=== PATIENT | female | born 2000 | race Caucasian/White ===

== ENCOUNTER 2018-02-14 12:00 | Outpatient (RCR) | payer OTHER, SELFPAY ==
--- NOTE | 2017-11-20 08:20 | HP.PTEVAL ---
Patient's Visit Information SANAZ PARIKH is a 17 year old F referred to Physical Therapy by DO BETH Keita with a diagnosis of L patella/tibia resection. Date of Evaluation: 11/15/17 Physical Therapist: Sunil Tabor - Visit Plan Frequency: 1x/Week Duration: 4 Weeks Plan: Pt. did very well. Pt. does have L hip and quad weakness. She was able to do all work related tasks simulated this date without issues. Pt. and I agree that she can return to work 11/20. I gave her some LE strengthening exercises to assist with knee stability for HEP. Pt. desires to trial HEP on own and follow up if needed. - Subjective Subjective: Pt. is here today for her initial evaluation s/p L patella/tibial resection. She is a plesant 17 y.o. female who had surgery on 10/25/17. She had her follow up with her physician who reprots from the surgery stand point she is doing well, and is to return to work when ready. Pt. reports surgery went well and she is doing better since. She has not done any exercises prior to today. She reports no longer icing as she does not feel the need. Pt. reports L knee pain with walking, deep squating, and stairs. Pt. reports having pain at 3/10 currently. She denies N/T in either LE. 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 She is hopeful to get back to work without limitations. - Pain L knee Pain Intensity (Out of 10): 3 Pain Intensity Range: 1, 4 - Objective POSTURE: Pt. has normal knee positioning in stance. Pt. has full TKE, no gross valgus or varus positioning noted. Pt. has equal wt. shift between bilateral LEs. PALPATION: Pt. has normal heeling incisions (port holes). Pt. has slight edema, non pitting. Pt. has slight tenderness at anterio/medial aspect of joint line. Pt. reports no pain in popliteal fossa. Homans negative. NEUROLOGICAL: Pt. has normal sesnation to light and sharp touch throughout bilateral LEs. Pt. has 2+ bilateral achilles and patellar DTR. Pt. is able to rise on heels and toes without issues, no significant signs of weakness or imbalance. ROM: R knee 0-0-140deg. L knee 0-0-134deg mild increase NW with end range flexion. Pt. reports popping with flexion (intermittently). Pt. has normal hip ROM. MMT- RLE- ankle 5/5 throughout; knee- ext 5/5, flexion 5/5; hip- flexion 5-/5, abd 5-/5, ext 5-/5. LLE- ankle 5/5 throughout; knee -ext 4+/5; flexion 4/5; hip- flexion 4+/5, and 4/5, ext 4+/5. Core strength- fair-. GAIT: Pt. has decreased stance phase on LLE, she has full TKE during stance phase and proper knee flexion. Pt. does have increased L lateral lean during stance phase. STAIRS: Pt. is able to negotiate with reciprocal pattern with 1 HR, but did have slight functional weakness with descending on LLE. FUNCTIONAL TESTING: Simulated pt. transfer with 50# box, no pain or issues reported- compelted from multiple surfaces. Push/pulling 100# sled mild issues, increase no NW. Ambulation 5000+ feet mild increase NW noted. - Goals Goal 1:: Pt. to be I with HEP. Goal Time Frame: 4-6 Weeks Goal 2:: Pt. to have increased LLE strength by 1/2 grade of all effected musculature reducing stress applied to L knee with all work related activities. Goal Time Frame: 4-6 Weeks Goal 3:: Pt. to negotiate steps without increase in symptoms with 1 HR with reciprocal pattern. Goal Time Frame: 4-6 Weeks Goal 4:: Pt. to walk unlimited distances without increase in symptoms allowing for increased independence in home and community. Goal Time Frame: 4-6 Weeks Goal 5:: Pt. to return to work without reports of increased pain. Goal Time Frame: 4-6 Weeks - Rehabilitation Potential Physical Therapy Diagnosis: Pt. has L quad, hip weakness, increased pain and slight hypombility s/p L tibia/patella resection. Pt. would benefit from PT to increase ROM, strength and progress work strengtheing. Rehabilitation Potential: Excellent - Anticipated Interventions Patient/Client Instruction: Educate patient on: Condition, Plan of Care, Risk Factors, Benefits of Fitness Program For the Purpose of:: To improve decision making, To facilitate caregiver knowledge, To improve self management, To prevent re-injury, To improve ability to perform tasks related to life management, To improve tolerance to ADL's Therapeutic Exercise to Include: Strength training, Power training, Endurance training, Balance training, Coordination, Body mechanics, Flexibilty training, Gait and locomotor training, Passive ROM, Active ROM, Gunnar Exercises For the Purpose of:: To decrease pain, To increase ROM, To improve nutrient delivery to tissue, To increase oxygenation perfusion, To improve muscle performance and motor function, To improve ability to perform ADL's, To increase tolerance to activity/condition/position, To improve gait and locomotor functions, To improve health of tissue, To decrease soft tissue restriction, To increase flexibility/ROM, To improve endurance, To improve balance IF ES: Yes Cryotherapy (ice pack, ice massage): Yes For the Purpose of:: To decrease pain, To decrease swelling/inflammation, To increase ROM Thank you for the opportunity to evaluate your patient. For Medicare and Medicare HMO plans, please review the plan of care and approve it. It will need to be FAXED BACK to us at [phone] for Medicare purposes. Please let me know if there are questions or concerns regarding this plan of care. Physician Signature: Date:
--- NOTE | 2018-02-14 13:00 | HP.PTREVAL_ITS ---
Joan Mcnair, DO, It has been my pleasure to treat SANAZ PARIKH over the last 2 visits for L patella/tibia resection. Please see the progress note below for an update on the physical therapy plan of care! Subjective: Pt. arrives today with new script for VMO strengthening, proprioception training and ER strengthening of hip. Pt. reports increased pain with squating, stairs, prolonged walking upto 2 miles, running. Pt. reports locking like feeling with getting up or sitting down after longer periods. Pt. reports having 0/10 pain currently. Objective/Function: ROM 0-0-134deg No pain. MMT: LLE- ankle 5/5 throughout; knee- ext 4/5 mild icnrease NW, flexion 4+/5 NE; hip- flexion 4+/5, abd 4+/5, ext 5-/5, ER 4/5, IR 4+/5. Core strength- fair-. GAIT: pt. ambulates with normal pattern, slight hip IR with knee valgus positioning during L stance phase. STAIRS: Pt. is able to ascend and descend without HR, pt. does have marked difficulty with descending (functional quad/glute weakness). RUNNING: pt. has increased pain with attempts to run initially and with progress. SQUAT : Pt. has increased knee valgus, R wt. shift, and anterior wt. shifting. Pt. would be able to complete all core strengthening/testing, but may have difficulty with running secondary to increased pain. Pt. presents with marked quad and glute medius weakness, along with hip ER weakness. 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 Plan Plan: Pt. to trial HEP on own and follow up in 1-2 weeks. Pt. ensures me she will be dilligent with strengthening at home. Goals Goal 1:: Pt. to be I with HEP. Goal Time Frame: 4-6 Weeks Goal 2:: Pt. to have increased LLE strength by 1/2 grade of all effected musculature reducing stress applied to L knee with all work related activities. Goal Time Frame: 4-6 Weeks Goal 3:: Pt. to negotiate steps without increase in symptoms with 1 HR with reciprocal pattern. Goal Time Frame: 4-6 Weeks Goal 4:: Pt. to walk unlimited distances without increase in symptoms allowing for increased independence in home and community. Goal Time Frame: 4-6 Weeks Goal 5:: Pt. to return to work without reports of increased pain. Goal Time Frame: 4-6 Weeks Anticipated Interventions Patient/Client Instruction: Educate patient on: Condition, Plan of Care, Risk Factors, Benefits of Fitness Program For the Purpose of:: To improve decision making, To facilitate caregiver knowledge, To improve self management, To prevent re-injury, To improve ability to perform tasks related to life management, To improve tolerance to ADL's Therapeutic Exercise to Include: Strength training, Power training, Endurance training, Balance training, Coordination, Body mechanics, Flexibilty training, Gait and locomotor training, Passive ROM, Active ROM, Gunnar Exercises For the Purpose of:: To decrease pain, To increase ROM, To improve nutrient delivery to tissue, To increase oxygenation perfusion, To improve muscle performance and motor function, To improve ability to perform ADL's, To increase tolerance to activity/condition/position, To improve gait and locomotor functions, To improve health of tissue, To decrease soft tissue restriction, To increase flexibility/ROM, To improve endurance, To improve balance IF ES: Yes Cryotherapy (ice pack, ice massage): Yes For the Purpose of:: To decrease pain, To decrease swelling/inflammation, To increase ROM Please do not hesitate to contact me at [phone] by phone or Fax: if you have questions or concerns regarding this new plan of care! Sincerely, Sunil Tabor
--- NOTE | 2018-05-30 16:32 | HP.PT.NRP ---
HP - Discharge Summary (1) - Patient Information SANAZ PARIKH was seen in my office for initial evaluation on 11/15/17. The following Plan of Care was established for this patient: Initial Frequency: 1x/Week Initial Duration: 4 Weeks - Anticipated Interventions Patient/Client Instruction: Educate patient on: Condition, Plan of Care, Risk Factors, Benefits of Fitness Program For the Purpose of:: To improve decision making, To facilitate caregiver knowledge, To improve self management, To prevent re-injury, To improve ability to perform tasks related to life management, To improve tolerance to ADL's Therapeutic Exercise to Include: Strength training, Power training, Endurance training, Balance training, Coordination, Body mechanics, Flexibilty training, Gait and locomotor training, Passive ROM, Active ROM, Gunnar Exercises For the Purpose of:: To decrease pain, To increase ROM, To improve nutrient delivery to tissue, To increase oxygenation perfusion, To improve muscle performance and motor function, To improve ability to perform ADL's, To increase tolerance to activity/condition/position, To improve gait and locomotor functions, To improve health of tissue, To decrease soft tissue restriction, To increase flexibility/ROM, To improve endurance, To improve balance IF ES: Yes Cryotherapy (ice pack, ice massage): Yes For the Purpose of:: To decrease pain, To decrease swelling/inflammation, To increase ROM This patient was last seen in our office 02/14/18. Pertinent comments regarding their Physical therapy will appear below: Pt. was seen for her initial evaluation and 1 follow for VMO strengthening after arthoscopic surgery. Pt. has not been seen since her last visit. She desired to trial exercises on own and follow up with PT if needed. Pt. has not been seen in ~3 months and will be DC from PT at this point in time. At this point I will be discontinuing this patient from physical therapy. I would be happy to see this patient again in the future if found appropriate by the physician. Thank you! Sunil Tabor
== END 2018-02-14 19:00 | disposition home or self-care (01) ==
LOC: PT 12:00
PROVIDERS: Family Provider Physician Assistant; PCP Physician Assistant; Visit Provider Orthopaedic Surgery
DX: Z98.890 Other specified postprocedural states (principal)
CPT/HCPCS: 97110; 97161; 97164

== ENCOUNTER 2018-04-24 22:00 | Emergency (ER) | payer OTHER, SELFPAY ==
[2018-04-24 22:01] VITALS: BP 128/76; PULSE 93; RESP 14; TEMP 36.9; O2SAT 100; BMI 26.1
--- NOTE | 2018-04-24 23:09 | CT_ITS ---
STUDY: CTA OF THE BRAIN REASON FOR EXAM: Female, 17 years old. Headache, blurred vision and nausea since last night. RADIATION DOSAGE (If Supplied By Facility): CTDIvol = ( 25.90 ) mGy, DLP = ( 1154.79 ) mGycm TECHNIQUE: CT angiography was performed with a multi-detector CT scanner. Data acquisition was obtained from the skull base through the vertex following intravenous administration of 100 ml of Isovue-370. MIP images were reconstructed from the axial data set. Post-processing of the angiographic images was performed, with multiplanar reformation and 3D reconstruction. Individualized dose optimization techniques were used for this CT. COMPARISON: CT brain April 07, 2013. FINDINGS: Normal bilateral petrous carotid arteries. Normal right cavernous carotid artery with a normal supraclinoid bifurcation. Normal left cavernous carotid artery with a normal supraclinoid bifurcation. Normal right A1 segments of the anterior cerebral artery. Normal left A1 segments of the anterior cerebral artery. Normal intact anterior communicating artery (ACOM). Normal bilateral A2 segments of the anterior cerebral arteries. Normal right M1 and M2 segments of the middle cerebral arteries, with a normal M1 bifurcation. Normal left M1 and M2 segments of the middle cerebral arteries, with a normal M1 bifurcation. Normal right posterior communicating artery (PCOM). Normal left posterior communicating artery (PCOM). Normal bilateral vertebral arteries. Normal basilar artery with a normal basilar bifurcation. The visualized bilateral superior cerebellar (SCA) arteries are normal. Normal bilateral P1, P2 and visualized P3 segments of the posterior cerebral arteries. There is no demonstrated aneurysm of the mo[place]gan of [place]i. There is no demonstrated abnormality of the visualized brain. CT/CTA Head W/WO Contrast IMPRESSION: Normal [place] of [place] without a demonstrated aneurysm or hemodynamically significant stenosis. Electronically Signed: Jerrell Sanchez MD at 0:38 EDT , Service support ,
[2018-04-24] MEDS: 0.9% Normal Saline 1,000 ML 999 ML IV (23:32)
[2018-04-24] MEDS: Metoclopramide 10 MG/2 ML Vial IV (23:32)
[2018-04-24] MEDS: DiphenhydrAMINE 50 MG/ML Syringe 25 MG IV (23:32)
[2018-04-24 23:47] LABS: Internal QC Validated? YES +Cl - CLEAR BKGD; Pregnancy, Urine Negative Negative
--- NOTE | 2018-04-24 23:49 | ED.VISSUMM ---
- ER Visit Summary Date of Service: 04/24/18 Chief Complaint: Headache History of Present Illness: The patient is a 17 F who developed a rapid onset of headache. It was gradual. This was not sudden. She had some very transient blurred vision. No fever or chills. No weakness in the arms or legs. The headache is improved. She has no vision changes. She has no nausea or vomiting. Physical Examination: Not appear in acute distress. Moist mucous membranes, no obvious facial deformity No C-spine tenderness supple neck. Regular rate and rhythm without any obvious murmurs Clear lungs bilaterally speaking in full sentences without any obvious respiratory distress Abdomen soft and nontender no guarding or rebound Moves all extremities without any difficulty or pain. Skin does not show any obvious rashes or lesions, no trauma. Alert oriented ?3 with no gross focal deficit Emergency Department Course and Treatment: Because of the rapid onset, a CT and CT angiogram was done. Patient will be given IV fluids as well as analgesics. We will reevaluate her. Pending negative imaging she will be discharged. Oncoming emergency physician will check the CT findings. Impression: Headache This note was generated with [employer] dictation software. It may contain incorrect words, spelling, and punctuation that were not noted in review of the chart prior to signing ED Disposition - Plan for ED Patient: Disposition: Home or Assisted Living Chief Complaint: Headache Instructions: ED Cephalgia Unspecified Referrals: Ramila Mcnamara PA [Primary Care Provider] - 3-5 Days
[2018-04-25 01:19] VITALS: BP 111/60; PULSE 75; RESP 14; O2SAT 97
== END 2018-04-25 01:20 | disposition home or self-care (01) ==
PROVIDERS: Emergency Provider Emergency Medicine; Family Provider Physician Assistant; PCP Physician Assistant
DX: R51 Headache (principal)
CPT/HCPCS: 70496; 81025; 96361; 96374; 96375; 99282; J7030; Q9967; A4216

== ENCOUNTER 2018-08-19 17:37 | Emergency (ER) | payer OTHER, SELFPAY ==
[2018-08-19 17:37] VITALS: BP 133/69; PULSE 91; RESP 18; TEMP 36.6; O2SAT 100; BMI 25.0
--- NOTE | 2018-08-19 17:49 | ED.VISSUMM ---
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 Basically 2 days ago and noticed mild redness to her left side of the face with some discharge. She denies any trauma. No fever. No other complaints. No other rashes. Physical Examination: Well-appearing young female. Vital signs are stable and afebrile. No acute distress. Patient does not look septic or toxic. HEENT exam pupils round reactive light. No preauricular lymphadenopathy. There is about a 1 square inch area to the left cheek that is red. Is no significant discomfort to palpation. There is no pus. There is no fluctuance. No pustules. This appears to be early cellulitis. Neck nontender. No lymphadenopathy. Lungs clear to auscultation bilaterally. Heart regular rhythm no murmur. Abdomen soft nontender. She is moving all 4 extremities. Back is nontender. Neurologically she is awake and alert with no focal motor deficits. Test Results: None Emergency Department Course and Treatment: Patient's facial redness is probably early cellulitis. There is no fluctuance nor anything that needs to be incised and drained at this time. I discussed that with her and her parents at bedside. Treatment Plan: P.o. Keflex and Bactrim x1 here. Bactrim and Keflex 1 weeks prescription for each. Return if worse. Follow-up with her primary care provider Shoaib Mcnamara. Disposition: Discharge Impression: Left facial cellulitis This note was generated with [employer] dictation software. It may contain incorrect words, spelling, and punctuation that were not noted in review of the chart prior to signing ED Disposition - Plan for ED Patient: Chief Complaint: Cellulitis Referrals: Ramila Mcnamara PA [Primary Care Provider] -
--- NOTE | 2018-08-19 17:51 | ED.DEP ---
ED Disposition - Plan for ED Patient: Disposition: Home or Assisted Living Chief Complaint: Cellulitis Instructions: ED Staph Infec Abx Tx Only Prescriptions: Cephalexin [Keflex] 500 mg PO Q6 #28 cap Smz/Tmp Ds [Bactrim Ds] 1 tab PO BID #14 tab Referrals: Ramila Mcnamara PA [Primary Care Provider] - 1 Week if not improving Additional Instructions: Warm compresses to the area. Should start to progressively get better if getting worse follow-up your primary care provider or return to the ER. If any signs of an abscess that needs to be incised and drained. Keflex 1 pill 4 times a day till gone. Bactrim 1 pill twice a day till gone.
[2018-08-19] MEDS: Cephalexin 250 MG Capsule 500 MG PO (18:00)
[2018-08-19] MEDS: Smz/Tmp Ds Tablet 1 TABLET PO (18:00)
--- NOTE | 2018-08-19 18:02 | ED.RN ---
PT AND PARENTS EDUCATED ON WRITTEN AND VERBAL DISCHARGE INSTRUCTIONS AND HOME GOING PRESCRIPTIONS. PT VERBALIZES UNDERSTANDING. AMBULATES OUT OF DEPT WITH PARENTS.
== END 2018-08-19 18:03 | disposition home or self-care (01) ==
PROVIDERS: Emergency Provider Emergency Medicine; Family Provider Physician Assistant; PCP Physician Assistant
DX: L03.211 Cellulitis of face (principal); Z86.14 Personal history of Methicillin resistant Staphylococcus aureus infection; Z72.0 Tobacco use
CPT/HCPCS: 99283

== ENCOUNTER 2018-10-27 03:02 | Emergency (ER) | payer OTHER, SELFPAY ==
[2018-10-27 03:03] VITALS: BP 131/66; PULSE 89; RESP 20; TEMP 37.3; O2SAT 100; BMI 26.4
[2018-10-27] MEDS: 0.9% Normal Saline 1,000 ML 1000 ML IV (03:29)
[2018-10-27] MEDS: Ondansetron 4 MG/2 ML Vial IV (03:29)
[2018-10-27] MEDS: Ketorolac 30 MG/ML Syringe IV (03:30)
[2018-10-27 03:31] LABS: Mucous, Urine 0 SEEN /hpf (<or=2+); Red Blood Cells-Urine 0 SEEN /hpf (0-5)
[2018-10-27 03:32] LABS: Absolute Lymphocyte Count 2.37 X10^3/ul (0.83-4.51); Absolute Neutrophil Count 7.2 X10^3/uL (2.0-7.7); Basophil# 0.04 X10^3/uL; Basophil% 0.4 % (0-1); Eosinophil# 0.13 X10^3/uL; Eosinophils% 1.2 % (0-5); Hematocrit 42.9 % (37-47); Lymphocyte # 2.37 X10^3/ul (4.0); Lymphocyte % 22.4 % (19-41); Mean Corp Hgb Conc 32.6 g/gl (32-36); Mean Corpuscular Hgb 29.1 pg (27.0-32.0); Mean Corpuscular Volume 89.2 fL (81-99); Mean Platelet Vol. 9.1 fl (6.2-12.0); Monocyte# 0.79 X10^3/uL; Monocyte% 7.5 % (0-10); Neutrophil # 7.24 X10^3/uL (2.7-7.7); Neutrophil % 68.3 % (47-70); Platelet Count 345 K/mm3 (150-450); RBC Distribution Width CV 13.5 % (11.6-14.6); RBC Distribution Width SD 43.8 fl (35.1-43.9); Red Blood Count 4.81 M/mm3 (4.2-5.4); White Blood Count 10.6 K/mm3 (4.4-11.0)
[2018-10-27 03:33] LABS: Color, Urine Yellow (Yellow); Glucose, Dipstick Normal (Normal); Ketone-Dipstick Negative (Negative); Leukocyte Esterase-Dipstick Negative /ul (Negative); Nitrite-Dipstick Positive (Negative); Occult Blood-Urine Negative /ul (Negative); Protein-Dipstick Negative (Negative); Specific Gravity, Urine 1.015 (1.002-1.030); Urine Bilirubin Dipstick Negative (Negative); Urine Clarity Clear (Clear); Urine Urobilinogen Normal (Normal)
[2018-10-27 03:33] LABS: POSITIVE COUNT NO; POSITIVE DIFFERENTIAL NO; POSITIVE MORPHOLOGY NO
[2018-10-27 03:40] LABS: Internal QC Validated? YES +Cl - CLEAR BKGD; Pregnancy, Urine Negative Negative
[2018-10-27 03:40] LABS: ALB/GLOB Ratio 1.3 RATIO (0.9-2.4); AST(SGOT) 14 U/L (15-37); Alanine Aminotransfer ALT/SGPT 25 U/L (13-56); Albumin, Serum 3.8 g/dL (3.2-5.0); Alkaline Phosphatase 91 U/L (45-117); Anion Gap 9 (5-15); BUN 15 mg/dL (7-18); BUN/Creat Ratio 17.6 RATIO (10-20); Chloride 106 mmol/L (98-107); Creatinine, Serum 0.85 mg/dL (0.55-1.02); EST Glomerular Filtration Rate 90 mL/min (>60); Est Glom Filt Rate - Afr Amer 109 mL/min (>60); Estimated Creatinine Clearance 98.83 ml/min; Glucose 103 mg/dL (74-106); Lipase 102 U/L (73-393); Potassium 3.8 mmol/L (3.5-5.1); Protein, Total 6.8 g/dL (6.4-8.2); Sodium Level 142 mmol/L (136-145)
[2018-10-27 03:44] LABS: Bacteria 1+ /hpf (None Seen); Squamous Epithelial Cells - UA 0-5 SEEN /hpf (5-10); White Blood Cells 0-5 SEEN /hpf (0-5)
--- NOTE | 2018-10-27 03:55 | ED.VISSUMM ---
- ER Visit Summary Date of Service: 10/27/18 Chief Complaint: Right upper quadrant abdominal and flank pain. History of Present Illness: The patient is a 18 F who presents with abdominal and flank pain. This began abruptly about 30 minutes prior to presentation. She describes as stabbing. It is in her right upper quadrant flank and radiates through to the back. It was 9 out of 10 at home however has already improved to 5 out of 10. No associated symptoms such as fevers nausea vomiting diarrhea chest pain shortness of breath urinary symptoms such as dysuria frequency or urgency. Physical Examination: Afebrile vitals unremarkable No apparent distress Moist mucous membranes Heart regular rate and rhythm Lungs are clear Abdomen soft nondistended with normal bowel sounds she does have mild right upper quadrant tenderness no Glass's sign No reproducible back/flank/CVA tenderness Test Results: CBC CMP lipase all normal. Urinalysis shows positive nitrites but no leukocyte esterase or pyuria. is negative. Emergency Department Course and Treatment: Workup unremarkable as above. We discussed the possibility of biliary colic. She does not have evidence of acute cholecystitis based on exam and laboratory studies. I do not see an indication for emergent imaging. She was advised to follow-up with her primary care physician for follow-up and possible further outpatient workup especially if symptoms continue. She understands return for new or worsening symptoms including but not limited to fevers or vomiting. All questions answered bedside. Patient family agreeable this plan she was discharged home. Treatment Plan: [] Disposition: Discharge Impression: Right upper quadrant abdominal pain This note was generated with [employer] dictation software. It may contain incorrect words, spelling, and punctuation that were not noted in review of the chart prior to signing ED Disposition - Plan for ED Patient: Chief Complaint: Flank Pain Referrals: Ramila Mcnamara PA [Primary Care Provider] -
--- NOTE | 2018-10-27 03:57 | ED.DEP ---
ED Disposition - Plan for ED Patient: Chief Complaint: Flank Pain Instructions: ED Abdominal Pain Unkn Cause Referrals: Ramila Mcnamara PA [Primary Care Provider] -
[2018-10-27 04:11] VITALS: BP 114/64; PULSE 76; RESP 18; O2SAT 100
== END 2018-10-27 04:13 | disposition home or self-care (01) ==
PROVIDERS: Emergency Provider Emergency Medicine; Family Provider Physician Assistant; PCP Physician Assistant
DX: R10.11 Right upper quadrant pain (principal); Z72.0 Tobacco use
CPT/HCPCS: 80053; 81001; 81025; 83690; 85025; 96361; 96374; 96375; 99285; J7030; J2405

== ENCOUNTER 2018-12-25 07:42 | Emergency (ER) | payer OTHER, SELFPAY ==
[2018-12-25 07:43] VITALS: BP 122/77; PULSE 111; RESP 18; TEMP 36.6; O2SAT 96; BMI 25.8
--- NOTE | 2018-12-25 08:02 | ED.DCSUM_ITS ---
- ER Visit Summary Date of Service: 12/25/18 Chief Complaint: Abdominal pain History of Present Illness: The patient is a 18 F presenting with abdominal pain. Patient states she started having nausea and vomiting early this morning. She has had 4 episodes of vomiting and one episode of diarrhea. She denies blood in her stool or emesis. She complains of right upper quadrant pain that radiates to her right back. Denies fever. Denies urinary complaints. She is unsure if she could be . Denies other complaints Physical Examination: Vitals are stable. Patient is afebrile. Alert no acute distress. HEENT exam is unremarkable. Neck is supple. Lungs are clear and equal bilaterally. Heart is regular rate and rhythm. Abdomen is soft right upper quadrant tenderness with no rebound or guarding Back: Mild right CVA tenderness Extremities are unremarkable. Skin is warm and dry. Remainder of exam is unremarkable. Emergency Department Course and Treatment: Patient was given IV fluids, Zofran. CBC normal except for white count 12.4. Chemistries unremarkable. Liver lipase are normal. Urinalysis shows positive leukocytes and positive nitrite, 10-25 white blood cells, 2+ bacteria. HCG negative. On reevaluation, patient is resting comfortably. She was given Tylenol and Cipro. She is able to tolerate p.o. challenge. She is given prescription for Phenergan and Cipro. She is advised to follow-up with her primary care physician. Advised return to ED if worsening complaints. Disposition: Discharge home Impression: Pyelonephritis This note was generated with [employer] dictation software. It may contain incorrect words, spelling, and punctuation that were not noted in review of the chart prior to signing ED Disposition - Plan for ED Patient: Instructions: ED Kidney Infec Female Prescriptions: proMETHazine tablet [Phenergan] 25 mg PO Q6H PRN PRN #10 tablet PRN Reason: Nausea Ciprofloxacin [Cipro] 500 mg PO BID #14 tablet Referrals: Ramila Mcnamara PA [Primary Care Provider] -
[2018-12-25] MEDS: 0.9% Normal Saline 1,000 ML 1000 ML IV (08:30)
[2018-12-25] MEDS: Ondansetron 4 MG/2 ML Vial IV (08:30)
[2018-12-25 08:36] LABS: Absolute Lymphocyte Count 0.55 X10^3/ul (0.83-4.51); Absolute Neutrophil Count 11.1 X10^3/uL (2.0-7.7); Basophil# 0.01 X10^3/uL; Basophil% 0.1 % (0-1); Eosinophil# 0.09 X10^3/uL; Eosinophils% 0.7 % (0-5); Hematocrit 44.6 % (37-47); Hemoglobin 14.5 g/dl (12.0-15.0); Lymphocyte # 0.55 X10^3/ul (4.0); Lymphocyte % 4.5 % (19-41); Mean Corp Hgb Conc 32.5 g/gl (32-36); Mean Corpuscular Hgb 29.4 pg (27.0-32.0); Mean Corpuscular Volume 90.5 fL (81-99); Mean Platelet Vol. 8.8 fl (6.2-12.0); Monocyte# 0.59 X10^3/uL; Monocyte% 4.8 % (0-10); Neutrophil # 11.08 X10^3/uL (2.7-7.7); Neutrophil % 89.7 % (47-70); Platelet Count 333 K/mm3 (150-450); RBC Distribution Width CV 13.2 % (11.6-14.6); RBC Distribution Width SD 43.4 fl (35.1-43.9); Red Blood Count 4.93 M/mm3 (4.2-5.4); White Blood Count 12.4 K/mm3 (4.4-11.0)
[2018-12-25 08:42] LABS: Differential Indicated SCAN CRITERIA MET; POSITIVE COUNT NO; POSITIVE DIFFERENTIAL YES; POSITIVE MORPHOLOGY NO
[2018-12-25 08:54] LABS: Color, Urine Yellow (Yellow); Glucose, Dipstick Normal (Normal); Ketone-Dipstick Negative (Negative); Leukocyte Esterase-Dipstick 100 /ul (Negative); Mucous, Urine 0 SEEN /hpf (<or=2+); Nitrite-Dipstick Positive (Negative); Occult Blood-Urine Negative /ul (Negative); Protein-Dipstick Negative (Negative); Red Blood Cells-Urine 0 SEEN /hpf (0-5); Urine Bilirubin Dipstick Negative (Negative); Urine Clarity Sl. Cloudy (Clear); Urine Urobilinogen Normal (Normal)
[2018-12-25 09:02] LABS: AST(SGOT) 17 U/L (15-37); Alanine Aminotransfer ALT/SGPT 22 U/L (13-56); Albumin, Serum 4.3 g/dL (3.2-5.0); Alkaline Phosphatase 94 U/L (45-117); Anion Gap 11 (5-15); BUN 19 mg/dL (7-18); BUN/Creat Ratio 23.3 RATIO (10-20); Bilirubin, Direct 0.14 mg/dL (0.00-0.30); Calcium,Total 8.5 mg/dL (8.5-10.1); Chloride 105 mmol/L (98-107); Creatinine, Serum 0.82 mg/dL (0.55-1.02); EST Glomerular Filtration Rate 94 mL/min (>60); Est Glom Filt Rate - Afr Amer 114 mL/min (>60); Estimated Creatinine Clearance 102.45 ml/min; Globulin 3.3 g/dL (2.2-4.2); Glucose 105 mg/dL (74-106); Lipase 110 U/L (73-393); Potassium 4.2 mmol/L (3.5-5.1); Protein, Total 7.6 g/dL (6.4-8.2); Sodium Level 142 mmol/L (136-145)
[2018-12-25 09:05] LABS: Bacteria 2+ /hpf (None Seen); Squamous Epithelial Cells - UA 5-10 SEEN /hpf (5-10); White Blood Cells 10-25 SEEN /hpf (0-5)
[2018-12-25 09:08] LABS: Differential Comment SCANNED
[2018-12-25 09:10] LABS: Pregnancy, Serum, hCG Quali. NEGATIVE Negative (0-9 Nonpreg)
--- NOTE | 2018-12-25 09:37 | ED.DEP ---
ED Disposition - Plan for ED Patient: Instructions: ED Kidney Infec Female Prescriptions: proMETHazine tablet [Phenergan] 25 mg PO Q6H PRN PRN #10 tablet PRN Reason: Nausea Ciprofloxacin [Cipro] 500 mg PO BID #14 tablet Referrals: Ramila Mcnamara PA [Primary Care Provider] -
[2018-12-25] MEDS: Ciprofloxacin 500 MG Tablet PO (09:51)
[2018-12-25] MEDS: Acetaminophen 500 MG Tablet 1000 MG PO (09:51)
[2018-12-25 11:20] VITALS: BP 110/78; PULSE 78; RESP 18; O2SAT 98
== END 2018-12-25 11:21 | disposition home or self-care (01) ==
LOC: ED 08:08
PROVIDERS: Emergency Provider Emergency Medicine; Family Provider Physician Assistant; PCP Physician Assistant
DX: N12 Tubulo-interstitial nephritis, not specified as acute or chronic (principal); Z72.0 Tobacco use
CPT/HCPCS: 80048; 80076; 81001; 83690; 84703; 85025; 96361; 96374; 99284; J7030; A4216; J2405

== ENCOUNTER 2019-11-14 18:35 | Observation (INO) | payer OTHER, SELFPAY ==
[2019-11-14 18:36] VITALS: BP 129/80; PULSE 110; RESP 16; TEMP 37.8; O2SAT 98; BMI 26.5
[2019-11-14 19:37] LABS: Mucous, Urine 0 SEEN /hpf (<or=2+)
[2019-11-14 19:43] LABS: Color, Urine Yellow (Yellow); Glucose, Dipstick Normal (Normal); Ketone-Dipstick Negative (Negative); Leukocyte Esterase-Dipstick 500 /ul (Negative); Nitrite-Dipstick Negative (Negative); Occult Blood-Urine 150 /ul (Negative); Protein-Dipstick 30 mg/dl (Negative); Urine Bilirubin Dipstick Negative (Negative); Urine Clarity Cloudy (Clear); Urine Urobilinogen Normal (Normal)
[2019-11-14 19:46] LABS: Internal QC Validated? YES +Cl - CLEAR BKGD; Pregnancy, Urine Negative Negative
[2019-11-14 19:52] LABS: Absolute Lymphocyte Count 1.71 X10^3/uL (0.83-4.51); Absolute Neutrophil Count 14.6 X10^3/uL (2.0-7.7); Basophil# 0.04 X10^3/uL; Basophil% 0.2 % (0-1); Eosinophil# 0.05 X10^3/uL; Eosinophils% 0.3 % (0-5); Hematocrit 45.4 % (37-47); Hemoglobin 14.8 g/dL (12.0-15.0); Lymphocyte # 1.71 X10^3/ul (4.0); Lymphocyte % 9.7 % (19-41); Mean Corp Hgb Conc 32.6 g/dL (32-36); Mean Corpuscular Hgb 28.7 pg (27.0-32.0); Mean Platelet Vol. 8.7 fl (6.2-12.0); Monocyte# 1.14 X10^3/uL; Monocyte% 6.5 % (0-10); NRBC Flagged by Analyzer 0 % (0-5); Neutrophil # 14.63 X10^3/uL (2.7-7.7); Platelet Count 353 K/mm3 (150-450); RBC Distribution Width CV 12.8 % (11.6-14.6); RBC Distribution Width SD 41.5 fl (35.1-43.9); Red Blood Count 5.16 M/mm3 (4.2-5.4); White Blood Count 17.6 K/mm3 (4.4-11.0)
[2019-11-14] MEDS: 0.9% Normal Saline 1,000 ML 1000 ML IV (19:52)
[2019-11-14] MEDS: Ondansetron 4 MG/2 ML Vial IV (19:52)
[2019-11-14] MEDS: Ketorolac 15 MG/ML Vial IV (19:52)
[2019-11-14 20:08] LABS: Anion Gap 3 (5-15); BUN 10 mg/dL (7-18); BUN/Creat Ratio 13.5 RATIO (10-20); Calcium,Total 9.7 mg/dL (8.5-10.1); Chloride 106 mmol/L (98-107); Creatinine, Serum 0.74 mg/dL (0.55-1.02); EST Glomerular Filtration Rate 105 mL/min (>60); Est Glom Filt Rate - Afr Amer 127 mL/min (>60); Estimated Creatinine Clearance 112.58 ml/min; Glucose 101 mg/dL (74-106); Potassium 3.7 mmol/L (3.5-5.1); Sodium Level 137 mmol/L (136-145)
[2019-11-14 20:16] LABS: White Blood Cells >100 SEEN /hpf (0-5)
[2019-11-14 20:18] LABS: Red Blood Cells-Urine 5-10 SEEN /hpf (0-5); Squamous Epithelial Cells - UA 5-10 SEEN /hpf (5-10)
[2019-11-14 20:19] LABS: Bacteria 1+ /hpf (None Seen)
--- NOTE | 2019-11-14 22:05 | PCM.HP.STD ---
Problem List (1) Sepsis Status: Acute Qualifiers: Sepsis type: sepsis due to unspecified organism Sepsis acute organ dysfunction status: unspecified Qualified Code(s): A41.9 - Sepsis, unspecified organism (2) Pyelonephritis Status: Acute (3) Tobacco use Status: Chronic History of Present Illness Date of Admission: 11/14/19 Chief Complaint: Dysuria, back pain, recent PCP evaluation with abx for UTI The patient is a 19 y/o F w/ PMHx: Tobacco use, History of Frequent UTIs who presents to the [facility] ED on 11/14/19 with history of 1 week history of increasing fatigue, malaise as well as onset of foul-smelling urine prompting PCP evaluation on day of ED presentation especially given onset of right flank pain, severe, sharp in nature, worse with movement and palpation, 7-8 out of 10 in severity with associated nausea with no emesis as well as subjective fevers intermittently over the last several days with initiation of oral ciprofloxacin but only 1 dose but given severity of symptoms eventually presented to the ED for evaluation. Patient notes last urinary tract infection was 1 to 2 years prior with a cold at that time noted to be pansensitive. She denies any history of nephrolithiasis. Work-up in the ED included T1 100, heart rate 110, BP 129/80, respiratory rate 16, 98% on room air, CBC with WBC 17.6, hemoglobin 14.8, platelet 353 with notable left shift, BMP not market appearing, lactic acid requested, urinalysis with cloudy appearing urine, specific gravity 1.010, protein 30, occult blood 150, negative nitrite, leukocyte esterase 500, RBC 5-10, WBC greater than 100, squamous epithelial cells 5-10 with 1+ urine bacteria, negative test, urine culture pending per ED. In the ED patient ministered normal saline, Zofran, Toradol 50 mg IV x1 as well as Rocephin. Past Medical History Past Medical History (Chronic Problems): Chronic Problems Tobacco use (Chronic) Allergies sulfamethoxazole [From Bactrim] Allergy (Verified 11/14/19 18:40) Rash trimethoprim [From Bactrim] Allergy (Verified 11/14/19 18:40) Rash Home Medications: Ambulatory Orders Medication Instructions Recorded Ciprofloxacin [Cipro] 500 mg PO BID #14 tablet 12/25/18 Surgical History: Surgical History (Last Updated 11/09/17 @ 15:59 by Rosalina Real) S/P left knee arthroscopy Z98.890 10/25/17 S/P appendectomy Z90.49 12/2016 [place] teeth extracted K08.499 02/2016 Surgical History: - - Appendectomy, left arthroscopic knee surgery. 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 Smoking Status: Current every day smoker - Patient smokes less than 1/2 pack/day cigarette tobacco usage. Tobacco Use: Cigarettes Alcohol: Occasional Drugs: None - *Family History Maternal Family History: Family History (Last Reviewed 11/09/17 @ 15:49 by Rosalina Real) Mother Hypertension History Items: Hypertension Paternal Family History: Family History (Last Reviewed 11/09/17 @ 15:49 by Rosalina Real) Mother Hypertension History Items: Diabetes, High Cholesterol, Hypertension Review of Systems Constitutional: Reports: Anorexia, Fever, Malaise, Fatigue. Denies: Chills, Weight Change HEENT: Denies: Head Aches, Sinus Congestion, Sinus Drainage Cardiovascular: Denies: Chest Pain, Palpitations Respiratory: Denies: Cough, Shortness of breath at rest, Sputum production Gastrointestinal: Reports: Nausea. Denies: Abdominal Pain, Vomiting Genitourinary: Reports: - - Foul smelling urine.. Denies: Dysuria Musculoskeletal: Reports: Back Pain. Denies: Joint Pain, Joint Tenderness Skin: Denies: Rash, Wounds Neurological: Denies: Numbness, Tingling, Focal weakness Psychiatric: Denies: Anxiety, Depression, Homicidal Ideations, Suicidal Ideations Hematologic/ Lymphatic: Denies: Easy Bruising, Easy Bleeding VTE Information - Inpt Only VTE Present on Admission: No VTE Mechan Device Prophylaxis: None VTE Pharm Prophylaxis ordered?: No Reason prophylaxis not ordered:: Treatment Not Indicated Patient Problems: Active and Suspected Problems (Last Reviewed 11/09/17 @ 15:49 by Rosalina Real) Sepsis (Acute) Pyelonephritis (Acute) Subjective: Seated upright in ED bed, fatigued appearance, discomfort with certain movements and with flank palpation but otherwise notes feeling improved the ED medications. Objective: Physical Examination: General: awake, alert, oriented x 3 and cooperative, seated upright in the ED bed, fatigued and ill-appearing, no acute distress currently, improved since ED medication administration. Skin: normal color, turgor, no icterus, cyanosis. HEENT: AT/NC, EOMI, PERRLA, dry MM, no carotid bruits or JVD noted. Lungs: CTA bilaterally, moderate effort, mild decrease BL bases, no rales, ronchi or wheezing. Heart: Mildly tachycardic with regular rhythm; no gallop, rub audible. Abdomen: soft, NTTP to abdomen however positive right-sided flank discomfort with palpation, ND, normal BS, no HSM. Extremities: no cyanosis, clubbing, or edema. Neurological: patient awake, alert, oriented x 3; cognitive function intact; pupils equally reactive to light and accomodation; cranial nerves II-XII grossly normal, moving all 4 extremities, no focal deficits, strength mildly to moderately global decrease secondary to acute presentation and complaints. Psychiatric: affect appears fatigued, ill, no acute evidence of depressive or anxiety feelings. - Physical Exam Vitals/I&O's: Vital Signs Temp Pulse Resp BP Pulse Ox 100.0 F H 110 H 16 129/80 H 98 11/14/19 18:36 11/14/19 18:36 11/14/19 18:36 11/14/19 18:36 11/14/19 18:36 Oxygen Delivery Method Room Air Weight: 164 lb 7.437 oz Body Mass Index (BMI) 26.5 Intake and Output for Last 24 Hours 11/12/19 11/13/19 11/14/19 23:59 23:59 23:59 Intake Total 1000 / 1000 Balance 1000 / 1000 Laboratory Results 11/14/19 19:25: Urine Test Negative 11/14/19 19:25: Urine Color Yellow, Urine Clarity Cloudy, Urine pH 7.0, Ur Specific [place] 1.010, Urine Protein 30 H, Urine Glucose (UA) Normal, Urine Ketones Negative, Urine Occult Blood 150 H, Urine Nitrite Negative, Urine Bilirubin Negative, Urine Urobilinogen Normal, Ur Leukocyte Esterase 500 H, Urine RBC 5-10 SEEN, Urine WBC >100 SEEN, Ur Squamous Epith Cells 5-10 SEEN, Urine Bacteria 1+, Urine Mucus 0 SEEN 11/14/19 19:45: WBC 17.6 H, RBC 5.16, Hgb 14.8, Hct 45.4, MCV 88.0, MCH 28.7, MCHC 32.6, RDW Std Deviation 41.5, RDW Coeff of [place]ita 12.8, Plt Count 353, MPV 8.7, Immature Gran % (Auto) 0.300, Neut % (Auto) 83.0 H, Lymph % (Auto) 9.7 L, [place] % (Auto) 6.5, Eos % (Auto) 0.3, Baso % (Auto) 0.2, Absolute Neuts (auto) 14.6 H, Absolute Lymphs (auto) 1.71, Nucleated RBC % 0 11/14/19 19:45: Sodium 137, Potassium 3.7, Chloride 106, Carbon Dioxide 28.0, Anion Gap 3 L, BUN 10, Creatinine 0.74, Estim Creat Clear Calc 112.58, Est GFR (MDRD) Af Amer 127, Est GFR (MDRD) Non-Af 105, BUN/Creatinine Ratio 13.5, Glucose 101, Calcium 9.7 Current Medications Ceftriaxone Sodium (Rocephin) 1 gm in 50 mls @ 100 mls/hr IV X1 ONE Stop: 11/14/19 22:15 Assessment/Plan All Active Problems (Last Reviewed 11/09/17 @ 15:49 by Rosalina Real) Sepsis (Acute) Pyelonephritis (Acute) The patient is a 19 y/o F w/ PMHx: Tobacco use, History of Frequent UTIs who presents to the [facility] ED on 11/14/19 with history of 1 week history of increasing fatigue, malaise as well as onset of foul-smelling urine prompting PCP evaluation on day of ED presentation especially given onset of right flank pain, severe, worse with movement and palpation, 7-8 out of 10 in severity with associated nausea with no emesis as well as subjective fevers. 1. Acute Sepsis secondary to Complicated Urinary Tract Infection w/ Suspected Pyelonephritis: Will admit to [facility] requested, UA upon ED evaluation remarkable, pending UCx, continue IVFs, monitor I/Os, continue IV Rocephin w/ transition as able pending sensitivities and speciation. Given patient history of frequent UTIs, amenable to referral to Dr. Christensen, urologist upon discharge. 2. Tobacco Abuse: Encouraged cessation, inpatient consultation per RT, NR if desired. 3. DVT prophylaxis: Low risk, ambulation. Code Visit Inpatient E&M: 07334 Init Hosp L2
[2019-11-14] MEDS: Ceftriaxone 1 GM/50 ML BAG IV (22:08)
[2019-11-14 22:09] VITALS: BP 116/64; PULSE 92; RESP 16; TEMP 37.2; O2SAT 99
--- NOTE | 2019-11-14 22:17 | ED.VISSUMM ---
- ER Visit Summary Date of Service: 11/14/19 Chief Complaint: Back pain History of Present Illness: The patient is a 19 F with back pain. Symptoms started early this morning. They radiate to the right flank. She was diagnosed with a UTI and started on Cipro today. She had 1 dose. Denies any history of kidney stones. She does have a history of UTIs. She is allergic to Bactrim. Physical Examination: Temperature 100 and heart rate 110. Patient has right flank tenderness. No guarding or rebound. Otherwise exam unremarkable. Test Results: White count 17.6. test negative. Urinalysis shows signs of infection without significant bleeding. Cultures pending. Emergency Department Course and Treatment: Patient treated with fluids, Zofran, Toradol. Work-up indicated a UTI, pyelonephritis. There is nothing to suggest kidney stone. The pain and symptoms are not consistent with that. Patient was treated with Rocephin. She meets sepsis criteria and will be admitted for further care. Treatment Plan: Above Disposition: Admission Impression: Pyelonephritis Sepsis This note was generated with [employer] dictation software. It may contain incorrect words, spelling, and punctuation that were not noted in review of the chart prior to signing ED Disposition - Plan for ED Patient: Referrals: Ramila Mcnamara PA [Primary Care Provider] -
[2019-11-14 23:23] VITALS: BMI 27.0
[2019-11-14 23:27] VITALS: BMI 27.0
[2019-11-14 23:36] VITALS: BP 118/62; PULSE 89; RESP 16; TEMP 36.9; O2SAT 100
[2019-11-14] MEDS: 0.9% Normal Saline 1,000 ML 125 ML IV (23:52)
[2019-11-14] MEDS: 0.9% Normal Saline 1,000 ML 999 ML IV (23:52)
[2019-11-14] MEDS: oxyCODONE 5 MG Tablet PO (23:52)
[2019-11-15] MEDS: Temazepam 15 MG Capsule PO (00:17)
[2019-11-15 04:07] LABS: Reflex Lactate? Y
[2019-11-15 04:36] LABS: Absolute Lymphocyte Count 2.71 X10^3/uL (0.83-4.51); Basophil# 0.04 X10^3/uL; Basophil% 0.4 % (0-1); Eosinophils% 0.9 % (0-5); Hematocrit 37.3 % (37-47); Hemoglobin 11.8 g/dL (12.0-15.0); Lymphocyte # 2.71 X10^3/ul (4.0); Lymphocyte % 25.3 % (19-41); Mean Corp Hgb Conc 31.6 g/dL (32-36); Mean Corpuscular Hgb 28.4 pg (27.0-32.0); Mean Corpuscular Volume 89.7 fL (81-99); Mean Platelet Vol. 8.9 fl (6.2-12.0); Monocyte# 0.87 X10^3/uL; Monocyte% 8.1 % (0-10); NRBC Flagged by Analyzer 0 % (0-5); Neutrophil # 6.96 X10^3/uL (2.7-7.7); Neutrophil % 64.9 % (47-70); Platelet Count 282 K/mm3 (150-450); RBC Distribution Width CV 13.1 % (11.6-14.6); RBC Distribution Width SD 42.8 fl (35.1-43.9); Red Blood Count 4.16 M/mm3 (4.2-5.4); White Blood Count 10.7 K/mm3 (4.4-11.0)
[2019-11-15 05:08] VITALS: BP 102/54; PULSE 90; RESP 16; TEMP 36.9; O2SAT 99
[2019-11-15 05:09] LABS: Anion Gap 4 (5-15); BUN 11 mg/dL (7-18); BUN/Creat Ratio 17.9 RATIO (10-20); Calcium,Total 7.8 mg/dL (8.5-10.1); Chloride 113 mmol/L (98-107); Creatinine, Serum 0.61 mg/dL (0.55-1.02); EST Glomerular Filtration Rate 130 mL/min (>60); Est Glom Filt Rate - Afr Amer 157 mL/min (>60); Estimated Creatinine Clearance 136.57 ml/min; Glucose 100 mg/dL (74-106); Potassium 3.6 mmol/L (3.5-5.1); Sodium Level 141 mmol/L (136-145)
[2019-11-15 05:12] LABS: Lactic Acid 0.9 mmol/L (0.4-1.9)
[2019-11-15 07:52] VITALS: BP 107/56; PULSE 84; RESP 16; TEMP 36.5; O2SAT 100
[2019-11-15] MEDS: 0.9% Saline Lock 10 ML Syringe IV ×2 (08:07→16:54)
[2019-11-15] MEDS: Ondansetron 4 MG/2 ML Vial IV ×2 (08:07→20:53)
[2019-11-15] MEDS: Morphine 2 MG/ML Syringe IV ×3 (08:07→20:48)
[2019-11-15] MEDS: 0.9% Normal Saline 1,000 ML 125 ML IV ×2 (08:11→15:57)
[2019-11-15] MEDS: Famotidine 20 MG Tablet PO (10:09)
--- NOTE | 2019-11-15 11:10 | CASEMGMT ---
RN CM Face to Face with patient for initial transition planning/care coordination assessment. RN CM introduced self and role at [facility]. Patient lying in bed, alert and oriented. Patient willing to participate in assessment and is able to answer all questions appropriately. Care providers, pharmacy, and demographics verified. Patient wishes to discharge home, denies need for home health at this time. Patient states she has no further needs or concerns at this time. CM to follow for discharge planning needs that may arise. PCP: Anders Specialists: none Preferred Pharmacy: [facility] Insurance: [facility] Prescription Benefit: yes Living Will/HPOA: none LNOK: boyfriend, parents Living Arrangements: Patient lives with boyfriend in 2 story home with bed and bath. Patient indepednent at home. Transportation: self, boyfriend, family DME/HHC: Patient denies need for DME or HHC. Disposition Plan: Patient to discharge home with family support and follow-up plans in place. Maddi LEZAMA, RN, CM
[2019-11-15 13:52] VITALS: BP 108/56; PULSE 83; RESP 16; TEMP 36.7; O2SAT 100
[2019-11-15] MEDS: oxyCODONE 5 MG Tablet PO (13:57)
[2019-11-15 14:35] VITALS: O2SAT 99
--- NOTE | 2019-11-15 15:59 | PN_ITS ---
Patient Problems: Active and Suspected Problems (Last Reviewed 11/09/17 @ 15:49 by Rosalina Real) Sepsis (Acute) Pyelonephritis (Acute) Subjective: Patient was seen and examined today, she complains of fatigue, she still has some right sided flank pain. Patient denies any fever or chills. Patient is afebrile today, her white blood cell count was normal today. - Physical Exam Vitals/I&O's: Vital Signs Temp Pulse Resp BP Pulse Ox 98.1 F 83 16 108/56 L 99 11/15/19 13:52 11/15/19 13:52 11/15/19 13:52 11/15/19 13:52 11/15/19 14:35 Oxygen Delivery Method Room Air Weight: 75.9 kg Body Mass Index (BMI) 27.0 Intake and Output for Last 24 Hours 11/13/19 11/14/19 11/15/19 23:59 23:59 23:59 Intake Total 1052.08 / 1052.08 3758.33 / 3758.33 Output Total 2550 / 2550 Balance 1052.08 / 1052.08 1208.33 / 1208.33 General: Alert, Oriented x3, Cooperative, No apparent distress, Well developed HEENT: Atraumatic, PERRLA, EOMI, Normocephalic Oral: Moist Mucosa Neck: Supple, Trachea Midline, Thyroid Normal Size and Texture Lungs: Clear to auscultation, Normal air movement, No rhonchi, No wheeze, No rales Cardiovascular: Regular rate, Regular Rhythm, Normal S1, Normal S2, No murmurs Abdomen: Bowel Sounds Present, Soft, Non Tender, Non-Distended Extremities: No clubbing, No cyanosis, No edema, Capillary Refill Less than 3 Seconds Skin: No rashes, No breakdown Musculoskeletal: No Tenderness to Palpation of Joints or Extremities Neurological: Cranial nerves II-XII grossly intact, Neuro grossly intact, Sensory exam intact to light touch and pain Psych/Mental Status: Normal Affect, Appropriate, Alert and oriented to time, place, person, mood and affect Laboratory Results 11/14/19 19:25: Urine Test Negative 11/14/19 19:25: Urine Color Yellow, Urine Clarity Cloudy, Urine pH 7.0, Ur Specific [place] 1.010, Urine Protein 30 H, Urine Glucose (UA) Normal, Urine Ketones Negative, Urine Occult Blood 150 H, Urine Nitrite Negative, Urine Bilirubin Negative, Urine Urobilinogen Normal, Ur Leukocyte Esterase 500 H, Urine RBC 5-10 SEEN, Urine WBC >100 SEEN, Ur Squamous Epith Cells 5-10 SEEN, Urine Bacteria 1+, Urine Mucus 0 SEEN 11/14/19 19:45: WBC 17.6 H, RBC 5.16, Hgb 14.8, Hct 45.4, MCV 88.0, MCH 28.7, M CHC 32.6, RDW Std Deviation 41.5, RDW Coeff of Perlita 12.8, Plt Count 353, MPV 8.7, Immature Gran % (Auto) 0.300, Neut % (Auto) 83.0 H, Lymph % (Auto) 9.7 L, [place] % (Auto) 6.5, Eos % (Auto) 0.3, Baso % (Auto) 0.2, Absolute Neuts (auto) 14.6 H, Absolute Lymphs (auto) 1.71, Nucleated RBC % 0 11/14/19 19:45: Sodium 137, Potassium 3.7, Chloride 106, Carbon Dioxide 28.0, Anion Gap 3 L, BUN 10, Creatinine 0.74, Estim Creat Clear Calc 112.58, Est GFR (MDRD) Af Amer 127, Est GFR (MDRD) Non-Af 105, BUN/Creatinine Ratio 13.5, Glucose 101, Calcium 9.7 11/14/19 23:28: Lactic Acid 2.0 11/15/19 04:26: WBC 10.7, RBC 4.16 L, Hgb 11.8 L, Hct 37.3, MCV 89.7, MCH 28.4, MCHC 31.6 L, RDW Std Deviation 42.8, RDW Coeff of Perlita 13.1, Plt Count 282, MPV 8.9, Immature Gran % (Auto) 0.400, Neut % (Auto) 64.9, Lymph % (Auto) 25.3, [place] % (Auto) 8.1, Eos % (Auto) 0.9, Baso % (Auto) 0.4, Absolute Neuts (auto) 7.0, Absolute Lymphs (auto) 2.71, Nucleated RBC % 0 11/15/19 04:26: Sodium 141, Potassium 3.6, Chloride 113 H, Carbon Dioxide 24.0, Anion Gap 4 L, BUN 11, Creatinine 0.61, Estim Creat Clear Calc 136.57, Est GFR (MDRD) Af Amer 157, Est GFR (MDRD) Non-Af 130, BUN/Creatinine Ratio 17.9, Glucose 100, Calcium 7.8 L 11/15/19 04:26: Lactic Acid 0.9 Current Medications Acetaminophen (Tylenol) 650 mg PO Q6H PRN PRN PRN Reason: Pain Score 1-3/Temp > 100.7 F Al Hydroxide/Mg Hydroxide (Mylanta Ii) 30 ml PO Q6H PRN PRN PRN Reason: Gastric Burning Albuterol Sulfate (Ventolin Aerosols) 2.5 mg INHALATION Q2H PRN PRN PRN Reason: Shortness of Breath/Wheezing Famotidine (Pepcid) 20 mg PO BID [facility] Last Admin: 11/15/19 10:09 Dose: 20 mg Documented by: Glucagon () 1 mg IM .X1 PRN PRN Reason: Hypoglycemia Guaifenesin (Robitussin) 20 ml PO Q4H PRN PRN PRN Reason: COUGH Sodium Chloride () 1,000 mls @ 125 mls/hr IV .Q8H KENDRA Last Admin: 11/15/19 15:57 Dose: 125 mls/hr Documented by: Ceftriaxone Sodium (Rocephin) 1 gm in 50 mls @ 100 mls/hr IV Q24H KENDRA Dextrose (Dextrose 10%-Water) 250 mls @ 999 mls/hr IV .Q16M PRN; Protocol PRN Reason: HYPOGLYCEMIA Sodium Chloride () 250 mls @ 15 mls/hr IV .[id number] PRN PRN Reason: Saline Flush Sodium Chloride () 250 mls @ 15 mls/hr IV .[id number] PRN PRN Reason: Additional IVPB Infusion Magnesium Hydroxide (Milk Of Magnesia) 30 ml PO DAILY PRN PRN PRN Reason: Constipation Morphine Sulfate () 2 mg IV Q3H PRN PRN PRN Reason: Pain Score 6-10/10 Last Admin: 11/15/19 08:07 Dose: 2 mg Documented by: Ondansetron HCl (Zofran) 4 mg IV Q8H PRN PRN PRN Reason: NAUSEA/VOMITING Last Admin: 11/15/19 08:07 Dose: 4 mg Documented by: Oxycodone HCl (Oxyir) 5 mg PO Q4H PRN PRN PRN Reason: Pain Score 4-5/10 Last Admin: 11/15/19 13:57 Dose: 5 mg Documented by: Prochlorperazine Edisylate (Compazine Iv) 5 mg IV Q4H PRN PRN PRN Reason: Breakthrough nausea/vomiting Sodium Chloride () 10 - 40 ml IV UD PRN PRN Reason: SALINE FLUSH Last Admin: 11/15/19 08:07 Dose: 10 ml Documented by: Temazepam (Restoril) 15 mg PO QHS PRN PRN PRN Reason: INSOMNIA Last Admin: 11/15/19 00:17 Dose: 15 mg Documented by: Throat Lozenges (Cepacol Sore Throat Lozenge) 1 lozenge MUCOUS MEM Q2H PRN PRN PRN Reason: Sore throat or cough Medical Necessity - Tobacco Use Smoking Status: Current every day smoker Tobacco Use: Cigarettes Assessment/Plan All Active Problems (Last Reviewed 11/09/17 @ 15:49 by Rosalina Real) Sepsis (Acute) Pyelonephritis (Acute) #1 sepsis secondary to pyelonephritis-urine culture pending at this time, continue present antibiotic coverage #2 acute pyelonephritis-again urine cultures pending at this time, continue present antibiotics Code Visit Inpatient E&M: 38556 Subs Hosp L2
--- NOTE | 2019-11-15 17:44 | US_ITS ---
STUDY: RENAL ULTRASOUND - COMPLETE REASON FOR EXAM: Female, 19 years old. Right flank pain TECHNIQUE: Ultrasound evaluation of the kidneys was performed with real-time and static jauregui-scale imaging. COMPARISON: None available. FINDINGS: RIGHT KIDNEY: Normal location of the right kidney, which is normal in size. The right kidney measures 13 cm. There is a normal cortex of the right kidney. There is no right renal mass or cyst. There are no right renal calculi. There is no right hydronephrosis. LEFT KIDNEY: Normal location of the left kidney, which is normal in size. The left kidney measures 12 cm. There is a normal cortex of the left kidney. There is no left renal mass or cyst. There are no left renal calculi. There is no left hydronephrosis. AORTA: No evidence of abdominal aortic aneurysm. I.V.C.: The IVC is patent. BLADDER: The urinary bladder is partially distended and appears unremarkable. US/Kidney and Bladder IMPRESSION: Normal ultrasound of the kidneys and urinary bladder. Electronically Signed: Olegario Shin, at 19:47 EST Tel , Service support ,
[2019-11-15 20:55] VITALS: BP 119/67; PULSE 88; RESP 16; TEMP 36.9; O2SAT 100
[2019-11-15] MEDS: Ceftriaxone 1 GM/50 ML BAG IV (20:57)
[2019-11-16] MEDS: 0.9% Normal Saline 1,000 ML 125 ML IV (01:21)
[2019-11-16 02:00] VITALS: BP 112/60; PULSE 91; RESP 16; TEMP 37.2; O2SAT 98
[2019-11-16] MEDS: oxyCODONE 5 MG Tablet PO (06:52)
[2019-11-16 07:50] VITALS: O2SAT 98
[2019-11-16 08:00] VITALS: BP 123/71; PULSE 75; RESP 16; TEMP 36.7; O2SAT 99
--- NOTE | 2019-11-16 09:07 | DCINST_ITS ---
- Discharge Diagnoses Current Active Problems: Current Active and Chronic Problems Sepsis (Acute) Pyelonephritis (Acute) Tobacco use (Chronic) You will use the following diet at home:: No restrictions Your food should be the consistency of: Regular Your liquids should be the consistency of: Regular/Thin Discharge Activity: Return to Normal Activity Weight Bearing Status: Full weight bearing Allergies/Adverse Reactions: Allergies sulfamethoxazole [From Bactrim] Allergy (Verified 11/14/19 18:40) Rash trimethoprim [From Bactrim] Allergy (Verified 11/14/19 18:40) Rash Medications to take at Discharge Ciprofloxacin [Cipro] 500 mg PO BID #14 tablet 12/25/18 Primary Care Physician: Ramila Mcnamara PA [Primary Care Provider] - Please follow up with your Primary Care Physician in: as needed Test Results: Test results from this visit will be discussed in further detail at your follow- up appointment, if applicable.
--- NOTE | 2019-11-17 18:03 | DS.PCM_ITS ---
Discharge Date and Diagnosis Date of Admission: 11/14/19 Date of Discharge: 11/16/19 - Primary Discharge Diagnosis #1 sepsis secondary to pyelonephritis-organism unknown, probably gram-negative bacterial #2 acute pyelonephritis-probably gram-negative bacterial - Secondary Discharge Diagnosis Chronic Problems Tobacco use (Chronic) Hospital Course and Treatment Operations: None Procedures: None Summary of Care Provided: The patient is a 19 year old F who was seen in the emergency room at [facility] with low back pain radiating into the right flank. Patient was diagnosed with a UTI and started on Cipro the day she was evaluated in the emergency room. Patient had taken 1 dose. Lab work revealed a white blood cell count of 17.6, urinalysis indicated signs of infection. Chemistry panel was negative. Patient was admitted to [place] [address], treated with IV antibiotics, and given analgesics. Patient continued to complain of right flank pain and an ultrasound of the kidneys and bladder was performed. Ultrasound of the kidneys and urinary bladder was normal. On 11/16/2019, patient was seen and examined: On examination she appeared in good health and spirits. Vital signs as documented. Skin warm and dry and without overt rashes. Neck without JVD. Lungs clear. Heart exam notable for regular rhythm, normal sounds and absence of murmurs, rubs or gallops. Abdomen unremarkable and without evidence of organomegaly, masses, or abdominal aortic enlargement. Extremities nonedematous. Neuro: Cranial nerves II through XII are grossly intact, no focal motor deficits were noted, sensation to light touch and pinprick is intact. Psych: Patient is alert and oriented x3, she does not appear anxious or depressed On 11/16/2019, patient was seen and examined and discharged home in stable condition. - Physical Exam Vitals/I&O's: Vital Signs Temp Pulse Resp BP Pulse Ox 98.0 F 75 16 123/71 H 99 11/16/19 08:00 11/16/19 08:00 11/16/19 08:00 11/16/19 08:00 11/16/19 08:00 Oxygen Delivery Method Room Air Weight: 75.9 kg Body Mass Index (BMI) 27.0 Intake and Output for Last 24 Hours 11/15/19 11/16/19 11/17/19 23:59 23:59 23:59 Intake Total 5308.33 / 5608.33 1300 / 1300 Output Total 3550 / 4350 2099 / 2100 Balance 1758.33 / 1258.33 -800 / -800 Microbiology Past 72 Hours 11/14/19 19:25 Urine, Clean Catch Urine Culture - Final Mixed Gram Positive Organisms Discharge Activity: Return to Normal Activity Weight Bearing Status: Full weight bearing Home Medications: Medications to take at Discharge Ciprofloxacin [Cipro] 500 mg PO BID #14 tablet 12/25/18 Primary Care Physician: Ramila Mcnamara PA [Primary Care Provider] - Please follow up with your Primary Care Physician in: as needed Disposition: Home Minutes spent on discharge:: 31 Patient Condition:: Stable Medical Necessity - Tobacco Use Smoking Status: Current every day smoker Tobacco Use: Cigarettes Meaningful Use Info Meaningful Use Diagnoses (Choose all that apply): None applicable Code Visit Inpatient E&M: 95963 Disch Hosp
== END 2019-11-16 09:55 | disposition home or self-care (01) | DRG 872 ==
LOC: ED 19:39 → MS3 11-15 07:27
PROVIDERS: Emergency Medicine; Admitting Provider Family Medicine; Emergency Provider Emergency Medicine; PCP Physician Assistant; Visit Provider Internal Medicine
DX: A41.9 Sepsis, unspecified organism (principal); N10 Acute pyelonephritis; Z79.2 Long term (current) use of antibiotics; Z87.440 Personal history of urinary (tract) infections; F17.210 Nicotine dependence, cigarettes, uncomplicated
CPT/HCPCS: 36415; 76770; 80048; 81001; 81025; 83605; 85025; 87086; 87088; 96361; 96365; 96366; 96375; 96376; 99218; 99284; 99406; J7030; J7040; A4216; G0378; J2405

== ENCOUNTER 2020-04-29 11:33 | Emergency (ER) | payer OTHER, SELFPAY ==
[2020-04-29 11:35] VITALS: BP 116/71; PULSE 104; RESP 17; TEMP 37.7; O2SAT 99; BMI 27.4
[2020-04-29 12:21] LABS: Bacteria 0 SEEN /hpf (None Seen); Mucous, Urine 0 SEEN /hpf (<or=2+); Red Blood Cells-Urine 0 SEEN /hpf (0-5)
[2020-04-29 12:26] LABS: Basophil# 0.05 X10^3/uL; Basophil% 0.7 % (0-1); Eosinophils% 1.3 % (0-5); Hematocrit 40.9 % (37-47); Hemoglobin 13.3 g/dL (12.0-15.0); Lymphocyte % 26.2 % (19-41); Mean Corp Hgb Conc 32.5 g/dL (32-36); Mean Corpuscular Hgb 29.6 pg (27.0-32.0); Mean Corpuscular Volume 90.9 fL (81-99); Mean Platelet Vol. 8.9 fl (6.2-12.0); Monocyte# 0.51 X10^3/uL; Monocyte% 6.7 % (0-10); NRBC Flagged by Analyzer 0 % (0-5); Neutrophil # 4.96 X10^3/uL (2.7-7.7); Neutrophil % 64.8 % (47-70); Platelet Count 324 K/mm3 (150-450); RBC Distribution Width CV 13.2 % (11.6-14.6); White Blood Count 7.6 K/mm3 (4.4-11.0)
[2020-04-29 12:28] LABS: Color, Urine Yellow (Yellow); Glucose, Dipstick Normal (Normal); Ketone-Dipstick Negative (Negative); Leukocyte Esterase-Dipstick 100 /ul (Negative); Nitrite-Dipstick Negative (Negative); Occult Blood-Urine Negative /ul (Negative); Protein-Dipstick Negative (Negative); Urine Bilirubin Dipstick Negative (Negative); Urine Clarity Sl. Cloudy (Clear); Urine Urobilinogen Normal (Normal)
[2020-04-29 12:29] LABS: Internal QC Validated? YES +Cl - CLEAR BKGD; Pregnancy, Urine Negative Negative
[2020-04-29 12:35] LABS: Squamous Epithelial Cells - UA 5-10 SEEN /hpf (5-10); White Blood Cells 10-25 SEEN /hpf (0-5)
[2020-04-29 12:39] LABS: Anion Gap 4 (5-15); BUN 15 mg/dL (7-18); BUN/Creat Ratio 21.9 RATIO (10-20); Calcium,Total 8.8 mg/dL (8.5-10.1); Chloride 110 mmol/L (98-107); Creatinine, Serum 0.68 mg/dL (0.55-1.02); EST Glomerular Filtration Rate 114 mL/min (>60); Est Glom Filt Rate - Afr Amer 138 mL/min (>60); Estimated Creatinine Clearance 122.51 ml/min; Glucose 90 mg/dL (74-106); Potassium 3.7 mmol/L (3.5-5.1); Sodium Level 140 mmol/L (136-145)
--- NOTE | 2020-04-29 12:51 | CT_ITS ---
STUDY: CT ABDOMEN AND PELVIS WITHOUT CONTRAST REASON FOR EXAM: Female, 19 years old. PT STATED RT SIDE FLANK PAIN RADIATION DOSAGE (If Supplied By Facility): CTDIvol = ( 10.63 ) mGy, DLP = ( 531.89 ) mGycm TECHNIQUE: Transaxial images were obtained from the dome of the diaphragm to the symphysis pubis without oral contrast, and without intravenous contrast. Sagittal and coronal images were reconstructed. Individualized dose optimization techniques were used for this CT. COMPARISON: None. FINDINGS: Minimal increased linear markings at the left lung base suggestive of linear atelectasis. The visualized portions of the heart are within normal limits. Normal liver. Normal gallbladder and extrahepatic biliary system. Normal spleen. Normal pancreas. Normal bilateral adrenal glands. Normal right kidney. Normal left kidney. Normal visualized stomach. Normal small intestine. Normal colon. There are surgical clips in the region of the appendix consistent with a prior appendectomy. Normal abdominal aorta. Normal inferior vena cava. Normal retroperitoneum. Normal urinary bladder. Follicles are seen in both ovaries. Questionable 2.8 cm x 2.8 cm complex cyst in the right ovary versus right sided tilting of the uterus. Correlation with a pelvic ultrasound is recommended. There is a small umbilical hernia containing fat. Normal osseous structures. CT/Abdomen/Pelvis without Cont IMPRESSION: Questionable complex cyst in the right ovary as described. Correlation with ultrasound is recommended for further evaluation. Electronically Signed: Quirino Tapia, at 13:32 EDT , Service support ,
--- NOTE | 2020-04-29 12:52 | ED.VISSUMM ---
- ER Visit Summary Date of Service: 04/29/20 Chief Complaint: Back and flank pain History of Present Illness: The patient is a 19 F who presents with back and flank pain that is been getting worse over the past few days. Patient states she had a recent cystoscopy done by Dr. Escobar in [place]. Patient was recently diagnosed with pyelonephritis and completed a course of Keflex and a course of Levaquin. Patient admits to some sweats but denies any fevers or chills. Patient admits to nausea but denies any vomiting. Patient admits to some dysuria. Patient states her pain is aching but is sharp with urination. Patient states nothing makes her pain better. Physical Examination: Vital signs are stable. Patient is afebrile. Patient is in no acute distress. Oral mucosa is pink and moist. Neck is supple. Trachea is midline. There is no JVD. Heart was regular rate and rhythm. Lungs are clear and equal bilaterally. Abdomen is soft. Bowel sounds are normal. There is no tenderness. There is some bilateral CVA tenderness. There is no rebound or guarding noted. Cranial nerves II through XII are intact. There are no focal motor or sensory deficits noted. Extremities are intact. There is no calf tenderness or edema. Test Results: CBC and basic metabolic profile were obtained and were essentially within normal limits. Urinalysis shows a leukocyte esterase of 100 with 10-25 white blood cells. Urine hCG was negative. CT scan of the abdomen pelvis was obtained. There is a questionable complex cyst of the right ovary. There is no acute intra-abdominal process. There is no inflammatory process of the kidneys. This was interpreted by the radiologist and reviewed by myself. Emergency Department Course and Treatment: Patient was given a dose of Rocephin here. Patient was given a dose of morphine. Patient was feeling better on reevaluation. Patient was given a prescription for Macrobid. Patient was instructed to drink plenty of fluids. Patient was instructed to follow-up with her primary care physician in 5 to 7 days. Patient understood and was agreeable with the plan. All questions were answered. Disposition: Discharge home Impression: 1. Urinary tract infection This note was generated with SubtleDataation software. It may contain incorrect words, spelling, and punctuation that were not noted in review of the chart prior to signing ED Disposition - Plan for ED Patient: Disposition: Home or Assisted Living Diagnosis: Urinary tract infection Instructions: ED CYSTITIS Female Adult Prescriptions: Nitrofurantoin Macrocrystals [Macrobid] 100 mg PO Q12 #14 cap Prescription Printed Referrals: Ramila Mcnamara PA [Primary Care Provider] - 5-7 Days
[2020-04-29] MEDS: Ceftriaxone 1 GM/50 ML BAG IV (13:22)
[2020-04-29] MEDS: Morphine 4 MG/ML Syringe IV (13:22)
[2020-04-29 13:34] VITALS: BP 121/77; PULSE 76; RESP 18; O2SAT 99
[2020-04-29 15:00] VITALS: BP 119/68; PULSE 69; RESP 18; O2SAT 99
== END 2020-04-29 16:09 | disposition home or self-care (01) ==
PROVIDERS: Emergency Provider Emergency Medicine; PCP Physician Assistant
DX: N39.0 Urinary tract infection, site not specified (principal); Z72.0 Tobacco use
CPT/HCPCS: 74176; 80048; 81001; 81025; 85025; 87086; 87088; 96365; 96375; 99283; J7040; A4216

== ENCOUNTER 2020-06-28 10:18 | Emergency (ER) | payer OTHER, SELFPAY ==
[2020-06-28 10:18] VITALS: BP 134/84; PULSE 100; RESP 17; TEMP 36.6; O2SAT 100; BMI 28.3
--- NOTE | 2020-06-28 10:43 | CT_ITS ---
STUDY: CT ABDOMEN AND PELVIS WITH CONTRAST REASON FOR EXAM: Female, 20 years old. RT FLANK PAIN X 6 DAYS,RECURRING PYELONEPHRITIS, SURG-APPY RADIATION DOSAGE (If Supplied By Facility): CTDIvol = ( 11.49 ) mGy, DLP = ( 1287.94 ) mGycm TECHNIQUE: Transaxial images were obtained from the dome of the diaphragm to the symphysis pubis without oral contrast. 100ML ISOVUE 370 was administered. Sagittal and coronal images were reconstructed. Individualized dose optimization techniques were used for this CT. COMPARISON: 04/29/2020 FINDINGS: The visualized lung bases are unremarkable. The visualized portions of the heart are within normal limits. Normal liver. Normal gallbladder and extrahepatic biliary system. Normal spleen. Normal pancreas. Normal bilateral adrenal glands. Normal right kidney. Normal left kidney. Duplicated collecting systems bilaterally. Normal visualized stomach. Normal small intestine. Normal colon. There are surgical clips in the region of the appendix consistent with a prior appendectomy. Normal abdominal aorta. Normal inferior vena cava. Normal retroperitoneum. Normal urinary bladder. Normal abdominal wall. Normal osseous structures. CT/Abdomen/Pelvis W IV Cont ONLY IMPRESSION: Normal enhanced CT of the abdomen and pelvis. Electronically Signed: Thompson Noguera MD at 12:54 EDT Tel , Service support ,
--- NOTE | 2020-06-28 10:57 | ED.VIS.GEN ---
History of Present Illness Chief Complaint: Flank Pain Informant: Patient Narrative: 20-year-old female with past medical history of bilateral redundant ureters presents with concern for right flank pain. States it is been worsening over the past 1 week. States that she does have a history of frequent urinary infections with pyelonephritis. States that she is woken up in a sweat over the past 2 nights. Admits to nausea without vomiting. Denies any vaginal bleeding or discharge. Last menstrual period ended 4 days ago. Denies any concern for STDs. Past Medical History - Allergies and Home Meds Allergies/Adverse Reactions: Allergies sulfamethoxazole [From Bactrim] Allergy (Verified 06/28/20 10:18) Rash trimethoprim [From Bactrim] Allergy (Verified 06/28/20 10:18) Rash Primary Care Physician: Ramila Mcnamara PA [Primary Care Provider] - Past Medical History: None Surgical History: - - Appendectomy, left arthroscopic knee surgery. Lives: With Family Smoking Status: Current every day smoker Alcohol: None Drugs: None - Family History Maternal Family History: Family History (Last Reviewed 11/09/17 @ 15:49 by Rosalina Real) Mother Hypertension Family History: Reports: Hypertension Paternal Family History: Family History (Last Reviewed 11/09/17 @ 15:49 by Rosalina Real) Mother Hypertension Family History: Reports: Diabetes, High Cholesterol, Hypertension Review of Systems General: Denies: Chills, Fever, Sweats Eyes: Denies: Visual changes - bilaterally, Diplopia ENT: Denies: Rhinorrhea, Sore throat Cardiovascular: Denies: Chest pain, Palpitations Respiratory: Denies: Dyspnea, Cough, Dyspnea on exertion Gastrointestinal: Reports: Nausea. Denies: Abdominal pain, Vomiting, Diarrhea, Melena, Hematochezia Genitourinary: Reports: - - Flank pain. Denies: Dysuria, Hematuria, Frequency Musculoskeletal: Denies: Back pain, Extremity Pain Skin: Denies: Rash, Wounds Neurological: Denies: Headache, Weakness, Numbness Physical Exam Vital Signs/Narrative: Vital Signs Temp Pulse Resp BP Pulse Ox 06/28/20 10:18 97.8 F 100 17 134/84 H 100 Inital Vital Signs reviewed: Yes General: Well nourished, Well developed, No Acute Distress Head: Normocephalic, Atraumatic Eyes: Perrl, EOMI ENT: Moist mucous membranes, No rhinorrhea Neck: Supple, Nontender Cardiovascular: Regular rate, Regular rhythm, No murmurs Respiratory: No distress, CTA bilaterally, Chest nontender Abdomen: Soft, Nontender, Nondistended, Normal bowel sounds Back: Nontender, Normal Inspection, CVA tenderness - CVA tenderness on R Extremities: Nontender, No edema Skin: Normal color, No rash Neurological: Alert, Oriented x3, Cranial nerves II-XII grossly intact, Normal Strength, Normal Sensation Psychological: Normal affect, Normal Mood Diagnostic/Tx/Re-eval Clinical Impression(s) from Imaging Studies Abdomen/Pelvis CT 06/28/20 10:43 IMPRESSION: Normal enhanced CT of the abdomen and pelvis. Electronically Signed: Thompson Noguera MD at 12:54 EDT Tel , Service support , Laboratory Data 06/28/20 06/28/20 06/28/20 11:00 11:00 11:15 WBC 9.0 RBC 4.90 Hgb 13.8 Hct 44.0 MCV 89.8 MCH 28.2 MCHC 31.4 L RDW Std Deviation 42.9 RDW Coeff of Perlita 13.2 Plt Count 376 MPV 8.8 Immature Gran % (Auto) 0.300 Neut % (Auto) 67.1 Lymph % (Auto) 23.6 [place] % (Auto) 7.1 Eos % (Auto) 1.3 Baso % (Auto) 0.6 Absolute Neuts (auto) 6.0 Absolute Lymphs (auto) 2.13 Nucleated RBC % 0 Sodium Potassium Chloride Carbon Dioxide Anion Gap BUN Creatinine Estim Creat Clear Calc Est GFR (MDRD) Af Amer Est GFR (MDRD) Non-Af BUN/Creatinine Ratio Glucose Calcium Total Bilirubin AST ALT Alkaline Phosphatase Total Protein Albumin Globulin Albumin/Globulin Ratio Urine Color Yellow Urine Clarity Clear Urine pH 8.0 Ur Specific [place] 1.015 Urine Protein Negative Urine Glucose (UA) Normal Urine Ketones Negative Urine Occult Blood Negative Urine Nitrite Negative Urine Bilirubin Negative Urine Urobilinogen Normal Ur Leukocyte Esterase 500 H Urine RBC 0 SEEN Urine WBC 0-5 SEEN Ur Squamous Epith Cells 5-10 SEEN Urine Bacteria 1+ Urine Mucus 0 SEEN Urine Test Negative 06/28/20 11:15 WBC RBC Hgb Hct MCV MCH MCHC RDW Std Deviation RDW Coeff of Perlita Plt Count MPV Immature Gran % (Auto) Neut % (Auto) Lymph % (Auto) [place] % (Auto) Eos % (Auto) Baso % (Auto) Absolute Neuts (auto) Absolute Lymphs (auto) Nucleated RBC % Sodium 140 Potassium 4.1 Chloride 109 H Carbon Dioxide 27.0 Anion Gap 4 L BUN 11 Creatinine 0.73 Estim Creat Clear Calc 113.16 Est GFR (MDRD) Af Amer 128 Est GFR (MDRD) Non-Af 106 BUN/Creatinine Ratio 15.1 Glucose 93 Calcium 9.0 Total Bilirubin 0.40 AST 14 L ALT 27 Alkaline Phosphatase 75 Total Protein 7.4 Albumin 4.1 Globulin 3.3 Albumin/Globulin Ratio 1.2 Urine Color Urine Clarity Urine pH Ur Specific [place] Urine Protein Urine Glucose (UA) Urine Ketones Urine Occult Blood Urine Nitrite Urine Bilirubin Urine Urobilinogen Ur Leukocyte Esterase Urine RBC Urine WBC Ur Squamous Epith Cells Urine Bacteria Urine Mucus Urine Test - Medical Decision Making Appears well nontoxic. CT negative. Patient given 1 L normal saline, Toradol, Zofran. Evidence of likely UTI. Given the patient's right CVA tenderness she will be started on Keflex 4 times a day with concern for early pyelonephritis. Urine sent for culture. Asked to follow-up with urologist. Asked to return for new or worsening symptoms. Patient agreeable and discharged home in stable condition. Impression: 1. Pyelonephritis 2. Nausea ED Disposition - Plan for ED Patient: Disposition: Home or Assisted Living Instructions: ED Pyelonephritis Female Adult Prescriptions: Cephalexin [Keflex] 500 mg PO Q6 #28 cap Prescription Printed Naproxen [Naprosyn] 500 mg PO BID #14 tab Prescription Printed Ondansetron [Zofran Odt] 4 mg PO Q8H PRN PRN #10 tab PRN Reason: Nausea Prescription Printed Referrals: Ramila Mcnamara PA [Primary Care Provider] -
[2020-06-28] MEDS: 0.9% Normal Saline 1,000 ML 1000 ML IV (11:18)
[2020-06-28] MEDS: Ketorolac 30 MG/ML Syringe IV (11:18)
[2020-06-28] MEDS: Ondansetron 4 MG/2 ML Vial IV (11:18)
[2020-06-28 11:33] LABS: Mucous, Urine 0 SEEN /hpf (<or=2+); Red Blood Cells-Urine 0 SEEN /hpf (0-5)
[2020-06-28 11:38] LABS: Color, Urine Yellow (Yellow); Glucose, Dipstick Normal (Normal); Ketone-Dipstick Negative (Negative); Leukocyte Esterase-Dipstick 500 /ul (Negative); Nitrite-Dipstick Negative (Negative); Occult Blood-Urine Negative /ul (Negative); Protein-Dipstick Negative (Negative); Specific Gravity, Urine 1.015 (1.002-1.030); Urine Bilirubin Dipstick Negative (Negative); Urine Clarity Clear (Clear); Urine Urobilinogen Normal (Normal)
[2020-06-28 11:38] LABS: Absolute Lymphocyte Count 2.13 X10^3/uL (0.83-4.51); Basophil# 0.05 X10^3/uL; Basophil% 0.6 % (0-1); Eosinophil# 0.12 X10^3/uL; Eosinophils% 1.3 % (0-5); Hemoglobin 13.8 g/dL (12.0-15.0); Lymphocyte # 2.13 X10^3/ul (4.0); Lymphocyte % 23.6 % (19-41); Mean Corp Hgb Conc 31.4 g/dL (32-36); Mean Corpuscular Hgb 28.2 pg (27.0-32.0); Mean Corpuscular Volume 89.8 fL (81-99); Mean Platelet Vol. 8.8 fl (6.2-12.0); Monocyte# 0.64 X10^3/uL; Monocyte% 7.1 % (0-10); NRBC Flagged by Analyzer 0 % (0-5); Neutrophil # 6.04 X10^3/uL (2.7-7.7); Neutrophil % 67.1 % (47-70); Platelet Count 376 K/mm3 (150-450); RBC Distribution Width CV 13.2 % (11.6-14.6); RBC Distribution Width SD 42.9 fl (35.1-43.9)
[2020-06-28 11:40] LABS: Internal QC Validated? YES +Cl - CLEAR BKGD; Pregnancy, Urine Negative Negative
[2020-06-28 11:54] LABS: ALB/GLOB Ratio 1.2 RATIO (0.9-2.4); AST(SGOT) 14 U/L (15-37); Alanine Aminotransfer ALT/SGPT 27 U/L (13-56); Albumin, Serum 4.1 g/dL (3.2-5.0); Alkaline Phosphatase 75 U/L (45-117); Anion Gap 4 (5-15); BUN 11 mg/dL (7-18); BUN/Creat Ratio 15.1 RATIO (10-20); Chloride 109 mmol/L (98-107); Creatinine, Serum 0.73 mg/dL (0.55-1.02); EST Glomerular Filtration Rate 106 mL/min (>60); Est Glom Filt Rate - Afr Amer 128 mL/min (>60); Estimated Creatinine Clearance 113.16 ml/min; Globulin 3.3 g/dL (2.2-4.2); Glucose 93 mg/dL (74-106); Potassium 4.1 mmol/L (3.5-5.1); Protein, Total 7.4 g/dL (6.4-8.2); Sodium Level 140 mmol/L (136-145)
[2020-06-28 11:58] LABS: Bacteria 1+ /hpf (None Seen); Squamous Epithelial Cells - UA 5-10 SEEN /hpf (5-10); White Blood Cells 0-5 SEEN /hpf (0-5)
[2020-06-28] MEDS: Cephalexin 250 MG Capsule 500 MG PO (13:18)
[2020-06-28 13:20] VITALS: BP 119/70; PULSE 73; RESP 14; O2SAT 100
== END 2020-06-28 13:22 | disposition home or self-care (01) ==
PROVIDERS: Emergency Provider Emergency Medicine; PCP Physician Assistant
DX: N12 Tubulo-interstitial nephritis, not specified as acute or chronic (principal); R11.0 Nausea; Z87.440 Personal history of urinary (tract) infections; F17.200 Nicotine dependence, unspecified, uncomplicated
CPT/HCPCS: 74177; 80053; 81001; 81025; 85025; 96361; 96374; 96375; 99284; J7030; Q9967; J2405

== ENCOUNTER → 2020-08-03 | Outpatient (CLI) | payer OTHER, SELFPAY | END | disposition home or self-care (01) | LOC: MTDU 10:14 | PROVIDERS: PCP Physician Assistant; Referring Provider Physician Assistant; Visit Provider Physician Assistant | DX: J02.9 Acute pharyngitis, unspecified (principal); Z20.828 Contact with and (suspected) exposure to other viral communicable diseases | CPT/HCPCS: 87635; C9803; U0003 ==

== ENCOUNTER 2020-08-24 12:30 | Emergency (ER) | payer OTHER, SELFPAY ==
[2020-08-24 12:30] VITALS: BP 147/71; PULSE 100; RESP 16; TEMP 36.8; O2SAT 100; BMI 29.6
--- NOTE | 2020-08-24 13:51 | EKG12_ITS ---
Test Reason : CP Blood Pressure : / mmHG Vent. Rate : 088 BPM Atrial Rate : 088 BPM P-R Int : 148 ms QRS Dur : 082 ms QT Int : 354 ms P-R-T Axes : 041 067 022 degrees QTc Int : 428 ms Normal sinus rhythm Normal ECG Confirmed by RACHEL FARFAN, JAMAR ([id number]), supervising film or videotape editor INDIA COLLIER ([id number]) on 08/26/2020 1:44:24 PM Referred By: BHARGAV/QUENTIN Confirmed By:JAMAR RAMOS MD
--- NOTE | 2020-08-24 13:56 | NURSING ---
NO OLD EKGS
[2020-08-24] MEDS: Acetaminophen 500 MG Tablet 1000 MG PO (14:09)
--- NOTE | 2020-08-24 14:15 | RAD_ITS ---
STUDY: X-RAY CHEST REASON FOR EXAM: Female, 20 years old. Chest pain, 11 weeks , double shielded TECHNIQUE: Single AP portable view of the chest. COMPARISON: Comparison is made with prior study dated 12/24/2014. FINDINGS: The patient is . The patient has been shielded appropriately. The lungs are clear and expanded. There is no demonstrated pleural abnormality. Normal size heart. Normal mediastinum and rafy. Normal visualized pulmonary arteries. Normal visualized aortic arch and descending thoracic aorta. Normal visualized thoracic spine. Normal visualized ribs, clavicles, and shoulders. There is no demonstrated abnormality of the visualized soft tissue structures of the upper abdomen. RAD/Chest 1 View (Portable) IMPRESSION: Normal x-ray examination of the chest. Electronically Signed: Quirino Tapia, at 14:40 EDT , Service support ,
[2020-08-24 14:22] LABS: Absolute Neutrophil Count 9.6 X10^3/uL (2.0-7.7); Basophil# 0.02 X10^3/uL; Basophil% 0.2 % (0-1); Eosinophil# 0.11 X10^3/uL; Eosinophils% 0.9 % (0-5); Hematocrit 40.7 % (37-47); Hemoglobin 12.9 g/dL (12.0-15.0); Lymphocyte % 14.7 % (19-41); Mean Corp Hgb Conc 31.7 g/dL (32-36); Mean Corpuscular Hgb 28.3 pg (27.0-32.0); Mean Corpuscular Volume 89.3 fL (81-99); Mean Platelet Vol. 8.6 fl (6.2-12.0); Monocyte# 0.74 X10^3/uL; NRBC Flagged by Analyzer 0 % (0-5); Neutrophil # 9.58 X10^3/uL (2.7-7.7); Platelet Count 346 K/mm3 (150-450); RBC Distribution Width CV 13.2 % (11.6-14.6); Red Blood Count 4.56 M/mm3 (4.2-5.4); White Blood Count 12.3 K/mm3 (4.4-11.0)
[2020-08-24 14:30] VITALS: PULSE 99; RESP 19; O2SAT 100
[2020-08-24 14:39] LABS: Anion Gap 7 (5-15); BUN 8 mg/dL (7-18); BUN/Creat Ratio 12.4 RATIO (10-20); Chloride 105 mmol/L (98-107); Creatinine, Serum 0.64 mg/dL (0.55-1.02); EST Glomerular Filtration Rate 122 mL/min (>60); Est Glom Filt Rate - Afr Amer 148 mL/min (>60); Estimated Creatinine Clearance 129.08 ml/min; Glucose 108 mg/dL (74-106); Potassium 3.1 mmol/L (3.5-5.1); Sodium Level 139 mmol/L (136-145)
[2020-08-24 14:59] LABS: Mucous, Urine 0 SEEN /hpf (<or=2+); Red Blood Cells-Urine 0 SEEN /hpf (0-5)
[2020-08-24 15:02] LABS: Color, Urine Straw (Yellow); Glucose, Dipstick Normal (Normal); Ketone-Dipstick Negative (Negative); Leukocyte Esterase-Dipstick 100 /ul (Negative); Nitrite-Dipstick Negative (Negative); Occult Blood-Urine Negative /ul (Negative); Protein-Dipstick Negative (Negative); Specific Gravity, Urine 1.015 (1.002-1.030); Urine Bilirubin Dipstick Negative (Negative); Urine Clarity Cloudy (Clear); Urine Urobilinogen Normal (Normal)
[2020-08-24 15:19] LABS: Amorphous Sediment 2+; Bacteria 1+ /hpf (None Seen); Squamous Epithelial Cells - UA 0-5 SEEN /hpf (5-10); White Blood Cells 5-10 SEEN /hpf (0-5)
--- NOTE | 2020-08-24 15:33 | ED.DCSUM_ITS ---
History of Present Illness Chief Complaint: Chest Pain Informant: Patient Onset: Yesterday Timing: Intermittent Quality: Sharp Location: Substernal Worsened By: Nothing Relieved By: Nothing Narrative: Is a 20-year-old female that is currently 11 weeks presenting with chest pain. Patient states since yesterday she has been having intermittent episodes of chest pain that last for couple minutes at a time. It seems to start from her back and then radiate around to her chest. Has had 4 episodes of's morning and another episode that woke her up at night last night. She states it feels like it knocked the wind out of her. She currently does not have the symptoms. She never had this before. She denies any associated cough, fever, chills, leg swelling or history of DVT or PE. She had 1 episode of vomiting this morning because the pain was so bad. She not take anything for pain. The other complaint she has is that she is having some mild low back pain. She denies any urinary symptoms but notes that she just went off a course of antibiotics 3 days ago for UTI/kidney infection. The antibiotic from Macrobid. No other complaints at this time. Past Medical History - Allergies and Home Meds Allergies/Adverse Reactions: Allergies sulfamethoxazole [From Bactrim] Allergy (Verified 08/24/20 12:33) Rash trimethoprim [From Bactrim] Allergy (Verified 08/24/20 12:33) Rash Primary Care Physician: Ramila Mcnamara PA [Primary Care Provider] - Past Medical History: None Surgical History: - - Appendectomy, left arthroscopic knee surgery. Lives: Spouse/ Significant Other Smoking Status: Former smoker - Family History Maternal Family History: Family History (Last Reviewed 11/09/17 @ 15:49 by Rosalina Real) Mother Hypertension Family History: Reports: Hypertension Paternal Family History: Family History (Last Reviewed 11/09/17 @ 15:49 by Rosalina Real) Mother Hypertension Family History: Reports: Diabetes, High Cholesterol, Hypertension Review of Systems General: Denies: Chills, Fever, Sweats Eyes: Denies: Visual changes - bilaterally, Diplopia ENT: Denies: Rhinorrhea, Sore throat Cardiovascular: Reports: Chest pain. Denies: Palpitations Respiratory: Reports: Dyspnea. Denies: Cough, Dyspnea on exertion Gastrointestinal: Denies: Abdominal pain, Nausea, Vomiting, Diarrhea, Melena, Hematochezia Genitourinary: Reports: - - 11 weeks . Denies: Dysuria, Hematuria, Frequency Musculoskeletal: Reports: Back pain. Denies: Extremity Pain Skin: Denies: Rash, Wounds Neurological: Denies: Headache, Weakness, Numbness Physical Exam Vital Signs/Narrative: Vital Signs Temp Pulse Resp BP Pulse Ox 08/24/20 14:30 99 19 H 100 08/24/20 12:30 98.3 F 100 16 147/71 H 100 Inital Vital Signs reviewed: Yes General: Well nourished, Well developed, No Acute Distress Head: Normocephalic, Atraumatic Eyes: Perrl, EOMI ENT: Moist mucous membranes, No rhinorrhea Neck: Supple, Nontender, No JVD Cardiovascular: Regular rate, Regular rhythm, No murmurs Respiratory: No distress, CTA bilaterally, Chest nontender Abdomen: Soft, Nontender, Nondistended, Normal bowel sounds. Negative for: Guarding, Rebound tenderness Back: Nontender, Normal Inspection. Negative for: CVA tenderness, Spinal tenderness Extremities: Nontender, No edema Skin: Normal color, No rash Neurological: Alert, Oriented x3, Cranial nerves II-XII grossly intact, Normal Strength, Normal Sensation Psychological: Normal affect, Normal Mood Diagnostic/Tx/Re-eval Chest X-Ray - ED: 1 View, Read by ED Physician, Read by Radiologist, No Acute Disease Clinical Impression(s) from Imaging Studies Chest X-Ray 08/24/20 14:15 IMPRESSION: Normal x-ray examination of the chest. Electronically Signed: Quirino Tapia, at 14:40 EDT , Service support , Laboratory Data 08/24/20 08/24/20 08/24/20 14:10 14:10 14:10 WBC 12.3 H RBC 4.56 Hgb 12.9 Hct 40.7 MCV 89.3 MCH 28.3 MCHC 31.7 L RDW Std Deviation 43.0 RDW Coeff of Perlita 13.2 Plt Count 346 MPV 8.6 Immature Gran % (Auto) 0.200 Neut % (Auto) 78.0 H Lymph % (Auto) 14.7 L [place] % (Auto) 6.0 Eos % (Auto) 0.9 Baso % (Auto) 0.2 Absolute Neuts (auto) 9.6 H Absolute Lymphs (auto) 1.80 Nucleated RBC % 0 D-Dimer Quant (PE/DVT) 0.30 Sodium 139 Potassium 3.1 L Chloride 105 Carbon Dioxide 27.0 Anion Gap 7 BUN 8 Creatinine 0.64 Estim Creat Clear Calc 129.08 Est GFR (MDRD) Af Amer 148 Est GFR (MDRD) Non-Af 122 BUN/Creatinine Ratio 12.4 Glucose 108 H Calcium 10.0 Troponin I < 0.015 Urine Color Urine Clarity Urine pH Ur Specific [place] Urine Protein Urine Glucose (UA) Urine Ketones Urine Occult Blood Urine Nitrite Urine Bilirubin Urine Urobilinogen Ur Leukocyte Esterase Urine RBC Urine WBC Ur Squamous Epith Cells Amorphous Sediment Urine Bacteria Urine Mucus 08/24/20 14:53 WBC RBC Hgb Hct MCV MCH MCHC RDW Std Deviation RDW Coeff of Perlita Plt Count MPV Immature Gran % (Auto) Neut % (Auto) Lymph % (Auto) [place] % (Auto) Eos % (Auto) Baso % (Auto) Absolute Neuts (auto) Absolute Lymphs (auto) Nucleated RBC % D-Dimer Quant (PE/DVT) Sodium Potassium Chloride Carbon Dioxide Anion Gap BUN Creatinine Estim Creat Clear Calc Est GFR (MDRD) Af Amer Est GFR (MDRD) Non-Af BUN/Creatinine Ratio Glucose Calcium Troponin I Urine Color Straw Urine Clarity Cloudy Urine pH 8.0 Ur Specific [place] 1.015 Urine Protein Negative Urine Glucose (UA) Normal Urine Ketones Negative Urine Occult Blood Negative Urine Nitrite Negative Urine Bilirubin Negative Urine Urobilinogen Normal Ur Leukocyte Esterase 100 H Urine RBC 0 SEEN Urine WBC 5-10 SEEN Ur Squamous Epith Cells 0-5 SEEN Amorphous Sediment 2+ Urine Bacteria 1+ Urine Mucus 0 SEEN - Rhythm Strip Rhythm Strip: Sinus Rhythm Rate: 88 Ectopy: None - EKG Initial EKG Interpretation: Sinus Rhythm, - - Normal sinus rhythm at a rate of 88 Normal axis Normal intervals Normal ST segments - Medical Decision Making Patient evaluated for intermittent episodes of back and chest pain that started last night. They do not sound cardiac in nature. She is a normal EKG. Patient is at risk for DVT as she is currently 11 weeks . She is otherwise low risk so D-dimer was obtained. This is negative. I do not think a CTA is indicated. Troponin is negative. She does not have a significant electrolyte abnormalities and has a normal chest x-ray. I suspect her pain is more muscle skeletal stemming from her back and causing chest wall spasms. Patient is instructed take Tylenol as needed for pain. I did recheck a urine given her low back discomfort and recent UTI. Urinalysis is still consistent with infection and culture sent. I did discuss the case with electrician machine shop on-call, Hernesto, who states that her last culture just grew normal urogenital rios and she was on Ma crobid. We will start patient on Keflex and patient will follow up her AMUSEMENT RIDE INSPECTOR. Patient is counseled on signs and symptoms requiring return to the emergency room. Patient verbalizes agreement and understand this plan. Patient discharged home in stable and improved condition. ED Disposition - Plan for ED Patient: Disposition: Home or Assisted Living Diagnosis: Atypical chest pain, UTI (urinary tract infection) Instructions: ED Chest Pain Atypical Unkn Cause, ED CYSTITIS Female Adult Prescriptions: Cephalexin [Keflex] 500 mg PO Q12 #10 cap Transmission Status: Pending to [id number] Referrals: Ramila Mcnamara PA [Primary Care Provider] - Joyce Barone DO [STAFF PHYSICIAN] - Additional Instructions: I suspect that the pain is from your back or chest wall and not cardiac in nature. No signs of infection. Your lungs appear healthy. No signs of blood clot. Take Tylenol as needed for the pain. Your urine is consistent with infection again so a repeat culture was taken and you will be started on a different antibiotic. Return the emergency room with any worsening symptoms. Follow-up with your AMUSEMENT RIDE INSPECTOR as scheduled. Call sooner if you have worsening symptoms.
[2020-08-24 16:43] VITALS: BP 103/71; PULSE 94; RESP 18; O2SAT 98
[2020-08-24 17:36] LABS: BNP,B-Type NATRIURETIC PEPTIDE 5.9 pg/mL (0-100)
== END 2020-08-24 16:45 | disposition home or self-care (01) ==
PROVIDERS: Emergency Provider Emergency Medicine; PCP Physician Assistant
DX: O26.891 Other specified pregnancy related conditions, first trimester (principal); R07.89 Other chest pain; O23.41 Unspecified infection of urinary tract in pregnancy, first trimester; Z3A.11 11 weeks gestation of pregnancy; Z87.891 Personal history of nicotine dependence
CPT/HCPCS: 71045; 80048; 81001; 83880; 84484; 85025; 85379; 87086; 87088; 93005; 99283; A4216

== ENCOUNTER 2020-09-12 20:33 | Emergency (ER) | payer OTHER, SELFPAY ==
[2020-09-12 20:34] VITALS: BP 135/92; PULSE 105; RESP 16; TEMP 36.4; O2SAT 100
[2020-09-12 20:49] LABS: Mucous, Urine 0 SEEN /hpf (<or=2+)
--- NOTE | 2020-09-12 20:49 | ED.DCSUM_ITS ---
- ER Visit Summary Date of Service: 09/12/20 Chief Complaint: Left flank pain History of Present Illness: The patient is a 20 F presenting with left flank pain. She states this started approximately 1 hour ago. She has associated dysuria. She denies hematuria. She denies nausea or vomiting. Denies abdo jerson pain. Denies vaginal bleeding. She is 14 weeks . She has had an ultrasound during this which showed intrauterine . She is . She took Tylenol at home. 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 Denies fever or other complaints. Physical Examination: Vitals are stable. Patient is afebrile. Alert no acute distress. HEENT exam is unremarkable. Neck is supple. Lungs are clear and equal bilaterally. Heart is regular rate and rhythm. Abdomen is soft nontender nondistended. No guarding or rebound Mild left CVA tenderness Extremities are unremarkable. Skin is warm and dry. No focal neurologic deficit. Remainder of exam is unremarkable. Emergency Department Course and Treatment: Urinalysis shows 0-5 white blood cells, 0-5 red blood cells, 5-10 epithelial cells. Urine culture was sent. She was given OxyIR. Pelvic ultrasound will be obtained and signed out to the oncoming physician. Disposition: Pending Impression: Left flank pain, This note was generated with Acustream dictation software. It may contain incorrect words, spelling, and punctuation that were not noted in review of the chart prior to signing ED Disposition - Plan for ED Patient: Instructions: ED Flank Pain Uncertain Cause Referrals: Joyce Barone DO [STAFF PHYSICIAN] - Ramila Mcnamara PA [Primary Care Provider] -
[2020-09-12 20:52] LABS: Color, Urine Yellow (Yellow); Glucose, Dipstick Normal (Normal); Ketone-Dipstick Negative (Negative); Leukocyte Esterase-Dipstick 25 /ul (Negative); Nitrite-Dipstick Negative (Negative); Occult Blood-Urine 25 /ul (Negative); Protein-Dipstick Negative (Negative); Urine Bilirubin Dipstick Negative (Negative); Urine Clarity Clear (Clear); Urine Urobilinogen Normal (Normal)
[2020-09-12 21:02] LABS: Bacteria RARE /hpf (None Seen); Red Blood Cells-Urine 0-5 SEEN /hpf (0-5); Squamous Epithelial Cells - UA 5-10 SEEN /hpf (5-10); White Blood Cells 0-5 SEEN /hpf (0-5)
[2020-09-12 21:04] LABS: Internal QC Validated? YES +Cl - CLEAR BKGD
[2020-09-12 21:05] LABS: Pregnancy, Urine Positive Negative
--- NOTE | 2020-09-12 21:06 | US_ITS ---
HISTORY: Left sided pain. . Comparison CT scan is from June 28, 2020 71 images. Findings: Transabdominal imaging: Urinary bladder is decompressed. The uterus is enlarged. The uterus measures 13 x 8.9 x 9.1 cm. Within the uterine fundus there is a gestational sac, a posterior performing fundal placenta, and the fetus. The largest amniotic fluid pocket is measured at 23 x 27 mm. Endovaginal imaging: The cervix is closed. The cervix measures 3.5 cm in craniocaudal dimensions. heart motion by M-mode imaging was detected at 154 bpm. The left ovary is demonstrated. Pulse-wave Doppler imaging and color Doppler imaging over the left ovary demonstrate arterial flow and demonstrate many follicles. The left ovary measures 2.1 x 2.4 x 3.4 cm. The right ovary measures 3.3 x 2.4 x 2.2 cm. Color and pulsed-wave Doppler imaging suggests low to right ovarian parenchyma. Right ovarian follicles are present. BDP equals 2.5 cm, equating to 14 weeks 2 days.40 HC equals 9.2 cm, equating to 14 weeks 0 days.18 AC equals 8.4 cm, equating to 14 weeks 4 days.70 FL equals 1.3 cm, equating to 13 weeks 6 days.27 Estimated weight is 94 g. US/OB Limited With Biometrics IMPRESSION: SLIUP. EGA 14 w1D The radiation from the CT scan of June 28, 2020, was therefore, given to the fetus as well. at 2321 Reported and signed by: Pedro Webb MD Electronically Signed: Pedro Webb MD at 23:20 EST Tel , Service support ,
--- NOTE | 2020-09-12 21:06 | US_ITS ---
HISTORY: lt flank pain with EXAMINATION: US Kidney(s) complete (eg, kidneys and bladder) TECHNIQUE: Morejon scale and color doppler images were obtained of the kidneys. COMPARISON: None FINDINGS: RIGHT KIDNEY: 11.6 x 4.5 x 4.4 cm. The cortex is preserved measuring 1.5 cm. No hydronephrosis or nephrolithiasis. Vascular flow is noted LEFT KIDNEY: 13.7 x 6.1 x 6.7 cm. The cortex is preserved measuring 2.4 cm.. There is no hydronephrosis. No shadowing calculus, focal lesion or perinephric collection is demonstrated. Vascular flow is noted URINARY BLADDER: Not visualized due to intrauterine . US/Kidney and Bladder IMPRESSION: No hydronephrosis or nephrolithiasis at 2331 Reported and signed by: Olivia Farooq DO Electronically Signed: Olivia Farooq DO at 23:30 EST Tel , Service support ,
[2020-09-12] MEDS: oxyCODONE 5 MG Tablet PO (21:15)
--- NOTE | 2020-09-12 21:34 | ED.DEP ---
ED Disposition - Plan for ED Patient: Instructions: ED Flank Pain Uncertain Cause Referrals: Ramila Mcnamara PA [Primary Care Provider] - Joyce Barone DO [STAFF PHYSICIAN] -
[2020-09-12 23:40] VITALS: BP 123/64; PULSE 98; RESP 16; O2SAT 100
== END 2020-09-12 23:41 | disposition home or self-care (01) ==
LOC: ED 20:50
PROVIDERS: Emergency Provider Emergency Medicine; PCP Physician Assistant
DX: O26.892 Other specified pregnancy related conditions, second trimester (principal); R10.9 Unspecified abdominal pain; Z3A.14 14 weeks gestation of pregnancy
CPT/HCPCS: 76770; 76816; 81001; 81025; 84702; 86900; 86901; 87086; 99283; A4216

== ENCOUNTER 2020-12-28 08:25 | Outpatient (CLI) | payer BC, SELFPAY ==
[2020-12-28 08:42] VITALS: TEMP 37.3
[2020-12-28 08:43] VITALS: BP 128/73; PULSE 121
[2020-12-28 08:46] VITALS: BP 128/73; PULSE 121; TEMP 37.3; O2SAT 98
[2020-12-28 08:59] VITALS: BMI 32.8
[2020-12-28 09:46] LABS: Color, Urine Yellow (Yellow); Glucose, Dipstick Normal (Normal); Ketone-Dipstick Negative (Negative); Leukocyte Esterase-Dipstick 500 /ul (Negative); Mucous, Urine 0 SEEN /hpf (<or=2+); Nitrite-Dipstick Negative (Negative); Occult Blood-Urine Negative /ul (Negative); Protein-Dipstick Negative (Negative); Red Blood Cells-Urine 0 SEEN /hpf (0-5); Urine Bilirubin Dipstick Negative (Negative); Urine Clarity Sl. Cloudy (Clear); Urine Urobilinogen Normal (Normal)
[2020-12-28 09:52] LABS: Bacteria 1+ /hpf (None Seen); Squamous Epithelial Cells - UA 5-10 SEEN /hpf (5-10); White Blood Cells 25-50 SEEN /hpf (0-5)
[2020-12-28] MEDS: Lactated Ringers 500 ML 999 ML IV (11:00)
[2020-12-28 11:02] VITALS: BP 114/55; PULSE 110; TEMP 37.1
[2020-12-28 11:08] LABS: Absolute Lymphocyte Count 0.91 X10^3/uL (0.83-4.51); Basophil# 0.03 X10^3/uL; Basophil% 0.2 % (0-1); Eosinophil# 0.14 X10^3/uL; Eosinophils% 0.9 % (0-5); Hematocrit 36.1 % (37-47); Hemoglobin 11.5 g/dL (12.0-15.0); Lymphocyte # 0.91 X10^3/ul (4.0); Lymphocyte % 5.7 % (19-41); Mean Corp Hgb Conc 31.9 g/dL (32-36); Mean Corpuscular Hgb 28.8 pg (27.0-32.0); Mean Corpuscular Volume 90.5 fL (81-99); Mean Platelet Vol. 9.2 fl (6.2-12.0); Monocyte# 0.76 X10^3/uL; Monocyte% 4.8 % (0-10); NRBC Flagged by Analyzer 0 % (0-5); Neutrophil # 13.96 X10^3/uL (2.7-7.7); Platelet Count 313 K/mm3 (150-450); RBC Distribution Width CV 14.2 % (11.6-14.6); RBC Distribution Width SD 46.5 fl (35.1-43.9); Red Blood Count 3.99 M/mm3 (4.2-5.4); White Blood Count 15.9 K/mm3 (4.4-11.0)
--- NOTE | 2020-12-28 11:55 | OB.TRI.NOTE ---
- Problem List (1) Cramping affecting , antepartum Status: Acute (2) 29 weeks gestation of Status: Acute History of Present Illness Date of Service: 12/28/20 Was patient seen by the physician?: No Reason For Visit: R/O LABOR Date of Service: 12/28/20 Final EVELIN: 03/11/21 Gestational age: 29 Weeks and 4 Days History of Present Illness: Patient arrived to triage with complaints of lower pelvic pain and mild cramping. Denies any loss of fluid, vaginal bleeding or contractions. 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 Allergies sulfamethoxazole [From Bactrim] Allergy (Verified 09/12/20 20:35) Rash trimethoprim [From Bactrim] Allergy (Verified 09/12/20 20:35) Rash - Pertinent Past Medical History Surgical History: Past Surgical History (Last Updated 11/09/17 @ 15:59 by Rosalina Real) S/P left knee arthroscopy 10/25/17 S/P appendectomy 12/2016 [place] teeth extracted 02/2016 Laboratory Studies: Laboratory Tests 12/28/20 12/28/20 Range/Units 11:00 09:35 WBC 15.9 H (4.4-11.0) K/mm3 RBC 3.99 L (4.2-5.4) M/mm3 Hgb 11.5 L (12.0-15.0) g/dL Hct 36.1 L (37-47) % MCV 90.5 (81-99) fL MCH 28.8 (27.0-32.0) pg MCHC 31.9 L (32-36) g/dL RDW Std Deviation 46.5 H (35.1-43.9) fl RDW Coeff of Perlita 14.2 (11.6-14.6) % Plt Count 313 (150-450) K/mm3 MPV 9.2 (6.2-12.0) fl Immature Gran % (Auto) 0.400 (0.0-0.9) % Neut % (Auto) 88.0 H (47-70) % Lymph % (Auto) 5.7 L (19-41) % [place] % (Auto) 4.8 (0-10) % Eos % (Auto) 0.9 (0-5) % Baso % (Auto) 0.2 (0-1) % Absolute Neuts (auto) 14.0 H (2.0-7.7) X10^3/uL Absolute Lymphs (auto) 0.91 (0.83-4.51) X10^3/uL Nucleated RBC % 0 (0-5) % Urine Color Yellow (Yellow) Urine Clarity Sl. Cloudy (Clear) Urine pH 7.0 (5.0 - 8.0) Ur Specific [place] 1.010 (1.002-1.030) Urine Protein Negative (Negative) mg/dl Urine Glucose (UA) Normal (Normal) mg/dl Urine Ketones Negative (Negative) mg/dl Urine Occult Blood Negative (Negative) /ul Urine Nitrite Negative (Negative) Urine Bilirubin Negative (Negative) mg/dL Urine Urobilinogen Normal (Normal) mg/dl Ur Leukocyte Esterase 500 H (Negative) /ul Urine RBC 0 SEEN (0-5) /hpf Urine WBC 25-50 SEEN (0-5) /hpf Ur Squamous Epith Cells 5-10 SEEN (5-10) /hpf Urine Bacteria 1+ (None Seen) /hpf Urine Mucus 0 SEEN (<or=2+) /hpf Review of Systems Constitutional: Reports: Malaise HEENT: Denies: Head Aches, Sinus Congestion, Sinus Drainage Cardiovascular: Denies: Chest Pain, Palpitations Respiratory: Denies: Cough, Shortness of breath at rest, Sputum production Gastrointestinal: Denies: Abdominal Pain, Nausea, Vomiting Genitourinary: Reports: Dysuria Musculoskeletal: Denies: Joint Pain, Joint Tenderness Physical Exam Vitals: Vital Signs Temp Pulse BP Pulse Ox 98.8 F 110 H 114/55 L 98 12/28/20 11:02 12/28/20 11:02 12/28/20 11:02 12/28/20 08:46 General: Alert Cardiovascular: Regular rate Lungs: Normal air movement Abdomen: Soft, Non Tender, Non-Distended, Gravid Neurological: Cranial nerves II-XII grossly intact NST - FHR Rate Baby A Baseline: 150 Variability:: Moderate Decelerations:: None NST Reactive:: Appropriate for gestational age Uterine Activity:: irritability Impression/Plan at 29.4 weeks gestation that presents for lower pelvic pain and cramping. - Category 1 tracing - Uterine irritability - UA collected and sent- 500+ Leukocyte esterase - Urine culture sent - IV fluid bolus due to patient having emesis of 500cc while in triage - Macrobid 100 mg PO BID x 3 days - D/C home with follow up in office Dr. Barone notified and is collaborating physician
== END 2020-12-28 12:25 | disposition home or self-care (01) ==
LOC: WPOUT 08:35 → WP 08:35
PROVIDERS: PCP Physician Assistant; Referring Provider Advanced Practice Midwife; Visit Provider Advanced Practice Midwife
DX: O26.893 Other specified pregnancy related conditions, third trimester (principal); R10.2 Pelvic and perineal pain; Z3A.29 29 weeks gestation of pregnancy
CPT/HCPCS: 96360; 59025; 59050; 81001; 85025; 87086; 87088; 99218; J7120; G0378

== ENCOUNTER 2021-01-28 08:30 | Outpatient (RCR) | payer BC, SELFPAY | END 2021-01-28 23:59 | disposition home or self-care (01) | LOC: DC 08:30 | PROVIDERS: PCP Physician Assistant; Visit Provider Obstetrics & Gynecology | DX: O24.419 Gestational diabetes mellitus in pregnancy, unspecified control (principal); Z3A.33 33 weeks gestation of pregnancy | CPT/HCPCS: G0108 ==

== ENCOUNTER → 2021-02-22 14:06 | Outpatient (CLI) | payer BC, SELFPAY | PROVIDERS: PCP Physician Assistant; Referring Provider Obstetrics & Gynecology; Visit Provider Obstetrics & Gynecology | DX: Z03.818 Encounter for observation for suspected exposure to other biological agents ruled out (principal) | CPT/HCPCS: 87635; C9803; U0002 ==

== ENCOUNTER 2021-02-25 07:05 | Inpatient (IN) | payer BC, SELFPAY ==
[2021-02-25] VITALS (82 sets, daily range): BP systolic 96–153; BP diastolic 52–89; PULSE 80–127; TEMP 36.3–38.1; O2SAT 89–100; BMI 32.8
[2021-02-25 07:41] LABS: Bedside Glucose 119 mg/dL (70-110)
[2021-02-25] MEDS: Oxytocin 30 units/NS 500 ml 30 UNITS/500 ML IV.SOLN IV (08:00)
[2021-02-25] MEDS: Lactated Ringers 1,000 ML 50 ML IV (08:00)
[2021-02-25 08:05] LABS: Absolute Lymphocyte Count 1.65 X10^3/uL (0.83-4.51); Absolute Neutrophil Count 8.1 X10^3/uL (2.0-7.7); Basophil# 0.03 X10^3/uL; Basophil% 0.3 % (0-1); Eosinophil# 0.15 X10^3/uL; Eosinophils% 1.4 % (0-5); Lymphocyte # 1.65 X10^3/ul (0.83-4.51); Lymphocyte % 15.3 % (19-41); Mean Corp Hgb Conc 31.4 g/dL (32-36); Mean Corpuscular Volume 89.1 fL (81-99); Mean Platelet Vol. 9.9 fl (6.2-12.0); Monocyte# 0.79 X10^3/uL; Monocyte% 7.3 % (0-10); NRBC Flagged by Analyzer 0 % (0-5); Neutrophil # 8.11 X10^3/uL (2.7-7.7); Neutrophil % 75.2 % (47-70); Platelet Count 380 K/mm3 (150-450); RBC Distribution Width CV 15.3 % (11.6-14.6); RBC Distribution Width SD 48.6 fl (35.1-43.9); Red Blood Count 3.93 M/mm3 (4.2-5.4); White Blood Count 10.8 K/mm3 (4.4-11.0)
--- NOTE | 2021-02-25 08:57 | HP.PCM.OB_ITS ---
HPI - General General Date of Admission: 02/25/21 HPI Narrative SANAZ PARIKH, is a 20 F who presents for induction of labor. [facility] Medical History (Updated 02/25/21 @ 09:[address] Gary Livingston MD) Gestational diabetes requiring insulin Home Medications PNV [id number] oil 1 ea PO DAILY 09/12/20 [History Last Taken 1 Day Ago ~02/24/21] famotidine 20 mg PO BID 09/12/20 [History Last Taken 02/25/21 0600] Allergy/AdvReac Type Severity Reaction Status Date / Time sulfamethoxazole Allergy Rash Verified 09/12/20 20:35 [From Bactrim] trimethoprim [From Bactrim] Allergy Rash Verified 09/12/20 20:35 Family History Mother Hypertension Surgical History (Updated 11/09/17 @ 15:59 by Rosalina Real) S/P appendectomy S/P left knee arthroscopy [place] teeth extracted Social History (Updated 02/09/18 @ 11:[address] Joan Mcnair, DO) Smoking Status: Former smoker NST FHR Rate Baby A Baseline: 155 Variability:: Moderate Accelerations:: 15 x 15 Uterine Activity:: Irregular Vital Signs Vital Signs Vital Signs: 02/25/21 07:30 02/25/21 08:38 02/25/21 08:39 Temperature 98.8 F Pulse Rate 114 H 102 H Blood Pressure 145/82 H BP Systolic 145 BP Diastolic 82 Pulse Ox 97 Physical Exam Const alert and oriented x3 GI soft to palpation and non-tender GI Narrative: Gravid Narrative: cervical exam - 4.5/80/-2, AROM clear fluid & IUPC placed Extremity normal to inspection Assessment & Plan Assessment/Plan (1) Gestational diabetes requiring insulin: Status: Acute Code(s): O24.414 - Gestational diabetes mellitus in , insulin controlled Plan: Admit to L&D Gestational diabetes - proceed with induction per recommendation or MFM, monitor per protocol Induction - on pitocon, s/p AROM Pain - epidural as desired EFW - 9lbs - patient with adequate pelvis GBS negative Routine care
[2021-02-25 09:05] LABS: Bedside Glucose 78 mg/dL (70-110)
[2021-02-25 10:10] LABS: Bedside Glucose 66 mg/dL (70-110)
[2021-02-25 10:10] LABS: Bedside Glucose 91 mg/dL (70-110)
[2021-02-25] MEDS: Lactated Ringers 500 ML 999 ML IV (10:52)
[2021-02-25] MEDS: fentaNYL-bupivacaine (epidural) 100 ML BAG EPIDURAL ×2 (11:25→16:00)
[2021-02-25 11:35] LABS: Bedside Glucose 86 mg/dL (70-110)
[2021-02-25] MEDS: Lactated Ringers 1,000 ML 100 ML IV (12:20)
[2021-02-25 13:15] LABS: Bedside Glucose 61 mg/dL (70-110)
[2021-02-25 13:35] LABS: Bedside Glucose 75 mg/dL (70-110)
[2021-02-25] MEDS: Mag Hydrox/Al Hydrox/Simeth 30 ML UDC PO (14:14)
[2021-02-25 14:41] LABS: Bedside Glucose 77 mg/dL (70-110)
[2021-02-25 15:41] LABS: Bedside Glucose 87 mg/dL (70-110)
[2021-02-25 16:30] LABS: Bedside Glucose 80 mg/dL (70-110)
[2021-02-25] MEDS: Lactated Ringers 1,000 ML 190 ML IV (17:06)
[2021-02-25 17:41] LABS: Bedside Glucose 65 mg/dL (70-110)
[2021-02-25 18:40] LABS: Bedside Glucose 97 mg/dL (70-110)
[2021-02-25] MEDS: Oxytocin 30 units/NS 500 ml 30 UNITS/500 ML IV.SOLN 334 UNITS IV (20:14)
--- NOTE | 2021-02-25 20:49 | EX.PCM.OBRPT ---
Report of Operation (OB) Information Final EVELIN: 03/11/21 Gestational age: 38 Weeks and 0 Days Operative Information Date of Procedure: 02/25/21 Pre-Operative Diagnosis: Gestational diabetes - insulin controlled Post-Operative Diagnosis: Same Type of Anesthesia: Epidural and Local with 2% Lidocaine Induction Maternal Presentation: Medically Indicated Induction Type of Induction: Pitocin and Amniotomy Medical Reason for Induction: Maternal Medical Condition: list: (Gestational diabates - insulin controlled) Findings Description of Procedure: Patient put in stirrups and pushed well. She delivered the head. head was gently guided to deliver anterior shoulder and shoulder dystocia was immediately recognized. Isi was called for and head was again gently guided downwards. No excess traction placed on the head. There was no release of the anterior shoulder. Patient told to stop pushing. Suprapubic pressure called for and applied. Again there was no release of the anterior shoulder. An episiotomy was cut. Attempted to deliver the posterior arm. The Brown maneuver was performed gently & allowed release of the anterior shoulder At this time it was 135 seconds from delivery of head. Patient was told to resume pushing. head was then gently guided to allow delivery of anterior & posterior shoulders. No excess traction place on head. This took several pushes to obtain adequate maternal expulsive effort due to the large size of the . The body then delivered and 3VC was clamped and cut. handed to RN and taken to the warmer where pediatric team was present. Placenta delivered with gentle traction and good uterine tone was obtained. Apgars: 2 at 1 minute, 5 at 5 minutes & 7 at 10 minutes No nuchal cord Surgery/ Procedure Performed: Spontaneous Vaginal Delivery Presentation: Positive for CHARLEY Amniotic Fluid Description: Clear Placental Delivery Description: Expressed Placenta Disposition: [facility] Cord Gases: ABG and VBG Infant Gender: Male Delayed Cord Clamping: No Esitmated Blood Loss (mL): 300ml Medications Given Medications Given After Delivery: IV Pitocin Post Vaginal Delivery Episiotomy Description: Midline and 2nd degree (repaired with 3-0 vicryl)
[2021-02-25] MEDS: Acetaminophen 500 MG Tablet 1000 MG PO (21:53)
[2021-02-25 21:59] LABS: Hemoglobin 10.9 g/dL (12.0-15.0); Mean Corp Hgb Conc 32.1 g/dL (32-36); Mean Corpuscular Hgb 28.2 pg (27.0-32.0); Mean Corpuscular Volume 87.9 fL (81-99); Mean Platelet Vol. 10.2 fl (6.2-12.0); Platelet Count 376 K/mm3 (150-450); RBC Distribution Width CV 15.4 % (11.6-14.6); RBC Distribution Width SD 48.4 fl (35.1-43.9); Red Blood Count 3.87 M/mm3 (4.2-5.4); White Blood Count 20.1 K/mm3 (4.4-11.0)
[2021-02-25 22:09] LABS: International Normalized Ratio 1.1; Prothrombin Time (Protime)PT. 13.1 SECONDS (11.7-14.9)
[2021-02-25 22:24] LABS: AST(SGOT) 20 U/L (15-37); Alanine Aminotransfer ALT/SGPT 20 U/L (13-56); Creatinine, Serum 0.68 mg/dL (0.55-1.02); EST Glomerular Filtration Rate 115 mL/min (>60); Est Glom Filt Rate - Afr Amer 139 mL/min (>60); Estimated Creatinine Clearance 121.48 ml/min
[2021-02-25] MEDS: 0.9% Saline Lock 10 ML Syringe IV (22:37)
[2021-02-25 22:45] LABS: Bedside Glucose 88 mg/dL (70-110)
[2021-02-25] MEDS: oxyCODONE 5 MG Tablet PO (23:12)
--- NOTE | 2021-02-25 23:15 | NURSING ---
bisiat [employer]OR contacted to inform him that pt is complaining of WU with pain score 6/10 that is relieved with lying flat in bed. caffeine provided. leslieoteat PERMACULTURE CONTRACTOR states to continue to monitor. dr bose aware. no interventions will be taken until 24 hours. increase oral intake.
[2021-02-25 23:41] LABS: Bedside Glucose 164 mg/dL (70-110)
[2021-02-26 00:50] VITALS: BP 115/71; PULSE 107; RESP 16; TEMP 37.1
--- NOTE | 2021-02-26 01:23 | NURSING ---
terminal meconium noted with delivery.
[2021-02-26 01:30] LABS: Creatinine, Urine (random) < 13.00 mg/dL (NO RANGE EST.); Protein, Urine (Random) 43.5 mg/dL (<11.9)
[2021-02-26 04:09] VITALS: BP 130/68; PULSE 88; RESP 18; TEMP 37.2
[2021-02-26 05:56] LABS: Bedside Glucose 97 mg/dL (70-110)
[2021-02-26 07:56] VITALS: BP 130/76; PULSE 98; RESP 16; TEMP 36.8
--- NOTE | 2021-02-26 08:56 | PCM.PN.OB ---
Subjective Subjective: Patient seen at bedside. Resting well. Infant in SCN. Pain controlled. Ambulating and voiding without difficulty. Objective Data Objective Data Vital Signs: Vital Signs Temp Pulse Resp BP Pulse Ox 98.2 F 98 16 130/76 H 98 02/26/21 07:56 02/26/21 07:56 02/26/21 07:56 02/26/21 07:56 02/25/21 23:09 Oxygen Delivery Method Room Air Weight: 203 lb 0.732 oz Body Mass Index (BMI) 32.8 Intake & Output: Intake and Output for Last 24 Hours 02/24/21 02/25/21 02/26/21 23:59 23:59 23:59 Intake Total 6532.88 / 7532.88 1999 / 1999 Output Total 3650 / 5450 2300 / 2300 Balance 2882.88 / 2082.88 -300 / -300 Lab / Micro Data Result Diagrams: 02/25/21 21:45 02/25/21 21:45 Labs: Laboratory Results - last 24 hr 02/25/21 02/25/21 02/25/21 07:30 08:31 09:39 WBC RBC Hgb Hct MCV MCH MCHC RDW Std Deviation RDW Coeff of Perlita Plt Count MPV PT INR APTT Creatinine Estim Creat Clear Calc Est GFR (MDRD) Af Amer Est GFR (MDRD) Non-Af Uric Acid AST ALT U Random Total Protein Urine Creatinine Protein/Creatinin Ratio POC Glucose 78 66 L Blood Type O POSITIVE Antibody Screen NEGATIVE 02/25/21 02/25/21 02/25/21 10:05 11:23 13:08 WBC RBC Hgb Hct MCV MCH MCHC RDW Std Deviation RDW Coeff of Perlita Plt Count MPV PT INR APTT Creatinine Estim Creat Clear Calc Est GFR (MDRD) Af Amer Est GFR (MDRD) Non-Af Uric Acid AST ALT U Random Total Protein Urine Creatinine Protein/Creatinin Ratio POC Glucose 91 86 61 L Blood Type Antibody Screen 02/25/21 02/25/21 02/25/21 13:33 14:34 15:32 WBC RBC Hgb Hct MCV MCH MCHC RDW Std Deviation RDW Coeff of Perlita Plt Count MPV PT INR APTT Creatinine Estim Creat Clear Calc Est GFR (MDRD) Af Amer Est GFR (MDRD) Non-Af Uric Acid AST ALT U Random Total Protein Urine Creatinine Protein/Creatinin Ratio POC Glucose 75 77 87 Blood Type Antibody Screen 02/25/21 02/25/21 02/25/21 16:27 17:32 18:35 WBC RBC Hgb Hct MCV MCH MCHC RDW Std Deviation RDW Coeff of Perlita Plt Count MPV PT INR APTT Creatinine Estim Creat Clear Calc Est GFR (MDRD) Af Amer Est GFR (MDRD) Non-Af Uric Acid AST ALT U Random Total Protein Urine Creatinine Protein/Creatinin Ratio POC Glucose 80 65 L 97 Blood Type Antibody Screen 02/25/21 02/25/21 02/25/21 19:27 21:45 21:45 WBC 20.1 H RBC 3.87 L Hgb 10.9 L Hct 34.0 L MCV 87.9 MCH 28.2 MCHC 32.1 RDW Std Deviation 48.4 H RDW Coeff of Perlita 15.4 H Plt Count 376 MPV 10.2 PT 13.1 INR 1.1 APTT 27.0 Creatinine Estim Creat Clear Calc Est GFR (MDRD) Af Amer Est GFR (MDRD) Non-Af Uric Acid AST ALT U Random Total Protein Urine Creatinine Protein/Creatinin Ratio POC Glucose 88 Blood Type Antibody Screen 02/25/21 02/25/21 02/26/21 21:45 22:43 01:05 WBC RBC Hgb Hct MCV MCH MCHC RDW Std Deviation RDW Coeff of Perlita Plt Count MPV PT INR APTT Creatinine 0.68 Estim Creat Clear Calc 121.48 Est GFR (MDRD) Af Amer 139 Est GFR (MDRD) Non-Af 115 Uric Acid 5.0 AST 20 ALT 20 U Random Total Protein 43.5 H Urine Creatinine < 13.00 Protein/Creatinin Ratio TNP POC Glucose 164 H Blood Type Antibody Screen 02/26/21 05:49 WBC RBC Hgb Hct MCV MCH MCHC RDW Std Deviation RDW Coeff of Perlita Plt Count MPV PT INR APTT Creatinine Estim Creat Clear Calc Est GFR (MDRD) Af Amer Est GFR (MDRD) Non-Af Uric Acid AST ALT U Random Total Protein Urine Creatinine Protein/Creatinin Ratio POC Glucose 97 Blood Type Antibody Screen Physical Exam Const alert, oriented x3 and no apparent distress HEENT normocephalic Neck full ROM Chest Chest: symmetrical chest wall rise Resp normal respiratory effort and normal air movement Cardio regular rate and regular rhythm GI soft to palpation, non-tender and non-distended Back/Spine normal ROM Extremity full ROM, normal capillary refill and no calf tenderness Skin no rashes or lesions noted Neuro CN's II-XII intact bilaterally Psych mental status grossly normal and thought process normal Assessment & Plan Assessment/Plan (1) (spontaneous vaginal delivery): Status: Acute Code(s): O80 - Encounter for full-term uncomplicated delivery Plan: PPD #1 Routine care Pain control support
[2021-02-26 13:00] VITALS: BP 120/78; PULSE 94; RESP 18; TEMP 36.6
[2021-02-26] MEDS: Ibuprofen 600 MG Tablet PO ×2 (14:17→20:13)
[2021-02-26 17:00] VITALS: BP 116/86; PULSE 99; RESP 18; TEMP 36.7
[2021-02-26] MEDS: Loratadine 10 MG Tablet PO (18:02)
[2021-02-26] MEDS: Senna/Docusate Sodium 1 Tablet PO (18:02)
[2021-02-26 19:45] VITALS: BP 122/80; PULSE 84; RESP 16; TEMP 36.1
[2021-02-27 01:15] VITALS: BP 132/81; PULSE 80; RESP 18; TEMP 36
[2021-02-27] MEDS: Acetaminophen 500 MG Tablet 1000 MG PO ×2 (01:23→10:23)
[2021-02-27] MEDS: Ibuprofen 600 MG Tablet PO ×2 (08:07→14:15)
[2021-02-27 08:16] VITALS: BP 122/71; PULSE 79; RESP 16; TEMP 36.1
[2021-02-27] MEDS: Senna/Docusate Sodium 1 Tablet PO (10:23)
[2021-02-27] MEDS: Loratadine 10 MG Tablet PO (10:23)
--- NOTE | 2021-02-27 13:51 | PCM.DC ---
Discharge Instructions Outpatient Procedure Reason For Visit: VAG DELIVERY Diet Discharge Diet: No restrictions Activity Discharge Activity: No Restrictions May resume sexual activity in: 6-8 weeks Weight Bearing Status: Weight bearing as tolerated Follow Up Care Please Follow Up With: Pretty Li CNM When: 2 weeks virtual visit, 6 weeks in office Test Results: Test results from this visit will be discussed in further detail at your follow-up appointment, if applicable. Discharge Plan Admission Admit Date/Time: 02/25/21 07:05 Primary Reason for Your Visit: Attending Provider: Gary Livingston Primary Care Provider: Ramila Mcnamara Discharge Orders/Prescriptions Prescriptions: New sennosides-docusate sodium [Stool Softener-Stimulant Laxat] 8.6-50 mg Tablet 1 - 2 tab PO DAILY PRN PRN (Reason: Constipation ) Qty: 0 RF: 0 Continued PNV [id number] oil 1 EACH tablet,chewable 1 ea PO DAILY RF: 0 Discontinued famotidine 20 MG tablet 20 mg PO BID RF: 0 insulin lispro [Humalog U-100 Insulin] 100 unit/mL solution 4 unit subcut BIDAC RF: 0 Novolin N Flexpen 100 unit/mL (3 mL) insulin pen 10 unit SUBCUT BID RF: 0 Referrals: Ramila Mcnamara PA [Primary Care Provider] - Disposition Patient Disposition: Home, self care
[2021-02-27 14:00] VITALS: BP 127/79; PULSE 84; RESP 16; TEMP 36.5
--- NOTE | 2021-02-27 15:35 | CASEMGMT ---
SOCIAL WORK Received call from nursing, TAZ requesting to speak with SW regarding applying for Medicaid/[employer]. Met with MOB and MOB's mother in SCN. Introduced role. MOB reports is under her father's insurance, but wishes to apply for Medicaid for baby. Education provided on applying for Medicaid. List of [facility] Resources given. MOB denies any further questions/concerns at this time. Regino Scott, TANKER SERVICE ATTENDANT, MANAGER OF PHOTOGRAPHY
== END 2021-02-27 17:25 | disposition home or self-care (01) | DRG 807 ==
PROVIDERS: Admitting Provider Obstetrics & Gynecology; PCP Physician Assistant; Visit Provider Obstetrics & Gynecology
DX: O24.424 Gestational diabetes mellitus in childbirth, insulin controlled (principal); Z37.0 Single live birth; O66.0 Obstructed labor due to shoulder dystocia; Z3A.38 38 weeks gestation of pregnancy
CPT/HCPCS: 59025; 59050; 82565; 82570; 82962; 84156; 84450; 84460; 84550; 85025; 85027; 85610; 85730; 86850; 86900; 86901; 99218; J7120; A4216; G0378

== ENCOUNTER 2022-09-10 18:47 | Inpatient (IN) | payer OTHER, SELFPAY ==
[2022-09-10] VITALS (8 sets, daily range): BP systolic 110–144; BP diastolic 59–96; PULSE 130–145; RESP 15–16; TEMP 37.1–39.1; O2SAT 95–100; BMI 29.8; BMI 31.4
--- NOTE | 2022-09-10 19:06 | EKG12_ITS ---
Test Reason : FLANK PAIN Blood Pressure : / mmHG Vent. Rate : 139 BPM Atrial Rate : 139 BPM P-R Int : 144 ms QRS Dur : 084 ms QT Int : 270 ms P-R-T Axes : 055 080 003 degrees QTc Int : 410 ms Sinus tachycardia Otherwise normal ECG Confirmed by RACHEL FARFAN, JAMAR ([id number]), movie editor INDIA COLLIER ([id number]) on 09/13/2022 11:06:44 AM Referred By: Confirmed By:JAMAR RAMOS MD
--- NOTE | 2022-09-10 19:17 | EDS_ITS ---
HPI History of Present Illness Chief Complaint: Flank Pain Informant: patient Narrative Narrative: Patient presents with some right flank pain, urgency fevers and generalized weakness with nausea. She states she has been having some soreness in her right flank for about a week. She has never had kidney stone. Over the last day she has developed a fever and some nausea and just overall malaise feeling. No cough or sore throat or rash. She has had sepsis with a UTI in the past. She has never had a kidney stone. She has a history of polycystic kidney disease but is on no chronic meds. Her last menstrual cycle was 1 week ago. No abnormality. Patient also states that her urine has had a strange odor for about a week. [facility] Medical History Gestational diabetes requiring insulin Home Medications NK 09/10/22 [History Last Taken Unknown] Allergy/AdvReac Type Severity Reaction Status Date / Time sulfamethoxazole Allergy Rash Verified 09/10/22 18:50 [From Bactrim] trimethoprim [From Bactrim] Allergy Rash Verified 09/10/22 18:50 Family History Mother Hypertension Surgical History S/P appendectomy S/P left knee arthroscopy [place] teeth extracted Social History Smoking Status: Never smoker [facility] ED Constitutional Constitutional ED: Reports chills, fever(s), subjective and sweats ENT ENT ED: Denies rhinorrhea or sore throat Cardiovascular Cardiovascular: Denies chest pain or palpitations Respiratory/Chest Respiratory/Chest: Denies cough or dyspnea Gastrointestinal Gastrointestinal: Reports abdominal pain, nausea and other Details: Patient has some generalized abdominal aching and nausea. She states her abdomen is not really painful though. She has not eaten today due to just not feeling well and having some mild nausea. ; Denies constipation, diarrhea, melena or vomiting Genitourinary Genitourinary ED: Reports dysuria; Denies urinary frequency Musculoskeletal Musculoskeletal: Reports back pain Integumentary Denies Abrasions Neurologic Neurologic: Denies headache(s) Endocrine Endocrinology: Denies polydipsia or polyuria Hematologic/Lymphatic Hematologic/Lymphatic: Denies easy bleeding or easy bruising Allergic/Immunologic Allergic/Immunologic ED: Denies urticaria EXAM Physical Exam Const Vital Signs: 09/10/22 18:49 09/10/22 19:02 09/10/22 21:00 Temperature 98.8 F 100.6 F H Temperature Source Temporal Oral Pulse Rate 145 H 139 H Respiratory Rate 16 15 Respiratory Effort Normal Non-Labored Respiratory Pattern Normal Blood Pressure 144/96 H 111/59 L Blood Pressure Mean 112 76 Pulse Ox 100 100 Oxygen Delivery Method Room Air Nasal Cannula 09/10/22 21:49 Temperature Temperature Source Pulse Rate 135 H Respiratory Rate 15 Respiratory Effort Respiratory Pattern Blood Pressure 110/62 Blood Pressure Mean 78 Pulse Ox 99 Oxygen Delivery Method Room Air Positive well nourished and well developed Constitutional Narrative: Despite her very high heart rate, she is nontoxic in appearance. General Appearance ED: well developed and NAD HEENT Reports dry mucous membranes Mouth ED: Yes dry mucous membranes Mouth: dry mucous membranes Eyes General Eye ED: Negative for pale conjunctiva or scleral icterus Neck supple Resp normal respiratory effort and clear to auscultation bilaterally Effort and Inspection: Negative for pain with movement Auscultation: Negative for rales, rhonchi or wheezes Cardio regular rhythm; Negative for regular rate or no murmurs Rate: tachycardic GI normal to inspection, nondistended, normoactive bowel sounds and non-tender GI Narrative: Abdomen really is no tenderness anywhere. No rebound or guarding. Bowel sounds are normal. Auscultation: normoactive bowel sounds Palpation: soft Back/Spine Back/Spine Narrative: Patient does have some mild to moderate right-sided CVA tenderness but no tenderness with soft palpation. Extremity normal to inspection Extremity Narrative: No rashes or edema. Neuro oriented x3 Sensorium / Orientation: alert; Negative for lethargic or stuporous Psych mental status grossly normal Skin no rashes or lesions noted MDM MDM MDM Narrative Medical decision making narrative: CT shows findings that could either be infection or passed stone. But passed stone does not quite match her presentation. She never had sudden onset of pain. She has had aching. She has now developed fevers and nausea. She has a history of pyelonephritis with sepsis. She also has a fever and she has a white count. Her lactate is normal though. Electrolytes show no marked abnormalities. Patient was given IV fluids for sepsis. She was given antibiotics. She was given meds for nausea. Nausea is somewhat better but still present. Her heart rate is down but she still tachycardic in the upper 120s. I think with the overall presentation this is still concerning for pyelonephritis. Her urine at this point is clean but without cultures I cannot rule out pyelonephritis. Her presentation, history, white count, fever, CT findings all point to pyelonephritis. With her continued tachycardia she will be brought in the hospital for further therapy. I discussed the case with the hospitalist. Lab Data Attestation: I reviewed the patient's lab results. Labs: Laboratory Results - last 24 hr 09/10/22 09/10/22 09/10/22 19:30 19:30 19:30 WBC 17.8 H RBC 4.98 Hgb 14.0 Hct 44.0 MCV 88.4 MCH 28.1 MCHC 31.8 L RDW Std Deviation 43.6 RDW Coeff of Perlita 13.5 Plt Count 420 MPV 8.9 Immature Gran % (Auto) 0.500 Neut % (Auto) 86.3 H Lymph % (Auto) 6.9 L [place] % (Auto) 5.7 Eos % (Auto) 0.3 Baso % (Auto) 0.3 Absolute Neuts (auto) 15.4 H Absolute Lymphs (auto) 1.22 Nucleated RBC % 0 Sodium 136 Potassium 3.6 Chloride 104 Carbon Dioxide 25.0 Anion Gap 7 BUN 15 Creatinine 0.90 Estim Creat Clear Calc 90.23 Est GFR (MDRD) Af Amer 99 Est GFR (MDRD) Non-Af 82 BUN/Creatinine Ratio 16.7 Glucose 104 Lactic Acid 1.7 Calcium 9.4 Serum , Qual Urine Color Urine Clarity Urine pH Ur Specific [place] Urine Protein Urine Glucose (UA) Urine Ketones Urine Occult Blood Urine Nitrite Urine Bilirubin Urine Urobilinogen Ur Leukocyte Esterase Urine RBC Urine WBC Ur Squamous Epith Cells Urine Bacteria Urine Mucus 09/10/22 09/10/22 19:30 19:30 WBC RBC Hgb Hct MCV MCH MCHC RDW Std Deviation RDW Coeff of Perlita Plt Count MPV Immature Gran % (Auto) Neut % (Auto) Lymph % (Auto) [place] % (Auto) Eos % (Auto) Baso % (Auto) Absolute Neuts (auto) Absolute Lymphs (auto) Nucleated RBC % Sodium Potassium Chloride Carbon Dioxide Anion Gap BUN Creatinine Estim Creat Clear Calc Est GFR (MDRD) Af Amer Est GFR (MDRD) Non-Af BUN/Creatinine Ratio Glucose Lactic Acid Calcium Serum , Qual NEGATIVE Urine Color Yellow Urine Clarity Clear Urine pH 7.0 Ur Specific [place] 1.010 Urine Protein Negative Urine Glucose (UA) Normal Urine Ketones Negative Urine Occult Blood 10 H Urine Nitrite Negative Urine Bilirubin Negative Urine Urobilinogen Normal Ur Leukocyte Esterase 25 H Urine RBC 0-5 SEEN Urine WBC 0-5 SEEN Ur Squamous Epith Cells 0-5 SEEN Urine Bacteria 1+ Urine Mucus 0 SEEN Radiography Diagnostic Testing: Clinical Impression(s) from Imaging Studies Abdomen/Pelvis CT 09/10/22 20:21 IMPRESSION: (NOT LISTED IN ORDER OF SIGNIFICANCE) There are medullary hyperdensities. These may represent small non obstructive stones vs mild medullary sponge kidney. Duplex bilateral collecting system. Right Inflammation is seen around the kidney and ureter. An obstructing calcified stone is not identified. This would suggest passage of a stone or infectious process of the kidney. Other findings as above. Electronically Signed: Eddi Portillo MD at 21:01 EST , CT scan shows no acute obstructing kidney stone. There may be small nonobstructing stones in the medullary area. But there is some inflammation around the kidney and the ureter that could be either the recent past stone or infection. Discharge Plan Dx/Rx/DC Orders Clinical Impression: Pyelonephritis, Sepsis, Nausea Disposition Disposition: Acute Care [facility]
[2022-09-10 19:54] LABS: Absolute Lymphocyte Count 1.22 X10^3/uL (0.83-4.51); Absolute Neutrophil Count 15.4 X10^3/uL (2.0-7.7); Basophil# 0.05 X10^3/uL; Basophil% 0.3 % (0-1); Eosinophil# 0.05 X10^3/uL; Eosinophils% 0.3 % (0-5); Lymphocyte # 1.22 X10^3/ul (0.83-4.51); Lymphocyte % 6.9 % (19-41); Mean Corp Hgb Conc 31.8 g/dL (32-36); Mean Corpuscular Hgb 28.1 pg (27.0-32.0); Mean Corpuscular Volume 88.4 fL (81-99); Mean Platelet Vol. 8.9 fl (6.2-12.0); Monocyte# 1.02 X10^3/uL; Monocyte% 5.7 % (0-10); Mucous, Urine 0 SEEN /hpf (<or=2+); NRBC Flagged by Analyzer 0 % (0-5); Neutrophil # 15.35 X10^3/uL (2.7-7.7); Neutrophil % 86.3 % (47-70); Platelet Count 420 K/mm3 (150-450); RBC Distribution Width CV 13.5 % (11.6-14.6); RBC Distribution Width SD 43.6 fl (35.1-43.9); Red Blood Count 4.98 M/mm3 (4.2-5.4); White Blood Count 17.8 K/mm3 (4.4-11.0)
[2022-09-10] MEDS: Ondansetron 4 MG/2 ML Vial IV (19:55)
[2022-09-10 20:03] LABS: Color, Urine Yellow (Yellow); Glucose, Dipstick Normal (Normal); Ketone-Dipstick Negative (Negative); Leukocyte Esterase-Dipstick 25 /ul (Negative); Nitrite-Dipstick Negative (Negative); Occult Blood-Urine 10 /ul (Negative); Protein-Dipstick Negative (Negative); Urine Bilirubin Dipstick Negative (Negative); Urine Clarity Clear (Clear); Urine Urobilinogen Normal (Normal)
[2022-09-10 20:09] LABS: Anion Gap 7 (5-15); BUN 15 mg/dL (7-18); BUN/Creat Ratio 16.7 RATIO (10-20); Calcium,Total 9.4 mg/dL (8.5-10.1); Chloride 104 mmol/L (98-107); EST Glomerular Filtration Rate 82 mL/min (>60); Est Glom Filt Rate - Afr Amer 99 mL/min (>60); Estimated Creatinine Clearance 90.23 ml/min; Glucose 104 mg/dL (74-106); Potassium 3.6 mmol/L (3.5-5.1); Sodium Level 136 mmol/L (136-145)
[2022-09-10 20:18] LABS: Internal QC Validated? YES +Cl - CLEAR BKGD; Pregnancy, Serum, hCG Quali. NEGATIVE Negative
--- NOTE | 2022-09-10 20:21 | CT_ITS ---
STUDY: CT Abdomen And Pelvis W/O Contrast Injection 09/10/2022 8:58 PM REASON FOR EXAM: Female, 22 years old. Technologist Notes Other, RT FLANK PAIN X 1 WEEK BUT WORSE NOW,NAUSEA,FEVER,URINARY FREQUENCY PAIN Right flank pain TECHNIQUE: Transaxial images were obtained without oral contrast, and without intravenous contrast. Individualized dose optimization techniques were used for this CT. COMPARISON: 06.28.20. FINDINGS: The visualized lung bases are unremarkable. The visualized portions of the heart are within normal limits. Unremarkable liver. Unremarkable gallbladder and extrahepatic biliary system. Unremarkable spleen. Unremarkable pancreas. Unremarkable bilateral adrenal glands. There are medullary hyperdensities. These may represent small non obstructive stones vs mild medullary sponge kidney. Duplex bilateral collecting system. Right Inflammation is seen around the kidney and ureter. An obstructing calcified stone is not identified. This would suggest passage of a stone or infectious process of the kidney. Focal wall thickening of the antrum of stomach. This can suggest a gastritis. Unremarkable small intestine. Unremarkable colon. There are surgical clips in the region of the appendix consistent with a prior appendectomy. There are no acute findings of the abdominal aorta. Unremarkable inferior vena cava. Subcentimeter mesenteric lymph nodes. Unremarkable urinary bladder. There is an umbilical hernia containing fat. Unremarkable osseous structures. CT/Abdomen/Pelvis without Cont IMPRESSION: (NOT LISTED IN ORDER OF SIGNIFICANCE) There are medullary hyperdensities. These may represent small non obstructive stones vs mild medullary sponge kidney. Duplex bilateral collecting system. Right Inflammation is seen around the kidney and ureter. An obstructing calcified stone is not identified. This would suggest passage of a stone or infectious process of the kidney. Other findings as above. Electronically Signed: Eddi Portillo MD at 21:01 EST ,
[2022-09-10 20:22] LABS: Bacteria 1+ /hpf (None Seen); Red Blood Cells-Urine 0-5 SEEN /hpf (0-5); Squamous Epithelial Cells - UA 0-5 SEEN /hpf (5-10); White Blood Cells 0-5 SEEN /hpf (0-5)
[2022-09-10 20:32] LABS: Lactic Acid 1.7 mmol/L (0.4-1.9)
[2022-09-10] MEDS: Morphine 4 MG/ML Syringe IV (21:13)
[2022-09-10] MEDS: Ceftriaxone 1 GM/50 ML BAG IV (22:13)
--- NOTE | 2022-09-10 22:14 | PCM.HP.STD ---
HPI - General General Date of Admission: 09/10/22 Date of Service: 09/10/22 Chief Complaint: R flank, abdominal pain, foul smelling urine. HPI Narrative The patient is a 22 y/o F w/ PMHx: Tobacco use, Obesity, Frequent UTIs who presents to the [facility] ED on 09/10/22 with history of onset x 1 week foul smelling urine, fatigue, malaise, nausea with poor oral intake and notable right flank pain worsening over the last 24 hours with onset fevers, chills prompting ED evaluation. Work-up in the ED included T102.3, heart rate 140, BP 134/74, respiratory rate 16, 95% room air, CBC with WC 17.8, hemoglobin 14, platelet 420 with left left, BMP not marked appearing, lactic acid 1.4, serum testing negative, urinalysis with occult blood 10, leukocyte Estrace 25, nitrite negative with 1+ bacteria with urine culture pending, blood culture x2 pending, despite urinalysis not marked appearing CT abdomen and pelvis with noted medullary hyperdensities possibly nonobstructive stones versus mild medullary sponge kidney with a duplex bilateral collecting system, right inflammation around the kidney and ureter with no obvious obstructing calcified stone suspicious for infectious process of the kidney, EKG with sinus tachycardia with rate 139 with no acute evidence of ischemia. In the ED patient ministered normal saline bolus, Rocephin, morphine 4 mg IV x1 as well as Zofran 4 mg IV x1. PFSH Medical History Frequent UTI Gestational diabetes requiring insulin Obesity Tobacco use Home Medications NK 09/10/22 [History Last Taken Unknown] Allergy/AdvReac Type Severity Reaction Status Date / Time sulfamethoxazole Allergy Rash Verified 09/10/22 18:50 [From Bactrim] trimethoprim [From Bactrim] Allergy Rash Verified 09/10/22 18:50 Family History (Updated 09/10/22 @ 22:[address] Keesha Del Rosario MD) Mother Hypertension Father Diabetes Surgical History S/P appendectomy S/P left knee arthroscopy [place] teeth extracted Social History (Updated 09/10/22 @ 22:[address] Keesha Del Rosario MD) household members: spouse Smoking Status: Current every day smoker tobacco type: cigarettes Smoking packs per day: 0.5 Smoking cigarettes per day: 10.0 alcohol intake: current alcohol intake frequency: holidays/special occasions only substance use type: does not use ROS ROS Narrative Admission Review of Systems: CONSTITUTIONAL: No weight loss, + fever, chills, weakness or fatigue. HEENT: Eyes: No visual loss, blurred vision, double vision or yellow sclerae. Ears, Nose, Throat: No hearing loss, sneezing, congestion, runny nose or sore throat. SKIN: No rash or itching, lesions, wounds. CARDIOVASCULAR: No chest pain, chest pressure or chest discomfort, palpitations, edema, orthopnea, syncopal events. RESPIRATORY: No shortness of breath, cough or sputum, wheezing, hemoptysis. GASTROINTESTINAL: + anorexia, nausea, R sided abdominal/flank pain, No vomiting, diarrhea, melena, BRBPR. GENITOURINARY: + Foul smelling urine, R sided abdominal and flank pain. NEUROLOGICAL: No headache, dizziness, syncope, paralysis, ataxia, numbness or tingling in the extremities, focal weakness, change in bowel or bladder control, seizure. MUSCULOSKELETAL:+ muscle, back pain, joint pain or stiffness. HEMATOLOGIC: No anemia, bleeding or bruising. LYMPHATICS: No enlarged nodes. No history of splenectomy. PSYCHIATRIC: No history of depression or anxiety. ENDOCRINOLOGIC: No reports of sweating, cold or heat intolerance. No polyuria or polydipsia. ALLERGIES: No history of asthma, hives, eczema or rhinitis. Vital Signs Vital Signs Vital Signs: 09/10/22 18:49 09/10/22 19:02 09/10/22 21:00 Temperature 98.8 F 100.6 F H Temperature Source Temporal Oral Pulse Rate 145 H 139 H Respiratory Rate 16 15 Respiratory Effort Normal Non-Labored Respiratory Pattern Normal Blood Pressure 144/96 H 111/59 L Blood Pressure Mean 112 76 Pulse Ox 100 100 Oxygen Delivery Method Room Air Nasal Cannula 09/10/22 21:49 09/10/22 21:47 Temperature 100.6 F H Temperature Source Oral Pulse Rate 135 H 130 H Respiratory Rate 15 15 Respiratory Effort Respiratory Pattern Blood Pressure 110/62 110/62 Blood Pressure Mean 78 78 Pulse Ox 99 99 Oxygen Delivery Method Room Air Room Air Weight Weight: 185 lb Body Mass Index (BMI) 29.8 Physical Exam Narrative Physical Examination: General: Awake, alert, oriented x 3 and cooperative, laying in the ED bed, fatigued and ill-appearing Skin: Normal color, normal turgor, no icterus, no cyanosis. HEENT: AT/NC, EOMI, PERRLA, dry MM, no carotid bruits or JVD noted. Lungs: Mildly diminished, greater bases, appropriate effort, no rales, ronchi or wheezing. Heart: Tachycardic with regular rhythm; no gallop, rub audible. Abdomen: Soft, notable right-sided abdominal and right flank discomfort, ND, mildly hyperactive BS, no HSM. Extremities: No cyanosis, clubbing, or edema. Neurological: Patient awake, alert, oriented as noted, cognitive function intact; pupils equally reactive to light and accommodation, cranial nerves II-XII grossly normal, moving all 4 extremities, no focal deficits, strength moderately globally decreased secondary to acute presentation. Psychiatric: Affect appears fatigued, ill-appearing, uncomfortable appearing, no acute evidence of depressive or anxiety feelings. Results Lab / Micro Data Result Diagrams: 09/10/22 19:30 09/10/22 19:30 Labs: Laboratory Results - last 24 hr 09/10/22 19:30: WBC 17.8 H, RBC 4.98, Hgb 14.0, Hct 44.0, MCV 88.4, MCH 28.1, MCHC 31.8 L, RDW Std Deviation 43.6, RDW Coeff of Perlita 13.5, Plt Count 420, MPV 8.9, Immature Gran % (Auto) 0.500, Neut % (Auto) 86.3 H, Lymph % (Auto) 6.9 L, Grant % (Auto) 5.7, Eos % (Auto) 0.3, Baso % (Auto) 0.3, Absolute Neuts (auto) 15.4 H, Absolute Lymphs (auto) 1.22, Nucleated RBC % 0 09/10/22 19:30: Sodium 136, Potassium 3.6, Chloride 104, Carbon Dioxide 25.0, Anion Gap 7, BUN 15, Creatinine 0.90, Estim Creat Clear Calc 90.23, Est GFR (MDRD) Af Amer 99, Est GFR (MDRD) Non-Af 82, BUN/Creatinine Ratio 16.7, Glucose 104, Calcium 9.4 09/10/22 19:30: Lactic Acid 1.7 09/10/22 19:30: Serum , Qual NEGATIVE 09/10/22 19:30: Urine Color Yellow, Urine Clarity Clear, Urine pH 7.0, Ur Specific [place] 1.010, Urine Protein Negative, Urine Glucose (UA) Normal, Urine Ketones Negative, Urine Occult Blood 10 H, Urine Nitrite Negative, Urine Bilirubin Negative, Urine Urobilinogen Normal, Ur Leukocyte Esterase 25 H, Urine RBC 0-5 SEEN, Urine WBC 0-5 SEEN, Ur Squamous Epith Cells 0-5 SEEN, Urine Bacteria 1+, Urine Mucus 0 SEEN Radiology Impression Abdomen/Pelvis CT 09/10/22 20:21 IMPRESSION: (NOT LISTED IN ORDER OF SIGNIFICANCE) There are medullary hyperdensities. These may represent small non obstructive stones vs mild medullary sponge kidney. Duplex bilateral collecting system. Right Inflammation is seen around the kidney and ureter. An obstructing calcified stone is not identified. This would suggest passage of a stone or infectious process of the kidney. Other findings as above. Electronically Signed: Eddi Portillo MD at 21:01 EST Reading Location ID and State: [facility] / [place] , Service support , Assessment & Plan Assessment/Plan (1) Pyelonephritis: PLAN: Plan The patient is a 22 y/o F w/ PMHx: Tobacco use, Obesity, Frequent UTIs who presents to the [facility] ED on 09/10/22 with history of onset x 1 week foul smelling urine, fatigue, malaise, nausea with poor oral intake and notable right flank pain worsening over the last 24 hours with onset fevers, chills prompting ED evaluation. #1. Acute pyelonephritis, ED reported as sepsis however there is no evidence of endorgan damage: Will admit to PCU given significant tachycardia, UA upon ED not significantly remarkable however CT of the abdomen and pelvis with right-sided renal and ureteral inflammation concerning for acute pyelonephritis, pending UCx, continue aggressive IVFs, monitor I/Os, continue IV Rocephin w/ transition as able pending sensitivities and speciation. Bld cx x 2 obtained in the ED. #2. Tobacco Abuse: Encouraged cessation, inpatient consultation per RT, NR if desired. #3. Obesity: Weight loss and lifestyle changes encouraged. #4. DVT prophylaxis: Low risk, encourage ambulation. Charges/Coding Visit Charges Inpatient E&M: 24169 Init Hosp L2
[2022-09-10] MEDS: 0.9% Normal Saline 1,000 ML 999 ML IV (23:09)
[2022-09-10] MEDS: oxyCODONE 5 MG Tablet PO (23:09)
[2022-09-10] MEDS: Acetaminophen 325 MG Tablet 650 MG PO (23:09)
[2022-09-10] MEDS: MELATONIN 3 MG TABLET PO (23:30)
[2022-09-11] VITALS (18 sets, daily range): BP systolic 104–132; BP diastolic 43–82; PULSE 96–136; RESP 16–18; TEMP 37.6–39.5; O2SAT 94–100
[2022-09-11] MEDS: 0.9% Normal Saline 1,000 ML 150 ML IV ×4 (00:19→21:33)
[2022-09-11] MEDS: Acetaminophen 325 MG Tablet 650 MG PO ×4 (04:16→19:45)
[2022-09-11] MEDS: 0.9% Saline Lock 10 ML Syringe IV ×2 (04:17→19:53)
[2022-09-11] MEDS: Morphine 2 MG/ML Syringe IV (04:17)
[2022-09-11] MEDS: 0.9% Normal Saline 1,000 ML 999 ML IV (06:16)
[2022-09-11 06:27] LABS: Absolute Lymphocyte Count 1.21 X10^3/uL (0.83-4.51); Absolute Neutrophil Count 11.8 X10^3/uL (2.0-7.7); Basophil# 0.02 X10^3/uL; Basophil% 0.1 % (0-1); Hematocrit 37.6 % (37-47); Hemoglobin 12.4 g/dL (12.0-15.0); Lymphocyte # 1.21 X10^3/ul (0.83-4.51); Lymphocyte % 8.6 % (19-41); Mean Corpuscular Volume 88.1 fL (81-99); Mean Platelet Vol. 8.8 fl (6.2-12.0); Monocyte# 0.89 X10^3/uL; Monocyte% 6.3 % (0-10); NRBC Flagged by Analyzer 0 % (0-5); Neutrophil # 11.83 X10^3/uL (2.7-7.7); Neutrophil % 84.5 % (47-70); Platelet Count 283 K/mm3 (150-450); RBC Distribution Width CV 13.6 % (11.6-14.6); RBC Distribution Width SD 43.6 fl (35.1-43.9); Red Blood Count 4.27 M/mm3 (4.2-5.4)
[2022-09-11 07:54] LABS: AST(SGOT) 18 U/L (15-37); Alanine Aminotransfer ALT/SGPT 43 U/L (13-56); Albumin, Serum 2.9 g/dL (3.2-5.0); Alkaline Phosphatase 68 U/L (45-117); Anion Gap 10 (5-15); BUN 10 mg/dL (7-18); BUN/Creat Ratio 10.4 RATIO (10-20); Calcium,Total 7.3 mg/dL (8.5-10.1); Chloride 108 mmol/L (98-107); Creatinine, Serum 0.96 mg/dL (0.55-1.02); EST Glomerular Filtration Rate 76 mL/min (>60); Est Glom Filt Rate - Afr Amer 92 mL/min (>60); Estimated Creatinine Clearance 84.59 ml/min; Globulin 2.8 g/dL (2.2-4.2); Glucose 127 mg/dL (74-106); Potassium 3.1 mmol/L (3.5-5.1); Protein, Total 5.7 g/dL (6.4-8.2); Sodium Level 138 mmol/L (136-145)
[2022-09-11] MEDS: oxyCODONE 5 MG Tablet PO ×3 (08:55→21:33)
--- NOTE | 2022-09-11 11:25 | PCM.PN.HOSP ---
Subjective Subjective Patient was seen and examined today, she requested to be placed on a regular diet if possible, patient states she still has body aches and feels somewhat better but still complains of malaise. Her significant other is in the room at the time of my examination. Patient's white blood cell count today was 14,000 Objective Data Objective Data Vital Signs: Vital Signs Temp Pulse Resp BP Pulse Ox O2 Del Method 99.7 F H 105 H 16 116/73 100 Room Air 09/11/22 10:09/11/22 10:09/11/22 10:22 09/11/22 10:09/11/22 10:09/11/22 10:22 Oxygen Delivery Method Room Air Weight: 89.675 kg Body Mass Index (BMI) 31.4 Intake & Output: Intake and Output for Last 24 Hours 09/09/22 09/10/22 09/11/22 23:59 23:59 23:59 Intake Total 2570 / 2570 3197.5 / 3197.5 Output Total 600 / 600 Balance 2570 / 2570 2597.5 / 2597.5 Lab / Micro Data Result Diagrams: 09/11/22 06:01 09/11/22 06:01 Labs: Laboratory Results - last 24 hr 09/10/22 19:30: WBC 17.8 H, RBC 4.98, Hgb 14.0, Hct 44.0, MCV 88.4, MCH 28.1, MCHC 31.8 L, RDW Std Deviation 43.6, RDW Coeff of Perlita 13.5, Plt Count 420, MPV 8.9, Immature Gran % (Auto) 0.500, Neut % (Auto) 86.3 H, Lymph % (Auto) 6.9 L, Hale % (Auto) 5.7, Eos % (Auto) 0.3, Baso % (Auto) 0.3, Absolute Neuts (auto) 15.4 H, Absolute Lymphs (auto) 1.22, Nucleated RBC % 0 09/10/22 19:30: Sodium 136, Potassium 3.6, Chloride 104, Carbon Dioxide 25.0, Anion Gap 7, BUN 15, Creatinine 0.90, Estim Creat Clear Calc 90.23, Est GFR (MDRD) Af Amer 99, Est GFR (MDRD) Non-Af 82, BUN/Creatinine Ratio 16.7, Glucose 104, Calcium 9.4 09/10/22 19:30: Lactic Acid 1.7 09/10/22 19:30: Serum , Qual NEGATIVE 09/10/22 19:30: Urine Color Yellow, Urine Clarity Clear, Urine pH 7.0, Ur Specific [place] 1.010, Urine Protein Negative, Urine Glucose (UA) Normal, Urine Ketones Negative, Urine Occult Blood 10 H, Urine Nitrite Negative, Urine Bilirubin Negative, Urine Urobilinogen Normal, Ur Leukocyte Esterase 25 H, Urine RBC 0-5 SEEN, Urine WBC 0-5 SEEN, Ur Squamous Epith Cells 0-5 SEEN, Urine Bacteria 1+, Urine Mucus 0 SEEN 09/11/22 06:01: WBC 14.0 H, RBC 4.27, Hgb 12.4, Hct 37.6, MCV 88.1, MCH 29.0, MCHC 33.0, RDW Std Deviation 43.6, RDW Coeff of Perlita 13.6, Plt Count 283, MPV 8.8, Immature Gran % (Auto) 0.500, Neut % (Auto) 84.5 H, Lymph % (Auto) 8.6 L, Hale % (Auto) 6.3, Eos % (Auto) 0.0, Baso % (Auto) 0.1, Absolute Neuts (auto) 11.8 H, Absolute Lymphs (auto) 1.21, Nucleated RBC % 0 09/11/22 06:01: Sodium 138, Potassium 3.1 L, Chloride 108 H, Carbon Dioxide 20.0 L, Anion Gap 10, BUN 10, Creatinine 0.96, Estim Creat Clear Calc 84.59, Est GFR (MDRD) Af Amer 92, Est GFR (MDRD) Non-Af 76, BUN/Creatinine Ratio 10.4, Glucose 127 H, Calcium 7.3 L, Total Bilirubin 0.70, AST 18, ALT 43, Alkaline Phosphatase 68, Total Protein 5.7 L, Albumin 2.9 L, Globulin 2.8, Albumin/Globulin Ratio 1.0 Micro: Microbiology 09/10/22 19:30 Urine, Clean Catch 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 These may represent small non obstructive stones vs mild medullary sponge kidney. Duplex bilateral collecting system. Right Inflammation is seen around the kidney and ureter. An obstructing calcified stone is not identified. This would suggest passage of a stone or infectious process of the kidney. Other findings as above. Electronically Signed: Eddi Portillo MD at 21:01 EST Reading Location ID and State: [facility] / [place] , Service support , Physical Exam Const alert, oriented x3 and no apparent distress General Appearance: cooperative, well kempt and well developed Orientation / Consciousness: awake, oriented to person, oriented to place and oriented to time HEENT normocephalic and moist oral mucous membranes Eyes PERRL, EOMs intact bilaterally and conjunctivae normal Neck supple, no JVD, thyroid normal and no carotid bruits General: trachea midline Resp normal respiratory effort, no retractions, no use of accessory muscles and clear to auscultation bilaterally Auscultation: Negative for rales, rhonchi or wheezes Cardio regular rate, regular rhythm, S1 normal heart sound, S2 normal heart sound, no murmurs, no rub and no gallops GI normal to inspection, nondistended, normoactive bowel sounds, soft to palpation, non-tender and non-distended Extremity no clubbing, cyanosis or edema Skin no rashes or lesions noted General Skin Exam: no breakdown Neuro oriented x3, CN's II-XII intact bilaterally, moves all extremities, no focal motor deficits and no sensory deficits noted Sensorium / Orientation: awake and alert Speech: speech normal Psych affect normal Assessment & Plan Assessment/Plan (1) Pyelonephritis: PLAN: Plan 1. Pyelonephritis-continue IV antibiotics and fluids, CBC will be repeated in the morning Charges/Coding Visit Charges Inpatient E&M: 85157 Subs Hosp L2
[2022-09-11] MEDS: Potassium Chloride Oral Tablet 20 MEQ PO (11:47)
[2022-09-11] MEDS: Ondansetron 4 MG/2 ML Vial IV (19:53)
[2022-09-11] MEDS: Ceftriaxone 1 GM/50 ML BAG IV (21:33)
[2022-09-11] MEDS: MELATONIN 3 MG TABLET PO (21:40)
[2022-09-12] VITALS (7 sets, daily range): BP systolic 104–120; BP diastolic 48–69; PULSE 87–98; RESP 16–20; TEMP 36.6–38.6; O2SAT 95–100
[2022-09-12] MEDS: 0.9% Normal Saline 1,000 ML 150 ML IV ×2 (03:36→12:08)
[2022-09-12] MEDS: Acetaminophen 325 MG Tablet 650 MG PO ×2 (03:39→12:08)
[2022-09-12] MEDS: Potassium Chloride Oral Tablet 20 MEQ 40 MEQ PO (08:21)
--- NOTE | 2022-09-12 10:06 | CT_ITS ---
STUDY: CTA CHEST REASON FOR EXAM: Female, 22 years old. Chest pain. RADIATION DOSAGE (If Supplied By Facility): CTDIvol = ( 14.32 ) mGy, DLP = ( 471.44 ) mGycm TECHNIQUE: The examination was performed with the intravenous administration of IV 100mL Isovue-370. Post-processing of the angiographic images was performed, with multiplanar reformation and 3D reconstruction. Individualized dose optimization techniques were used for this CT. COMPARISON: None. FINDINGS: Normal enhancement of the main pulmonary artery and right and left pulmonary arteries. Normal enhancement of the bilateral peripheral pulmonary arteries. There is no demonstrated pulmonary embolism. Normal thoracic aorta and visualized great vessels. There is no demonstrated aortic dissection. Normal heart and pericardium. Normal mediastinum. Normal hilar regions. Normal visualized trachea and bronchi. The lungs are well expanded. Mild degree of increased markings at the lung bases suggestive of bibasilar atelectasis mild degree of atelectasis also seen in the posterior aspect of the lingula segment of the left upper lobe. Normal pleura. Normal chest wall structures. Normal osseous structures. Diffuse fatty infiltration of the liver. CT/CTA Chest W/WO Contrast IMPRESSION: No evidence of pulmonary embolism. Findings suggest some bibasilar atelectasis as well as atelectasis in the posterior aspect of the lingular segment of the left upper lobe. Electronically Signed: Quirino Tapia MD at 10:32 EST ,
--- NOTE | 2022-09-12 11:09 | CASEMGMT ---
This RN CM to room to complete CM assessment and pt in is bathroom getting shower. Will attempt again later. SStaten RN CM
[2022-09-12] MEDS: oxyCODONE 5 MG Tablet PO (12:08)
--- NOTE | 2022-09-12 12:15 | PCM.DC.SUM ---
Providers Date of Admission: 09/10/22 Date of Discharge: 09/12/22 Primary Care Physician: LEENA Rice Reason For Visit: PYELONEPHRITIS, SEPSIS Diagnosis Discharge Diagnosis (1) Pyelonephritis: Status: Acute Code(s): N12 - Tubulo-interstitial nephritis, not specified as acute or chronic Medications at Discharge Home Medications cefpodoxime 200 mg tablet 200 mg PO BID #26 tabs 09/12/22 oxycodone 5 mg tablet 5 mg PO Q6H 3 days #12 tabs 09/12/22 Hospital Course Operations None Procedures - (CT of the abdomen pelvis/CTA of the chest) Summary of Care Provided Minutes Spent on Discharge: 36 Hospital Course: Ms. Lopez is a 22-year-old white female who presented emergency department [facility] on 09/10/2022 with a chief complaint of flank pain. Patient did indicate on presentation she has a history of frequent UTIs and reported approximately 1 week prior she had foul-smelling urine, fatigue, malaise, and nausea with a poor oral intake and notable right flank pain. Her pain had worsened over the last 24 hours prior to presentation and she had an onset of fevers and chills which prompted her ED evaluation. Work-up in the ED included T102.3, heart rate 140, BP 134/74, respiratory rate 16, 95% room air, CBC with WC 17.8, hemoglobin 14, platelet 420 with left left, BMP not marked appearing, lactic acid 1.4, serum testing negative, urinalysis with occult blood 10, leukocyte esterase 25, nitrite negative with 1+ bacteria with urine culture pending, blood culture x2 pending, despite urinalysis not marked appearing CT abdomen and pelvis with noted medullary hyperdensities possibly nonobstructive stones versus mild medullary sponge kidney with a duplex bilateral collecting system, right inflammation around the kidney and ureter with no obvious obstructing calcified stone suspicious for infectious process of the kidney, EKG with sinus tachycardia with rate 139 with no acute evidence of ischemia.? In the ED patient administered normal saline bolus, Rocephin, morphine 4 mg IV x1 as well as Zofran 4 mg IV x1. She was admitted to the medical floor where she had ongoing continued fevers. She was maintained on ceftriaxone but her fever curve seem to be improving. She had decreasing pain and improvement in her oral intake. Her white count trended down from 17.8 on the day of admission to 14.0 the day after admission after antibiotics were started. Repeat lab work was not obtained on the day of discharge however clinically the patient was much improved. Her urine culture showed E. coli that was pansensitive. She did receive a total of 2 days of IV antibiotics prior to discharge. Given the price sensitivity of this we will go ahead and continue oral antibiotics with cefpodoxime 200 mg p.o. twice daily for another 13 days to complete antibiotic course. On the day of discharge she did complain of some pleuritic chest pain with deep breathing. A CTA was obtained and was negative for any signs of PE but did show some some subsegmental atelectasis. Deep breathing was encouraged as was walking and mobility. She was able to be discharged home in stable condition with improved fever curve and improving white count on 09/12/2022. I have instructed her to follow-up with her primary care physician within the next week for reevaluation. She was instructed to return to work on 09/14/2022. Patient did not meet sepsis criteria at the time of admission or any other time during her hospitalization. Discharge diagnoses: Pyelonephritis E. coli urinary tract infection Leukocytosis-resolved Hypokalemia-treated Physical Exam Narrative Patient states she is not quite baseline but is overall improved. Still having some intermittent flank pain. Fever curve is improving. Const alert, oriented x3, no apparent distress, healthy appearing and well nourished Constitutional Narrative: Young white female lying in bed, appears nontoxic, significant other at bedside General Appearance: cooperative, comfortable, well kempt and well developed Orientation / Consciousness: awake, oriented to person, oriented to place and oriented to time Exam Limitations: no limitations Nutritional Appearance: obese HEENT normocephalic, head/scalp atraumatic, hearing grossly normal bilaterally and moist oral mucous membranes HEENT Narrative: Mallampati 2, no thrush Eyes PERRL, EOMs intact bilaterally and conjunctivae normal Eyes Narrative: No scleral icterus Neck no lymphadenopathy, supple and no JVD Neck Narrative: Trachea midline, no thyroid in the Resp normal respiratory effort, no retractions, no use of accessory muscles and clear to auscultation bilaterally Auscultation: Negative for crackles, rales, rhonchi or wheezes Cardio regular rate, regular rhythm, S1 normal heart sound, S2 normal heart sound, no murmurs, no rub, no gallops and no clicks GI normal to inspection, nondistended, normoactive bowel sounds and soft to palpation GI Narrative: Mild tenderness of bilateral flank/lower abdomen Extremity no clubbing, cyanosis or edema Extremity Narrative: 2+ pedal pulses, Homans' sign is negative Skin no rashes or lesions noted, no wounds, skin turgor normal and no jaundice Neuro oriented x3, CN's II-XII intact bilaterally, moves all extremities and no focal motor deficits Sensorium / Orientation: awake, alert, oriented to person, oriented to place and oriented to time Speech: speech normal Psych Psych Narrative: Affect is slightly flat, appropriately interactive Weight / BMI Weight Weight: 88.7 kg Body Mass Index (BMI) 31.4 ABG / Lab / Microbiology Data Result Diagrams: 09/11/22 06:01 09/11/22 06:01 Microbiology: Microbiology 09/10/22 19:30 Urine, Clean Catch Urine Culture - Final Escherichia coli Radiography Diagnostic Testing: Radiology Impression Chest CTA 09/12/22 10:06 IMPRESSION: No evidence of pulmonary embolism. Findings suggest some bibasilar atelectasis as well as atelectasis in the posterior aspect of the lingular segment of the left upper lobe. Electronically Signed: Quirino Tapia MD at 10:32 EST , D/C Instructions Discharge Diet: No restrictions Return to work on: 09/14/22 May resume sexual activity in: No Restrictions Meaningful Use Info Meaningful Use Diagnoses (Choose all that apply): None applicable Discharge Plan Admission Admit Date/Time: 09/10/22 23:21 Primary Reason for Your Visit: Flank pain Attending Provider: Kina Lord Primary Care Provider: Ramila Mcnamara Consulting Providers: Keesha Del Rosario ; Berhane Reynolds Discharge Orders/Prescriptions Prescriptions: New oxycodone 5 mg Tablet 5 mg PO Q6H 3 Days Qty: 12 0RF cefpodoxime 200 mg tablet 200 mg PO BID Qty: 26 0RF Rx Instructions: must administer with a meal/food Referrals / Follow Up: Mcnamara,M Harpreet PA, PA [Primary Care Provider] - Within 1 Week Disposition Disposition (needs filled in before D/C Order can be placed): Home, Self Care Charges/Coding Visit Charges Inpatient E&M: 06694 Disch Hosp
--- NOTE | 2022-09-12 13:00 | CASEMGMT ---
TOVA FAYE assessment: Face to Face with patient for initial transition planning/care coordination assessment. TOVA FAYE introduced self and role at [facility], pt voices understanding and consents to assessment. Pt is sitting up in bed in no distress on room air. Pt is A/Ox4 and answers all questions appropriately.? Care providers, pharmacy,?and demographics verified. ? Presentation: Pt states right flank pain that started last pm; c/o nausea and urinary frequency-states fever at home Admitting dx: Pyelonephritis, sepsis PCP: Anders Specialists: None [facility] Insurance: Cigna Prescription Benefit:?C[employer]a Living Will/HPOA: Pt does not have LW/HPOA and declines AD info. LNOK: Masood Lopez, ; Sara Fisher, mother Living Arrangements: Pt lives with in 2 story home and states no concerns at home. Pt is independent with ADL's. Transportation: Pt drives self and states no transportation concerns. DME/HHC: Pt states no current DME or need for any DME. Pt states no hx of HHC or SNF. Pt states no concerns with going home at time of discharge. 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 Pt voices no further concerns/needs. CM to follow for any further discharge planning/needs. Advised pt to ask for CM if any further questions/concerns/needs arise, voices understanding. Pt Goal: Home ? Plan: [place] TOVA FAYE ?
--- NOTE | 2022-09-12 13:54 | PHA.DC.MR ---
Pharmacy Service has performed discharge medication reconciliation for this patient. The patient's discharge medication list was reviewed for discrepancies and discrepancies were resolved. Medication education papers prepared, patient discharge before I was able to prenatal genetic counselor. Home Medications cefpodoxime 200 mg tablet 200 mg PO BID #26 tabs 09/12/22 oxycodone 5 mg tablet 5 mg PO Q6H 3 days #12 tabs 09/12/22
== END 2022-09-12 13:45 | disposition home or self-care (01) | DRG 690 ==
LOC: ED 21:53 → PCU 09-11 06:59
PROVIDERS: Admitting Provider Family Medicine; Emergency Provider Emergency Medicine; PCP Physician Assistant; Visit Provider Internal Medicine
DX: N10 Acute pyelonephritis (principal); B96.20 Unspecified Escherichia coli [E. coli] as the cause of diseases classified elsewhere; E87.6 Hypokalemia; F17.210 Nicotine dependence, cigarettes, uncomplicated; E66.9 Obesity, unspecified; Z68.31 Body mass index [BMI] 31.0-31.9, adult
CPT/HCPCS: 36415; 71275; 74176; 80048; 80053; 81001; 83605; 84703; 85025; 87040; 87077; 87086; 87088; 87186; 93005; 99284; 99406; J7030; Q9967; A4216; J2405

== ENCOUNTER 2023-11-27 15:14 | Emergency (ER) | payer OTHER, SELFPAY ==
[2023-11-27 15:14] VITALS: BP 119/83; PULSE 133; RESP 16; TEMP 37.2; O2SAT 100; BMI 29.8
[2023-11-27 16:02] VITALS: TEMP 37.9
--- NOTE | 2023-11-27 16:02 | US_ITS ---
EXAM: US PELVIS TRANSVAGINAL CLINICAL INDICATION: pelvic pain TECHNIQUE: Transvaginal pelvic ultrasound was performed with grayscale and color Doppler imaging. Transvaginal imaging was used for better evaluation of the endometrium and adnexa. COMPARISON: No relevant prior studies available. FINDINGS: UTERUS/CERVIX: Uterus measures 7.5 x 3.5 x 4.2 cm. The endometrium measures 8 mm. There are nabothian cysts within the cervix. Anteverted. There is no uterine mass. RIGHT OVARY: The right ovary measures 3.6 x 2.3 x 3.1 cm. Blood flow is present in the right ovary. LEFT OVARY: The left ovary measures 3.5 x 2.5 x 2.8 cm. Blood flow is present in the left ovary. FREE FLUID: None. BLADDER: Empty bladder which cannot be evaluated with this probe. US/Transvaginal Non- IMPRESSION: No acute findings in the pelvis. Electronically Signed: Napoleon Paige MD at 18:17 EST ,
--- NOTE | 2023-11-27 16:16 | EDS_ITS ---
HPI <RISA Ramos - Last Filed: 11/27/23 19:34> History of Present Illness Chief Complaint: Flank Pain Narrative Narrative: Patient is a 23-year-old female with no significant medical history who presents to the emergency department for a couple days of back pain, lower abdominal pain, fever and chills. Patient was at urgent care today, secondary to her symptoms they referred her to the emergency department for furthering examination. Patient is currently undergoing IVF, she is currently not on any medications at this time however she did have a miscarriage on November 10, 2023. Patient at that time did note that she did have some significant ovarian cyst. Patient dates that she has lower back pain, lower abdominal pain, she states has been having fever and chills, nausea and is here for evaluation. PFSH <RISA Ramos - Last Filed: 11/27/23 19:34> PFSH Medical History Frequent UTI Gestational diabetes requiring insulin Obesity Tobacco use Home Medications cefpodoxime 200 mg tablet 200 mg PO BID #26 tabs 09/12/22 [Rx Last Taken Unknown] oxycodone 5 mg tablet 5 mg PO Q6H 3 days #12 tabs 09/12/22 [Rx Last Taken Unknown] Allergy/AdvReac Type Severity Reaction Status Date / Time sulfamethoxazole Allergy Rash Verified 11/27/23 15:14 [From Bactrim] trimethoprim [From Bactrim] Allergy Rash Verified 11/27/23 15:14 Family History (Updated 09/10/22 @ 22:[address] Keesha Del Rosario MD) Mother Hypertension Father Diabetes Surgical History S/P appendectomy S/P left knee arthroscopy [place] teeth extracted Social History (Updated 09/10/22 @ 22:[address] Keesha Del Rosario MD) household members: spouse Smoking Status: Current every day smoker tobacco type: cigarettes alcohol intake: current alcohol intake frequency: holidays/special occasions only substance use type: does not use ROS <RISA Ramos - Last Filed: 11/27/23 19:34> ROS ED ROS Narrative Constitutional: Negative for weight loss, weakness. Fever and chills Eyes: Negative for vision loss, vision change, double vision ENT: Negative for any sore throat, ear pain, congestion Cardiovascular: Negative for any chest pain, tightness, palpitations Respiratory: Negative for any cough, sputum production, hemoptysis, dyspnea, dyspnea on exertion, orthopnea Gastrointestinal: Negative for any vomiting, diarrhea, constipation, blood in stool, blood in vomit. Positive lower abdominal pain, nausea : Negative for any urinary frequency, retention, blood in urine. Positive for dysuria Muscle skeletal: Negative for any myalgias, arthralgias, neck pain. Positive for lower back pain Neurological: Negative for any headache, syncope, paresthesias, dizziness Skin: Negative for any rashes, lumps, itching, abrasions, lacerations Psychiatric: Negative for any depression, anxiety, stress, suicidal ideation, ho micidal ideation Hematologic: Negative for any easy bruising, excessive bruising, easy bleeding Allergies: Negative for any eczema, hives, rash EXAM <RISA Ramos - Last Filed: 11/27/23 19:34> Physical Exam Narrative Exam Narrative: Vital signs reviewed. Patient was febrile here HEET: Head normocephalic atraumatic, TMs clear bilaterally. Posterior pharynx is clear, dry mucous membranes. Nares clear bilaterally. Neck: Supple with no lymphadenopathy or tenderness. No signs of meningismus. Cardiac: Tachycardic rate and rhythm no murmurs gallops or rubs, equal peripheral pulses bilaterally. Respiratory: Lungs clear to auscultation bilaterally. No chest tenderness. Abdomen: Soft, nontender, nondistended. No abdominal bruit or pulsatile masses. No hepatosplenomegaly Extremities: No peripheral edema, no signs of gross trauma or deformity. Active full range of motion of all extremities. Neuro: Cranial nerves II through XII intact, no focal neurological deficits. Skin: Clean dry and intact with no rash, purpura, petechiae, vesicles or pustules. Backs/flank: Mild CVA tenderness no midline spinal tenderness, no deformity. Psych: Normal mood and affect. No SI, HI or acute psychosis. Const Vital Signs: 11/27/23 15:14 11/27/23 16:03 11/27/23 16:02 Temperature 98.9 F 100.2 F H Temperature Source Temporal Oral Pulse Rate 133 H Respiratory Rate 16 Respiratory Effort Normal Non-Labored Respiratory Pattern Normal Blood Pressure 119/83 H Blood Pressure Mean 95 Pulse Ox 100 Oxygen Delivery Method Room Air 11/27/23 17:49 11/27/23 19:00 Temperature 99.7 F H Temperature Source Oral Pulse Rate 74 Respiratory Rate 14 Respiratory Effort Respiratory Pattern Blood Pressure 119/68 Blood Pressure Mean 85 Pulse Ox 98 Oxygen Delivery Method Room Air Positive well nourished and well developed General Appearance ED: well developed <Dr. Caesar Cain DO - Last Filed: 11/27/23 20:42> Physical Exam Const Vital Signs: 11/27/23 15:14 11/27/23 16:03 11/27/23 16:02 Temperature 98.9 F 100.2 F H Temperature Source Temporal Oral Pulse Rate 133 H Respiratory Rate 16 Respiratory Effort Normal Non-Labored Respiratory Pattern Normal Blood Pressure 119/83 H Blood Pressure Mean 95 Pulse Ox 100 Oxygen Delivery Method Room Air 11/27/23 17:49 11/27/23 19:00 Temperature 99.7 F H Temperature Source Oral Pulse Rate 74 Respiratory Rate 14 Respiratory Effort Respiratory Pattern Blood Pressure 119/68 Blood Pressure Mean 85 Pulse Ox 98 Oxygen Delivery Method Room Air MDM <RISA Ramos - Last Filed: 11/27/23 19:34> MDM Lab Data Labs: Laboratory Results - last 24 hr 11/27/23 11/27/23 16:00 17:15 WBC 8.1 RBC 5.44 H Hgb 15.2 H Hct 48.0 H MCV 88.2 MCH 27.9 MCHC 31.7 L RDW Std Deviation 43.2 RDW Coeff of [place] 13.4 Plt Count 345 MPV 9.0 Immature Gran % (Auto) 0.200 Neut % (Auto) 79.6 H Lymph % (Auto) 10.2 L [place] % (Auto) 9.2 Eos % (Auto) 0.1 Baso % (Auto) 0.7 Absolute Neuts (auto) 6.4 Absolute Lymphs (auto) 0.82 L Nucleated RBC % 0 Sodium 137 Potassium 3.6 Chloride 101 Carbon Dioxide 28.0 Anion Gap 8 BUN 11 Creatinine 0.96 Estim Creat Clear Calc 97.79 Est GFR (MDRD) Af Amer 91 Est GFR (MDRD) Non-Af 75 BUN/Creatinine Ratio 11.4 Glucose 88 Calcium 9.9 Total Bilirubin 0.60 AST 31 ALT 67 H Alkaline Phosphatase 95 Total Protein 8.9 H Albumin 4.9 Globulin 4.0 Albumin/Globulin Ratio 1.2 Lipase 18 Serum , Qual NEGATIVE Urine Color Yellow Urine Clarity Clear Urine pH 6.0 Ur Specific [place] 1.020 Urine Protein Negative Urine Glucose (UA) Normal Urine Ketones 5 H Urine Occult Blood Negative Urine Nitrite Negative Urine Bilirubin Negative Urine Urobilinogen Normal Ur Leukocyte Esterase Negative Urine RBC 0 SEEN Urine WBC 0 SEEN Ur Squamous Epith Cells 0-5 SEEN Urine Bacteria 1+ Urine Mucus 1+ Radiography Diagnostic Testing: Clinical Impression(s) from Imaging Studies Transvaginal US 11/27/23 16:02 IMPRESSION: No acute findings in the pelvis. Electronically Signed: Napoleon Paige MD at 18:17 EST , Abdomen/Pelvis CT 11/27/23 18:22 IMPRESSION: No acute findings in the abdomen or pelvis. Electronically Signed: Napoleon Paige MD at 19:21 EST , Treatment and Re-Evaluation :: Patient appears to be in no obvious distress, patient's vital signs show tachycardia, fever. Patient presents emerged part with back pain, lower abdominal pain, recent miscarriage on November 10, 2023. Differential diagnosis includes viral syndrome such as COVID-19 or influenza, retained product causing infection, ruptured ovarian cyst, infection ovarian cyst. Patient was given IV fluids, Zofran, morphine, as well as Tylenol. Patient be reevaluated. All radiologic examinations were read, reviewed by the emergency department attending. From these reads, a plan of care will be put in place. Patient's CBC was unremarkable, patient is hemoconcentrated with a hemoglobin 15.2. Patient's chemistries were unremarkable, ALT slightly elevated at 67. Patient's urine hCG was negative. Patient's urinalysis showed 1+ bacteria 0 white blood cells, negative for leukocytes, no nitrites. Patient's transvaginal ultrasound shows no acute findings of the pelvis. Patient received a CT scan of the abdomen pelvis with IV contrast looking for any hydronephrosis, pyelonephritis, acute abdominal pathology. Patient on reevaluation is in no distress vital signs are stable. Patient CT scan of the abdomen pelvis was negative for any acute process. At this time, patient was positive for influenza A. I do believe that this is causing most the patient's symptoms. At this time, there is no evidence of any intrapelvic, abdominal surgical emergency. No evidence of any UTI, pyelonephritis, obstructing uropathy. Patient will be diagnosed with influenza A, will take ibuprofen Tylenol and follow-up outpatient. All questions answered, stable for discharge. I have personally performed a face to face assessment of the patient and have reviewed the ELOISA Note. I performed a substantive portion of the visit including all aspects of the following. My pang findings include: History is 23-year-old female presenting with generalized abdominal pain and fever. Patient states that she began to feel ill yesterday. She notes a generalized abdominal pain. She went to urgent care and was told that she had an abnormal urine. She notes a slight cough headache generalized body aches. History of pyelonephritis with sepsis. 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 She states that she was undergoing reproductive assisted fertilization through [facility]-Dr. Cardozo. She reports a miscarriage at 5 weeks on 10 November 2023. She is not currently on any medications for fertility that she was before the miscarriage/. Exam is patient is tachycardic. She has some dry mucous membranes. She has generalized abdominal tenderness to palpation without guarding or rebound. She does not appear in any distress. ANO x 3 Medical Decison Making <Dr. Caesra Cain, DO - Last Filed: 11/27/23 20:42> [facility] History & Record Review Discussion w/independent historian: Patient and Significant other Lab Data Attestation: I reviewed the patient's lab results. Labs: Laboratory Results - last 24 hr 11/27/23 11/27/23 16:00 17:15 WBC 8.1 RBC 5.44 H Hgb 15.2 H Hct 48.0 H MCV 88.2 MCH 27.9 MCHC 31.7 L RDW Std Deviation 43.2 RDW Coeff of [place] 13.4 Plt Count 345 MPV 9.0 Immature Gran % (Auto) 0.200 Neut % (Auto) 79.6 H Lymph % (Auto) 10.2 L [place] % (Auto) 9.2 Eos % (Auto) 0.1 Baso % (Auto) 0.7 Absolute Neuts (auto) 6.4 Absolute Lymphs (auto) 0.82 L Nucleated RBC % 0 Sodium 137 Potassium 3.6 Chloride 101 Carbon Dioxide 28.0 Anion Gap 8 BUN 11 Creatinine 0.96 Estim Creat Clear Calc 97.79 Est GFR (MDRD) Af Amer 91 Est GFR (MDRD) Non-Af 75 BUN/Creatinine Ratio 11.4 Glucose 88 Calcium 9.9 Total Bilirubin 0.60 AST 31 ALT 67 H Alkaline Phosphatase 95 Total Protein 8.9 H Albumin 4.9 Globulin 4.0 Albumin/Globulin Ratio 1.2 Lipase 18 Serum , Qual NEGATIVE Urine Color Yellow Urine Clarity Clear Urine pH 6.0 Ur Specific [place] 1.020 Urine Protein Negative Urine Glucose (UA) Normal Urine Ketones 5 H Urine Occult Blood Negative Urine Nitrite Negative Urine Bilirubin Negative Urine Urobilinogen Normal Ur Leukocyte Esterase Negative Urine RBC 0 SEEN Urine WBC 0 SEEN Ur Squamous Epith Cells 0-5 SEEN Urine Bacteria 1+ Urine Mucus 1+ Radiography Diagnostic Testing: Clinical Impression(s) from Imaging Studies Transvaginal US 11/27/23 16:02 IMPRESSION: No acute findings in the pelvis. Electronically Signed: Napoleon Paige MD at 18:17 EST , Abdomen/Pelvis CT 11/27/23 18:22 IMPRESSION: No acute findings in the abdomen or pelvis. Electronically Signed: Napoleon Paige MD at 19:21 EST , Treatment and Re-Evaluation :: Patient appears to be in no obvious distress, patient's vital signs show tachycardia, fever. Patient presents emerged part with back pain, lower abdominal pain, recent miscarriage on November 10, 2023. Differential diagnosis includes viral syndrome such as COVID-19 or influenza, retained product causing infection, ruptured ovarian cyst, infection ovarian cyst. Patient was given IV fluids, Zofran, morphine, as well as Tylenol. Patient be reevaluated. All radiologic examinations were read, reviewed by the emergency department attending. From these reads, a plan of care will be put in place. Patient's CBC was unremarkable, patient is hemoconcentrated with a hemoglobin 15.2. Patient's chemistries were unremarkable, ALT slightly elevated at 67. Patient's urine hCG was negative. Patient's urinalysis showed 1+ bacteria 0 white blood cells, negative for leukocytes, no nitrites. Patient's transvaginal ultrasound shows no acute findings of the pelvis. Patient received a CT scan of the abdomen pelvis with IV contrast looking for any hydronephrosis, pyelonephritis, acute abdominal pathology. Patient on reevaluation is in no distress vital signs are stable. Patient CT scan of the abdomen pelvis was negative for any acute process. At this time, patient was positive for influenza A. I do believe that this is causing most the patient's symptoms. At this time, there is no evidence of any intrapelvic, abdominal surgical emergency. No evidence of any UTI, pyelonephritis, obstructing uropathy. Patient will be diagnosed with influenza A, will take ibuprofen Tylenol and follow-up outpatient. All questions answered, stable for discharge. I have personally performed a face to face assessment of the patient and have reviewed the ELOISA Note. I performed a substantive portion of the visit including all aspects of the following. My pang findings include: History is 23-year-old female presenting with generalized abdominal pain and fever. Patient states that she began to feel ill yesterday. She notes a generalized abdominal pain. She went to urgent care and was told that she had an abnormal urine. She notes a slight cough headache generalized body aches. History of pyelonephritis with sepsis. 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 She states that she was undergoing reproductive assisted fertilization through [facility]-Dr. Cardozo. She reports a miscarriage at 5 weeks on 10 November 2023. She is not currently on any medications for fertility that she was before the miscarriage/. Exam is patient is tachycardic. She has some dry mucous membranes. She has generalized abdominal tenderness to palpation without guarding or rebound. She does not appear in any distress. ANO x 3 Medical Decison Making pelvic ultrasound does not show anything acute to explain the patient's pain. Urine does not show overt infection. White count is normal. She is influenza B positive. I think this most likely explains her symptoms especially the cough body aches fever and headache. Patient will be discharged home with supportive care instructions to follow-up with her doctors Discharge Plan Triage Chief Complaint: Flank Pain ED Midlevel Provider: Landon Phipps ED Provider: Caesar Cain Dx/Rx/DC Orders Clinical Impression: Influenza A, Body aches Instructions: ED Influenza (Adult) Prescriptions: No Action oxycodone 5 mg Tablet 5 mg PO Q6H 3 Days Qty: 12 0RF cefpodoxime 200 mg tablet 200 mg PO BID Qty: 26 0RF Rx Instructions: must administer with a meal/food Stand Alone Forms: ED Work / School Excuse Primary Care Provider: Ramila Mcnamara Referrals: Ramila Mcnamara, LEENA [Primary Care Provider] - Activity Restrictions/Additional Instructions: Please follow-up outpatient. Use ibuprofen, Tylenol. Positive for influenza A Disposition Disposition: Home, Self Care Discharge Date/Time: 11/27/23 20:01
[2023-11-27] MEDS: 0.9% Normal Saline (1000mL) 1,000 ML 1000 ML IV (16:30)
[2023-11-27] MEDS: Morphine 4 MG/ML Syringe IV (16:30)
[2023-11-27] MEDS: Ondansetron 4 MG/2 ML Vial IV (16:32)
[2023-11-27] MEDS: Acetaminophen 500 MG Tablet 1000 MG PO (16:32)
[2023-11-27 16:47] LABS: Internal QC Validated? YES +Cl - CLEAR BKGD; Pregnancy, Serum, hCG Quali. NEGATIVE Negative
--- OUTSIDE RECORDS SUMMARY | 2023-11-27 17:04 | XMS RPT_ITS | CCD ---
Author Name Unknown Address [id number] [place] [address] Organization [facility] Care Team Providers Care Pump Installation And Servicer Name Role Phone No, Physician Primary Care Provider UnavailRudy Plaza Admitting Unavailable Rudy Adkins Attending Unavailable Marilee Mcnamara Primary Care Unavailable Ramila Mcnamara Primary Care Provider ALBINO DURAND Attending Unavailable Ramila MCNAMARA Primary Care Unavailable ALBINO DURAND Admitting Unavailable HUNTER PEMBERTON Attending Unavailalicia LUNA, PHYSICIAN Primary Care Unavailable HUNTER PEMBERTON Admitting UnavailRamila Mejia PA-C Primary Care Provider [phone] NOEL TSE NP Admitting Unavailable NOEL TSE NP Primary Care Unavailable NOEL TSE BOT[employer] LABORATORY ASSISTANT Attending Unavailable DOUG GARCIA MD Consulting Unavailable PROVIDER, UNKNOWN Consulting Unavailable NOEL TSE BOT[employer] LABORATORY ASSISTANT Admitting Unavailable NOEL TSE NP Primary Care Unavailable NOEL TSE [employer]OT[employer] LABORATORY ASSISTANT Attending Unavailable DOUG GARCIA MD Consulting Unavailable PROVIDER, UNKNOWN Consulting Unavailable Ramila Mcnamara PA-C Primary Care Provider [phone] Ramila Mcnamara PA-C Primary Care Provider [phone] Ramila Mcnamara PA-C Primary Care Provider [phone] Ramila MCNAMARA Primary Care Unavailable MC GARCIA Attending UnavailMC [place] Attending Unavailabl Ramila Lima Primary Care Unavailable AVA KWAN Attending Unavailable Ramila MCNAMARA Primary Care Unavailable GENIA GUTIERREZ Referring Unavailable MCNAMARA, M MARILEE Primary Care Unavailable MCNAMARA, M MARILEE Primary Care Unavailable SARA ZHAO Attending Unavailable MCNAMARA, M MARILEE Primary Care Unavailable MCNAMARA, M MARILEE Attending Unavailable MCNAMARA, M MARILEE Primary Care Unavailable MCNAMARA, M MARILEE Referring Unavailable MCNAMARA, M MARILEE Primary Care Unavailable MCNAMARA, M MARILEE Attending Unavailable MCNAMARA, M MARILEE Primary Care Unavailable MCNAMARA, M MARILEE Primary Care Unavailable MCNAMARA, M MARILEE Attending Unavailable MCNAMARA, M MARILEE Primary Care Unavailable MCNAMARA, M MARILEE Referring Unavailable MCNAMARA, M MARILEE Primary Care Unavailable GENIA GUTIERREZ Attending Unavailable MCNAMARA, M MARILEE Primary Care Unavailable GREGORY, NYLA Referring Unavailable SUSIE YOUNGER Attending Unavailable MCNAMARA, M MARILEE Primary Care Unavailable MC GARCIA Referring Unavailabl e MCNAMARA, M MARILEE Primary Care Unavailable MCNAMARA, M MARILEE Primary Care Unavailable MCNAMARA, M MARILEE Referring Unavailable MCNAMARA, M MARILEE Primary Care Unavailable MC GARCIA Referring Unavailabl e MCNAMARA, M MARILEE Primary Care Unavailable MCNAMARA, M MARILEE Referring Unavailable SLOPNICKNAFISANYLA Attending Unavailable MCNAMARA, M MARILEE Attending Unavailable MCNAMARA, M MARILEE Primary Care Unavailable MCNAMARA, M MARILEE Primary Care Unavailable SMOLEN, AVA Referring Unavailable MCNAMARA, M MARILEE Primary Care Unavailable MCNAMARA, M MARILEE Primary Care Unavailable SMOLEN, AVA Referring Unavailable MCNAMARA, M MARILEE Primary Care Unavailable SMOLEN, AVA Referring Unavailable MCNAMARA, M MARILEE Primary Care Unavailable SMOLEN, AVA Referring Unavailable MCNAMARA, M MARILEE Primary Care Unavailable MCNAMARA, M MARILEE Referring Unavailable MCNAMARA, M MARILEE Primary Care Unavailable MCNAMARA, M MARILEE Attending Unavailable MCNAMARA, M MARILEE Primary Care Unavailable SMOLEN, AVA Referring Unavailable MCNAMARA, M MARILEE Primary Care Unavailable SMOLEN, AVA Referring Unavailable Allergies Allergy Classification Reported Allergen(s) Allergy Type Date of Onset Reaction(s) Facility (20 sources) Sulfamethoxazole / Trimethoprim; Translations: [SULFAMETHOXAZOLE-TR IMETHOPRIM] Drug Allergy 8 Rash [facility] (1 source) Sulfamethoxazole / Trimethoprim; Translations: [Bactrim] Drug Allergy [facility] Repository Medications Current Medications Medication Drug Class(es) Dates Sig (Normalized) Sig (Original) amoxicillin 875 mg / clavulanate 125 mg oral tablet (2 sources) Penicillin-class Antibacterial Start: 02-06-2022 End: 02-16-2022 take 1 tablet by mouth twice daily amoxicillin-clav ulanic acid (AUGMENTIN) 875-125 mg per tablet Take 1 tablet by mouth twice daily for 10 days. 20 tablet 0 02/06/2022 02/16/2022 Active Completed/Discontinued Medications Medication Drug Class(es) Dates Sig (Normalized) Sig (Original) acetaminophen 325 mg / oxyCODONE hydrochloride 5 mg oral tablet (5 sources) Opioid Agonist Start: 10-03-2022 End: 11-18-2022 take 1 tablet by mouth every eight hours as needed for pain oxyCODONE-acetamino phen (PERCOCET) 5-325 mg tablet Indications: Right flank pain Take 1 tablet by mouth every 8 hours as needed for pain. 15 tablet 0 10/03/2022 11/18/2022 Discontinued (Course of therapy completed) Problems Active Problems Problem Classification Problem Date Documented Da te Episodic/Chronic Abdominal pain (10 sources) Abdominal pain; Translations: [Right flank pain] Onset: 02-06-2023 Episodic Administrative/social admission (1 source) Encounter for pre-employment examination; Translations: [Encounter for pre-employment examination] Onset: 05-12-2022 Episodic Calculus of urinary tract (1 source) Kidney stone; Translations: [Calculus of kidney] Episodic Diabetes mellitus without complication (1 source) Increased glucose level; Translations: [Other abnormal glucose] Episodic Female infertility (1 source) Oligo-ovulation; 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] 09-18-2023 Chronic Genitourinary congenital anomalies (20 sources) Congenital anomaly of ureter; 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] Onset: 07-20-2020 07-20-2020 Chronic Genitourinary symptoms and ill-defined conditions (5 sources) Urinary symptoms ; Translations: [Unspecified symptoms and signs involving the genitourinary system] Onset: 08-25-2023 Episodic Hemorrhage during ; abruptio placenta; placenta previa (1 source) Hemorrhage in early , unspecified; Translations: [Bleeding in early ] Onset: 11-10-2023 Episodic Inflammation; infection of eye (except that caused by tuberculosis or sexually transmitteddisease) (2 sources) Bilateral conjunctivitis; Translations: [Unspecified conjunctivitis] 08-11-2023 Episodic Menstrual disorders (5 sources) Secondary amenorrhea; Translations: [Secondary amenorrhea] Onset: 01-20-2023 Chronic Nonspecific chest pain (1 source) Chest pain; Translations: [Chest pain, unspecified] Episodic Other bone disease and musculoskeletal deformities (1 source) Somatic dysfunction of lumbar region; Translations: [Segmental and somatic dysfunction of lumbar region] Episodic Other complications of (1 source) Abnormal hematological finding on screening of mother; Translations: [Low maternal serum human chorionic gonadotropin (hCG)] Onset: 11-10-2023 Episodic Other endocrine disorders (20 sources) Polycystic ovary syndrome; Translations: [Polycystic ovarian syndrome] Chronic Other endocrine disorders (1 source) Polycystic ovarian syndrome; Translations: [PCOS (polycystic ovarian syndrome)] Onset: 11-18-2022 Chronic Other female genital disorders (3 sources) Abnormal uterine bleeding; Translations: [Abnormal uterine and vaginal bleeding, unspecified] Chronic Other female genital disorders (3 sources) Disorder of endocrine ovary; Translations: [Noninflammatory disorder of ovary, fallopian tube and broad ligament, unspecified] Episodic Other female genital disorders (2 sources) Noninflammatory disorder of ovary, fallopian tube and broad ligament, unspecified; Translations: [Problems with ovulation] Onset: 09-18-2023 Episodic Other gastrointestinal disorders (1 source) Constipation; Translations: [Constipation, unspecified constipation type] Episodic Other gastrointestinal disorders (2 sources) Constipation, unspecified; Translations: [Constipation, unspecified] Onset: 02-12-2019 Episodic Other gastrointestinal disorders (1 source) Diarrhea of presumed infectious origin; Translations: [Diarrhea, unspecified] Episodic Other non-traumatic joint disorders (1 source) Acute ankle pain; Translations: [Pain in right ankle and joints of right foot] Episodic Other nutritional; endocrine; and metabolic disorders (1 source) Insulin resistance; Translations: [Metabolic syndrome] Chronic Other nutritional; endocrine; and metabolic disorders (2 sources) Metabolic syndrome; Translations: [Insulin resistance] Onset: 01-20-2023 Chronic Other and delivery including normal (1 source) Urine test positive; Translations: [Encounter for test, result positive] Episodic Other screening for suspected conditions (not mental disorders or infectious disease) (2 sources) Patient encounter status; Translations: [Encounter for screening for other disorder] Onset: 11-06-2023 09-29-2023 Episodic Other skin disorders (1 source) Eruption; Translations: [Rash and other nonspecific skin eruption] Episodic Other upper respiratory infections (4 sources) Acute sinusitis; Translations: [Acute sinusitis, unspecified] Episodic Residual codes; unclassified (1 source) Tobacco user; Translations: [Tobacco use] Episodic Residual codes; unclassified (2 sources) Trying to conceive; Translations: [Other specified health status] Episodic Septicemia (except in labor) (2 sources) Sepsis; Translations: [Sepsis, unspecified organism] Episodic Spondylosis; intervertebral disc disorders; other back problems (1 source) Acute low back pain; Translations: [Acute left-sided low back pain without sciatica] Episodic Spontaneous (1 source) Complete or unspecified spontaneous without complication; Translations: [Miscarriage] Onset: 11-13-2023 Episodic Substance-related disorders (20 sources) Nicotine dependence; Translations: [Nicotine dependence, unspecified, uncomplicated] Onset: 12-27-2019 12-30-2019 Chronic Unclassified (1 source) Acute midline low back pain without sciatica; Translations: [Acute midline low back pain without sciatica] Onset: 05-25-2023 Unclassified (1 source) Acute left-sided low back pain without sciatica; Translations: [Acute left-sided low back pain without sciatica] Onset: 04-05-2023 Urinary tract infections (20 sources) Acute urinary tract infection; Translations: [Urinary tract infection, site not specified] Onset: 02-12-2019 04-24-2020 Episodic Past or Other Problems Problem Classification Problem Date Documented Da te Episodic/Chronic Contraceptive and procreative management (6 sources) Social and personal history finding; Translations: [Encounter for procreative management, unspecified] Onset: 02-06-2023 Episodic Epilepsy; convulsions (20 sources) Neurological finding; Translations: [Unspecified convulsions] Onset: 06-20-2019 06-20-2019 Episodic Nausea and vomiting (2 sources) Nausea; Translations: [Nausea] Onset: 02-06-2023 Episodic Other gastrointestinal disorders (1 source) Diarrhea, unspecified; Translations: [Diarrhea of presumed infectious origin] Onset: 02-06-2023 Episodic Other non-traumatic joint disorders (1 source) Pain in right ankle and joints of right foot; Translations: [Acute right ankle pain] Onset: 12-26-2022 Episodic Residual codes; unclassified (20 sources) History of clinical finding in subject; Translations: [Personal history of other specified conditions] Onset: 07-20-2020 07-20-2020 Episodic Results Test Name Value Interpretation Reference Range Facil ity Vital Signs Date Time Vital Sign Value Performing Clinician Faci blayne 09-18-2023 12:55-0500 Body height 167.6 cm Mc Garcia MD Work Phone: [facility] 09-18-2023 12:55-0500 Body weight 86.55 kg Mc Garcia MD Work Phone: [facility] 09-18-2023 12:55-0500 Diastolic blood pressure 68 mm[Hg] Mc Garcia MD Work Phone: [facility] 09-18-2023 12:55-0500 Heart rate 95 /min Mc Garcia MD Work Phone: [facility] 09-18-2023 12:55-0500 Systolic blood pressure 125 mm[Hg] Mc Garcia MD Work Phone: [facility] 08-19-2023 11:44-0400 Body temperature 97.3 [degF] Roddy Jose [employer] FISHER.TRAVEL AGENCY MANAGER Work Phone: [facility] 08-19-2023 11:44-0400 Body weight 86.91 kg Roddy Garcia [employer].TRAVEL AGENCY MANAGER Work Phone: [facility] 08-19-2023 11:44-0400 Diastolic blood pressure 82 mm[Hg] Roddy Jose [employer] FISHER.TRAVEL AGENCY MANAGER Work Phone: [facility] 08-19-2023 11:44-0400 Heart rate 81 /min Roddy Jose [employer] FISHER.TRAVEL AGENCY MANAGER Work Phone: [facility] 08-19-2023 11:44-0400 Respiratory rate 16 /min Roddy Jose [employer].TRAVEL AGENCY MANAGER Work Phone: [facility] 08-19-2023 11:44-0400 SaO2% (BldA) [Mass fraction] 98 % Roddy Garcia [employer].TRAVEL AGENCY MANAGER Work Phone: [facility] 08-19-2023 11:44-0400 Systolic blood pressure 128 mm[Hg] Roddy Garcia [employer] FISH[employer].TRAVEL AGENCY MANAGER Work Phone: [facility] 08-11-2023 15:35-0400 Body temperature 98.91 [degF] Mary Lou Praisler-Wood [employer].TRAVEL AGENCY MANAGER Work Phone: [facility] 08-11-2023 15:35-0400 Body weight 85.46 kg Mary Lou Praisler-Wood [employer].TRAVEL AGENCY MANAGER Work Phone: [facility] 08-11-2023 15:35-0400 Diastolic blood pressure 77 mm[Hg] Mary Lou Praisler-Wood [employer] FISHER.TRAVEL AGENCY MANAGER Work Phone: [facility] 08-11-2023 15:35-0400 Heart rate 100 /min Mary Lou Praisler-Wood [employer] FISHER.TRAVEL AGENCY MANAGER Work Phone: [facility] 08-11-2023 15:35-0400 Respiratory rate 18 /min Mary Lou Praisler-Wood [employer] FISHER.TRAVEL AGENCY MANAGER Work Phone: [facility] 08-11-2023 15:35-0400 SaO2% (BldA) [Mass fraction] 98 % Mary Lou Praisler-Wood [employer] FISHER.TRAVEL AGENCY MANAGER Work Phone: [facility] 08-11-2023 15:35-0400 Systolic blood pressure 113 mm[Hg] Mary Lou Praisler-Wood [employer] FISHER.TRAVEL AGENCY MANAGER Work Phone: [facility] 07-04-2023 08:20-0400 Body height 167.6 cm NA Mcnamara PA-C Work Phone: [facility] 07-04-2023 08:20-0400 Body temperature 98.1 [degF] NA Mcnamara PA-C Work Phone: [facility] 07-04-2023 08:20-0400 Body weight 85.37 kg NA Mcnamara PA-C Work Phone: [facility] 07-04-2023 08:20-0400 Diastolic blood pressure 74 mm[Hg] NA Mcnamara PA-C Work Phone: [facility] 07-04-2023 08:20-0400 Heart rate 86 /min NA Mcnamara PA-C Work Phone: [facility] 07-04-2023 08:20-0400 SaO2% (BldA) [Mass fraction] 99 % NA Mcnamara PA-C Work Phone: [facility] 07-04-2023 08:20-0400 Systolic blood pressure 110 mm[Hg] NA Mcnamara PA-C Work Phone: [facility] 04-05-2023 17:49-0400 Body weight 85.55 kg Sara Podlogar [employer]ER.TRAVEL AGENCY MANAGER Work Phone: [facility] 04-05-2023 17:49-0400 Diastolic blood pressure 78 mm[Hg] Sara Podlogar [employer] FISHER.TRAVEL AGENCY MANAGER Work Phone: [facility] 04-05-2023 17:49-0400 Heart rate 105 /min Sara Podlogar [employer] FISHER.TRAVEL AGENCY MANAGER Work Phone: [facility] 04-05-2023 17:49-0400 Respiratory rate 16 /min Sara Podlogar [employer] FISHER.TRAVEL AGENCY MANAGER Work Phone: [facility] 04-05-2023 17:49-0400 SaO2% (BldA) [Mass fraction] 99 % Sara Podlogar [employer] FISHER.TRAVEL AGENCY MANAGER Work Phone: [facility] 04-05-2023 17:49-0400 Systolic blood pressure 118 mm[Hg] Sara Podlogar [employer] FISHER.TRAVEL AGENCY MANAGER Work Phone: [facility] 02-08-2023 13:21-0400 Diastolic blood pressure 72 mm[Hg] Genia Haagen [employer] FISHER.TRAVEL AGENCY MANAGER Work Phone: [facility] 02-08-2023 13:21-0400 Heart rate 102 /min Genia Haagen [employer] FISHER.TRAVEL AGENCY MANAGER Work Phone: [facility] 02-08-2023 13:21-0400 Respiratory rate 18 /min Genia Aroraagen [employer] FISHER.TRAVEL AGENCY MANAGER Work Phone: [facility] 02-08-2023 13:21-0400 SaO2% (BldA) [Mass fraction] 98 % Genia Gutierrez [employer] FISHER.TRAVEL AGENCY MANAGER Work Phone: [facility] 02-08-2023 13:21-0400 Systolic blood pressure 114 mm[Hg] Genia Gutierrez [employer] FISHER.TRAVEL AGENCY MANAGER Work Phone: [facility] 02-06-2023 11:23-0400 Body temperature 98.2 [degF] NA Mcnamara PA-C Work Phone: [facility] 02-06-2023 11:23-0400 Body weight 86.64 kg NA Mcnamara PA-C Work Phone: [facility] 02-06-2023 11:23-0400 Diastolic blood pressure 72 mm[Hg] NA Mcnamara PA-C Work Phone: [facility] 02-06-2023 11:23-0400 Heart rate 111 /min NA Mcnamara PA-C Work Phone: [facility] 02-06-2023 11:23-0400 Respiratory rate 16 /min NA Mcnamara PA-C Work Phone: [facility] 02-06-2023 11:23-0400 SaO2% (BldA) [Mass fraction] 99 % NA Mcnamara PA-C Work Phone: [facility] 02-06-2023 11:23-0400 Systolic blood pressure 118 mm[Hg] NA Mcnamara PA-C Work Phone: [facility] 01-21-2023 08:59-0400 Body temperature 98.8 [degF] Sherry Athy PA-C Work Phone: [facility] 01-21-2023 08:59-0400 Body weight 88.45 kg Sherry Athy PA-C Work Phone: [facility] 01-21-2023 08:59-0400 Diastolic blood pressure 80 mm[Hg] Sherry Athy PA-C Work Phone: [facility] 01-21-2023 08:59-0400 Heart rate 82 /min Sherry Athy PA-C Work Phone: [facility] 01-21-2023 08:59-0400 Respiratory rate 16 /min Sherry Athy PA-C Work Phone: [facility] 01-21-2023 08:59-0400 SaO2% (BldA) [Mass fraction] 100 % Sherry Athy PA-C Work Phone: [facility] 01-21-2023 08:59-0400 Systolic blood pressure 128 mm[Hg] Sherry Athy PA-C Work Phone: [facility] 01-20-2023 10:56-0400 Body height 167.6 cm Mc Garcia MD Work Phone: [facility] 01-20-2023 10:56-0400 Body weight 88.68 kg Mc Garcia MD Work Phone: [facility] 01-20-2023 10:56-0400 Diastolic blood pressure 83 mm[Hg] Mc Garcia MD Work Phone: [facility] 01-20-2023 10:56-0400 Heart rate 94 /min Mc Garcia MD Work Phone: [facility] 01-20-2023 10:56-0400 Systolic blood pressure 130 mm[Hg] Mc Garcia MD Work Phone: [facility] 12-26-2022 15:44-0500 Body weight 88.45 kg NA Mcnamara PA-C Work Phone: [facility] 12-26-2022 15:44-0500 Diastolic blood pressure 68 mm[Hg] NA Mcnamara PA-C Work Phone: [facility] 12-26-2022 15:44-0500 Heart rate 98 /min NA Mcnamara PA-C Work Phone: [facility] 12-26-2022 15:44-0500 Respiratory rate 16 /min NA Mcnamara PA-C Work Phone: [facility] 12-26-2022 15:44-0500 SaO2% (BldA) [Mass fraction] 96 % NA Mcnamara PA-C Work Phone: [facility] 12-26-2022 15:44-0500 Systolic blood pressure 110 mm[Hg] NA Mcnamara PA-C Work Phone: [facility] 11-18-2022 12:17-0500 Body temperature 99.9 [degF] NA Mcnamara PA-C Work Phone: [facility] 11-18-2022 12:17-0500 Body weight 87.54 kg NA Mcnamara PA-C Work Phone: [facility] 11-18-2022 12:17-0500 Diastolic blood pressure 78 mm[Hg] NA Mcnamara PA-C Work Phone: [facility] 11-18-2022 12:17-0500 Heart rate 107 /min NA Mcnamara PA-C Work Phone: [facility] 11-18-2022 12:17-0500 Respiratory rate 16 /min NA Mcnamara PA-C Work Phone: [facility] 11-18-2022 12:17-0500 SaO2% (BldA) [Mass fraction] 99 % NA Mcnamara PA-C Work Phone: [facility] 11-18-2022 12:17-0500 Systolic blood pressure 122 mm[Hg] NA Mcnamara PA-C Work Phone: [facility] 10-11-2022 14:49-0500 Body height 167.6 cm Lb Escobar MD Work Phone: [facility] 10-11-2022 14:49-0500 Heart rate 98 /min Lb Escobar MD Work Phone: [facility] 10-11-2022 14:49-0500 SaO2% (BldA) [Mass fraction] 99 % Lb Escobar MD Work Phone: [facility] 10-03-2022 15:13-0500 Body temperature 99 [degF] NA Mcnamara PA-C Work Phone: [facility] 10-03-2022 15:13-0500 Body weight 87.09 kg NA Mcnamara PA-C Work Phone: [facility] 10-03-2022 15:13-0500 Diastolic blood pressure 68 mm[Hg] NA Mcnamara PA-C Work Phone: [facility] 10-03-2022 15:13-0500 Heart rate 103 /min NA Mcnamara PA-C Work Phone: [facility] 10-03-2022 15:13-0500 Respiratory rate 18 /min NA Mcnamara PA-C Work Phone: [facility] 10-03-2022 15:13-0500 SaO2% (BldA) [Mass fraction] 97 % NA Mcnamara PA-C Work Phone: [facility] 10-03-2022 15:13-0500 Systolic blood pressure 118 mm[Hg] NA Mcnamara PA-C Work Phone: [facility] 09-27-2022 09:54-0500 Body height 167.6 cm Tristen Garcia PA-C Work Phone: [facility] 09-27-2022 09:54-0500 Body temperature 98.71 [degF] Tristen Garcia PA-C Work Phone: [facility] 09-27-2022 09:54-0500 Body weight 86.64 kg Tristen Garcia PA-C Work Phone: [facility] 09-27-2022 09:54-0500 Diastolic blood pressure 84 mm[Hg] Tristen Garcia PA-C Work Phone: [facility] 09-27-2022 09:54-0500 Heart rate 120 /min Tristen Garcia PA-C Work Phone: [facility] 09-27-2022 09:54-0500 Respiratory rate 14 /min Tristen Garcia PA-C Work Phone: [facility] 09-27-2022 09:54-0500 SaO2% (BldA) [Mass fraction] 100 % Tristen Garcia PA-C Work Phone: [facility] 09-27-2022 09:54-0500 Systolic blood pressure 118 mm[Hg] Tristen Garcia PA-C Work Phone: [facility] 09-16-2022 09:00-0500 Body height 167.6 cm Doug Garcia MD Work Phone: [facility] 09-16-2022 09:00-0500 Body temperature 98.4 [degF] Doug Garcia MD Work Phone: [facility] 09-16-2022 09:00-0500 Body weight 86.73 kg Doug Garcia MD Work Phone: [facility] 09-16-2022 09:00-0500 Diastolic blood pressure 78 mm[Hg] Doug Garcia MD Work Phone: [facility] 09-16-2022 09:00-0500 Heart rate 98 /min Doug Garcia MD Work Phone: [facility] 09-16-2022 09:00-0500 SaO2% (BldA) [Mass fraction] 98 % Doug Garcia MD Work Phone: [facility] 09-16-2022 09:00-0500 Systolic blood pressure 108 mm[Hg] Doug Garcia MD Work Phone: [facility] 07-13-2022 15:39-0400 Body weight 86.18 kg Joyce Barone MD Work Phone: [facility] 07-13-2022 15:39-0400 Diastolic blood pressure 72 mm[Hg] Joyce Barone MD Work Phone: [facility] 07-13-2022 15:39-0400 Systolic blood pressure 120 mm[Hg] Joyce Barone MD Work Phone: [facility] 05-04-2022 15:13-0400 Body temperature 98.8 [degF] Anamika Jones [employer]AVEL AGENCY MANAGER Work Phone: [facility] 05-04-2022 15:13-0400 Body weight 85.09 kg Anamika Jones [employer].TRAVEL AGENCY MANAGER Work Phone: [facility] 05-04-2022 15:13-0400 Diastolic blood pressure 76 mm[Hg] Anamika Jones [employer].TRAVEL AGENCY MANAGER Work Phone: [facility] 05-04-2022 15:13-0400 Heart rate 85 /min Anamika Jones [employer].TRAVEL AGENCY MANAGER Work Phone: [facility] 05-04-2022 15:13-0400 Respiratory rate 21 /min Anamika Jones [employer]AVEL AGENCY MANAGER Work Phone: [facility] 05-04-2022 15:13-0400 SaO2% (BldA) [Mass fraction] 99 % Anamika Jones [employer]TRAVEL AGENCY MANAGER Work Phone: [facility] 05-04-2022 15:13-0400 Systolic blood pressure 114 mm[Hg] Anamika Jones [employer]TRAVEL AGENCY MANAGER Work Phone: [facility] 03-11-2022 09:03-0400 Body weight 85.19 kg Joyce Barone MD Work Phone: [facility] 03-11-2022 09:03-0400 Diastolic blood pressure 66 mm[Hg] Joyce Barone MD Work Phone: [facility] 03-11-2022 09:03-0400 Systolic blood pressure 102 mm[Hg] Joyce Barone MD Work Phone: [facility] 02-06-2022 13:18-0400 Body temperature 97.7 [degF] Anamika Jones [employer]TRAVEL AGENCY MANAGER Work Phone: [facility] 02-06-2022 13:18-0400 Body weight 85 kg Anamika Jones [employer].TRAVEL AGENCY MANAGER Work Phone: [facility] 02-06-2022 13:18-0400 Diastolic blood pressure 80 mm[Hg] Anamika Jones [employer].TRAVEL AGENCY MANAGER Work Phone: [facility] 02-06-2022 13:18-0400 Heart rate 94 /min Anamika Jones [employer].TRAVEL AGENCY MANAGER Work Phone: [facility] 02-06-2022 13:18-0400 Respiratory rate 14 /min Anamika Jones [employer].TRAVEL AGENCY MANAGER Work Phone: [facility] 02-06-2022 13:18-0400 SaO2% (BldA) [Mass fraction] 99 % Anamika Jones [employer].TRAVEL AGENCY MANAGER Work Phone: [facility] 02-06-2022 13:18-0400 Systolic blood pressure 118 mm[Hg] Anamika Jones [employer].TRAVEL AGENCY MANAGER Work Phone: [facility] 02-12-2019 19:14-0400 BP Diastolic 77 mm[Hg] [facility] 02-12-2019 19:14-0400 BP Systolic 113 mm[Hg] [facility] 02-12-2019 19:14-0400 Pulse (Heart Rate) 81 /min [facility] 02-12-2019 19:14-0400 Pulse Oximetry 100 % [facility] 02-12-2019 17:29-0400 Body Temperature 98.6 [degF] [facility] 02-12-2019 17:29-0400 Respiratory Rate 16 /min [facility] 01-06-2019 11:04-0400 Body Temperature 98.1 [degF] [facility] P[facility]ton [facility] 01-06-2019 11:04-0400 BP Diastolic 78 mm[Hg] [facility] Pemberton [facility] 01-06-2019 11:04-0400 BP Systolic 131 mm[Hg] [facility] Pemberton [facility] 01-06-2019 11:04-0400 Pulse (Heart Rate) 91 /min Hunter Pemberton [facility] 01-06-2019 11:04-0400 Pulse Oximetry 100 % [facility] Pemberton [facility] 01-06-2019 11:04-0400 Respiratory Rate 18 /min [facility] Date Encounter Type Care Provider Facility Start: 11-20-2023 End: 11-21-2023 ambulatory Ramila MCNAMARA Facility:[facility] Start: 11-13-2023 End: 11-14-2023 ambulatory Ramila MCNAMARA Facility:[facility] Start: 11-10-2023 End: 11-10-2023 ambulatory Ramila MARILEEAHRJIT MCNAMARA Facility:[facility] Start: 11-10-2023 End: 11-11-2023 ambulatory Ramila MCNAMARA Facility:[facility] Start: 11-08-2023 End: 11-08-2023 ambulatory AVA MIGUEL ÁNGEL Facility:[facility] Start: 11-08-2023 End: 11-09-2023 ambulatory Ramila MCNAMARA Facility:[facility] Start: 11-06-2023 End: 11-07-2023 ambulatory Ramila HUNT MCNAMARA Facility:[facility] Start: 10-21-2023 End: 10-22-2023 ambulatory Ramila MCNAMARA Facility:[facility] Start: 09-29-2023 End: 09-30-2023 ambulatory Susie Younger MD Work Phone: Urology Start: 09-25-2023 End: 09-26-2023 ambulatory Ramila MCNAMARA Facility:[facility] Start: 09-25-2023 End: 09-25-2023 ambulatory Ramila MCNAMARA Facility:[facility] Start: 09-18-2023 End: 09-18-2023 ambulatory Mc Garcia MD Work Phone: Reproductive Endocrinology Infertility Procedures Date Procedure Procedure Detail Performing Clinician Start: 11-10-2023 Antibody screen NA DEANGELO ON Plan of Treatment Date Care Activity Detail Author Start: 05-13-2026 Urine microalbumin profile [facility] Start: 02-07-2024 COVID-19 VACCINE (#1) COVID-19 VACCI NE (#1) [facility] Immunizations Immunization Date Immunization Notes Care Provider Fa cili 01-11-2021 influenza, seasonal, injectable, preservative free Doug Garcia MD Work Phone: [facility] 01-11-2021 influenza virus vacc ine, unspecified formulation Mary Lou Steele [employer].TRAVEL AGENCY MANAGER Work Phone: [facility] 11-06-2020 influenza, high dose seasonal, preservative-free Anamika Jones [employer]ER.TRAVEL AGENCY MANAGER Work Phone: [facility] Work Phone: 08-31-2019 influenza, seasonal, injectable Anamikatodd Jones [employer]ER.TRAVEL AGENCY MANAGER Work Phone: [facility] 09-29-2016 influenza, seasonal, injectable, preservative free Doug Garcia MD Work Phone: [facility] 09-03-2016 AS03 adjuvant Doug Germain Work Phone: [facility] 06-13-2016 hepatitis A and hepatitis B vaccine Doug Garcia MD Work Phone: [facility] 05-13-2016 adenovirus, type 4 a nd type 7, live, oral Doug Garcia MD Work Phone: [facility] 05-13-2016 hepatitis A and hepatitis B vaccine Doug Garcia MD Work Phone: [facility] 05-13-2016 meningococcal polysaccharide (groups A, C, Y and W-135) diphtheria toxoid conjugate vaccine (MCV4P) Doug Garcia MD Work Phone: [facility] 05-13-2016 poliovirus vaccine, inactivated Doug Garcia MD Work Phone: [facility] 05-13-2016 tetanus toxoid, redu dae diphtheria toxoid, and acellular pertussis vaccine, adsorbed Doug Garcia MD Work Phone: [facility] 09-19-2015 influenza, seasonal, injectable, preservative free Doug Garcia MD Work Phone: [facility] 05-20-2014 meningococcal polysaccharide (groups A, C, Y and W-135) diphtheria toxoid conjugate vaccine (MCV4P) Anamika Jones [employer] FISHER.TRAVEL AGENCY MANAGER Work Phone: [facility] 05-16-2012 varicella virus vaccine Etelvina todd Jones [employer] FISHER.TRAVEL AGENCY MANAGER Work Phone: [facility] Work Phone: 12-16-2009 human papilloma viru s vaccine, quadrivalent Anamika Jones SALMON TROLL FISHER.[facility] Work Phone: [facility] Work Phone: 08-04-2009 human papilloma viru s vaccine, quadrivalent Anamika Jones SALMON TROLL FISHER.[facility] Work Phone: [facility] Work Phone: 08-04-2009 tetanus toxoid, redu dae diphtheria toxoid, and acellular pertussis vaccine, adsorbed Anamika Jones SALMON TROLL FISHER.[facility] Work Phone: [facility] Work Phone: 05-13-2009 human papilloma viru s vaccine, quadrivalent Anamika Jones SALMON TROLL FISHER.[facility] Work Phone: [facility] Work Phone: 05-13-2009 Meningococcal, MCV4, unspecified conjugate formulation(groups A, C, Y and W-135) Anamika Jones SALMON TROLL FISHER.[facility] Work Phone: [facility] Work Phone: 05-05-2003 diphtheria, tetanus toxoids and acellular pertussis vaccine Anamika Jones SALMON TROLL FISHER.[facility] Work Phone: [facility] Work Phone: 05-05-2003 measles, mumps and rubella virus vaccine Anamika Jones [employer] FISHER.TRAVEL AGENCY MANAGER Work Phone: [facility] Work Phone: 05-05-2003 poliovirus vaccine, inactivated Anamika Jones SALMON TROLL FISHER.[facility] Work Phone: [facility] Work Phone: 05-05-2000 pneumococcal conjuga te vaccine, 7 valent Anamika Jones SAL[employer] FISHER.TRAVEL AGENCY MANAGER Work Phone: [facility] Work Phone: 08-07-1999 diphtheria, tetanus toxoids and acellular pertussis vaccine Anamika Jones SAL[employer] FISHER.TRAVEL AGENCY MANAGER Work Phone: [facility] Work Phone: 08-07-1999 haemophilus influenz ae type b vaccine, HbOC conjugate Anamika Jones SALMON TROLL FISHER.[facility] Work Phone: [facility] Work Phone: 05-08-1999 measles, mumps and rubella virus vaccine Anamika Jones SALMON TROLL FISHER.[facility] Work Phone: [facility] Work Phone: 05-08-1999 trivalent poliovirus vaccine, live, oral Anamika Karen SALMON TROLL FISHER.[facility] Work Phone: [facility] Work Phone: 05-08-1999 varicella virus vaccine Etelvina ica Jones SAL[employer] TROLL FISHER.[facility] Work Phone: [facility] Work Phone: 02-13-1999 hepatitis B vaccine, pediatric or pediatric/adolescent dosage Anamika Jones SALMON TROLL FISHER.[facility] Work Phone: [facility] Work Phone: 2000 diphtheria, tetanus toxoids and acellular pertussis vaccine Anamika Jones SALMON TROLL FISHER.[facility] Work Phone: [facility] Work Phone: 2000 haemophilus influenz ae type b vaccine, HbOC conjugate Anamika Jones SALMON TROLL FISHER.[facility] Work Phone: [facility] Work Phone: 2000 diphtheria, tetanus toxoids and acellular pertussis vaccine Anamika Jones SALMON TROLL FISHER.[facility] Work Phone: [facility] Work Phone: 1998 haemophilus influenz ae type b vaccine, HbOC conjugate Anamika Jones SALMON TROLL FISHER.TRAVEL AGENCY MANAGER Work Phone: [facility] Work Phone: 2000 poliovirus vaccine, inactivated Anamika Jones SALMON TROLL FISHER.[facility] Work Phone: [facility] Work Phone: 2000 diphtheria, tetanus toxoids and acellular pertussis vaccine Anamika Emersongs SALMON TROLL FISHER.TRAVEL AGENCY MANAGER Work Phone: [facility] Work Phone: 1998 haemophilus influenz ae type b vaccine, HbOC conjugate Anamika Jones SALMON TROLL FISHER.TRAVEL AGENCY MANAGER Work Phone: [facility] Work Phone: 2000 poliovirus vaccine, inactivated Anamika Jones SALMON TROLL FISHER.TRAVEL AGENCY MANAGER Work Phone: [facility] Work Phone: 2000 hepatitis B vaccine, pediatric or pediatric/adolescent dosage Anamika Jones SALMON TROLL FISHER.TRAVEL AGENCY MANAGER Work Phone: [facility] Work Phone: 2000 hepatitis B vaccine, pediatric or pediatric/adolescent dosage Anamika Jones SALMON TROLL FISHER.[facility] Work Phone: [facility] Work Phone: Payers Date Payer Category Payer Private Health Insurance [id number] 2021 Private Health Insurance LASHELLMATHEW Xi SOLORZANO [id number] 2021-Present [phone] [address] [place] [address] Open Access [id number] 2019 Private Health Insurance 2019 Unknown [id number] 2018 Unknown [facility] HMO/DON/ DON PLUS/CHOICE PLUS xxxxxxxxx 2018-Present xxxxxxxxx [id number] 2018 Unknown [id number] 1998 Unknown [id number] 1998 Unknown [id number] 1998 Unknown [id number] Social History Date Type Detail Facility Start: 01-06-2019 End: 06-14-2022 Tobacco smoking status NEIS Current every day smoker [facility] Start: 01-06-2019 End: 12-26-2022 History SDOH Alcohol Frequency 1 [facility] Sex Assigned At Not on file [facility] Start: 02-12-2019 End: 05-25-2023 Cigarettes smoked current (pack per day) - Reported [facility] Start: 08-14-2020 Tobacco smoking status NEIS Ex-smoker [facility] Work Phone: History of tobacco use Cigarette Smoker C [facility] Work Phone: Start: 08-14-2020 End: 06-14-2022 Tobacco use and exposure Smokeless tobacco non-user [facility] Work Phone: Start: 10-07-2021 End: 09-29-2023 Alcohol intake Ex-drinker (finding) [facility] Start: 10-07-2021 End: 12-26-2022 History SDOH Alcohol Frequency 2 [facility] Start: 10-07-2021 End: 12-26-2022 History SDOH Social Connections Phone 5 [facility] Start: 10-07-2021 History SDOH Social Connections Get Together 98 [facility] Start: 10-07-2021 End: 12-26-2022 History SDOH Social Connections Living 3 [facility] Start: 07-20-2020 Education 13 [facility] Start: 07-20-2020 End: 06-14-2022 Tobacco Comment 3 cigarettes a day [facility] Start: 2000 Sex Assigned At Female [facility] Start: 01-27-2022 End: 10-03-2022 Exposure to SARS-CoV-2 (event) Not sure [facility] Start: 12-26-2022 History SDOH Physical Activity MPS 6 [facility] Start: 12-26-2022 End: 05-25-2023 Social connection and isolation panel [facility] Do you belong to any clubs or organizations such as gnosticist groups, unions, fraternal or athletic groups, or school groups? No [facility] Are you now , , , , never or living with a partner? [facility] How often to you hav e a drink containing alcohol? Monthly or less [facility] How many standard dr inks containing alcohol do you have on a typical day? 1 or 2 [facility] How often do you hav e 6 or more drinks on 1 occasion? Never [facility] How hard is it for y ou to pay for the very basics like food, housing, medical care, and heating Not hard at all [facility] Do you feel stress - tense, restless, nervous, or anxious, or unable to sleep at night because your mind is troubled all the time - these days [OSQ] Only a little [facility] (I/We) worried wheth er (my/our) food would run out before (I/we) got money to buy more. Never true [facility] Start: 12-25-2019 Gender identity Identifies as female gender (finding) [facility] Start: 12-25-2019 Sexual orientation Heterosexual (finding) [facility] Clinical Notes 01-11-2021 to 11-10-2023 [facility] Plan Note - Mc Garcia MD - 09/18/2023 1:25 PM Mc Strong MD - 09/18/2023 12:57 PM ESTNyla Zarco MD - 08/25/2023 10:54 AM EDT Note Date & Type Note Facility 11-10-2023 Note HNO ID: [id number] Author: ANKITA MIR MD Service: ? Author Type: Physician Type: Progress Notes Filed: 11/10/2023 14:22 Note Text: Patient is a 23 yo with a new at 5 6/7 weeks by date of ovulation. She has been having heaving bleeding for the past day. HCG levels have not been rising normally. OB ultrasound today shows that there is no visible IUP. The adnexa area does not show signs of an ectopic . Discussed ultrasound findings with the patient. Bleeding and ectopic precautions reviewed. Will follow up on HCG levels and notify Dr. Garcia and Ava of the findings. Recommendation is for repeat HCG level next week to follow levels to negative. Ankita Mir MD, MOR 11/10/2023 [facility] 11-08-2023 Note HNO ID: [id number] Author: AVA KWAN PA-C Service: ? Author Type: Physician Associate Professor Of Media Arts Type: Progress Notes Filed: 11/08/2023 15:24 Note Text: [facility] ENDOCR[facility]OLOGY [facility] INFERTILITY New SERVICE DATE: 11/08/2023 SERVICE TIME: 12:18 PM NAME: Sanaz Lopez VIRTUAL VISIT PROGRESS NOTE This is a virtual visit. It required patient-provider interaction for the medical decision making as documented below. Patient name and birthday verified: Yes Location of patient: [place] Persons Present: patient I have communicated my name and active licensure. The patient's identity and physical location were verified at the time of this visit. Either the patient or their legal patient relations representative has been informed of the risks and benefits of -- and alternatives to -- treatment through a remote evaluation and consents to proceed with the evaluation remotely. Reason for visit: new , next steps 0 0 1 History of ectopic: No History of SAB: No History of pelvic/abdominal surgeries: Yes appendectomy LMP 09-30-23, fertility medications used this cycle: letrozole , date of LH surge: 10-13-23, IUI done: none Blood type: O, POS, rubella: Immune , varicella: Immune hCG levels: Component Latest Ref Rng AND Units 11/06/2023 hCG Quantitative, Blood <5.0 mIU/mL 252.0 (H) HCG from today still pending. Dating: Currently 5w4d based off of LH surge. Symptoms: Pain: none Bleeding: none Nausea/Vomiting: some nausea Current Medications: updated. Taking PNV only Taking PNV: yes Reviewed history, intake and most recent plan from primary [facility] provider. Assessment: Plan: further labwork needed: hCG pending. scan scheduled: at 7w, will wait for the hCG result. IF abnormal, will bring the pt in for the OB scan ~ 6 weeks. medications to discontinue: none Schedule with OB: 12/11/2023 Ava Kwan PA-C November 08, 2023 12:18 PM I spent a total of 20 minutes on the date of the service which included preparing to see the patient, completing clinical documentation, counseling and educating the patient/family/caregiver, ordering medications, tests, or procedures, independently interpreting results (not separately reported), and communicating results to the patient/family/caregiver. To patients reading this note: Please be advised the primary purpose of this note is for me to communicate with myself and other members of your medical team. Standard sentence structure is not always used. Medical terminology and medical abbreviations may be used. There may be grammatical and typographical errors missed in proofreading. [facility] 09-29-2023 Note HNO ID: [id number] Author: Susie Younger MD Service: ? Author Type: Physician Type: Progress Notes Filed: 10/31/2023 7:04 AM Note Text: [facility] NEW PATIENT HISTORY AND PHYSICAL EXAM PATIENT INFO: Sanaz Lopez REFERRING M.D.: Nyla Blanco [address] [facility] [id number] PCP: Ramila Mcnamara PA-C Consultation requested by Nyla Blanco and my final recommendations will be communicated back to the requesting physician by way of shared medical record or letter via [place] mail. CHIEF COMPLAINT: Bilateral Flank pain. 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 Underwent urology eval 2019. Chronic flank pain at that time 02/06. Had retrograde pyelograms demonstrating complete bilateral duplication. Most recent imaging 11/14/22 - report reviewed - duplicated collecting systems bilaterally with right inflammation seen around kidney and ureter. No obstructing stones. Reports usually symptom is sharp bilaterally flank pain radiation to her abdomen. States pain is worse with fluid intake. Reports she first remembers pain around when she was hospitalized with pyelonephritis in 2018. She was again hospitalized in 2021 with pyelonephritis. On both occasions she endorses R Denies history of stones, denies history of blood in the urine. Last UTI 2-3mos ago, improved with antibiotics. Pre appointment summary of medical record: XR Retrograde Pyelogram 04/24/2020 IMPRESSION: 1. Negative cystogram. 2. 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 3. Mild dilatation of the inferior pole collecting system on the right. 4. Otherwise negative cystogram and retrograde urogram. NM RENAL FLOW W/ LASIX 04/20/2020 IMPRESSION: NORMAL FLOW AND FUNCTION. NO EVIDENCE FOR URINARY TRACT OBSTRUCTION. PATHOLOGY: NA LABS: Creatinine Date Value Ref Range Status 09/25/2023 0.67 0.58 - 0.96 mg/dL Final 02/06/2023 0.76 0.58 - 0.96 mg/dL Final 01/21/2023 0.74 0.58 - 0.96 mg/dL Final 09/16/2022 0.79 0.58 - 0.96 mg/dL Final URINALYSIS: Specific [place], Ur Date Value Ref Range Status 09/25/2023 1.018 1.005 - 1.030 Final Glucose, Urine Date Value Ref Range Status 09/25/2023 Negative Negative Final Bilirubin, Urine Date Value Ref Range Status 09/25/2023 Negative Negative Final Ketones, Urine Date Value Ref Range Status 09/25/2023 Negative Negative Final Hemoglobin/Blood,Ur Date Value Ref Range Status 09/25/2023 Negative Negative Final Protein, Urine Date Value Ref Range Status 09/25/2023 Negative Negative Final Urobilinogen, Urine Date Value Ref Range Status 12/12/2016 normal Normal (<1.1) EU Final Nitrites Date Value Ref Range Status 09/25/2023 Negative Negative Final WBC, Urine Date Value Ref Range Status 09/25/2023 0-5 /HPF 0-5 /HPF Final IMAGING: See above ALLERGIES: ALLERGIES Allergen Reactions Bactrim Ds [Sulfame* Rash [place] morbilliform rash, also on keflex same time MEDICATIONS: Current Outpatient Medications Medication Sig D-MANNOSE ORAL Take by mouth once daily. ondansetron orally disintegrating (ZOFRAN ODT) 4 mg disintegrating tablet Take 1 tablet by mouth every 6 hours as needed for nausea/vomiting. letrozole (FEMARA) 2.5 mg tablet Take 4 tablets by mouth once daily. dexAMETHasone (DECADRON) 0.5 mg tablet Take 0.5 tablets by mouth once daily. medroxyPROGESTERone (PROVERA) 10 mg tablet Take 1 tablet by mouth once daily. cyclobenzaprine (FLEXERIL) 10 mg tablet Take 1 tablet by mouth three times daily as needed for muscle spasm. naproxen (NAPROSYN) 500 mg tablet Take 1 tablet by mouth twice daily as needed (for pain/inflammation). Take with food. nitrofurantoin monohydrate and macrocrystal (MACROBID) 100 mg capsule Take 1 capsule by mouth as needed. Take prior to or right after intercourse. [id number] 267 mcg-321 mg- 250 mg CPTw Take by mouth once daily as needed. No current facility-administered medications for this visit. HISTORIES PAST MEDICAL HISTORY Diagnosis Date Acute appendicitis 12/02/2016 Concussion 04/07/2013 Congenital abnormality of ureter 4 URETERS, DUPLICATED DRAINAGE SYSTEM Convulsions (HCC) 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 GDM. Diabetic education and patient intake representative counseling ordered. Anamika Eric APRN.CNM PCOS (polycystic ovarian syndrome) Seizure (HCC) was told due to anxiety Wrist fracture 12/24/2014 PAST SURGICAL HISTORY Procedure Laterality Date CYSTOSCO (more content not included)... [facility] 09-29-2023 Note Patient Outreach (UR OLMN) SANAZ LOPEZ ([id number]) 2000 F Date Time Provider Department 09/29/23 SUSIE YOUNGER During your visit today, we recorded the following information about you: Allergies As of Date: 09/29/2023 Noted Allergy Reaction BACTRIM DS (SULFAMETHOXAZOLE-TRIM*08/21/2018 2 - Rash Comments: [place] morbilliform rash, also on keflex same time Date Reviewed: 09/29/2023 Reviewed by: Thomas Mcdaniel OCCA - Fully Assessed Visit Diagnosis:Screening for genitourinary condition [Z13.89] Order(s):URINALYSIS, REFLEX MICROSCOPIC [[id number]] Order #: [id number]. #:[id number] Prescriptions as of 10/02/2023 - D-MANNOSE ORAL Take by mouth once daily. - ondansetron orally disintegrating (ZOFRAN ODT) 4 mg disintegrating tablet Take 1 tablet by mouth every 6 hours as needed for nausea/vomiting. - letrozole (FEMARA) 2.5 mg tablet Take 4 tablets by mouth once daily. - dexAMETHasone (DECADRON) 0.5 mg tablet Take 0.5 tablets by mouth once daily. - medroxyPROGESTERone (PROVERA) 10 mg tablet Take 1 tablet by mouth once daily. - cyclobenzaprine (FLEXERIL) 10 mg tablet Take 1 tablet by mouth three times daily as needed for muscle spasm. - naproxen (NAPROSYN) 500 mg tablet Take 1 tablet by mouth twice daily as needed (for pain/inflammation). Take with food. - nitrofurantoin monohydrate and macrocrystal (MACROBID) 100 mg capsule Take 1 capsule by mouth as needed. Take prior to or right after intercourse. - [id number] 267 mcg-321 mg- 250 mg CPTw Take by mouth once daily as needed. 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] 07/20/2020 History of seizures [Z87.898] 07/20/2020 Nausea and vomiting in [O21.9] 07/20/2020 03/12/2021 Tobacco use during , antepartum [O99.3*07/20/2020 03/12/2021 Patient request for diagnostic testing [Z01.89] 07/20/2020 03/12/2021 Abnormal glucose in , antepartum [O99.*12/29/2020 03/12/2021 Insulin controlled gestational diabetes mellitu*01/11/2021 03/12/2021 Urinary tract infection [N39.0] 09/12/2022 PCOS (polycystic ovarian syndrome) [E28.2] Encounter Status:Closed by [employer], PRODUSER on 10/02/23 [facility] 09-25-2023 Note HNO ID: [id number] Author: Ramila Mcnamara PA-C Service: ? Author Type: Physician Associate Professor Of Media Arts Type: Progress Notes Filed: 09/25/2023 2:33 PM Note Text: 23 year old female with c/o frequency x 3 days. Reports vomiting and diarrhea in addition. Reports right flank pain. No vaginal sx. Had intercourse 2 days ago with pain across low abdomen and hips low abdominal pressure, urinary urgency and frequency. Reports being sexually active prior to UTI 3 days ago. Feels cold, chilly. Vomited twice in last 3 days , no black or coffee, no bilious characteristics. Diarrhea x 5, watery. Last BM this morning Appetite mild. Drinks mainly water and flavored water Reports being a little lightheaded/ dizzy. Has not had a period since June, says she has taken a test which was negative and was started on progesterone, which she is currently still taking. No heart racing. Denies Nasal congestion, headache, coughing, Sob. ACTIVE PROBLEM LIST Seizure-Like Activity (Hcc) Nicotine use disorder, F17.2 Recurrent Urinary Tract Infection Congenital Anomaly of Ureter History of Seizures Urinary Tract Infection Pcos (Polycystic Ovarian Syndrome) Current Outpatient Medications Medication Sig Dispense Refill D-MANNOSE ORAL Take by mouth once daily. letrozole (FEMARA) 2.5 mg tablet Take 4 tablets by mouth once daily. 20 tablet 3 dexAMETHasone (DECADRON) 0.5 mg tablet Take 0.5 tablets by mouth once daily. 30 tablet 3 medroxyPROGESTERone (PROVERA) 10 mg tablet Take 1 tablet by mouth once daily. 10 tablet 3 cyclobenzaprine (FLEXERIL) 10 mg tablet Take 1 tablet by mouth three times daily as needed for muscle spasm. 30 tablet 2 naproxen (NAPROSYN) 500 mg tablet Take 1 tablet by mouth twice daily as needed (for pain/inflammation). Take with food. 60 tablet 1 nitrofurantoin monohydrate and macrocrystal (MACROBID) 100 mg capsule Take 1 capsule by mouth as needed. Take prior to or right after intercourse. 30 capsule 3 [id number] 267 mcg-321 mg- 250 mg CPTw Take by mouth once daily as needed. No current facility-administered medications for this visit. EXAM: BP 108/62 Pulse 110 Temp 37.4 ?C (99.3 ?F) (Left Tympanic) Resp 18 Wt 84.8 kg (187 lb) LMP 07/17/2023 (Approximate) SpO2 97% BMI 30.18 kg/m? Pleasant woman in no acute distress HEENT: NCAT. No scleral icterus or conjunctival injection. TM's clear. Nose and oropharynx free from injection or lesion. Oral membranes moist and pink. No cervical lymph nodes. Thyroid non-tender, no masses, or enlargement. Carotids pulses 2+/4+ without bruits. No JVD with HOB at 30 degrees. Chest is normal shape. Lungs are clear to all minaya with good air exchange through out. HRRR without murmur or gallop. No lifts, heaves, or rubs. Abdomen: active bowel sounds throughout soft, slightly tender in the lower quadrants bilaterally, no masses or organomegaly. Mild right flank pain on percussion. Extrem: no clubbing, cyanosis, edema. Distal pulses 2+/4, prompt capillary refill. Component Latest Ref Rng AND Units 09/25/2023 GLUCOSE UA (POCT) Negative mg/dL Negative BILIRUBIN UA (POCT) Negative Negative KETONE UA (POCT) Negative mg/dL Negative SPECIFIC GRAVITY UA (POCT) 1.005 - 1.030 1.020 HEMOGLOBIN/BLOOD UA (POCT) Negative Negative PH UA (POCT) 4.5 - 8.0 5.5 PROTEIN UA (POCT) Negative mg/dL Negative UROBILINOGEN UA (POCT) Normal E.U./dL 0.2 NITRITE UA (POCT) Negative Negative LEUKOCYTES UA (POCT) Negative Negative COLOR UA (POCT) Yellow CLARITY UA (POCT) Clear ASSESSMENT/PLAN: 1. Recurrent UTI - ICD9: 599.0, ICD10: N39.0 recurrent - Patient education for prevention given - ondansetron 4 mg PO as needed for nausea - UA DIP, URINE (POC) - CBC + DIFF - BASIC METABOLIC PNL - URINALYSIS, WITH MICROSCOPIC - URINALYSIS WITH MICROSCOPIC, REFLEX CULTURE Hold on ATB until micro and C+S See orders and/or patient instructions. Patient ( or Guardian) expressed understanding of instructions on review. Shoaib Mcnamara PA-C [facility] 09-18-2023 Note HNO ID: [id number] Author: Mc Garcia MD Service: ? Author Type: Physician Type: Progress Notes Filed: 09/18/2023 1:45 PM Note Text: REPRODUCTIVE ENDOCRINOLOGY AND INFERTILITY RETURN PATIENT CLINIC NOTE Reason for visit: Follow Up Subjective: HPI Sanaz Lopez is a 23 year old woman, a , who presents for follow up for oligo-ovulation, irregular menses and inability to conceive. She was last seen in this clinic on 12/2022. Past Medical History: PAST MEDICAL HISTORY Diagnosis Date Acute appendicitis 12/02/2016 Concussion 04/07/2013 Congenital abnormality of ureter 4 URETERS, DUPLICATED DRAINAGE SYSTEM Convulsions (HCC) 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 GDM. Diabetic education and patient intake representative counseling ordered. 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 Allergies: ALLERGIES Allergen Reactions Bactrim Ds [Sulfame* Rash [place] morbilliform rash, also on keflex same time Medications: Current Outpatient Medications Medication Sig cyclobenzaprine (FLEXERIL) 10 mg tablet Take 1 tablet by mouth three times daily as needed for muscle spasm. naproxen (NAPROSYN) 500 mg tablet Take 1 tablet by mouth twice daily as needed (for pain/inflammation). Take with food. dexAMETHasone (DECADRON) 0.5 mg tablet Take 0.5 tablets by mouth once daily. nitrofurantoin monohydrate and macrocrystal (MACROBID) 100 mg capsule Take 1 capsule by mouth as needed. Take prior to or right after intercourse. [id number] 267 mcg-321 mg- 250 mg CPTw Take by mouth once daily as needed. No current facility-administered medications for this visit. Family History: Negative for breast, ovarian, uterine or colon cancer. family history includes Colon Cancer in an other family member; Colon Cancer (age of onset: 28) in her maternal uncle; Diabetes in her father and paternal grandmother; GI- colon polpys in her mother; Hypertension in her father and mother; No Known Problems in her brother, maternal grandmother, sister, and sister; Suicide / Suicidal Behaviors in her maternal grandfather; myocardial infarction in her paternal grandfather. Social History: Social History Tobacco Use Smoking status: Every Day Packs/day: 0.50 Years: 4.00 Additional pack years: 0.00 Total pack years: 2.00 Types: Cigarettes Smokeless tobacco: Never Tobacco comments: 3 cigarettes a day Vaping Use Vaping Use: Never used Substance Use Topics Alcohol use: Not Currently Drug use: No The following portions of the patient's history were reviewed and updated as appropriate: allergies, current medications, past family history, past medical history, past social history, past surgical history and problem list. Review of Systems A >10 system ROS was reviewed and is otherwise negative, except as indicated in the chief complaint and/or HPI above if applicable. Objective: Physical Exam Constitutional: Well-developed and well-nourished. HEENT: Head normocephalic and atraumatic. Assessment: 23 year old female Attempting to conceive since 05/2022 Menstrual cycle irregularity: Skips some cycles. PMHx: BMI 31.55. Seizures. Bilateral ureteral duplication. Recurrent UTI PSHx: Tooth extraction. Laparoscopy appendectomy. Knee ortho OBHx: GDMA2 Meds: MVI. Macrobid Desire for future fertility LET OI X3: Failed *Discussed LET 7.5 + DEX OI X3: Only last cycle OPK+ *Discussed LET 10 + DEX 0.5 *Discussed switch to CC 150 + DEX 0.5 if anovulatory or no conception with LET 10 30 year old male partner with proven fertility PMHx: Denies PSHx: Pilonidal cyst Meds: Denies SA: Not completed to date Plan: 1. Patient was counseled today regarding the factors that impact fertility including male factor, ovarian factor, tubal/uterine factor, cervical factor and unexplained. We reviewed her evaluation and treatment to date. 2. Fertility treatments including ovulation induction, intrauterine insemination and in vitro fertilization were discussed. 3. Treatment plan for patient is as follows: PLAN: LET 10 mg CD 3-7 DEX 0.5 mg CD 3-OPK+ OPK or Foll (more content not included)... [facility] 09-18-2023 Miscellaneous Notes Summary: DARLENE TREATMENT PLAN PLAN: LET 10 mg CD 3-7 DEX 0.5 mg CD 3-OPK+ OPK or Follicular US TIC or IUI May switch to CC 150 mg + DEX 0.5 if anovulatory or no conception with CC Thereafter, GN SO vs IVF consultation Mc Garcia MD September 18, 2023 1:44 PM documented in this encounter [facility] 09-18-2023 History of Present illness Narrative Images from the original note were not included. REPRODUCTIVE ENDOCRINOLOGY AND INFERTILITY RETURN PATIENT CLINIC NOTE Reason for visit: Follow Up Subjective: JERSON Lopez is a 23 year old woman, a , who presents for follow up for oligo-ovulation, irregular menses and inability to conceive. She was last seen in this clinic on 12/2022. Past Medical History: PAST MEDICAL HISTORY Diagnosis Date Acute appendicitis 12/02/2016 Concussion 04/07/2013 Congenital abnormality of ureter 4 URETERS, DUPLICATED DRAINAGE SYSTEM Convulsions (HCC) 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 GDM. Diabetic education and patient intake representative counseling ordered. 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 Allergies: ALLERGIES Allergen Reactions Bactrim Ds [Sulfame* Rash [place] morbilliform rash, also on keflex same time Medications: Current Outpatient Medications Medication Sig cyclobenzaprine (FLEXERIL) 10 mg tablet Take 1 tablet by mouth three times daily as needed for muscle spasm. naproxen (NAPROSYN) 500 mg tablet Take 1 tablet by mouth twice daily as needed (for pain/inflammation). Take with food. dexAMETHasone (DECADRON) 0.5 mg tablet Take 0.5 tablets by mouth once daily. nitrofurantoin monohydrate and macrocrystal (MACROBID) 100 mg capsule Take 1 capsule by mouth as needed. Take prior to or right after intercourse. [id number] 267 mcg-321 mg- 250 mg CPTw Take by mouth once daily as needed. No current facility-administered medications for this visit. Family History: Negative for breast, ovarian, uterine or colon cancer. family history includes Colon Cancer in an other family member; Colon Cancer (age of onset: 28) in her maternal uncle; Diabetes in her father and paternal grandmother; GI- colon polpys in her mother; Hypertension in her father and mother; No Known Problems in her brother, maternal grandmother, sister, and sister; Suicide / Suicidal Behaviors in her maternal grandfather; myocardial infarction in her paternal grandfather. Social History: Social History Tobacco Use Smoking status: Every Day Packs/day: 0.50 Years: 4.00 Additional pack years: 0.00 Total pack years: 2.00 Types: Cigarettes Smokeless tobacco: Never Tobacco comments: 3 cigarettes a day Vaping Use Vaping Use: Never used Substance Use Topics Alcohol use: Not Currently Drug use: No The following portions of the patient's history were reviewed and updated as appropriate: allergies, current medications, past family history, past medical history, past social history, past surgical history and problem list. Review of Systems A >10 system ROS was reviewed and is otherwise negative, except as indicated in the chief complaint and/or HPI above if applicable. Objective: Physical Exam Constitutional: Well-developed and well-nourished. HEENT: Head normocephalic and atraumatic. Assessment: 23 year old female Attempting to conceive since 05/2022 Menstrual cycle irregularity: Skips some cycles. PMHx: BMI 31.55. Seizures. Bilateral ureteral duplication. Recurrent UTI PSHx: Tooth extraction. Laparoscopy appendectomy. Knee ortho OBHx: GDMA2 Meds: MVI. Macrobid Desire for future fertility LET OI X3: Failed *Discussed LET 7.5 + DEX OI X3: Only last cycle OPK+ *Discussed LET 10 + DEX 0.5 *Discussed switch to CC 150 + DEX 0.5 if anovulatory or no conception with LET 10 28 year old male partner with proven fertility PMHx: Denies PSHx: Pilonidal cyst Meds: Denies SA: Not completed to date Plan: 1. Patient was counseled today regarding the factors that impact fertility including male factor, ovarian factor, tubal/uterine factor, cervical factor and unexplained. We reviewed her evaluation and treatment to date. 2. Fertility treatments including ovulation induction, intrauterine insemination and in vitro fertilization were discussed. 3. Treatment plan for patient is as follows: PLAN: LET 10 mg CD 3-7 DEX 0.5 mg CD 3-OPK+ OPK or Follicular US TIC or IUI May switch to CC 150 mg + DEX 0.5 if anovulatory or no conception with CC Thereafter, GN SO vs IVF consultation I spent a total of 30 minutes on the date of the service which included preparing to see the patient, [id number] patient care, completing clinical documentation, obtaining and/or reviewing separately obtained history, counseling and educating the patient/family/caregiver and care coordination (not separately reported). Mc Garcia MD September 18, 2023 1:43 PM documented in this encounter [facility] 08-25-2023 Note HNO ID: [id number] Author: Nyla Blanco MD Service: ? Author Type: Physician Type: Progress Notes Filed: 08/25/2023 11:27 AM Note Text: [facility] RECONSTRUCTIVE SURGERY NEW PATIENT CLINIC NOTE SERVICE DATE: 08/25/2023 SERVICE TIME: 10:54 AM NAME: Sanaz Lopez REFERRED BY: Consultation requested by Dr. Ramila Mcnamara [address] [facility] [address] for an opinion regarding recurrent UTIs. My final recommendations will be communicated back to the requesting physician by way of shared medical record or letter via [place] mail. CHIEF COMPLAINT: I keep getting kidney infections HISTORY OF PRESENT ILLNESS: Sanaz Lopez is a 23 year old F with PMH including PCOS, tobacco use and seizures presenting with recurrent UTIs. 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 Underwent urology eval 2019. Chronic flank pain at that time 02/06. Per note, had normal CT A/P, nuclear renal scan, cysto and cystogram. Urine cultures negative at that time. Was hospitalized 2021 for likely pyelonephritis with sepsis. States she had E. Coli. CT showed no stone or hydro at that time. Started on postcoital abx at that time. 07/04/23 50-100K Lactobacillus 02/06/23 neg Most recent imaging 11/14/22 - report reviewed - duplicated collecting systems bilaterally with right inflammation seen around kidney and ureter. No obstructing stones. Images reviewed from 09/20 - no hydro Reports usually symptom is sharp bilaterally flank pain radiation to her abdomen. Has had 2 episodes of sepsis when initial symptoms went untreated. Has also had blood when wiping during these episodes. States macrobid after sex has helped. Has taken for 2-3d self-start and symptoms resolve PAST MEDICAL HISTORY PAST MEDICAL HISTORY Diagnosis Date Acute appendicitis 12/02/2016 Concussion 04/07/2013 Congenital abnormality of ureter 4 URETERS, DUPLICATED DRAINAGE SYSTEM Convulsions (HCC) 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 GDM. Diabetic education and patient intake representative counseling ordered. Anamika Eric APRN.LISA PCOS (polycystic ovarian syndrome) Seizure (HCC) was told due to anxiety Wrist fracture 12/24/2014 PAST SURGICAL HISTORY PAST SURGICAL HISTORY Procedure Laterality Date CYSTOSCOPY LAPAROSCOPIC APPENDECTOMY 12/02/2016 OTHER 2016 WISDOM TEETH EXTRACTION PAST SURGICAL HISTORY OF Left 10/25/2017 SALK, extensive synovectomy, patella chodroplasty FAMILY HISTORY FAMILY HISTORY Problem Relation Age of Onset Hypertension Mother other (GI- colon polpys) Mother Hypertension Father Diabetes Father No Known Problems Sister No Known Problems Sister No Known Problems Brother Suicide / Suicidal Behaviors Maternal Grandfather No Known Problems Maternal Grandmother Diabetes Paternal Grandmother other (myocardial infarction) Paternal Grandfather Colon Cancer Maternal Uncle 28 Colon Cancer Other SOCIAL HISTORY Social History Tobacco Use Smoking status: Every Day Packs/day: 0.50 Years: 4.00 Additional pack years: 0.00 Total pack years: 2.00 Types: Cigarettes Smokeless tobacco: Never Tobacco comments: 3 cigarettes a day Vaping Use Vaping Use: Never used Substance Use Topics Alcohol use: Not Currently Drug use: No MEDICATIONS: Current Outpatient Medications Medication Sig ciprofloxacin HCl (CILOXAN) 0.3 % ophthalmic solution Use 1 Drop in the right eye four times daily for 7 days. cyclobenzaprine (FLEXERIL) 10 mg tablet Take 1 tablet by mouth three times daily as needed for muscle spasm. naproxen (NAPROSYN) 500 mg tablet Take 1 tablet by mouth twice daily as needed (for pain/inflammation). Take with food. dexAMETHasone (DECADRON) 0.5 mg tablet Take 0.5 tablets by mouth once daily. nitrofurantoin monohydrate and macrocrystal (MACROBID) 100 mg capsule Take 1 capsule by mouth as needed. Take prior to or right after intercourse. [id number] 267 mcg-321 mg- 250 mg CPTw Take by mouth once daily as needed. No current facility-administered medications for this visit. 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 There were no vitals filed for this visit. There is no height or weight on file to calculate BMI. General: No acute distress, well appearing Abdomen: Soft, NT, nondistended Extremities: Normal range of motion, no LE edema : deferred PVR: 0 mL via (more content not included)... [facility] 08-25-2023 Instructions Nyla Blanco MD - 08/25/2023 11:09 AM EDT D-mannose 1.5-2g daily Dr. Billy Younger documented in this encounter [facility] 08-25-2023 History of Present illness Narrative Images from the original note were not included. [facility] RECONSTRUCTIVE SURGERY NEW PATIENT CLINIC NOTE SERVICE DATE: 08/25/2023 SERVICE TIME: 10:54 AM NAME: Sanaz Lopez REFERRED BY: Consultation requested by Dr. Ramila Mcnamara [address] [facility] [address] for an opinion regarding recurrent UTIs. My final recommendations will be communicated back to the requesting physician by way of shared medical record or letter via [place] mail. CHIEF COMPLAINT: I keep getting kidney infections HISTORY OF PRESENT ILLNESS: Sanaz Lopez is a 23 year old F with PMH including PCOS, tobacco use and seizures presenting with recurrent UTIs. 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 Underwent urology eval 2019. Chronic flank pain at that time 02/06. Per note, had normal CT A/P, nuclear renal scan, cysto and cystogram. Urine cultures negative at that time. Was hospitalized 2021 for likely pyelonephritis with sepsis. States she had E. Coli. CT showed no stone or hydro at that time. Started on postcoital abx at that time. 07/04/23 50-100K Lactobacillus 02/06/23 neg Most recent imaging 11/14/22 - report reviewed - duplicated collecting systems bilaterally with right inflammation seen around kidney and ureter. No obstructing stones. Images reviewed from 09/20 - no hydro Reports usually symptom is sharp bilaterally flank pain radiation to her abdomen. Has had 2 episodes of sepsis when initial symptoms went untreated. Has also had blood when wiping during these episodes. States macrobid after sex has helped. Has taken for 2-3d self-start and symptoms resolve PAST MEDICAL HISTORY PAST MEDICAL HISTORY Diagnosis Date Acute appendicitis 12/02/2016 Concussion 04/07/2013 Congenital abnormality of ureter 4 URETERS, DUPLICATED DRAINAGE SYSTEM Convulsions (HCC) 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 GDM. Diabetic education and patient intake representative counseling ordered. Anamika Eric APRN.LISA PCOS (polycystic ovarian syndrome) Seizure (HCC) was told due to anxiety Wrist fracture 12/24/2014 PAST SURGICAL HISTORY PAST SURGICAL HISTORY Procedure Laterality Date CYSTOSCOPY LAPAROSCOPIC APPENDECTOMY 12/02/2016 OTHER 2016 WISDOM TEETH EXTRACTION PAST SURGICAL HISTORY OF Left 10/25/2017 SALK, extensive synovectomy, patella chodroplasty FAMILY HISTORY FAMILY HISTORY Problem Relation Age of Onset Hypertension Mother other (GI- colon polpys) Mother Hypertension Father Diabetes Father No Known Problems Sister No Known Problems Sister No Known Problems Brother Suicide / Suicidal Behaviors Maternal Grandfather No Known Problems Maternal Grandmother Diabetes Paternal Grandmother other (myocardial infarction) Paternal Grandfather Colon Cancer Maternal Uncle 28 Colon Cancer Other SOCIAL HISTORY Social History Tobacco Use Smoking status: Every Day Packs/day: 0.50 Years: 4.00 Additional pack years: 0.00 Total pack years: 2.00 Types: Cigarettes Smokeless tobacco: Never Tobacco comments: 3 cigarettes a day Vaping Use Vaping Use: Never used Substance Use Topics Alcohol use: Not Currently Drug use: No MEDICATIONS: Current Outpatient Medications Medication Sig ciprofloxacin HCl (CILOXAN) 0.3 % ophthalmic solution Use 1 Drop in the right eye four times daily for 7 days. cyclobenzaprine (FLEXERIL) 10 mg tablet Take 1 tablet by mouth three times daily as needed for muscle spasm. naproxen (NAPROSYN) 500 mg tablet Take 1 tablet by mouth twice daily as needed (for pain/inflammation). Take with food. dexAMETHasone (DECADRON) 0.5 mg tablet Take 0.5 tablets by mouth once daily. nitrofurantoin monohydrate and macrocrystal (MACROBID) 100 mg capsule Take 1 capsule by mouth as needed. Take prior to or right after intercourse. [id number] 267 mcg-321 mg- 250 mg CPTw Take by mouth once daily as needed. No current facility-administered medications for this visit. 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 There were no vitals filed for this visit. There is no height or weight on file to calculate BMI. General: No acute distress, well appearing Abdomen: Soft, NT, nondistended Extremities: Normal range of motion, no LE edema : deferred PVR: 0 mL via bladder US DATA: Labs UA: Normal Imaging See HPI ASSESSMENT and PLAN: 23 year old female with complete duplicated collecting systems with ?recurrent UTIs vs kidney inflammation/pain . 1. Recurrent UTI - ICD9: 599.0, ICD10: N39.0 2. Dysuria - ICD9: 788.1, ICD10: R30.0 3. Congenital anomaly of ureter - ICD9: 753.9, ICD10: Q62.8 Continue post coital abx Start D-mannose Evaluation by Dr. Billy Younger for kidney pain All of the patients questions and concerns were discussed in detail. Nyla Blanco MD [facility] documented in this encounter [facility] 08-19-2023 Note HNO ID: [id number] Author: Roddy Garcia APRN.TRAVEL AGENCY MANAGER Service: ? Author Type: Nurse Practitioner Type: Progress Notes Filed: 08/19/2023 12:15 PM Note Text: Subjective HPI HPI Sanaz Lopez is a 23 year old female who presents today for CC of right eye rednes/drainage. This started 1 day ago. Recently treated with erythromycin ointment for pink eye, resolved after 3 days of medication and then returned. Patient wears contacts. St for few days, denies cough. 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 GDM. Diabetic education and patient intake representative counseling ordered. Anamika Eric APRN.LISA PCOS (polycystic ovarian syndrome) Seizure (HCC) was told due to anxiety Wrist fracture 12/24/2014 PAST SURGICAL HISTORY Procedure Laterality Date CYSTOSCOPY LAPAROSCOPIC APPENDECTOMY 12/02/2016 OTHER 2016 WISDOM TEETH EXTRACTION PAST SURGICAL HISTORY OF Left 10/25/2017 SALK, extensive synovectomy, patella chodroplasty ALLERGIES Bactrim Ds [Sulfamethoxazole-Trimethoprim] MEDICATIONS cyclobenzaprine (FLEXERIL) 10 mg tablet Take 1 tablet by mouth three times daily as needed for muscle spasm. naproxen (NAPROSYN) 500 mg tablet Take 1 tablet by mouth twice daily as needed (for pain/inflammation). Take with food. dexAMETHasone (DECADRON) 0.5 mg tablet Take 0.5 tablets by mouth once daily. nitrofurantoin monohydrate and macrocrystal (MACROBID) 100 mg capsule Take 1 capsule by mouth as needed. Take prior to or right after intercourse. [id number] 267 mcg-321 mg- 250 mg CPTw Take by mouth once daily as needed. ciprofloxacin HCl (CILOXAN) 0.3 % ophthalmic solution Use 1 Drop in the right eye four times daily for 7 days. FAMILY HISTORY Problem Relation Age of Onset Hypertension Mother other (GI- colon polpys) Mother Hypertension Father Diabetes Father No Known Problems Sister No Known Problems Sister No Known Problems Brother Suicide / Suicidal Behaviors Maternal Grandfather No Known Problems Maternal Grandmother Diabetes Paternal Grandmother other (myocardial infarction) Paternal Grandfather Colon Cancer Maternal Uncle 28 Colon Cancer Other Social History Tobacco Use Smoking status: Every Day Packs/day: 0.50 Years: 4.00 Additional pack years: 0.00 Total pack years: 2.00 Types: Cigarettes Smokeless tobacco: Never Tobacco comments: 3 cigarettes a day Vaping Use Vaping Use: Never used Substance Use Topics Alcohol use: Not Currently Drug use: No Review of Systems Constitutional: Negative for chills and fever. HENT: Positive for sore throat. Negative for ear discharge and ear pain. Eyes: Positive for discharge and redness. Negative for blurred vision, double vision, photophobia and pain. Respiratory: Negative for cough. Neurological: Negative for headaches. Objective Physical Exam Constitutional: General: She is not in acute distress. Appearance: She is not toxic-appearing. HENT: Right Ear: Hearing, tympanic membrane and external ear normal. Left Ear: Hearing, tympanic membrane, ear canal and external ear normal. Nose: No mucosal edema. Mouth/Throat: Lips: [place]. Mouth: Mucous membranes are moist. Pharynx: Uvula midline. Posterior oropharyngeal erythema present. Eyes: General: Right eye: Discharge present. Left eye: No discharge. Conjunctiva/sclera: Right eye: Right conjunctiva is injected. Left eye: Left conjunctiva is not injected. Lymphadenopathy: Cervical: Cervical adenopathy present. Right cervical: Superficial cervical adenopathy present. Left cervical: Superficial cervical adenopathy present. Comments: No cervical lymphadenopathy bilaterally Neurological: Mental Status: She is oriented to person, place, and time. ASSESSMENT/PLAN: 1. Sore throat - ICD9: 462, ICD10: J02.9 (primary diagnosis) - suspect viral - Group A strep molecular testing negative - Discussed supportive care treatment with fluids, rest and analgesia. - The patient should follow up in 3-5 days if symptoms persist or worsen - ALERE STREP A TEST (AG) 2. Acute conjunctivitis of right eye, unspecified acute conjunctivitis type - ICD9: 372.00, ICD10: H10.31 - see medication orders - course and contagiousness issues discussed, including hand washing. - Instructed to call if high fever, development of periorbital redness or swelling, eye pain, visual changes, concerns or if symptoms persist (more content not included)... [facility] 08-19-2023 History of Present illness Narrative Subjective HPI HPI Sanaz Lopez is a 23 year old female who presents today for CC of right eye rednes/drainage. This started 1 day ago. Recently treated with erythromycin ointment for pink eye, resolved after 3 days of medication and then returned. Patient wears contacts. St for few days, denies cough. 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 GDM. Diabetic education and patient intake representative counseling ordered. Anamika Eric APRN.LISA PCOS (polycystic ovarian syndrome) Seizure (HCC) was told due to anxiety Wrist fracture 12/24/2014 PAST SURGICAL HISTORY Procedure Laterality Date CYSTOSCOPY LAPAROSCOPIC APPENDECTOMY 12/02/2016 OTHER 2016 WISDOM TEETH EXTRACTION PAST SURGICAL HISTORY OF Left 10/25/2017 SALK, extensive synovectomy, patella chodroplasty ALLERGIES Bactrim Ds [Sulfamethoxazole-Trimethoprim] MEDICATIONS cyclobenzaprine (FLEXERIL) 10 mg tablet Take 1 tablet by mouth three times daily as needed for muscle spasm. naproxen (NAPROSYN) 500 mg tablet Take 1 tablet by mouth twice daily as needed (for pain/inflammation). Take with food. dexAMETHasone (DECADRON) 0.5 mg tablet Take 0.5 tablets by mouth once daily. nitrofurantoin monohydrate and macrocrystal (MACROBID) 100 mg capsule Take 1 capsule by mouth as needed. Take prior to or right after intercourse. [id number] 267 mcg-321 mg- 250 mg CPTw Take by mouth once daily as needed. ciprofloxacin HCl (CILOXAN) 0.3 % ophthalmic solution Use 1 Drop in the right eye four times daily for 7 days. FAMILY HISTORY Problem Relation Age of Onset Hypertension Mother other (GI- colon polpys) Mother Hypertension Father Diabetes Father No Known Problems Sister No Known Problems Sister No Known Problems Brother Suicide / Suicidal Behaviors Maternal Grandfather No Known Problems Maternal Grandmother Diabetes Paternal Grandmother other (myocardial infarction) Paternal Grandfather Colon Cancer Maternal Uncle 28 Colon Cancer Other Social History Tobacco Use Smoking status: Every Day Packs/day: 0.50 Years: 4.00 Additional pack years: 0.00 Total pack years: 2.00 Types: Cigarettes Smokeless tobacco: Never Tobacco comments: 3 cigarettes a day Vaping Use Vaping Use: Never used Substance Use Topics Alcohol use: Not Currently Drug use: No Review of Systems Constitutional: Negative for chills and fever. HENT: Positive for sore throat. Negative for ear discharge and ear pain. Eyes: Positive for discharge and redness. Negative for blurred vision, double vision, photophobia and pain. Respiratory: Negative for cough. Neurological: Negative for headaches. Objective Physical Exam Constitutional: General: She is not in acute distress. Appearance: She is not toxic-appearing. HENT: Right Ear: Hearing, tympanic membrane and external ear normal. Left Ear: Hearing, tympanic membrane, ear canal and external ear normal. Nose: No mucosal edema. Mouth/Throat: Lips: [place]. Mouth: Mucous membranes are moist. Pharynx: Uvula midline. Posterior oropharyngeal erythema present. Eyes: General: Right eye: Discharge present. Left eye: No discharge. Conjunctiva/sclera: Right eye: Right conjunctiva is injected. Left eye: Left conjunctiva is not injected. Lymphadenopathy: Cervical: Cervical adenopathy present. Right cervical: Superficial cervical adenopathy present. Left cervical: Superficial cervical adenopathy present. Comments: No cervical lymphadenopathy bilaterally Neurological: Mental Status: She is oriented to person, place, and time. ASSESSMENT/PLAN: 1. Sore throat - ICD9: 462, ICD10: J02.9 (primary diagnosis) - suspect viral - Group A strep molecular testing negative - Discussed supportive care treatment with fluids, rest and analgesia. - The patient should follow up in 3-5 days if symptoms persist or worsen - ALERE STREP A TEST (AG) 2. Acute conjunctivitis of right eye, unspecified acute conjunctivitis type - ICD9: 372.00, ICD10: H10.31 - see medication orders - course and contagiousness issues discussed, including hand washing. - Instructed to call if high fever, development of periorbital redness or swelling, eye pain, visual changes, concerns or if symptoms persist. - CIPROFLOXACIN 0.3 % EYE DROPS Roddy Garcia APRN.TRAVEL AGENCY MANAGER documented in this encounter [facility] 08-11-2023 Note HNO ID: [id number] Author: Mary Lou Steele APRN.SKYE Service: ? Author Type: Nurse Practitioner Type: Progress Notes Filed: 08/11/2023 4:22 PM Note Text: Subjective Conjunctivitis Associated symptoms include congestion, sore throat, eye discharge and eye redness. Pertinent negatives include no fever, no double vision, no photophobia, no ear pain and no eye pain. Sore Throat Associated symptoms include congestion. Pertinent negatives include no ear pain. Sanaz Lopez is a 23 year old female who presents with eye redness and drainage today. She states when she woke up she had to pry her eyes open because they were crusted shut. Drainage is yellow in color. She has also had some nasal congestion and slight sore throat today. No fever. Review of Systems Constitutional: Negative for chills and fever. HENT: Positive for congestion and sore throat. Negative for ear pain. Eyes: Positive for discharge and redness. Negative for blurred vision, double vision, photophobia and pain. Respiratory: Negative. Cardiovascular: Negative. Musculoskeletal: Negative for myalgias. BP 113/77 Pulse 100 Temp 37.2 ?C (98.9 ?F) Resp 18 Wt 85.5 kg (188 lb 6.4 oz) LMP 06/17/2023 (Exact Date) SpO2 98% BMI 30.41 kg/m? PAST MEDICAL HISTORY Diagnosis Date Acute appendicitis 12/02/2016 Concussion 04/07/2013 Congenital abnormality of ureter 4 URETERS, DUPLICATED DRAINAGE SYSTEM Convulsions (HCC) 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 GDM. Diabetic education and patient intake representative counseling ordered. Anamika Eric APRN.LISA PCOS (polycystic ovarian syndrome) Seizure (HCC) was told due to anxiety Wrist fracture 12/24/2014 PAST SURGICAL HISTORY Procedure Laterality Date CYSTOSCOPY LAPAROSCOPIC APPENDECTOMY 12/02/2016 OTHER 2016 WISDOM TEETH EXTRACTION PAST SURGICAL HISTORY OF Left 10/25/2017 SALK, extensive synovectomy, patella chodroplasty ALLERGIES Bactrim Ds [Sulfamethoxazole-Trimethoprim] MEDICATIONS cyclobenzaprine (FLEXERIL) 10 mg tablet Take 1 tablet by mouth three times daily as needed for muscle spasm. dexAMETHasone (DECADRON) 0.5 mg tablet Take 0.5 tablets by mouth once daily. erythromycin (ROMYCIN) 5 mg/gram (0.5 %) ophthalmic ointment Use 1 application in both eyes four times daily for 7 days. naproxen (NAPROSYN) 500 mg tablet Take 1 tablet by mouth twice daily as needed (for pain/inflammation). Take with food. nitrofurantoin monohydrate and macrocrystal (MACROBID) 100 mg capsule Take 1 capsule by mouth as needed. Take prior to or right after intercourse. [id number] 267 mcg-321 mg- 250 mg CPTw Take by mouth once daily as needed. FAMILY HISTORY Problem Relation Age of Onset Hypertension Mother other (GI- colon polpys) Mother Hypertension Father Diabetes Father No Known Problems Sister No Known Problems Sister No Known Problems Brother Suicide / Suicidal Behaviors Maternal Grandfather No Known Problems Maternal Grandmother Diabetes Paternal Grandmother other (myocardial infarction) Paternal Grandfather Colon Cancer Maternal Uncle 28 Colon Cancer Other Social History Tobacco Use Smoking status: Every Day Packs/day: 0.50 Years: 4.00 Additional pack years: 0.00 Total pack years: 2.00 Types: Cigarettes Smokeless tobacco: Never Tobacco comments: 3 cigarettes a day Vaping Use Vaping Use: Never used Substance Use Topics Alcohol use: Not Currently Drug use: No Objective Physical Exam Vitals and nursing note reviewed. Constitutional: Appearance: Normal appearance. HENT: Right Ear: Tympanic membrane, ear canal and external ear normal. Left Ear: Tympanic membrane, ear canal and external ear normal. Nose: Nose normal. Mouth/Throat: Pharynx: Uvula midline. No oropharyngeal exudate or posterior oropharyngeal erythema. Eyes: General: Lids are normal. Right eye: Discharge present. Left eye: Discharge present. Conjunctiva/sclera: Right eye: Right conjunctiva is injected. Left eye: Left conjunctiva is injected. Cardiovascular: Rate and Rhythm: Normal rate and regular rhythm. Heart sounds: Normal heart sounds. Pulmonary: Effort: Pulmonary effort is normal. No respiratory distress. Breath sounds: Normal breath sounds. No wheezing or rales. Musculoskeletal: Cervical back: Neck supple. Lymphadenopathy: Cervical: No cervical adenopathy. Skin: General: Skin is warm and dry. Findings: No erythema or rash. Neurological: Mental Status: She is alert. ASSESSMENT/PLAN: 1. Conjunctivitis of both eyes, unspecified conjunctivitis type - ICD9: 372.30, ICD10: H10.9 - see medication orders - c (more content not included)... [facility] 08-11-2023 History of Present illness Narrative Subjective Conjunctivitis Associated symptoms include congestion, sore throat, eye discharge and eye redness. Pertinent negatives include no fever, no double vision, no photophobia, no ear pain and no eye pain. Sore Throat Associated symptoms include congestion. Pertinent negatives include no ear pain. Sanaz Lopez is a 23 year old female who presents with eye redness and drainage today. She states when she woke up she had to pry her eyes open because they were crusted shut. Drainage is yellow in color. She has also had some nasal congestion and slight sore throat today. No fever. Review of Systems Constitutional: Negative for chills and fever. HENT: Positive for congestion and sore throat. Negative for ear pain. Eyes: Positive for discharge and redness. Negative for blurred vision, double vision, photophobia and pain. Respiratory: Negative. Cardiovascular: Negative. Musculoskeletal: Negative for myalgias. BP 113/77 Pulse 100 Temp 37.2 C (98.9 F) Resp 18 Wt 85.5 kg (188 lb 6.4 oz) LMP 06/17/2023 (Exact Date) SpO2 98% BMI 30.41 kg/m PAST MEDICAL HISTORY Diagnosis Date Acute appendicitis 12/02/2016 Concussion 04/07/2013 Congenital abnormality of ureter 4 URETERS, DUPLICATED DRAINAGE SYSTEM Convulsions (HCC) 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 GDM. Diabetic education and patient intake representative counseling ordered. Anamika Eric APRN.LISA PCOS (polycystic ovarian syndrome) Seizure (HCC) was told due to anxiety Wrist fracture 12/24/2014 PAST SURGICAL HISTORY Procedure Laterality Date CYSTOSCOPY LAPAROSCOPIC APPENDECTOMY 12/02/2016 OTHER 2016 WISDOM TEETH EXTRACTION PAST SURGICAL HISTORY OF Left 10/25/2017 SALK, extensive synovectomy, patella chodroplasty ALLERGIES Bactrim Ds [Sulfamethoxazole-Trimethoprim] MEDICATIONS cyclobenzaprine (FLEXERIL) 10 mg tablet Take 1 tablet by mouth three times daily as needed for muscle spasm. dexAMETHasone (DECADRON) 0.5 mg tablet Take 0.5 tablets by mouth once daily. erythromycin (ROMYCIN) 5 mg/gram (0.5 %) ophthalmic ointment Use 1 application in both eyes four times daily for 7 days. naproxen (NAPROSYN) 500 mg tablet Take 1 tablet by mouth twice daily as needed (for pain/inflammation). Take with food. nitrofurantoin monohydrate and macrocrystal (MACROBID) 100 mg capsule Take 1 capsule by mouth as needed. Take prior to or right after intercourse. [id number] 267 mcg-321 mg- 250 mg CPTw Take by mouth once daily as needed. FAMILY HISTORY Problem Relation Age of Onset Hypertension Mother other (GI- colon polpys) Mother Hypertension Father Diabetes Father No Known Problems Sister No Known Problems Sister No Known Problems Brother Suicide / Suicidal Behaviors Maternal Grandfather No Known Problems Maternal Grandmother Diabetes Paternal Grandmother other (myocardial infarction) Paternal Grandfather Colon Cancer Maternal Uncle 28 Colon Cancer Other Social History Tobacco Use Smoking status: Every Day Packs/day: 0.50 Years: 4.00 Additional pack years: 0.00 Total pack years: 2.00 Types: Cigarettes Smokeless tobacco: Never Tobacco comments: 3 cigarettes a day Vaping Use Vaping Use: Never used Substance Use Topics Alcohol use: Not Currently Drug use: No Objective Physical Exam Vitals and nursing note reviewed. Constitutional: Appearance: Normal appearance. HENT: Right Ear: Tympanic membrane, ear canal and external ear normal. Left Ear: Tympanic membrane, ear canal and external ear normal. Nose: Nose normal. Mouth/Throat: Pharynx: Uvula midline. No oropharyngeal exudate or posterior oropharyngeal erythema. Eyes: General: Lids are normal. Right eye: Discharge present. Left eye: Discharge present. Conjunctiva/sclera: Right eye: Right conjunctiva is injected. Left eye: Left conjunctiva is injected. Cardiovascular: Rate and Rhythm: Normal rate and regular rhythm. Heart sounds: Normal heart sounds. Pulmonary: Effort: Pulmonary effort is normal. No respiratory distress. Breath sounds: Normal breath sounds. No wheezing or rales. Musculoskeletal: Cervical back: Neck supple. Lymphadenopathy: Cervical: No cervical adenopathy. Skin: General: Skin is warm and dry. Findings: No erythema or rash. Neurological: Mental Status: She is alert. ASSESSMENT/PLAN: 1. Conjunctivitis of both eyes, unspecified conjunctivitis type - ICD9: 372.30, ICD10: H10.9 - see medication orders - course and contagiousness issues discussed, including hand washing. - Instructed to call if high fever, development of periorbital redness or swelling, eye pain, visual changes, concerns or if symptoms persist. - ERYTHROMYCIN 5 MG/GRAM (0.5 %) EYE OINTMENT - Follow-up with your PCP in 3-5 days if symptoms have not improved or sooner if symptoms worsen - Discussed red flags and need for immediate medical evaluation if any occur. - Discussed supportive care treatment with fluids, rest and analgesia. - Discussed expected course of illness Mary Lou Steele APRN.TRAVEL AGENCY MANAGER documented in this encounter [facility] 08-11-2023 Instructions Mary Lou Steele APRN.SKYE - 08/11/2023 3:43 PM EDT ASSESSMENT/PLAN: 1. Conjunctivitis of both eyes, unspecified conjunctivitis type - ICD9: 372.30, ICD10: H10.9 - see medication orders - course and contagiousness issues discussed, including hand washing. - Instructed to call if high fever, development of periorbital redness or swelling, eye pain, visual changes, concerns or if symptoms persist. - ERYTHROMYCIN 5 MG/GRAM (0.5 %) EYE OINTMENT - Follow-up with your PCP in 3-5 days if symptoms have not improved or sooner if symptoms worsen - Discussed red flags and need for immediate medical evaluation if any occur. - Discussed supportive care treatment with fluids, rest and analgesia. - Discussed expected course of illness Mary Lou Steele APRN.TRAVEL AGENCY MANAGER CONJUNCTIVITIS GENERAL INFORMATION: Conjunctivitis is also known as pink eye. It is an irritation of the underside of the eyelid and the white part of the eye. Conjunctivitis can be caused by infection, chemical irritation, or allergy. If infectious, it is very contagious. INSTRUCTIONS: The doctor has prescribed antibiotic drops or ointment. Use them as prescribed. Do not touch the dropper to the eye. Throw out the medication after completing treatment. If the doctor only prescribed the medication to be placed in one eye, and the other eye starts to bother you with the same symptoms, you may treat it in the same fashion. To ease discomfort, apply a warm or cool clean washcloth to your eye several times a day for 10 to 20 minutes. Gently wipe away discharge from the eyes with tissues. Wash your hands often with soap and use paper towels to dry them. Do not share towels, washcloths, or pillows. This could spread infection. Do not use eye make-up until the infection has resolved. Keep contact lenses out of eyes until the irritation is gone. Discard any eye make-up which you may have contaminated before the infection was diagnosed, and any eye make-up older than one year. Children should not return to school or daycare until the eye is no longer pink. Do not drive or operate machinery if your vision is blurred. Wear sunglasses if your eyes are sensitive to the light. CONTACT YOUR DOCTOR IF YOU OR YOUR CHILD NOTICE: *The eye is still pink 3 days after starting treatment with medicine. *Pain in the eye increases. *The redness is spreading. *Vision becomes blurred. *You have a temperature over 100.5 F (38 C). documented in this encounter [facility] 09-05-2023 Note HNO ID: [id number] Author: Ramila Mcnamara PA-C Service: ? Author Type: Physician Associate Professor Of Media Arts Type: Progress Notes Filed: 07/04/2023 10:19 AM Note Text: 23 year old female with c/o 4 days with pelvic pain, left flank, dysuria, nausea. No fever, vomiting. Took macrobid she has for onset sx x 3 days, only taking once a day instead of twice a day. Denies recent intercourse as a factor. Last 4 urine cultures have been insufficient colony counts to support UTI though treated due to sx and hx pyelonephritis and may be r/t post-coital prophylaxis with Macrobid.. 10/11/[address] Lb Escobar: MAG3 renal Lasix scans, cystogram retrograde pyelograms no evidence of obstruction or reflux. No evidence of any UPJ obstruction On prophylaxis with macrobid post-coitus. HISTORIES FAMILY HISTORY Problem Relation Age of Onset Hypertension Mother other (GI- colon polpys) Mother Hypertension Father Diabetes Father No Known Problems Sister No Known Problems Sister No Known Problems Brother Suicide / Suicidal Behaviors Maternal Grandfather No Known Problems Maternal Grandmother Diabetes Paternal Grandmother other (myocardial infarction) Paternal Grandfather Colon Cancer Maternal Uncle 28 Colon Cancer Other PAST MEDICAL HISTORY Diagnosis Date Acute appendicitis 12/02/2016 Concussion 04/07/2013 Congenital abnormality of ureter 4 URETERS, DUPLICATED DRAINAGE SYSTEM Convulsions (HCC) 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 GDM. Diabetic education and patient intake representative counseling ordered. Anamika Eric APRN.LISA PCOS (polycystic ovarian syndrome) Seizure (HCC) was told due to anxiety Wrist fracture 12/24/2014 PAST SURGICAL HISTORY Procedure Laterality Date CYSTOSCOPY LAPAROSCOPIC APPENDECTOMY 12/02/2016 OTHER 2016 WISDOM TEETH EXTRACTION PAST SURGICAL HISTORY OF Left 10/25/2017 SALK, extensive synovectomy, patella chodroplasty Social History Tobacco Use Smoking status: Every Day Packs/day: 0.50 Years: 4.00 Additional pack years: 0.00 Total pack years: 2.00 Types: Cigarettes Smokeless tobacco: Never Tobacco comments: 3 cigarettes a day Vaping Use Vaping Use: Never used Substance Use Topics Alcohol use: Not Currently Drug use: No ACTIVE PROBLEM LIST Seizure-Like Activity (Hcc) Nicotine use disorder, F17.2 Recurrent Urinary Tract Infection Congenital Anomaly of Ureter History of Seizures Urinary Tract Infection Pcos (Polycystic Ovarian Syndrome) Current Outpatient Medications Medication Sig Dispense Refill cyclobenzaprine (FLEXERIL) 10 mg tablet Take 1 tablet by mouth three times daily as needed for muscle spasm. 30 tablet 2 naproxen (NAPROSYN) 500 mg tablet Take 1 tablet by mouth twice daily as needed (for pain/inflammation). Take with food. 60 tablet 1 dexAMETHasone (DECADRON) 0.5 mg tablet Take 0.5 tablets by mouth once daily. 30 tablet 3 nitrofurantoin monohydrate and macrocrystal (MACROBID) 100 mg capsule Take 1 capsule by mouth as needed. Take prior to or right after intercourse. 30 capsule 3 [id number] 267 mcg-321 mg- 250 mg CPTw Take by mouth once daily as needed. No current facility-administered medications for this visit. INFLUENZA(1) due on 06/30/2023 PAP TESTING due on 07/29/2023 EXAM: BP 110/74 Pulse 86 Temp 36.7 ?C (98.1 ?F) Ht 167.6 cm (5' 6 ) Wt 85.4 kg (188 lb 3.2 oz) LMP 06/17/2023 (Exact Date) SpO2 99% BMI 30.38 kg/m? Pleasant well appearing adult woman in no acute distress. Alert and oriented all spheres. Normal affect and cognition. Speech normal. No deficits to learning or comprehension. Skin warm, dry, pink to lips and nailbeds. Normal turgor. Respirations regular and unlabored. Chest is normal shape. Lungs are clear to all minaya with good air exchange through out. HRRR without murmur or gallop. No lifts, heaves, or rubs. Abdomen: active bowel sounds throughout, soft, nontender, no masses or organomegaly. No CVAT. Extrem: no clubbing or cyanosis. Edema: none. Extremities are warm and pink with prompt capillary refill. Component Latest Ref Rng AND Units 07/04/2023 GLUCOSE UA (POCT) Negative mg/dL Negative BILIRUBIN UA (POCT) Negative Negative KETONE UA (POCT) Negative mg/dL Negative SPECIFIC GRAVITY UA (POCT) 1.005 - 1.030 1.015 HEMOGLOBIN/BLOOD UA (POCT) Negative Negative PH UA (POCT) 4.5 - 8.0 7.0 PROTEIN UA (POCT) Negative mg/dL Negative UROBILINOGEN UA (POCT) Normal E.U./dL 0.2 NITRITE UA (POCT) Negative Negative LEUKOCYTES UA (POCT) Negative Small (A) COLOR UA (POCT) Yellow CLARITY UA (POCT) Clear ASSESSMENT/PLAN: 1. Recurrent UTI - ICD9 (more content not included)... [facility] 07-04-2023 Instructions Ramila Mcnamara PA-C - 07/04/2023 8:48 AM EDT Force fluids with water and juices (not caffeine) to 2000cc per day until symptoms improve. Any mechanical pressure in the area of the urethra (wear urine comes out) may cause bacteria to be pushed up inside the bladder. You should urinate to clear out bacterial contamination before and after sex, after tampon insertion, or after washing the vaginal area. It is important to wipe front to back after voiding. If you develop a fever, chills, unusual back pain, or vomiting, this may mean you have infection in the kidney which can be more serious. If this occurs, or you fail to improve on the antibiotics in 3 days, either call the office to be checked or go to the emergency department. I will let you know about the urine micro and culture. I will notify you if there is a need for additional antibiotics. If you should breakout in a rash, stop the medicine and call the office. Any antibiotic has the potential to cause diarrhea due to alteration in the normal bacterial rios of the gut. This can be reduced by eating yogurt with active cultures daily while on the medication. If diarrhea becomes severe (watery, large volumes or more than 3-4/day) call the office. While on antibiotics women may experience yeast vaginitis due to alteration in the vaginal rios. Symptoms include vaginal itching, irritation, and often a clumpy white discharge. If this occurs, there are several effective over the counter remedies available, including one-dose treatments. If these are unsuccessful, call the office. Antibiotics may interfere with control. If you are on oral contraceptives, use another form of protection (condoms, foams, jellies, diaphragm) throught the end of whatever pill pack you are on when you finish the antibiotic. documented in this encounter [facility] 07-04-2023 History of Present illness Narrative 23 year old female with c/o 4 days with pelvic pain, left flank, dysuria, nausea. No fever, vomiting. Took macrobid she has for onset sx x 3 days, only taking once a day instead of twice a day. Denies recent intercourse as a factor. Last 4 urine cultures have been insufficient colony counts to support UTI though treated due to sx and hx pyelonephritis and may be r/t post-coital prophylaxis with Macrobid.. 10/11/[address] Lb Escobar: MAG3 renal Lasix scans, cystogram retrograde pyelograms no evidence of obstruction or reflux. No evidence of any UPJ obstruction On prophylaxis with macrobid post-coitus. HISTORIES FAMILY HISTORY Problem Relation Age of Onset Hypertension Mother other (GI- colon polpys) Mother Hypertension Father Diabetes Father No Known Problems Sister No Known Problems Sister No Known Problems Brother Suicide / Suicidal Behaviors Maternal Grandfather No Known Problems Maternal Grandmother Diabetes Paternal Grandmother other (myocardial infarction) Paternal Grandfather Colon Cancer Maternal Uncle 28 Colon Cancer Other PAST MEDICAL HISTORY Diagnosis Date Acute appendicitis 12/02/2016 Concussion 04/07/2013 Congenital abnormality of ureter 4 URETERS, DUPLICATED DRAINAGE SYSTEM Convulsions (HCC) 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 GDM. Diabetic education and patient intake representative counseling ordered. Anamika Eric APRN.LISA PCOS (polycystic ovarian syndrome) Seizure (HCC) was told due to anxiety Wrist fracture 12/24/2014 PAST SURGICAL HISTORY Procedure Laterality Date CYSTOSCOPY LAPAROSCOPIC APPENDECTOMY 12/02/2016 OTHER 2016 WISDOM TEETH EXTRACTION PAST SURGICAL HISTORY OF Left 10/25/2017 SALK, extensive synovectomy, patella chodroplasty Social History Tobacco Use Smoking status: Every Day Packs/day: 0.50 Years: 4.00 Additional pack years: 0.00 Total pack years: 2.00 Types: Cigarettes Smokeless tobacco: Never Tobacco comments: 3 cigarettes a day Vaping Use Vaping Use: Never used Substance Use Topics Alcohol use: Not Currently Drug use: No ACTIVE PROBLEM LIST Seizure-Like Activity (Hcc) Nicotine use disorder, F17.2 Recurrent Urinary Tract Infection Congenital Anomaly of Ureter History of Seizures Urinary Tract Infection Pcos (Polycystic Ovarian Syndrome) Current Outpatient Medications Medication Sig Dispense Refill cyclobenzaprine (FLEXERIL) 10 mg tablet Take 1 tablet by mouth three times daily as needed for muscle spasm. 30 tablet 2 naproxen (NAPROSYN) 500 mg tablet Take 1 tablet by mouth twice daily as needed (for pain/inflammation). Take with food. 60 tablet 1 dexAMETHasone (DECADRON) 0.5 mg tablet Take 0.5 tablets by mouth once daily. 30 tablet 3 nitrofurantoin monohydrate and macrocrystal (MACROBID) 100 mg capsule Take 1 capsule by mouth as needed. Take prior to or right after intercourse. 30 capsule 3 [id number] 267 mcg-321 mg- 250 mg CPTw Take by mouth once daily as needed. No current facility-administered medications for this visit. INFLUENZA(1) due on 06/30/2023 PAP TESTING due on 07/29/2023 EXAM: BP 110/74 Pulse 86 Temp 36.7 C (98.1 F) Ht 167.6 cm (5' 6 ) Wt 85.4 kg (188 lb 3.2 oz) LMP 06/17/2023 (Exact Date) SpO2 99% BMI 30.38 kg/m Pleasant well appearing adult woman in no acute distress. Alert and oriented all spheres. Normal affect and cognition. Speech normal. No deficits to learning or comprehension. Skin warm, dry, pink to lips and nailbeds. Normal turgor. Respirations regular and unlabored. Chest is normal shape. Lungs are clear to all minaya with good air exchange through out. HRRR without murmur or gallop. No lifts, heaves, or rubs. Abdomen: active bowel sounds throughout, soft, nontender, no masses or organomegaly. No CVAT. Extrem: no clubbing or cyanosis. Edema: none. Extremities are warm and pink with prompt capillary refill. Component Latest Ref Rng & Units 07/04/2023 GLUCOSE UA (POCT) Negative mg/dL Negative BILIRUBIN UA (POCT) Negative Negative KETONE UA (POCT) Negative mg/dL Negative SPECIFIC GRAVITY UA (POCT) 1.005 - 1.030 1.015 HEMOGLOBIN/BLOOD UA (POCT) Negative Negative PH UA (POCT) 4.5 - 8.0 7.0 PROTEIN UA (POCT) Negative mg/dL Negative UROBILINOGEN UA (POCT) Normal E.U./dL 0.2 NITRITE UA (POCT) Negative Negative LEUKOCYTES UA (POCT) Negative Small (A) COLOR UA (POCT) Yellow CLARITY UA (POCT) Clear ASSESSMENT/PLAN: 1. Recurrent UTI - ICD9: 599.0, ICD10: N39.0 (primary diagnosis) Check urine Increase macrobid to twice a day - Patient education for prevention given - CONSULT TO FEMALE UROLOGY/URO GYNECOLOGY - URINALYSIS, WITH MICROSCOPIC - URINE CULTURE 2. Dysuria - ICD9: 788.1, ICD10: R30.0 acute - Patient education for prevention given - CONSULT TO FEMALE UROLOGY/URO GYNECOLOGY - URINALYSIS, WITH MICROSCOPIC - URINE CULTURE 3. 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 - CONSULT TO FEMALE UROLOGY/URO GYNECOLOGY - URINALYSIS, WITH MICROSCOPIC - URINE CULTURE Ramila Mcnamara PA-C Some of this note may have been copied and pasted for the purpose of history context and comparison. documented in this encounter [facility] 07-04-2023 Miscellaneous Notes Reason for call: suspected UTI Outcome: Conferenced to the Appointment Center for scheduling. Express Care/Urgent Care advised if no appointments available. ER if worse. Reason for Disposition Side (flank) or lower back pain present Answer Assessment - Initial Assessment Questions 1. SEVERITY: 5/10 2. FREQUENCY: increased 4. ONSET: 3-4 days ago 5. FEVER: has not felt feverish 8. OTHER SYMPTOMS: 5/10 back and abdomen pain 9. : possible, but has not yet tested positive Protocols used: Urination Pain - [id number] documented in this encounter [facility] 06-19-2023 Miscellaneous Notes Let refill provided. Ava Kwan PA-C June 19, 2023 2:04 PM Called the patient she verified her name and date of Needs refill on letrozole has only used 2 refills Accidentally canceled by her pcp Routing to non [facility] iv[employer] Pool Katey Trivedi RN June 19, 2023 1:49 PM Pt returning call Called the patient there was no answer Left a message to call the office Katey Trivedi RN June 19, 2023 11:55 AM Patient called stating she needs a refill on letrozole. Went to the pharmacy and they stated her rx was cancelled documented in this encounter [facility] 06-08-2023 Miscellaneous Notes Form faxed and pt notified Completed and back to nursing desk. Thanks, ADRY CondeC Type of form: FMLA Form received via walk in When form is completed, Fax form to [employer] at [phone], and call pt at [phone] Form has been forwarded to PCP Cyndee Lopez Ma documented in this encounter [facility] 05-25-2023 Note HNO ID: [id number] Author: Lin Lebron RT(R) Service: ? Author Type: Special Shopper Type: Progress Notes Filed: 05/25/2023 6:27 PM Note Text: Radiology Service Progress Note PATIENT NAME: Sanaz Lopez DATE OF SERVICE: May 25, 2023 TIME: 6:17 PM PATIENT IDENTITY VERIFICATION COMPLETED USING TWO (2) IDENTIFIERS: Name and Date of confirmed by patient verbally. FALL SCREENING: Has the patient had 2 falls in the last year or 1 fall with injury or currently using an Ambulatory Assistive Device (Walker, Cane, Wheelchair, Crutches, etc.)? No PATIENT GENDER DATA: Female. status: : No status: NO. PATIENT RELEVANT IMPLANT DATA REVIEWED: Yes RADIOLOGY DEPARTMENT: General X-ray: Exam(s) Completed: Spine X-Ray(s): Lumbar AP / LAT / L5-S1 PERIPHERAL IV DATA: Not applicable SIGNED BY: RT Kinsey(R) May 25, 2023 6:17 PM [facility] 05-25-2023 Note HNO ID: [id number] Author: Ramila Mcnamara PA-C Service: ? Author Type: Physician Associate Professor Of Media Arts Type: Progress Notes Filed: 05/26/2023 5:10 PM Note Text: 23 year old female with c/o pain in lumbar spine over 3 months. Achy, tight, kind of makes hips hurt. Had a little benefit from flexeril. Has seen chiropractor Used Icy hot, Biofreeze. Thinks she woke up with it. 04/05/2023 acute left sided back pain assessed by Sara Podlogslime TRAVEL AGENCY MANAGER: rx flexeril and naprosyn. UA negative. No xrays completed. Nephrology notes reviewed No current sx suggesting UTI HISTORIES FAMILY HISTORY Problem Relation Age of Onset Hypertension Mother other (GI- colon polpys) Mother Hypertension Father Diabetes Father No Known Problems Sister No Known Problems Sister No Known Problems Brother Suicide / Suicidal Behaviors Maternal Grandfather No Known Problems Maternal Grandmother Diabetes Paternal Grandmother other (myocardial infarction) Paternal Grandfather Colon Cancer Maternal Uncle 28 Colon Cancer Other PAST MEDICAL HISTORY Diagnosis Date Acute appendicitis 12/02/2016 Concussion 04/07/2013 Congenital abnormality of ureter 4 URETERS, DUPLICATED DRAINAGE SYSTEM Convulsions (HCC) 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 GDM. Diabetic education and patient intake representative counseling ordered. Anamika Eric APRN.LISA PCOS (polycystic ovarian syndrome) Seizure (HCC) was told due to anxiety Wrist fracture 12/24/2014 PAST SURGICAL HISTORY Procedure Laterality Date CYSTOSCOPY LAPAROSCOPIC APPENDECTOMY 12/02/2016 OTHER 2016 WISDOM TEETH EXTRACTION PAST SURGICAL HISTORY OF Left 10/25/2017 SALK, extensive synovectomy, patella chodroplasty Social History Tobacco Use Smoking status: Every Day Packs/day: 0.50 Years: 4.00 Total pack years: 2.00 Types: Cigarettes Smokeless tobacco: Never Tobacco comments: 3 cigarettes a day Vaping Use Vaping Use: Never used Substance Use Topics Alcohol use: Not Currently Drug use: No ACTIVE PROBLEM LIST Seizure-Like Activity (Hcc) Nicotine use disorder, F17.2 Recurrent Urinary Tract Infection Congenital Anomaly of Ureter History of Seizures Urinary Tract Infection Pcos (Polycystic Ovarian Syndrome) Current Outpatient Medications Medication Sig Dispense Refill cyclobenzaprine (FLEXERIL) 10 mg tablet Take 1 tablet by mouth three times daily as needed for muscle spasm. 30 tablet 0 naproxen (NAPROSYN) 500 mg tablet Take 1 tablet by mouth twice daily as needed (for pain/inflammation). Take with food. 60 tablet 0 ondansetron orally disintegrating (ZOFRAN ODT) 4 mg disintegrating tablet Take 1 tablet by mouth every 6 hours as needed for nausea/vomiting. 10 tablet 1 omeprazole (PRILOSEC) 20 mg capsule Take 1 capsule by mouth daily before breakfast. 1/2 hr before meal. 30 capsule 2 letrozole (FEMARA) 2.5 mg tablet Take 3 tablets by mouth once daily. 15 tablet 3 dexAMETHasone (DECADRON) 0.5 mg tablet Take 0.5 tablets by mouth once daily. 30 tablet 3 medroxyPROGESTERone (PROVERA) 10 mg tablet Take 1 tablet by mouth once daily. 10 tablet 3 nitrofurantoin monohydrate and macrocrystal (MACROBID) 100 mg capsule Take 1 capsule by mouth as needed. Take prior to or right after intercourse. 30 capsule 3 [id number]--[id number] 267 mcg-321 mg- 250 mg CPTw Take by mouth once daily as needed. No current facility-administered medications for this visit. PAP TESTING due on 07/29/2023 EXAM: BP 118/72 Pulse 101 Resp 16 Wt 84.4 kg (186 lb) LMP 01/16/2023 (Exact Date) SpO2 99% BMI 30.02 kg/m? Pleasant adult woman in no acute distress. Alert and oriented all spheres. Normal affect and cognition. Speech normal. No deficits to learning or comprehension. Skin warm, dry, pink to lips and nailbeds. Normal turgor. Respirations regular and unlabored. HEENT: NCAT. No scleral icterus or conjunctival injection. TM's clear. Nose and oropharynx free from injection or lesion. Oral membranes moist and pink. No cervical lymph nodes. Thyroid non-tender, no masses, or enlargement. Carotids pulses 2+/4+ without bruits. Shoulders and hips are even, very slight levoscoliosis in the mid upper back Patient indicates she is tender in the lower lumbar spine however there is no midline tenderness or tenderness over paravertebral muscles. She notes this mostly when she is bending, feels stiff. She has normal range of motion. She does have tenderness in the muscles bilaterally in the lumbar QL insertions and over the piriformis bilaterally. No innominate dysfunction. Extrem: no clubbing or cyanosis. Edema: none. Extremities are warm and pink with prom (more content not included)... [facility] 04-05-2023 Note HNO ID: [id number] Author: Sara Zhao APRN.TRAVEL AGENCY MANAGER Service: ? Author Type: Nurse Practitioner Type: Progress Notes Filed: 04/05/2023 6:31 PM Note Text: 04/05/2023 Patient presents with: Back Pain: Left lower back pain x3 weeks SUBJECTIVE: This is a 22 year old that is here today for Above Complaints. ONSET: three weeks LOCATION: left lower back DURATION: constant CHARACTERISTICS: searing sharp pain AGGRAVATING FEATURES: bending forward ALLEVIATING FEATURES: nothing has tried heating pad, ice ,Biofreeze, ibuprophen. Chiropracter Monday RADIATION: left abdomen Reports hx of sponge urine and kidney stones Denies past/recent injury or surgery, saddle anaesthesia, extremity numbness, tingling, weakness, urinary/bowel incontinence or inability, fevers, dysuria, hematuria, constipation, diarrhea, nausea, vomiting, melana or hematochezia Component Latest Ref Rng AND Units 04/05/2023 GLUCOSE UA (POCT) Negative mg/dL Negative BILIRUBIN UA (POCT) Negative Negative KETONE UA (POCT) Negative mg/dL Negative SPECIFIC GRAVITY UA (POCT) 1.005 - 1.030 1.025 HEMOGLOBIN/BLOOD UA (POCT) Negative Negative PH UA (POCT) 4.5 - 8.0 6.0 PROTEIN UA (POCT) Negative mg/dL Negative UROBILINOGEN UA (POCT) Normal E.U./dL 0.2 NITRITE UA (POCT) Negative Negative LEUKOCYTES UA (POCT) Negative Trace (A) COLOR UA (POCT) Yellow CLARITY UA (POCT) Slightly Cloudy PAST MEDICAL HISTORY Diagnosis Date Acute appendicitis 12/02/2016 Concussion 04/07/2013 Congenital abnormality of ureter 4 URETERS, DUPLICATED DRAINAGE SYSTEM Convulsions (HCC) 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 GDM. Diabetic education and patient intake representative counseling ordered. Anamika Eric APRN.LISA PCOS (polycystic ovarian syndrome) Seizure (HCC) was told due to anxiety Wrist fracture 12/24/2014 ALLERGIES Bactrim Ds [Sulfamethoxazole-Trimethoprim] MEDICATIONS Current Outpatient Medications Medication Sig ondansetron orally disintegrating (ZOFRAN ODT) 4 mg disintegrating tablet Take 1 tablet by mouth every 6 hours as needed for nausea/vomiting. omeprazole (PRILOSEC) 20 mg capsule Take 1 capsule by mouth daily before breakfast. 1/2 hr before meal. letrozole (FEMARA) 2.5 mg tablet Take 3 tablets by mouth once daily. dexAMETHasone (DECADRON) 0.5 mg tablet Take 0.5 tablets by mouth once daily. medroxyPROGESTERone (PROVERA) 10 mg tablet Take 1 tablet by mouth once daily. nitrofurantoin monohydrate and macrocrystal (MACROBID) 100 mg capsule Take 1 capsule by mouth as needed. Take prior to or right after intercourse. [id number] 267 mcg-321 mg- 250 mg CPTw Take by mouth once daily as needed. No current facility-administered medications for this visit. Medications and allergies reviewed by this provider. SOCIAL HISTORY Social History Tobacco Use Smoking status: Every Day Packs/day: 0.50 Years: 4.00 Pack years: 2.00 Types: Cigarettes Smokeless tobacco: Never Tobacco comments: 3 cigarettes a day Vaping Use Vaping Use: Never used Substance Use Topics Alcohol use: Not Currently Drug use: No REVIEW OF SYSTEMS All other reviewed and negative other than HPI. OBJECTIVE: BP 118/78 Pulse 105 Resp 16 Wt 85.5 kg (188 lb 9.6 oz) LMP 01/16/2023 (Exact Date) SpO2 99% BMI 30.44 kg/m? . Vital signs reviewed by this provider. APPEARANCE Well appearing, alert, in no acute distress, well-hydrated, well nourished. EYES PERRLA, conjunctiva and sclera normal. BACK. FROM. Reports discomfort with flexion and extension. Mild TTP left lumbar spine. No CVA tenderness ABDOMEN bowel sounds normoactive, no bruits, soft, non-tender, non-distended, without organomegaly or palpable masses. No rebound tenderness or guarding EXTREMITIES Extremities normal, No deformities, No skin discoloration, and No edema NEURO Reflexes symmetrical, Normal gait, No involuntary motions., and negative findings: gait, including heel, toe, and tandem walking normal, muscle tone normal, muscle strength normal, reflexes normal and symmetric, plantar response downgoing bilaterally SKIN Skin color, texture, turgor normal, no suspicious rashes or lesions to exposed skin PAP TESTING due on 07/29/2023 DEPRESSION ASSESSMENT due on 10/29/2023 MENINGOCOCCAL B: Consider based on risk(1 of 2 - Risk Bexsero 2-dose series) due on 02/07/2024 COVID-19 VACCINE(1) due on 02/07/2024 PNEUMOCOCCAL(1 - PCV) due on 02/07/2024 INFLUENZA(Season Ended) due on 06/30/2023 DTAP,TDAP,TD(8 - Td or Tdap) due on 05/13/2026 HEPATITIS B Completed HPV VACCINE Completed HEPATITIS C SCREENING Completed HIV SCREENING Completed ASSESSMENT/PLAN: 1. (more content not included)... [facility] 04-05-2023 History of Present illness Narrative 04/05/2023 Patient presents with: Back Pain: Left lower back pain x3 weeks SUBJECTIVE: This is a 22 year old that is here today for Above Complaints. ONSET: three weeks LOCATION: left lower back DURATION: constant CHARACTERISTICS: searing sharp pain AGGRAVATING FEATURES: bending forward ALLEVIATING FEATURES: nothing has tried heating pad, ice ,Biofreeze, ibuprophen. Chiropracter Monday RADIATION: left abdomen Reports hx of sponge urine and kidney stones Denies past/recent injury or surgery, saddle anaesthesia, extremity numbness, tingling, weakness, urinary/bowel incontinence or inability, fevers, dysuria, hematuria, constipation, diarrhea, nausea, vomiting, melana or hematochezia Component Latest Ref Rng & Units 04/05/2023 GLUCOSE UA (POCT) Negative mg/dL Negative BILIRUBIN UA (POCT) Negative Negative KETONE UA (POCT) Negative mg/dL Negative SPECIFIC GRAVITY UA (POCT) 1.005 - 1.030 1.025 HEMOGLOBIN/BLOOD UA (POCT) Negative Negative PH UA (POCT) 4.5 - 8.0 6.0 PROTEIN UA (POCT) Negative mg/dL Negative UROBILINOGEN UA (POCT) Normal E.U./dL 0.2 NITRITE UA (POCT) Negative Negative LEUKOCYTES UA (POCT) Negative Trace (A) COLOR UA (POCT) Yellow CLARITY UA (POCT) Slightly Cloudy PAST MEDICAL HISTORY Diagnosis Date Acute appendicitis 12/02/2016 Concussion 04/07/2013 Congenital abnormality of ureter 4 URETERS, DUPLICATED DRAINAGE SYSTEM Convulsions (HCC) 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 GDM. Diabetic education and patient intake representative counseling ordered. Anamika Eric APRN.LISA PCOS (polycystic ovarian syndrome) Seizure (HCC) was told due to anxiety Wrist fracture 12/24/2014 ALLERGIES Bactrim Ds [Sulfamethoxazole-Trimethoprim] MEDICATIONS Current Outpatient Medications Medication Sig ondansetron orally disintegrating (ZOFRAN ODT) 4 mg disintegrating tablet Take 1 tablet by mouth every 6 hours as needed for nausea/vomiting. omeprazole (PRILOSEC) 20 mg capsule Take 1 capsule by mouth daily before breakfast. 1/2 hr before meal. letrozole (FEMARA) 2.5 mg tablet Take 3 tablets by mouth once daily. dexAMETHasone (DECADRON) 0.5 mg tablet Take 0.5 tablets by mouth once daily. medroxyPROGESTERone (PROVERA) 10 mg tablet Take 1 tablet by mouth once daily. nitrofurantoin monohydrate and macrocrystal (MACROBID) 100 mg capsule Take 1 capsule by mouth as needed. Take prior to or right after intercourse. [id number] 267 mcg-321 mg- 250 mg CPTw Take by mouth once daily as needed. No current facility-administered medications for this visit. Medications and allergies reviewed by this provider. SOCIAL HISTORY Social History Tobacco Use Smoking status: Every Day Packs/day: 0.50 Years: 4.00 Pack years: 2.00 Types: Cigarettes Smokeless tobacco: Never Tobacco comments: 3 cigarettes a day Vaping Use Vaping Use: Never used Substance Use Topics Alcohol use: Not Currently Drug use: No REVIEW OF SYSTEMS All other reviewed and negative other than HPI. OBJECTIVE: BP 118/78 Pulse 105 Resp 16 Wt 85.5 kg (188 lb 9.6 oz) LMP 01/16/2023 (Exact Date) SpO2 99% BMI 30.44 kg/m . Vital signs reviewed by this provider. APPEARANCE Well appearing, alert, in no acute distress, well-hydrated, well nourished. EYES PERRLA, conjunctiva and sclera normal. BACK. FROM. Reports discomfort with flexion and extension. Mild TTP left lumbar spine. No CVA tenderness ABDOMEN bowel sounds normoactive, no bruits, soft, non-tender, non-distended, without organomegaly or palpable masses. No rebound tenderness or guarding EXTREMITIES Extremities normal, No deformities, No skin discoloration, and No edema NEURO Reflexes symmetrical, Normal gait, No involuntary motions., and negative findings: gait, including heel, toe, and tandem walking normal, muscle tone normal, muscle strength normal, reflexes normal and symmetric, plantar response downgoing bilaterally SKIN Skin color, texture, turgor normal, no suspicious rashes or lesions to exposed skin PAP TESTING due on 07/29/2023 DEPRESSION ASSESSMENT due on 10/29/2023 MENINGOCOCCAL B: Consider based on risk(1 of 2 - Risk Bexsero 2-dose series) due on 02/07/2024 COVID-19 VACCINE(1) due on 02/07/2024 PNEUMOCOCCAL(1 - PCV) due on 02/07/2024 INFLUENZA(Season Ended) due on 06/30/2023 DTAP,TDAP,TD(8 - Td or Tdap) due on 05/13/2026 HEPATITIS B Completed HPV VACCINE Completed HEPATITIS C SCREENING Completed HIV SCREENING Completed ASSESSMENT/PLAN: 1. Acute left-sided low back pain without sciatica - ICD9: 724.2, ICD10: M54.50 - no red flag symptoms or exam findings - red flag symptoms discussed, verbalizes understanding - may continue heat for 15 minutes at a time- do not sleep on heating pad - UA DIP, URINE (POC) - CYCLOBENZAPRINE 10 MG TABLET- discussed this medication can cause drowsiness so should not sleep or operate heavy machinery while taking, verbalizes understanding - NAPROXEN 500 MG TABLET - follow-up if symptoms fail to improve to ER with red flag symptoms Sara Podlogar, [employer] Prescription instructions reviewed with patient as applicable. Patient advised if symptoms do not improve or if symptoms worsen sooner, to contact their primary care physician. Potential red flag symptoms discussed with the patient. Reviewed appropriate action plan to take if red flag symptoms occur. Patient agreeable to treatment plan. I spent a total of 30 minutes on the date of the service which included preparing to see the patient, [id number] patient care, completing clinical documentation, obtaining and/or reviewing separately obtained history, performing a medically appropriate examination, counseling and educating the patient/family/caregiver, and ordering medications, tests, or procedures. documented in this encounter [facility] 02-08-2023 Note HNO ID: [id number] Author: Genia Gutierrez APRN.SKYE Service: ? Author Type: Nurse Practitioner Type: Progress Notes Filed: 02/08/2023 5:32 PM Note Text: This is a 22 year old female who presents today with: Patient presents with: Abdominal Pain: X1 week; worsening in the last 3 days with diarrhea/no vomiting; no fever HISTORY OF PRESENT ILLNESS: Sanaz Lopez is a 22 year old female. Patient presents with: Abdominal Pain: X1 week; worsening in the last 3 days with diarrhea/no vomiting; no fever Pt presents today with complaint of stomach pain for a week. Diarrhea for 4 days. Refers sharp pain under her ribs last night. Lasted about 3 times and lasted 10-15 minutes each time. A little heartburn/indigestion. Admits to a couple bites of spaghetti last night. + nausea. No vomiting. Hasn't really eaten since last week. Drinking fluids. + diarrhea. 10 times daily. Watery in nature. Green and foamy. No hematochezia. Refers that she had a fever about 5 days ago, but none since. She is on macrobid for UTI. Refers that she is on lifetime macrobid. No recent travel. No bad food/water. Son has a stuffy nose, but no other GI symptoms. Hard to tell if eating affects the pain, as she hasn't been eating. Moving bowels may relieve pressure. She has taken tylenol, pepto, tums, zofran, and omeprazole. 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 GDM. Diabetic education and patient intake representative counseling ordered. Anamika Eric APRN.LISA PCOS (polycystic ovarian syndrome) Seizure (HCC) was told due to anxiety Wrist fracture 12/24/2014 PAST SURGICAL HISTORY Procedure Laterality Date CYSTOSCOPY LAPAROSCOPIC APPENDECTOMY 12/02/2016 OTHER 2016 WISDOM TEETH EXTRACTION PAST SURGICAL HISTORY OF Left 10/25/2017 SALK, extensive synovectomy, patella chodroplasty ALLERGIES Bactrim Ds [Sulfamethoxazole-Trimethoprim] MEDICATIONS Current Outpatient Medications Medication Sig ondansetron orally disintegrating (ZOFRAN ODT) 4 mg disintegrating tablet Take 1 tablet by mouth every 6 hours as needed for nausea/vomiting. omeprazole (PRILOSEC) 20 mg capsule Take 1 capsule by mouth daily before breakfast. 1/2 hr before meal. nitrofurantoin monohydrate and macrocrystal (MACROBID) 100 mg capsule Take 1 capsule by mouth twice daily with meals for 7 days. letrozole (FEMARA) 2.5 mg tablet Take 3 tablets by mouth once daily. dexAMETHasone (DECADRON) 0.5 mg tablet Take 0.5 tablets by mouth once daily. medroxyPROGESTERone (PROVERA) 10 mg tablet Take 1 tablet by mouth once daily. nitrofurantoin monohydrate and macrocrystal (MACROBID) 100 mg capsule Take 1 capsule by mouth as needed. Take prior to or right after intercourse. [id number] 267 mcg-321 mg- 250 mg CPTw Take by mouth once daily as needed. No current facility-administered medications for this visit. FAMILY HISTORY Problem Relation Age of Onset Hypertension Mother other (GI- colon polpys) Mother Hypertension Father Diabetes Father No Known Problems Sister No Known Problems Sister No Known Problems Brother Suicide / Suicidal Behaviors Maternal Grandfather No Known Problems Maternal Grandmother Diabetes Paternal Grandmother other (myocardial infarction) Paternal Grandfather Colon Cancer Maternal Uncle 28 Colon Cancer Other Social History Tobacco Use Smoking status: Every Day Packs/day: 0.50 Years: 4.00 Pack years: 2.00 Types: Cigarettes Smokeless tobacco: Never Tobacco comments: 3 cigarettes a day Vaping Use Vaping Use: Never used Substance Use Topics Alcohol use: Not Currently Drug use: No EXAM: BP 114/72 Pulse 102 Resp 18 LMP 01/16/2023 (Exact Date) SpO2 98% PHYSICAL EXAM: General Appearance: Well appearing, alert, in no acute distress, well-hydrated, well nourished.. Skin: Skin color, texture, turgor normal, no suspicious rashes or lesions. Head: Normocephalic, no masses, lesions, tenderness or abnormalities. Eyes: Anicteric sclera. Pupils are equally round and reactive to light. Extraocular movements are intact. . Lungs: Lungs clear to auscultation. No wheezing, rhonchi, rales.. Heart: RRR without murmur, gallop, or rubs. No ectopy. Abdomen: Normal abdominal exam, Abdomen soft, generalized tenderness, but more prominent in the RUQ and epigastric areas. + glass's. . Bowel sounds normal. No masses, organomegaly. No rebound/guarding. Extremities: No deformities, shady (more content not included)... [facility] 02-08-2023 Instructions Genia Gutierrez APRN.[facility] - 02/08/2023 1:42 PM EDT Schedule ultrasound. Stay hydrated. [place] diet. To ER with severe pain. Diarrhea: adults What is diarrhea? Diarrhea is the sudden increase in the frequency and looseness of bowel movements (BMs). Mild diarrhea is the passage of a few loose or mushy BMs. Severe diarrhea is the passage of many watery BMs. The best indicator of the severity of the diarrhea is its frequency. The main complication of diarrhea is dehydration and loss of electrolytes from the loss of too much body fluid. Symptoms of dehydration are a dry mouth, the absence of tears, infrequent urination (for example, none in 12 hours), and a darker, concentrated urine. The main goal of diarrhea treatment is to prevent dehydration. What is the cause? Diarrhea is usually caused by a viral infection of the lining of the intestines (gastroenteritis). Sometimes it is caused by bacteria or parasites. Occasionally a food allergy or drinking too much fruit juice may cause diarrhea. If you have just one or two loose bowel movements, the cause is probably something unusual you ate. A diet of nothing but clear fluids for more than 2 days may cause green, watery bowel movements (called starvation stools). How long will it last? Diarrhea usually lasts several days to a week, regardless of the type of treatment. The main goal of treatment is to prevent dehydration. You need to drink enough fluids to replace the fluids lost in the diarrhea. Don't expect a quick return to solid bowel movements. What should I eat? Increased fluids and dietary changes are the main treatment for diarrhea. Note: One loose bowel movement can mean nothing. Don't start dietary changes until you have had several loose bowel movements. Mild diarrhea (loose BMs) Follow a regular diet with a few simple changes: Eat more foods containing starch. Starchy foods are easily digested during diarrhea. Examples are cereal, breads, crackers, rice, mashed potatoes, and noodles. Drink more water. Avoid all fruit juices. Eat or drink less milk and milk products for a few days. Avoid beans or any other foods that cause loose bowel movements. Severe diarrhea: Fluids: Drink lots of fluids to prevent dehydration. Take water as the main fluid for the first 24 hours of watery diarrhea. Avoid milk and dairy products (except yogurt) as they may cause diarrhea to be worse. When inflammation occurs in the intestines, it may affect the levels of helpful bacteria which break down milk sugars. This may result in milk intolerance for a few days until the balance is restored. Avoid fruit juices, because they all make diarrhea worse. Electrolye solutions such as Gatorade or Powerade may help to replace electrolytes and ease muscle aching and cramping. Foods: You should continue to eat during episodes of diarrhea. The choice of food is important. Starchy foods are digested best. Examples of such foods are dried cereals, grains, bread, crackers, rice, noodles, mashed potatoes, carrots, applesauce and bananas. Pretzels or saltine crackers can help meet your need for sodium. On the second day of the diarrhea, if you may add some protein, soft-boiled eggs or yogurt are usually easily digested. How can I take care of myself? Common mistakes: CYNTHIA-Aid, soda pop, or water should not be used as the only food because they contain little or no salt. Use only the fluids suggested here. The most dangerous myth is that the intestine should be put to rest. Restricting fluids can cause dehydration. There is no effective, safe drug for diarrhea. Extra fluids and diet therapy work best. Prevention: Diarrhea is very contagious. Always wash your hands after changing diapers or using the toilet. This is crucial for keeping everyone in the family from getting diarrhea. Vomiting with diarrhea: If you have vomited more than twice, follow the recommended treatment for vomiting instead of this treatment for diarrhea until your child has gone 8 hours without vomiting. When should I call my health care provider? Call IMMEDIATELY OR GO TO THE EMERGENCY ROOM if: There are signs of dehydration (no urine in more than 12 hours, very dry mouth, no tears). Any blood appears in the diarrhea. The diarrhea is severe (more than 8 BMs in the last 8 hours). The diarrhea is watery AND you vomit repeatedly. You are very weak. Call during office hours if: Mucus or pus appears in the BMs. A fever lasts more than 3 days. Mild diarrhea lasts more than 2 weeks. You have other concerns or questions. Medications: generally medications are not helpful or necessary. Even with infectious diarrhea or dysentery, the treatment surrounds fluid replacement and time. If you are experiencing excessive cramping and discomfort, Immodium AD over the counter may help. documented in this encounter [facility] 02-08-2023 History of Present illness Narrative This is a 22 year old female who presents today with: Patient presents with: Abdominal Pain: X1 week; worsening in the last 3 days with diarrhea/no vomiting; no fever HISTORY OF PRESENT ILLNESS: Sanaz Barnes Lopez is a 22 year old female. Patient presents with: Abdominal Pain: X1 week; worsening in the last 3 days with diarrhea/no vomiting; no fever Pt presents today with complaint of stomach pain for a week. Diarrhea for 4 days. Refers sharp pain under her ribs last night. Lasted about 3 times and lasted 10-15 minutes each time. A little heartburn/indigestion. Admits to a couple bites of spaghetti last night. + nausea. No vomiting. Hasn't really eaten since last week. Drinking fluids. + diarrhea. 10 times daily. Watery in nature. Green and foamy. No hematochezia. Refers that she had a fever about 5 days ago, but none since. She is on macrobid for UTI. Refers that she is on lifetime macrobid. No recent travel. No bad food/water. Son has a stuffy nose, but no other GI symptoms. Hard to tell if eating affects the pain, as she hasn't been eating. Moving bowels may relieve pressure. She has taken tylenol, pepto, tums, zofran, and omeprazole. 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 GDM. Diabetic education and patient intake representative counseling ordered. Anamika Eric APRN.LISA PCOS (polycystic ovarian syndrome) Seizure (HCC) was told due to anxiety Wrist fracture 12/24/2014 PAST SURGICAL HISTORY Procedure Laterality Date CYSTOSCOPY LAPAROSCOPIC APPENDECTOMY 12/02/2016 OTHER 2016 WISDOM TEETH EXTRACTION PAST SURGICAL HISTORY OF Left 10/25/2017 SALK, extensive synovectomy, patella chodroplasty ALLERGIES Bactrim Ds [Sulfamethoxazole-Trimethoprim] MEDICATIONS Current Outpatient Medications Medication Sig ondansetron orally disintegrating (ZOFRAN ODT) 4 mg disintegrating tablet Take 1 tablet by mouth every 6 hours as needed for nausea/vomiting. omeprazole (PRILOSEC) 20 mg capsule Take 1 capsule by mouth daily before breakfast. 1/2 hr before meal. nitrofurantoin monohydrate and macrocrystal (MACROBID) 100 mg capsule Take 1 capsule by mouth twice daily with meals for 7 days. letrozole (FEMARA) 2.5 mg tablet Take 3 tablets by mouth once daily. dexAMETHasone (DECADRON) 0.5 mg tablet Take 0.5 tablets by mouth once daily. medroxyPROGESTERone (PROVERA) 10 mg tablet Take 1 tablet by mouth once daily. nitrofurantoin monohydrate and macrocrystal (MACROBID) 100 mg capsule Take 1 capsule by mouth as needed. Take prior to or right after intercourse. [id number] 267 mcg-321 mg- 250 mg CPTw Take by mouth once daily as needed. No current facility-administered medications for this visit. FAMILY HISTORY Problem Relation Age of Onset Hypertension Mother other (GI- colon polpys) Mother Hypertension Father Diabetes Father No Known Problems Sister No Known Problems Sister No Known Problems Brother Suicide / Suicidal Behaviors Maternal Grandfather No Known Problems Maternal Grandmother Diabetes Paternal Grandmother other (myocardial infarction) Paternal Grandfather Colon Cancer Maternal Uncle 28 Colon Cancer Other Social History Tobacco Use Smoking status: Every Day Packs/day: 0.50 Years: 4.00 Pack years: 2.00 Types: Cigarettes Smokeless tobacco: Never Tobacco comments: 3 cigarettes a day Vaping Use Vaping Use: Never used Substance Use Topics Alcohol use: Not Currently Drug use: No EXAM: BP 114/72 Pulse 102 Resp 18 LMP 01/16/2023 (Exact Date) SpO2 98% PHYSICAL EXAM: General Appearance: Well appearing, alert, in no acute distress, well-hydrated, well nourished.. Skin: Skin color, texture, turgor normal, no suspicious rashes or lesions. Head: Normocephalic, no masses, lesions, tenderness or abnormalities. Eyes: Anicteric sclera. Pupils are equally round and reactive to light. Extraocular movements are intact. . Lungs: Lungs clear to auscultation. No wheezing, rhonchi, rales.. Heart: RRR without murmur, gallop, or rubs. No ectopy. Abdomen: Normal abdominal exam, Abdomen soft, generalized tenderness, but more prominent in the RUQ and epigastric areas. + glass's. . Bowel sounds normal. No masses, organomegaly. No rebound/guarding. Extremities: No deformities, edema, skin discoloration, clubbing or cyanosis. Good capillary refill. . Neurologic: Gait normal. ASSESSMENT/PLAN: 1. Right upper quadrant abdominal pain - ICD9: 789.01, ICD10: R10.11 Concern for possible josias. We will go ahead and get an ultrasound of the right upper quad. Continue Zofran as needed for nausea. Continue to try to stay hydrated. Discussed to keep diet bland. Discussed that she should proceed to the emergency room with any severe pain symptoms. If ultrasound normal, consider stool studies at that point. - US ABD RIGHT UPPER QUADRANT Discussed treatment plan and patient voices understanding. Patient's questions answered appropriately. Medications and potential side effects were discussed and patient voices understanding. Return to the office as scheduled or as needed for worsening/no improvement. Genia Gutierrez APRN.SKYE The patient indicates understanding of these issues and agrees with the plan. This note was partially generated using [employer] voice recognition system. Note was reviewed for accuracy. There may be minor misspellings or grammar miscues with [employer] voice recognition. documented in this encounter [facility] 02-08-2023 Miscellaneous Notes See Nurse Triage note documented in this encounter [facility] 02-08-2023 Miscellaneous Notes Patient call in for abdominal pain (upper right). Pain comes and goes. Patient has had diarrhea with pain. Denies vomiting. Nurse Triage assessment completed with protocol recommending for disposition of See PCP in 24 hours. Care advice reviewed with patient, patient stated understanding. Patient advised to contact office or seek evaluation in ER if symptoms persist or gets worse. Patient scheduled with Genia mon. Reason for Disposition Pain is mainly in upper abdomen (if needed ask: is it mainly above the belly button? ) [1] MODERATE pain (e.g., interferes with normal activities) AND [2] comes and goes (cramps) AND [3] present > 24 hours (Exception: pain with Vomiting or Diarrhea - see that Guideline) Answer Assessment - Initial Assessment Questions 1. LOCATION: Middle of upper ribcage to right side abdomen to back 2. RADIATION: Back 3. ONSET: Pain began last Monday, but has been progressively getting worse 4 Sudden Onset; Happened 3 times yesterday last 10- 15 minutes each time 5. PATTERN Comes and goes; Last 10-15 minutes 6. SEVERITY: Pain gets 10 out of 10 when she has pain; She could not move. 7. RECURRENT SYMPTOM: Had it a few years ago, thought it was gallbladder, testing was done and it was fine. 8. CAUSE: Unsure 9. RELIEVING/AGGRAVATING FACTORS: Nothing makes it better or worse, just has to let it run its course 10. OTHER SYMPTOMS: Nauseas, Diarrhea, back pain 11. : Yes; 01/16/2023 Protocols used: Abdominal Pain - [id number], Abdominal Pain - [id number] documented in this encounter [facility] 02-06-2023 Note HNO ID: [id number] Author: Ramila Mcnamara PA-C Service: ? Author Type: Physician Associate Professor Of Media Arts Type: Progress Notes Filed: 02/06/2023 12:46 PM Note Text: Macrobid 22 year old female with c/o stomach pain x 1 week, stabbing, 5/10, pretty constant for about 5 minutes, 10-120 minute to next episode. Tmax 101F No BM x 1 week. This morning diarrhea which was black or very dark brown. Nauseated without vomiting. Maybe a little heart burn. Hasn't eaten in three days: ate ham on Monday, macaroni salad. Taking water, gingerale. LMP 01/16/2023, on fertility treatment HISTORIES FAMILY HISTORY Problem Relation Age of Onset Hypertension Mother other (GI- colon polpys) Mother Hypertension Father Diabetes Father No Known Problems Sister No Known Problems Sister No Known Problems Brother Suicide / Suicidal Behaviors Maternal Grandfather No Known Problems Maternal Grandmother Diabetes Paternal Grandmother other (myocardial infarction) Paternal Grandfather Colon Cancer Maternal Uncle 28 Colon Cancer Other PAST MEDICAL HISTORY Diagnosis Date Acute appendicitis 12/02/2016 Concussion 04/07/2013 Congenital abnormality of ureter 4 URETERS, DUPLICATED DRAINAGE SYSTEM Convulsions (HCC) 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 GDM. Diabetic education and patient intake representative counseling ordered. Anamika Eric APRN.CNM PCOS (polycystic ovarian syndrome) Seizure (HCC) was told due to anxiety Wrist fracture 12/24/2014 PAST SURGICAL HISTORY Procedure Laterality Date CYSTOSCOPY LAPAROSCOPIC APPENDECTOMY 12/02/2016 OTHER 2016 WISDOM TEETH EXTRACTION PAST SURGICAL HISTORY OF Left 10/25/2017 SALK, extensive synovectomy, patella chodroplasty Social History Tobacco Use Smoking status: Every Day Packs/day: 0.50 Years: 4.00 Pack years: 2.00 Types: Cigarettes Smokeless tobacco: Never Tobacco comments: 3 cigarettes a day Vaping Use Vaping Use: Never used Substance Use Topics Alcohol use: Not Currently Drug use: No ACTIVE PROBLEM LIST Seizure-Like Activity (Hcc) Nicotine use disorder, F17.2 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 15 tablet 3 dexAMETHasone (DECADRON) 0.5 mg tablet Take 0.5 tablets by mouth once daily. 30 tablet 3 medroxyPROGESTERone (PROVERA) 10 mg tablet Take 1 tablet by mouth once daily. 10 tablet 3 nitrofurantoin monohydrate and macrocrystal (MACROBID) 100 mg capsule Take 1 capsule by mouth as needed. Take prior to or right after intercourse. 30 capsule 3 [id number] 267 mcg-321 mg- 250 mg CPTw Take by mouth once daily as needed. No current facility-administered medications for this visit. PAP TESTING due on 07/29/2023 EXAM: BP 118/72 Pulse 111 Temp 36.8 ?C (98.2 ?F) (Left Tympanic) Resp 16 Wt 86.6 kg (191 lb) LMP 01/16/2023 (Exact Date) SpO2 99% BMI 30.83 kg/m? Pleasant adult woman in no acute distress. Alert and oriented all spheres. Normal affect and cognition. Speech normal. No deficits to learning or comprehension. Skin warm, dry, pink to lips and nailbeds. Normal turgor. Respirations regular and unlabored. HEENT: NCAT. No scleral icterus or conjunctival injection. TM's clear. Nose and oropharynx free from injection or lesion. Oral membranes moist and pink. No cervical lymph nodes. Thyroid non-tender, no masses, or enlargement. Carotids pulses 2+/4+ without bruits. No JVD with HOB at 30 degrees. Abdomen: active bowel sounds throughout, soft, tender epigastric and RUQ, Glass's punch without pain in inspiration but tender area., no masses or organomegaly. No CVAT. Extrem: no clubbing or cyanosis. Edema: none. Extremities are warm and pink with prompt capillary refill. Urine HCG negative Component Latest Ref Rng AND Units 02/06/2023 GLUCOSE UA (POCT) Negative mg/dL Negative BILIRUBIN UA (POCT) Negative Negative KETONE UA (POCT) Negative mg/dL Negative SPECIFIC GRAVITY UA (POCT) 1.005 - 1.030 1.020 HEMOGLOBIN/BLOOD UA (POCT) Negative Negative PH UA (POCT) 4.5 - 8.0 6.0 PROTEIN UA (POCT) Negative mg/dL Negative UROBILINOGEN UA (POCT) Normal E.U./dL 0.2 NITRITE UA (POCT) Negative Negative LEUKOCYTES UA (POCT) Negative Small (A) COLOR UA (POCT) Yellow CLARITY UA (POCT) Slightly Cloudy ASSESSMENT/PLAN: 1. Epigastric pain - ICD9: 789.06, ICD10: R10.13 (primary diagnosis) - Begin treatment with Prilosec 20 mg QD: review administration Soft, bland diet un (more content not included)... [facility] 02-06-2023 History of Present illness Narrative Macrobid 22 year old female with c/o stomach pain x 1 week, stabbing, 5/10, pretty constant for about 5 minutes, 10-120 minute to next episode. Tmax 101F No BM x 1 week. This morning diarrhea which was black or very dark brown. Nauseated without vomiting. Maybe a little heart burn. Hasn't eaten in three days: ate ham on Monday, macaroni salad. Taking water, gingerale. LMP 01/16/2023, on fertility treatment HISTORIES FAMILY HISTORY Problem Relation Age of Onset Hypertension Mother other (GI- colon polpys) Mother Hypertension Father Diabetes Father No Known Problems Sister No Known Problems Sister No Known Problems Brother Suicide / Suicidal Behaviors Maternal Grandfather No Known Problems Maternal Grandmother Diabetes Paternal Grandmother other (myocardial infarction) Paternal Grandfather Colon Cancer Maternal Uncle 28 Colon Cancer Other PAST MEDICAL HISTORY Diagnosis Date Acute appendicitis 12/02/2016 Concussion 04/07/2013 Congenital abnormality of ureter 4 URETERS, DUPLICATED DRAINAGE SYSTEM Convulsions (HCC) 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 GDM. Diabetic education and patient intake representative counseling ordered. Anamika Eric APRN.LISA PCOS (polycystic ovarian syndrome) Seizure (HCC) was told due to anxiety Wrist fracture 12/24/2014 PAST SURGICAL HISTORY Procedure Laterality Date CYSTOSCOPY LAPAROSCOPIC APPENDECTOMY 12/02/2016 OTHER 2016 WISDOM TEETH EXTRACTION PAST SURGICAL HISTORY OF Left 10/25/2017 SALK, extensive synovectomy, patella chodroplasty Social History Tobacco Use Smoking status: Every Day Packs/day: 0.50 Years: 4.00 Pack years: 2.00 Types: Cigarettes Smokeless tobacco: Never Tobacco comments: 3 cigarettes a day Vaping Use Vaping Use: Never used Substance Use Topics Alcohol use: Not Currently Drug use: No ACTIVE PROBLEM LIST Seizure-Like Activity (Hcc) Nicotine use disorder, F17.2 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 15 tablet 3 dexAMETHasone (DECADRON) 0.5 mg tablet Take 0.5 tablets by mouth once daily. 30 tablet 3 medroxyPROGESTERone (PROVERA) 10 mg tablet Take 1 tablet by mouth once daily. 10 tablet 3 nitrofurantoin monohydrate and macrocrystal (MACROBID) 100 mg capsule Take 1 capsule by mouth as needed. Take prior to or right after intercourse. 30 capsule 3 [id number] 267 mcg-321 mg- 250 mg CPTw Take by mouth once daily as needed. No current facility-administered medications for this visit. PAP TESTING due on 07/29/2023 EXAM: BP 118/72 Pulse 111 Temp 36.8 C (98.2 F) (Left Tympanic) Resp 16 Wt 86.6 kg (191 lb) LMP 01/16/2023 (Exact Date) SpO2 99% BMI 30.83 kg/m Pleasant adult woman in no acute distress. Alert and oriented all spheres. Normal affect and cognition. Speech normal. No deficits to learning or comprehension. Skin warm, dry, pink to lips and nailbeds. Normal turgor. Respirations regular and unlabored. HEENT: NCAT. No scleral icterus or conjunctival injection. TM's clear. Nose and oropharynx free from injection or lesion. Oral membranes moist and pink. No cervical lymph nodes. Thyroid non-tender, no masses, or enlargement. Carotids pulses 2+/4+ without bruits. No JVD with HOB at 30 degrees. Abdomen: active bowel sounds throughout, soft, tender epigastric and RUQ, Glass's punch without pain in inspiration but tender area., no masses or organomegaly. No CVAT. Extrem: no clubbing or cyanosis. Edema: none. Extremities are warm and pink with prompt capillary refill. Urine HCG negative Component Latest Ref Rng & Units 02/06/2023 GLUCOSE UA (POCT) Negative mg/dL Negative BILIRUBIN UA (POCT) Negative Negative KETONE UA (POCT) Negative mg/dL Negative SPECIFIC GRAVITY UA (POCT) 1.005 - 1.030 1.020 HEMOGLOBIN/BLOOD UA (POCT) Negative Negative PH UA (POCT) 4.5 - 8.0 6.0 PROTEIN UA (POCT) Negative mg/dL Negative UROBILINOGEN UA (POCT) Normal E.U./dL 0.2 NITRITE UA (POCT) Negative Negative LEUKOCYTES UA (POCT) Negative Small (A) COLOR UA (POCT) Yellow CLARITY UA (POCT) Slightly Cloudy ASSESSMENT/PLAN: 1. Epigastric pain - ICD9: 789.06, ICD10: R10.13 (primary diagnosis) - Begin treatment with Prilosec 20 mg QD: review administration Soft, bland diet until sx improve Work slip provided. - CBC + DIFF - COMP METABOLIC PANEL - LIPASE BLD - UA DIP, URINE (POC) - HCG QUAL UR B/O - NITROFURANTOIN MONOHYDRATE & MACROCRYSTAL 100 MG ORAL CAP: has been on previously, reviewed cautions. - URINE CULTURE 2. Diarrhea of presumed infectious origin - ICD9: 009.3, ICD10: R19.7 As above - CBC + DIFF - COMP METABOLIC PANEL - LIPASE BLD - UA DIP, URINE (POC) - HCG QUAL UR B/O - NITROFURANTOIN MONOHYDRATE & MACROCRYSTAL 100 MG ORAL CAP 3. Nausea - ICD9: 787.02, ICD10: R11.0 - CBC + DIFF - COMP METABOLIC PANEL - LIPASE BLD - UA DIP, URINE (POC) - HCG QUAL UR B/O - NITROFURANTOIN MONOHYDRATE & MACROCRYSTAL 100 MG ORAL CAP - URINE CULTURE 4. Abnormal urine - ICD9: 791.9, ICD10: R82.90 Hx recurrent UTI, duplicate renals - NITROFURANTOIN MONOHYDRATE & MACROCRYSTAL 100 MG ORAL CAP - URINE CULTURE: if UC negative will stop ATb Ramila Mcnamara PA-C documented in this encounter [facility] 02-02-2023 Miscellaneous Notes Called the pt back. LMP 01/16 Completed Let 7.5, Dexamethasone / OPK/TI Currently on cd 18, no positive OPK. Instructed to keep testing over the weekend. P4 to be tested on 02/06. Ava Kwan PA-C February 02, 2023 11:36 AM Patient called to notify nurses that her ovulation test showed she is not ovulating. Please follow up with next steps. documented in this encounter [facility] 01-21-2023 Note HNO ID: [id number] Author: Sherry Holloway PA-C Service: ? Author Type: Physician Associate Professor Of Media Arts Type: Progress Notes Filed: 01/21/2023 9:41 AM Note Text: This note was created using [employer]. Subjective Sanaz Lopez is a 22 year old female. HPI Patient presents with sore throat for 4 to 5 days. Her stepdaughter had strep last week. She had her son and he tested negative. No vomiting or diarrhea. She has had a headache. No cough or runny nose. No ear pain. No home COVID test done. She has used tylenol otc. Review of Systems Constitutional: Negative for fever. HENT: Positive for sore throat. Negative for congestion, ear pain, postnasal drip and rhinorrhea. Respiratory: Negative for cough, shortness of breath and wheezing. Cardiovascular: Negative. Gastrointestinal: Negative. Genitourinary: Negative. Musculoskeletal: Negative. Neurological: Positive for headaches. All other systems reviewed and are negative. PAST MEDICAL HISTORY Diagnosis Date Acute appendicitis 12/02/2016 Concussion 04/07/2013 Congenital abnormality of ureter 4 URETERS, DUPLICATED DRAINAGE SYSTEM Convulsions (HCC) 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 GDM. Diabetic education and patient intake representative counseling ordered. Anamika Eric APRN.LISA PCOS (polycystic ovarian syndrome) Seizure (HCC) was told due to anxiety Wrist fracture 12/24/2014 Current Outpatient Medications Medication Sig Dispense Refill letrozole (FEMARA) 2.5 mg tablet Take 3 tablets by mouth once daily. 15 tablet 3 dexAMETHasone (DECADRON) 0.5 mg tablet Take 0.5 tablets by mouth once daily. 30 tablet 3 medroxyPROGESTERone (PROVERA) 10 mg tablet Take 1 tablet by mouth once daily. 10 tablet 3 nitrofurantoin monohydrate and macrocrystal (MACROBID) 100 mg capsule Take 1 capsule by mouth as needed. Take prior to or right after intercourse. 30 capsule 3 [id number] 267 mcg-321 mg- 250 mg CPTw Take by mouth once daily as needed. No current facility-administered medications for this visit. PAST SURGICAL HISTORY Procedure Laterality Date CYSTOSCOPY LAPAROSCOPIC APPENDECTOMY 12/02/2016 OTHER 2016 WISDOM TEETH EXTRACTION PAST SURGICAL HISTORY OF Left 10/25/2017 SALK, extensive synovectomy, patella chodroplasty FAMILY HISTORY Problem Relation Age of Onset Hypertension Mother other (GI- colon polpys) Mother Hypertension Father Diabetes Father No Known Problems Sister No Known Problems Sister No Known Problems Brother Suicide / Suicidal Behaviors Maternal Grandfather No Known Problems Maternal Grandmother Diabetes Paternal Grandmother other (myocardial infarction) Paternal Grandfather Colon Cancer Maternal Uncle 28 Colon Cancer Other Social History Tobacco Use Smoking status: Every Day Packs/day: 0.50 Years: 4.00 Pack years: 2.00 Types: Cigarettes Smokeless tobacco: Never Tobacco comments: 3 cigarettes a day Vaping Use Vaping Use: Never used Substance Use Topics Alcohol use: Not Currently Drug use: No Objective BP 128/80 Pulse 82 Temp 37.1 ?C (98.8 ?F) Resp 16 Wt 88.5 kg (195 lb) LMP 01/16/2023 (Exact Date) SpO2 100% BMI 31.47 kg/m? Physical Exam Vitals reviewed. Constitutional: Appearance: Normal appearance. HENT: Head: Normocephalic and atraumatic. Right Ear: Tympanic membrane, ear canal and external ear normal. Left Ear: Tympanic membrane, ear canal and external ear normal. Nose: Nose normal. Mouth/Throat: Mouth: Mucous membranes are moist. Pharynx: Uvula midline. Pharyngeal swelling present. No oropharyngeal exudate, posterior oropharyngeal erythema or uvula swelling. Tonsils: No tonsillar exudate or tonsillar abscesses. 2+ on the right. 2+ on the left. Cardiovascular: Rate and Rhythm: Normal rate and regular rhythm. Heart sounds: Normal heart sounds. Pulmonary: Effort: Pulmonary effort is normal. Breath sounds: Normal breath sounds. Musculoskeletal: Cervical back: Neck supple. Lymphadenopathy: Cervical: No cervical adenopathy. Skin: General: Skin is warm and dry. Findings: No rash. Neurological: General: No focal deficit present. Mental Status: She is alert. Assessment and Plan ASSESSMENT/PLAN: 1. Sore throat - ICD9: 462, ICD10: J02.9 - Alere Strep Test negative, no culture pending - Discussed supportive care treatment with fluids, rest and analgesia. - The patient may also use warm salt water gargles, throat lozenges and/or OTC throat spray as needed. - The patient should follow up in 3-5 days if symptoms persist or worsen - pt declined covid testing. Sherry Holloway PA-C [facility] 01-21-2023 History of Present illness Narrative This note was created using [employer]. Subjective Sanaz Lopez is a 22 year old female. HPI Patient presents with sore throat for 4 to 5 days. Her stepdaughter had strep last week. She had her son and he tested negative. No vomiting or diarrhea. She has had a headache. No cough or runny nose. No ear pain. No home COVID test done. She has used tylenol otc. Review of Systems Constitutional: Negative for fever. HENT: Positive for sore throat. Negative for congestion, ear pain, postnasal drip and rhinorrhea. Respiratory: Negative for cough, shortness of breath and wheezing. Cardiovascular: Negative. Gastrointestinal: Negative. Genitourinary: Negative. Musculoskeletal: Negative. Neurological: Positive for headaches. All other systems reviewed and are negative. PAST MEDICAL HISTORY Diagnosis Date Acute appendicitis 12/02/2016 Concussion 04/07/2013 Congenital abnormality of ureter 4 URETERS, DUPLICATED DRAINAGE SYSTEM Convulsions (HCC) 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 GDM. Diabetic education and patient intake representative counseling ordered. Anamika Eric APRN.LISA PCOS (polycystic ovarian syndrome) Seizure (HCC) was told due to anxiety Wrist fracture 12/24/2014 Current Outpatient Medications Medication Sig Dispense Refill letrozole (FEMARA) 2.5 mg tablet Take 3 tablets by mouth once daily. 15 tablet 3 dexAMETHasone (DECADRON) 0.5 mg tablet Take 0.5 tablets by mouth once daily. 30 tablet 3 medroxyPROGESTERone (PROVERA) 10 mg tablet Take 1 tablet by mouth once daily. 10 tablet 3 nitrofurantoin monohydrate and macrocrystal (MACROBID) 100 mg capsule Take 1 capsule by mouth as needed. Take prior to or right after intercourse. 30 capsule 3 [id number]-haoze1-vil 267 mcg-321 mg- 250 mg CPTw Take by mouth once daily as needed. No current facility-administered medications for this visit. PAST SURGICAL HISTORY Procedure Laterality Date CYSTOSCOPY LAPAROSCOPIC APPENDECTOMY 12/02/2016 OTHER 2016 WISDOM TEETH EXTRACTION PAST SURGICAL HISTORY OF Left 10/25/2017 SALK, extensive synovectomy, patella chodroplasty FAMILY HISTORY Problem Relation Age of Onset Hypertension Mother other (GI- colon polpys) Mother Hypertension Father Diabetes Father No Known Problems Sister No Known Problems Sister No Known Problems Brother Suicide / Suicidal Behaviors Maternal Grandfather No Known Problems Maternal Grandmother Diabetes Paternal Grandmother other (myocardial infarction) Paternal Grandfather Colon Cancer Maternal Uncle 28 Colon Cancer Other Social History Tobacco Use Smoking status: Every Day Packs/day: 0.50 Years: 4.00 Pack years: 2.00 Types: Cigarettes Smokeless tobacco: Never Tobacco comments: 3 cigarettes a day Vaping Use Vaping Use: Never used Substance Use Topics Alcohol use: Not Currently Drug use: No Objective BP 128/80 Pulse 82 Temp 37.1 C (98.8 F) Resp 16 Wt 88.5 kg (195 lb) LMP 01/16/2023 (Exact Date) SpO2 100% BMI 31.47 kg/m Physical Exam Vitals reviewed. Constitutional: Appearance: Normal appearance. HENT: Head: Normocephalic and atraumatic. Right Ear: Tympanic membrane, ear canal and external ear normal. Left Ear: Tympanic membrane, ear canal and external ear normal. Nose: Nose normal. Mouth/Throat: Mouth: Mucous membranes are moist. Pharynx: Uvula midline. Pharyngeal swelling present. No oropharyngeal exudate, posterior oropharyngeal erythema or uvula swelling. Tonsils: No tonsillar exudate or tonsillar abscesses. 2+ on the right. 2+ on the left. Cardiovascular: Rate and Rhythm: Normal rate and regular rhythm. Heart sounds: Normal heart sounds. Pulmonary: Effort: Pulmonary effort is normal. Breath sounds: Normal breath sounds. Musculoskeletal: Cervical back: Neck supple. Lymphadenopathy: Cervical: No cervical adenopathy. Skin: General: Skin is warm and dry. Findings: No rash. Neurological: General: No focal deficit present. Mental Status: She is alert. Assessment and Plan ASSESSMENT/PLAN: 1. Sore throat - ICD9: 462, ICD10: J02.9 - Alere Strep Test negative, no culture pending - Discussed supportive care treatment with fluids, rest and analgesia. - The patient may also use warm salt water gargles, throat lozenges and/or OTC throat spray as needed. - The patient should follow up in 3-5 days if symptoms persist or worsen - pt declined covid testing. Sherry Holloway PA-C documented in this encounter [facility] 01-20-2023 Consult note Formatting of th is note is different from the original. Date of Consult: 01/20/2023 Consultation Requested By: Self-referred Sanaz Lopez is a 22 year old female presenting with the following history: HISTORY OF PRESENT ILLNESS: Sanaz Lopez is a 22 year old female Attempting to conceive since 05/2022 Menstrual cycle irregularity: Skips some cycles. PMHx: BMI 31.55. Seizures. Bilateral ureteral duplication. Recurrent UTI PSHx: Tooth extraction. Laparoscopy appendectomy. Knee ortho OBHx: GDMA2 Meds: MVI. Macrobid Desire for future fertility LET OI X3: Failed 29 year old male partner with proven fertility PMHx: Denies PSHx: Pilonidal cyst Meds: Denies SA: Not completed to date Obstetric History T1 L1 SAB0 IAB0 Ectopic0 Multiple0 Live Births1 Fertility Evaluations and Treatments: Eval Checklist Results Date Comments HSG Not done Hysteroscopy Not done Laparoscopy Not done OPK (Ovulation Predictor Kit) Abnormal Ovarian Baker Not done Saline Ultrasound Not done Semen Analysis Not done Ultrasound Normal Other (See comments) Not done MENSTRUAL HISTORY: Menarche Age: 10 Length of Cycle: Irregular Days: 3-4 Menstrual Flow: Moderate Menstrual Symptoms: Patient's last menstrual period was 01/16/2023 (exact date). PAST MEDICAL HISTORY Diagnosis Date Acute appendicitis 12/02/2016 Concussion 04/07/2013 Congenital abnormality of ureter 4 URETERS, DUPLICATED DRAINAGE SYSTEM Convulsions (HCC) 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 GDM. Diabetic education and patient intake representative counseling ordered. Anamika Eric APRN.LISA PCOS (polycystic ovarian syndrome) Seizure (HCC) was told due to anxiety Wrist fracture 12/24/2014 PAST SURGICAL HISTORY Procedure Laterality Date CYSTOSCOPY LAPAROSCOPIC APPENDECTOMY 12/02/2016 OTHER 2016 WISDOM TEETH EXTRACTION PAST SURGICAL HISTORY OF Left 10/25/2017 SALK, extensive synovectomy, patella chodroplasty FAMILY HISTORY Problem Relation Age of Onset Hypertension Mother other (GI- colon polpys) Mother Hypertension Father Diabetes Father No Known Problems Sister No Known Problems Sister No Known Problems Brother Suicide / Suicidal Behaviors Maternal Grandfather No Known Problems Maternal Grandmother Diabetes Paternal Grandmother other (myocardial infarction) Paternal Grandfather Colon Cancer Maternal Uncle 28 Colon Cancer Other ETHNICITY: White GENETIC HISTORY: NA 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 Take prior to or right after intercourse. [id number]--[id number] 267 mcg-321 mg- 250 mg CPTw Take by mouth once daily as needed. No current facility-administered medications on file prior to visit. ALLERGIES: Bactrim Ds [Sulfamethoxazole-Trimethoprim] [facility] PAP Results: Normal Blood Type: O POSITIVE ASSESSMENT: 22 year old female Attempting to conceive since 05/2022 Menstrual cycle irregularity: Skips some cycles. PMHx: BMI 31.55. Seizures. Bilateral ureteral duplication. Recurrent UTI PSHx: Tooth extraction. Laparoscopy appendectomy. Knee ortho OBHx: GDMA2 Meds: MVI. Macrobid Desire for future fertility LET OI X3: Failed 29 year old male partner with proven fertility PMHx: Denies PSHx: Pilonidal cyst Meds: Denies SA: Not completed to date PLAN: LET 7.5 mg CD 3-7 DEX 0.25 mg CD 3-7 OPK TIC Maximum 3-4 ovulatory cycles; thereafter, if no conception has occurred, schedule a virtual visit to discuss additional work up, if any, and future treatment options Initial evaluation: Hormone values HSG: Hold off for now Pelvic US: Normal SA: Hold off for now Follow-up visit: In-person office visit or virtual visit to review and discuss initial work-up results to determine treatment plan I spent a total of 60 minutes on the date of the service which included preparing to see the patient, [id number] patient care, completing clinical documentation, obtaining and/or reviewing separately obtained history, counseling and educating the patient/family/caregiver, ordering medications, tests, or procedures, independently interpreting results (not separately reported), and communicating results to the patient/family/caregiver. Mc Garcia MD January 20, 2023 11:37 AM documented in this encounter [facility] 12-26-2022 Note HNO ID: [id number] Author: RT Dinah(R) Service: Radiology Author Type: Technologist Type: Progress Notes Filed: 12/26/2022 4:08 PM Note Text: Radiology Service Progress Note PATIENT NAME: Sanaz Lopez DATE OF SERVICE: December 26, 2022 TIME: 4:00 PM PATIENT IDENTITY VERIFICATION COMPLETED USING TWO (2) IDENTIFIERS: Name and Date of confirmed by patient verbally. FALL SCREENING: Has the patient had 2 falls in the last year or 1 fall with injury or currently using an Ambulatory Assistive Device (Walker, Cane, Wheelchair, Crutches, etc.)? No PATIENT GENDER DATA: Female. status: : No status: NO. PATIENT RELEVANT IMPLANT DATA REVIEWED: Yes RADIOLOGY DEPARTMENT: General X-ray: Exam(s) Completed: Lower Extremity X-Ray(s): Ankle, Right and Wt. Bearing PERIPHERAL IV DATA: Not applicable SIGNED BY: RT Dinah(R) December 26, 2022 4:00 PM [facility] 12-26-2022 Note HNO ID: [id number] Author: Ramila Mcnamara PA-C Service: ? Author Type: Physician Associate Professor Of Media Arts Type: Progress Notes Filed: 12/26/2022 7:42 PM Note Text: 22 year old female with c/o went down water slide into four foot deep water, scraped knee and ankle popped 2 days ago. Still hurting. Not much swelling. Able to walk on it fully. Ibuprofen 4 tabs twice day with food which helps a little bit. No prior injuries. Not giving. HISTORIES FAMILY HISTORY Problem Relation Age of Onset Hypertension Mother other (GI- colon polpys) Mother Hypertension Father Diabetes Father No Known Problems Sister No Known Problems Sister No Known Problems Brother Suicide / Suicidal Behaviors Maternal Grandfather No Known Problems Maternal Grandmother Diabetes Paternal Grandmother other (myocardial infarction) Paternal Grandfather Colon Cancer Maternal Uncle 28 Colon Cancer Other PAST MEDICAL HISTORY Diagnosis Date Acute appendicitis 12/02/2016 Concussion 04/07/2013 Congenital abnormality of ureter 4 URETERS, DUPLICATED DRAINAGE SYSTEM Convulsions (HCC) 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 GDM. Diabetic education and patient intake representative counseling ordered. Anamika Eric APRN.LISA PCOS (polycystic ovarian syndrome) Seizure (HCC) was told due to anxiety Wrist fracture 12/24/2014 PAST SURGICAL HISTORY Procedure Laterality Date CYSTOSCOPY LAPAROSCOPIC APPENDECTOMY 12/02/2016 OTHER 2016 WISDOM TEETH EXTRACTION PAST SURGICAL HISTORY OF Left 10/25/2017 SALK, extensive synovectomy, patella chodroplasty Social History Tobacco Use Smoking status: Every Day Packs/day: 0.50 Years: 4.00 Pack years: 2.00 Types: Cigarettes Smokeless tobacco: Never Tobacco comments: 3 cigarettes a day Vaping Use Vaping Use: Never used Substance Use Topics Alcohol use: Not Currently Drug use: No ACTIVE PROBLEM LIST Seizure-Like Activity (Hcc) Nicotine use disorder, F17.2 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 Take prior to or right after intercourse. 30 capsule 3 [id number] 267 mcg-321 mg- 250 mg CPTw Take by mouth once daily as needed. No current facility-administered medications for this visit. COVID-19 VACCINE(1) Never done PNEUMOCOCCAL(1 - PCV) due on 2004 MENINGOCOCCAL B: Consider based on risk(1 of 2 - Risk Bexsero 2-dose series) Never done INFLUENZA(1) due on 06/30/2022 DEPRESSION ASSESSMENT Never done EXAM: BP 110/68 Pulse 98 Resp 16 Wt 88.5 kg (195 lb) LMP 09/02/2022 (Exact Date) SpO2 96% BMI 31.47 kg/m? Pleasant well appearing adult woman in no acute distress. Alert and oriented all spheres. Normal affect and cognition. Speech normal. No deficits to learning or comprehension. Skin warm, dry, pink to lips and nailbeds. Normal turgor. Respirations regular and unlabored. Extrem: no clubbing or cyanosis. Edema: none. Extremities are warm and pink with prompt capillary refill. Tender posterior medial ankle. Mildly tender posterior lateral ankle PF lig. Bilateral joint laxity with bilateral anterior drawer sign. No pain in forefoot or toes, 5th MT, or heel. XR left ankle no obvious fracture pending radoologist. ASSESSMENT/PLAN: 1. Acute right ankle pain - ICD9: 719.47, 338.19, ICD10: M25.571 RICE OTC analgesics Aircast 2-4 weeks until stable. F/U prn if not improving 2-4 weeks. - XR ANKLE GENERAL 3V AP/LAT/OBL RIGHT Work slip provided . See d/c instructions. Ankle sprain rehab sheet provided. Ramila Mcnamara PA-C Some of this note may have been copied and pasted for the purpose of history context and comparison. [facility] 12-26-2022 Instructions Ramila Mcnamara PA-C - 12/26/2022 4:41 PM EST Rest the joint. Ice over next few days to help with pain and swelling. Elevate as often as possible to reduce swelling and throbbing. Compression with an ESTHER wrap or elastic brace may feel more comfortable. Wear the air cast over next 2-4 weeks until it doesn't hurt to move the ankle. Over the next 5-7 days, do alphabet exercises as demonstrated twice a day for range of motion. As the ankle becomes less tender, you may do strengthening exercises as outlined on the provided handout. You may want to consider taping the ankle as shown in the handout, or using a high-top tennis shoe for sports or exercise If pain or swelling worsen, call the office. If pain is not steadily improving over the next two, schedule back for recheck and repeat x-ray. You have received an initial interpretation of your x-rays. The films will be formally interpreted by a radiologist. You will be notified if there is any change in interpretation. documented in this encounter [facility] 12-26-2022 History of Present illness Narrative 22 year old female with c/o went down water slide into four foot deep water, scraped knee and ankle popped 2 days ago. Still hurting. Not much swelling. Able to walk on it fully. Ibuprofen 4 tabs twice day with food which helps a little bit. No prior injuries. Not giving. HISTORIES FAMILY HISTORY Problem Relation Age of Onset Hypertension Mother other (GI- colon polpys) Mother Hypertension Father Diabetes Father No Known Problems Sister No Known Problems Sister No Known Problems Brother Suicide / Suicidal Behaviors Maternal Grandfather No Known Problems Maternal Grandmother Diabetes Paternal Grandmother other (myocardial infarction) Paternal Grandfather Colon Cancer Maternal Uncle 28 Colon Cancer Other PAST MEDICAL HISTORY Diagnosis Date Acute appendicitis 12/02/2016 Concussion 04/07/2013 Congenital abnormality of ureter 4 URETERS, DUPLICATED DRAINAGE SYSTEM Convulsions (HCC) 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 GDM. Diabetic education and patient intake representative counseling ordered. Anamika Eric APRN.LISA PCOS (polycystic ovarian syndrome) Seizure (HCC) was told due to anxiety Wrist fracture 12/24/2014 PAST SURGICAL HISTORY Procedure Laterality Date CYSTOSCOPY LAPAROSCOPIC APPENDECTOMY 12/02/2016 OTHER 2016 WISDOM TEETH EXTRACTION PAST SURGICAL HISTORY OF Left 10/25/2017 SALK, extensive synovectomy, patella chodroplasty Social History Tobacco Use Smoking status: Every Day Packs/day: 0.50 Years: 4.00 Pack years: 2.00 Types: Cigarettes Smokeless tobacco: Never Tobacco comments: 3 cigarettes a day Vaping Use Vaping Use: Never used Substance Use Topics Alcohol use: Not Currently Drug use: No ACTIVE PROBLEM LIST Seizure-Like Activity (Hcc) Nicotine use disorder, F17.2 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 Take prior to or right after intercourse. 30 capsule 3 [id number] 267 mcg-321 mg- 250 mg CPTw Take by mouth once daily as needed. No current facility-administered medications for this visit. COVID-19 VACCINE(1) Never done PNEUMOCOCCAL(1 - PCV) due on 2004 MENINGOCOCCAL B: Consider based on risk(1 of 2 - Risk Bexsero 2-dose series) Never done INFLUENZA(1) due on 06/30/2022 DEPRESSION ASSESSMENT Never done EXAM: BP 110/68 Pulse 98 Resp 16 Wt 88.5 kg (195 lb) LMP 09/02/2022 (Exact Date) SpO2 96% BMI 31.47 kg/m Pleasant well appearing adult woman in no acute distress. Alert and oriented all spheres. Normal affect and cognition. Speech normal. No deficits to learning or comprehension. Skin warm, dry, pink to lips and nailbeds. Normal turgor. Respirations regular and unlabored. Extrem: no clubbing or cyanosis. Edema: none. Extremities are warm and pink with prompt capillary refill. Tender posterior medial ankle. Mildly tender posterior lateral ankle PF lig. Bilateral joint laxity with bilateral anterior drawer sign. No pain in forefoot or toes, 5th MT, or heel. XR left ankle no obvious fracture pending radoologist. ASSESSMENT/PLAN: 1. Acute right ankle pain - ICD9: 719.47, 338.19, ICD10: M25.571 RICE OTC analgesics Aircast 2-4 weeks until stable. F/U prn if not improving 2-4 weeks. - XR ANKLE GENERAL 3V AP/LAT/OBL RIGHT Work slip provided . See d/c instructions. Ankle sprain rehab sheet provided. Ramila Mcnamara PA-C Some of this note may have been copied and pasted for the purpose of history context and comparison. documented in this encounter [facility] 12-05-2022 Miscellaneous Notes DARELNE referral placed documented in this encounter [facility] 11-18-2022 Instructions Ramila Mcnamara PA-C - 11/18/2022 1:[address] Johnson, Dr. [facility] [place]. documented in this encounter [facility] 11-18-2022 History of Present illness Narrative 22 year old female with c/o urinary issues, pain bilateral in CVA area Notes white clumps in urine. No fever, chills, dysuria, nausea, vomiting Some increased frequency, cramping across lower abdomen since a week ago, on and off but every day, lasting 30-60 sec may be five times a day. BM everyday to every other day. Drinks a lot of water. Tylenol, ibuprofen seems to help Mother wants her to see manager corporate strategy. Component Latest Ref Rng & Units 11/18/2019 04/06/2020 06/15/2022 09/16/2022 Glucose 74 - 99 mg/dL 109 (H) 88 101 (H) 89 BUN 7 - 21 mg/dL 14 11 16 14 Creatinine 0.58 - 0.96 mg/dL 0.64 0.71 0.75 0.79 Sodium 136 - 144 mmol/L 138 141 140 136 Potassium 3.7 - 5.1 mmol/L 4.2 4.3 4.1 4.6 Chloride 97 - 105 mmol/L 103 105 103 99 CO2 22 - 30 mmol/L 24 28 23 25 Anion Gap 9 - 18 mmol/L 11 8 (L) 14 12 Calcium 8.5 - 10.2 mg/dL 10.1 9.4 9.7 9.6 eGFR- >60 >60 eGFR-All Other Races . >60 >60 eGFR >=60 mL/min/1.73m 114 107 HISTORIES FAMILY HISTORY Problem Relation Age of Onset Hypertension Mother other (GI- colon polpys) Mother Hypertension Father Diabetes Father No Known Problems Sister No Known Problems Sister No Known Problems Brother Suicide / Suicidal Behaviors Maternal Grandfather No Known Problems Maternal Grandmother Diabetes Paternal Grandmother other (myocardial infarction) Paternal Grandfather Colon Cancer Maternal Uncle 28 Colon Cancer Other PAST MEDICAL HISTORY Diagnosis Date Acute appendicitis 12/02/2016 Concussion 04/07/2013 Congenital abnormality of ureter 4 URETERS, DUPLICATED DRAINAGE SYSTEM Convulsions (HCC) 12/27/2019 patient reports anxiety induced, has had 2 episodes in her lifetime, last episode 2018 Diet controlled gestational diabetes mellitus (GDM) in third trimester 01/11/2021 Infertility, female Insulin controlled gestational diabetes mellitus (GDM) in third trimester 01/11/2021 01/11/21-3hr GTT elevated. GDM. Diabetic education and patient intake representative counseling ordered. Anamika Eric APRN.LISA PCOS (polycystic ovarian syndrome) Seizure (HCC) was told due to anxiety Wrist fracture 12/24/2014 PAST SURGICAL HISTORY Procedure Laterality Date CYSTOSCOPY LAPAROSCOPIC APPENDECTOMY 12/02/2016 OTHER 2016 WISDOM TEETH EXTRACTION PAST SURGICAL HISTORY OF Left 10/25/2017 SALK, extensive synovectomy, patella chodroplasty Social History Tobacco Use Smoking status: Every Day Packs/day: 0.50 Years: 4.00 Pack years: 2.00 Types: Cigarettes Smokeless tobacco: Never Tobacco comments: 3 cigarettes a day Vaping Use Vaping Use: Never used Substance Use Topics Alcohol use: Not Currently Drug use: No ACTIVE PROBLEM LIST Seizure-Like Activity (Hcc) Nicotine use disorder, F17.2 Recurrent Urinary Tract Infection Congenital Anomaly of Ureter History of Seizures Urinary Tract Infection Current Outpatient Medications Medication Sig Dispense Refill medroxyPROGESTERone (PROVERA) 10 mg tablet Take 1 tablet by mouth once daily for 10 days. 10 tablet 0 letrozole (FEMARA) 2.5 mg tablet Take 1 tablet by mouth once daily for 5 days. On cycles day 3-7 5 tablet 0 nitrofurantoin monohydrate and macrocrystal (MACROBID) 100 mg capsule Take 1 capsule by mouth as needed. Take prior to or right after intercourse. 30 capsule 3 oxyCODONE-acetaminophen (PERCOCET) 5-325 mg tablet Take 1 tablet by mouth every 8 hours as needed for pain. 15 tablet 0 [id number] 267 mcg-321 mg- 250 mg CPTw Take by mouth once daily as needed. No current facility-administered medications for this visit. COVID-19 VACCINE(1) Never done PNEUMOCOCCAL(1 - PCV) due on 2004 MENINGOCOCCAL B: Consider based on risk(1 of 2 - Risk Bexsero 2-dose series) Never done INFLUENZA(1) due on 06/30/2022 DEPRESSION ASSESSMENT Never done EXAM: BP 122/78 Pulse 107 Temp 37.7 C (99.9 F) Resp 16 Wt 87.5 kg (193 lb) LMP 09/02/2022 (Exact Date) SpO2 99% BMI 31.15 kg/m Pleasant overweight young woman in no acute distress. Alert and oriented all spheres. Normal affect and cognition. Speech normal. No deficits to learning or comprehension. Skin warm, dry, pink to lips and nailbeds. Normal turgor. Respirations regular and unlabored. HEENT: NCAT. No scleral icterus or conjunctival injection. TM's clear. Nose and oropharynx free from injection or lesion. Oral membranes moist and pink. No cervical lymph nodes. Thyroid non-tender, no masses, or enlargement. Carotids pulses 2+/4+ without bruits. No JVD with HOB at 30 degrees. Chest is normal shape. Lungs are clear to all minaya with good air exchange through out. HRRR without murmur or gallop. No lifts, heaves, or rubs. Abdomen: active bowel sounds throughout, soft, tender over bilateral abdomen in pattern of rectus muscles with increased tenderness on palpation with flexion over muscles. no masses or organomegaly. No CVAT. + tenderness over quadratus lumborum bilaterally Extrem: no clubbing or cyanosis. Edema: none. Extremities are warm and pink with prompt capillary refill. ASSESSMENT/PLAN: 1. Congenital anomaly of ureter - ICD9: 753.9, ICD10: Q62.8 (primary diagnosis) Requesting consult to nephrology to review kidney. - CONSULT TO NEPHROLOGY 2. Recurrent urinary tract infection - ICD9: 599.0, ICD10: N39.0 No evidence of infection today - Patient education for prevention given - UA DIP, URINE (POC) - CONSULT TO NEPHROLOGY 3. PCOS (polycystic ovarian syndrome) - ICD9: 256.4, ICD10: E28.2 4. Acute pyelonephritis - ICD9: 590.10, ICD10: N10 - CONSULT TO NEPHROLOGY Ramila Mcnamara PA-C documented in this encounter [facility] 10-11-2022 History of Present illness Narrative Images from the original note were not included. [facility] [place] NEW PATIENT ENCOUNTER HISTORY OF PRESENT ILLNESS: Sanaz Lopez is a 22 year old female who presents in follow-up to recent hospitalization for likely pyelonephritis with sepsis. She is doing better now. She does have some flank pain. Had CT scan that showed no obstructing stone, hydronephrosis. There was some inflammation around the kidney consistent pyelonephritis. She has a history of bilateral duplications. This is been worked up in the past with MAG3 renal Lasix scans, cystogram retrograde pyelograms no evidence of obstruction or reflux. No evidence of any UPJ obstruction. Patient Entered Questionnaires PROMIS Global Health PROMIS Global Health Scale 06/29/2020 10/07/2021 09/12/2022 Physical Health Percentile 53 % 66 % 53 % Mental Health Percentile 96 % 53 % 43 % Percentiles provide an indication of how the patient's score ranks in relation to the general population. Higher percentile rankings indicate better function/quality of life. 50th percentile is the average of the general population and indicates half of respondents had a worse score. Review of Systems Constitutional: Negative. HENT: Negative. Eyes: Negative. Respiratory: Negative. Cardiovascular: Negative. Gastrointestinal: Negative. Endocrine: Negative. Genitourinary: Positive for flank pain and hematuria. Skin: Negative. Allergic/Immunologic: Negative. Neurological: Negative. Hematological: Negative. Psychiatric/Behavioral: Negative. LAB No results found for: PSA Creatinine Date Value Ref Range Status 09/16/2022 0.79 0.58 - 0.96 mg/dL Final GLUCOSE UA (POCT) Negative 10/03/2022 BILIRUBIN UA (POCT) Negative 10/03/2022 KETONE UA (POCT) Negative 10/03/2022 SPECIFIC GRAVITY UA (POCT) 1.015 10/03/2022 HEMOGLOBIN/BLOOD UA (POCT) Trace-intact 10/03/2022 PH UA (POCT) 7.0 10/03/2022 PROTEIN UA (POCT) Negative 10/03/2022 UROBILINOGEN UA (POCT) 0.2 10/03/2022 NITRITE UA (POCT) Negative 10/03/2022 LEUKOCYTES UA (POCT) Negative 10/03/2022 COLOR UA (POCT) Yellow 10/03/2022 CLARITY UA (POCT) Clear 10/03/2022 MEDICATIONS nitrofurantoin monohydrate and macrocrystal (MACROBID) 100 mg capsule Take 1 capsule by mouth as needed. Take prior to or right after intercourse. oxyCODONE-acetaminophen (PERCOCET) 5-325 mg tablet Take 1 tablet by mouth every 8 hours as needed for pain. [id number] 267 mcg-321 mg- 250 mg CPTw Take by mouth once daily as needed. HISTORIES PAST MEDICAL HISTORY Diagnosis Date Acute appendicitis 12/02/2016 Concussion 04/07/2013 Congenital abnormality of ureter 4 URETERS, DUPLICATED DRAINAGE SYSTEM Convulsions (HCC) 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 GDM. Diabetic education and patient intake representative counseling ordered. Anamika Eric APRN.LIAS PCOS (polycystic ovarian syndrome) Seizure (HCC) was told due to anxiety Wrist fracture 12/24/2014 PAST SURGICAL HISTORY Procedure Laterality Date CYSTOSCOPY LAPAROSCOPIC APPENDECTOMY 12/02/2016 OTHER 2016 WISDOM TEETH EXTRACTION PAST SURGICAL HISTORY OF Left 10/25/2017 SALK, extensive synovectomy, patella chodroplasty FAMILY HISTORY Problem Relation Age of Onset Hypertension Mother other (GI- colon polpys) Mother Hypertension Father Diabetes Father No Known Problems Sister No Known Problems Sister No Known Problems Brother Suicide / Suicidal Behaviors Maternal Grandfather No Known Problems Maternal Grandmother Diabetes Paternal Grandmother other (myocardial infarction) Paternal Grandfather Colon Cancer Maternal Uncle 28 Colon Cancer Other SOCIAL HISTORY Social History Tobacco Use Smoking status: Every Day Packs/day: 0.50 Years: 4.00 Pack years: 2.00 Types: Cigarettes Smokeless tobacco: Never Tobacco comments: 3 cigarettes a day Vaping Use Vaping Use: Never used Substance Use Topics Alcohol use: Not Currently Drug use: No Physical Exam Vitals and nursing note reviewed. Constitutional: Appearance: She is well-developed. HENT: Head: Normocephalic. Pulmonary: Effort: Pulmonary effort is normal. Musculoskeletal: Comments: Mild tenderness along the costovertebral angle with deep palpation. Mostly on the right side. Skin: General: Skin is warm and dry. Neurological: Mental Status: She is alert and oriented to person, place, and time. Psychiatric: Behavior: Behavior normal. Thought Content: Thought content normal. Judgment: Judgment normal. Pulse 98 Ht 167.6 cm (5' 6 ) LMP 09/02/2022 (Exact Date) SpO2 99% BMI 30.99 kg/m ASSESSMENT/PLAN: 1. Acute pyelonephritis - ICD9: 590.10, ICD10: N10 (primary diagnosis) 2. Recurrent urinary tract infection - ICD9: 599.0, ICD10: N39.0 3. Kidney stone [N20.0 (ICD-10-CM)] - ICD9: 592.0, ICD10: N20.[address] scan. It is quite reassuring. She has some nephrocalcinosis but no obvious nodes in the collecting system or any obstruction. She continues to have what she perceives as recurrent UTIs it may be associated with times of intercourse. I will start her on a precoital or postcoital antibiotic. Reassurance provided. No indication for any surgical intervention. Follow-up in a year Lb Escobar Medical Decision Making: Medical Decision Making Level: 1 - N/A This note was partially created using voice recognition software and is inherently subject to errors including those of syntax and sound-alike substitutions which may escape proofreading. In such instances, original meaning may be extrapolated by contextual derivation. documented in this encounter [facility] 10-10-2022 Miscellaneous Notes Advised pt of message below Lmom for pt to call back. Pt is scheduled with [facility] tomorrow we have imagining reports but we need pt to bring a disc of her imagining from [facility]. Jennifer Gruber Cma documented in this encounter [facility] 10-03-2022 Miscellaneous Notes I would prefer Percocet. Called and she want rx to [facility] De [facility] The following approved medication requests have been transmitted electronically. Requested Prescriptions Signed Prescriptions Disp Refills oxyCODONE-acetaminophen (PERCOCET) 5-325 mg tablet 15 tablet 0 Sig: Take 1 tablet by mouth every 8 hours as needed for pain. Authorizing Provider: Ramila MCNAMARA PA-C Viviana with [facility] Pharmacy calls to report they do not have Percocet. They do have plain Oxycodone. Viviana reports if provider wants pt to have Percocet the rx will need to go somewhere else. Maria C White LPN documented in this encounter [facility] 10-03-2022 Instructions Ramila Mcnamara PA-C - 10/03/2022 4:19 PM EST Percocet (oxycodone with Tylenol) as directed per prescription for pain being careful to limit to 1-2 doses a day unless it is more severe pain. Do not drive or operate dangerous machinery while on this medication: It may cause drowsiness or impair judgment and cause increased risk for falls. This medication may be habit forming if used regularly, and may cause drowsiness, so use caution. This medication may cause constipation so increase fiber and exercise if possible. Stimulant laxatives such as pericolace or Sennekot OTC may help if needed but should not be used over long periods. Percocet is governed by federal regulations for schedule 2 narcotics: you may not share this medication with anyone else, this constitutes a felony. It must be locked or secured in a safe place and cannot be replaced if lost, damaged, or stolen. Force fluids with water and juices (not caffeine) to 2000cc per day until symptoms improve. Any mechanical pressure in the area of the urethra (wear urine comes out) may cause bacteria to be pushed up inside the bladder. You should urinate to clear out bacterial contamination before and after sex, after tampon insertion, or after washing the vaginal area. It is important to wipe front to back after voiding. If you develop a fever, chills, unusual back pain, or vomiting, this may mean you have infection in the kidney which can be more serious. If this occurs, or you fail to improve on the antibiotics in 3 days, either call the office to be checked or go to the emergency department. Push fluids. Report fever, nausea, vomiting, worsening pain. documented in this encounter [facility] 10-03-2022 History of Present illness Narrative 22 year old female with c/o 2 week follow up recommended on visit 09/16/[address] Garcia r/t recent admission for 09/10-09/12/2022 [facility] for pyelonephritis and sepsis, 80-100K E. Coli, right flank pain, chest pain. CTA chest negative except note of atelectasis lingular aspect upper lobe and diffuse fatty liver noted. VS on arrival [id number]%. WBC 17.8, lactic acid 1.4 CT abd/pel: despite urinalysis findings: hyper- densities possibly nonobstructive stones versus mild medullary sponge kidney with a duplex bilateral collecting system, right inflammation around the kidney and ureter with no obvious obstructing calcified stone suspicious for infectious process of the kidney. D/C with cefpodoxime + oxycodone. Hx recurrent pyelonephritis dating back to 2019, urologist Dr. Lb Escobar. Recently followed by Tristen Garcia PA-C Currently having pain right lower lumbar, sharp/ stabbing, up to 9/10 over the weekend, currently 6/10. Taking Tylenol which doesn't help. Oxycodone from ER did help but completed rx. Thinks she's seen blood in urine. No fever or chills, vomiting, Some nausea. A little painful with urination. No dyspareunia, vaginal discharge or bleeding. HISTORIES FAMILY HISTORY Problem Relation Age of Onset Hypertension Mother other (GI- colon polpys) Mother Hypertension Father Diabetes Father No Known Problems Sister No Known Problems Sister No Known Problems Brother Suicide / Suicidal Behaviors Maternal Grandfather No Known Problems Maternal Grandmother Diabetes Paternal Grandmother other (myocardial infarction) Paternal Grandfather Colon Cancer Maternal Uncle 28 Colon Cancer Other PAST MEDICAL HISTORY Diagnosis Date Acute appendicitis 12/02/2016 Concussion 04/07/2013 Congenital abnormality of ureter 4 URETERS, DUPLICATED DRAINAGE SYSTEM Convulsions (HCC) 12/27/2019 patient reports anxiety induced, has had 2 episodes in her lifetime, last episode 2018 Diet controlled gestational diabetes mellitus (GDM) in third trimester 01/11/2021 Infertility, female Insulin controlled gestational diabetes mellitus (GDM) in third trimester 01/11/2021 01/11/21-3hr GTT elevated. GDM. Diabetic education and patient intake representative counseling ordered. Anamika Eric APRN.LISA PCOS (polycystic ovarian syndrome) Seizure (HCC) was told due to anxiety Wrist fracture 12/24/2014 PAST SURGICAL HISTORY Procedure Laterality Date CYSTOSCOPY LAPAROSCOPIC APPENDECTOMY 12/02/2016 OTHER 2016 WISDOM TEETH EXTRACTION PAST SURGICAL HISTORY OF Left 10/25/2017 SALK, extensive synovectomy, patella chodroplasty Social History Tobacco Use Smoking status: Every Day Packs/day: 0.50 Years: 4.00 Pack years: 2.00 Types: Cigarettes Smokeless tobacco: Never Tobacco comments: 3 cigarettes a day Vaping Use Vaping Use: Never used Substance Use Topics Alcohol use: Not Currently Drug use: No ACTIVE PROBLEM LIST Seizure-Like Activity (Hcc) Nicotine use disorder, F17.2 Recurrent Urinary Tract Infection Congenital Anomaly of Ureter History of Seizures Urinary Tract Infection Current Outpatient Medications Medication Sig Dispense Refill oxyCODONE IR (ROXICODONE) 5 mg immediate release tablet TAKE 1 TABLET BY MOUTH EVERY 6 HOURS FOR 3 DAYS cefpodoxime (VANTIN) 200 mg tablet TAKE 1 TABLET BY MOUTH TWICE DAILY WITH FOOD/ A MEAL. [id number] 267 mcg-321 mg- 250 mg CPTw Take by mouth once daily as needed. No current facility-administered medications for this visit. COVID-19 VACCINE(1) Never done PNEUMOCOCCAL(1 - PCV) due on 2004 MENINGOCOCCAL B: Consider based on risk(1 of 2 - Risk Bexsero 2-dose series) Never done DEPRESSION ASSESSMENT Never done INFLUENZA(1) due on 06/30/2022 EXAM: BP 118/68 Pulse 103 Temp 37.2 C (99 F) (Left Tympanic) Resp 18 Wt 87.1 kg (192 lb) LMP 09/02/2022 (Exact Date) SpO2 97% BMI 30.99 kg/m Pleasant well appearing adult woman in no acute distress. Alert and oriented all spheres. Normal affect and cognition. Speech normal. No deficits to learning or comprehension. Skin warm, dry, pink to lips and nailbeds. Normal turgor. Respirations regular and unlabored. HEENT: NCAT. No scleral icterus or conjunctival injection. TM's clear. Nose and oropharynx free from injection or lesion. Oral membranes moist and pink. No cervical lymph nodes. Chest is normal shape. Lungs are clear to all [place]aya with good air exchange through out. HRRR without murmur or gallop. No lifts, heaves, or rubs. Abd: rounded, soft, active bowel sounds x4 quads. No pulsatile masses. Mildly tender right mid to RLQ abdomen, moderately tender to right flank muscles. No rebound, guarding, or peritoneal signs. No masses. No organomegaly. Glass's punch: negative. +TTP in right QL trigger points, left rotated L5. No flank pain percussion CVAT. No inguinal or axillary lymphadenopathy. Extrem: no clubbing or cyanosis. Edema: none. Extremities are warm and pink with prompt capillary refill. OMT: myofascial release to TTPS QL and lumbar paravertebral, with HVLA to L5 wit some improvement. Component Latest Ref Rng & Units 10/03/2022 GLUCOSE UA (POCT) Negative mg/dL Negative BILIRUBIN UA (POCT) Negative Negative KETONE UA (POCT) Negative mg/dL Negative SPECIFIC GRAVITY UA (POCT) 1.005 - 1.030 1.015 HEMOGLOBIN/BLOOD UA (POCT) Negative Trace-intact (A) PH UA (POCT) 4.5 - 8.0 7.0 PROTEIN UA (POCT) Negative mg/dL Negative UROBILINOGEN UA (POCT) Normal E.U./dL 0.2 NITRITE UA (POCT) Negative Negative LEUKOCYTES UA (POCT) Negative Negative COLOR UA (POCT) Yellow CLARITY UA (POCT) Clear ASSESSMENT/PLAN: 1. Right flank pain - ICD9: 789.09, ICD10: R10.9 Needs to follow up with urology. Will try to schedule in next week. Needs to review possibility stones Discussed concerns medullary sponge kidney: not likely as not demonstrated on multiple other studies in last 2 years. - UA DIP B/O - URINALYSIS, WITH MICROSCOPIC - OXYCODONE-ACETAMINOPHEN 5 MG-325 MG TABLET 2. Somatic dysfunction of spine, lumbar - ICD9: 739.3, ICD10: M99.0 thinks OMT helped. Ice/ moist heat, lineaments, OTC analgesics as needed. Stretching and posture reviewed. Ramila Mcnamara PA-C documented in this encounter [facility] 09-27-2022 History of Present illness Narrative Images from the original note were not included. [facility] ESTABLISHED PATIENT CLINIC NOTE Some elements copied from his previous note, which have been updated where appropriate, and all reflect current medical decision making from date of this visit. SERVICE DATE: 09/27/2022 SERVICE TIME: 10:46 AM NAME: Sanaz Lopez CHIEF COMPLAINT: Duplicated urinary System HISTORY OF PRESENT ILLNESS: Sanaz Lopez is a 22 year old Male with PMH including Duplicated urinary system, Medullary sponge kidney presenting with follow up after 2 episodes od The patient reports have Pyelonephritis and Sepsis x 2 episodes treated at [facility] And is here to follow -up with imaging and off antibiotics now 2 weeks Doing well today LUTS: DYSURIA: yes URGENCY: Yes FREQUENCY:6 per day NOCTURIA: 0 per night STRAINING TO VOID: No EMPTIES COMPLETELY: Yes UTI: 2 past 12 months GROSS HEMATURIA: no MICROSCOPIC HEMATURIA: no UA DIPSTICK POSITIVE ONLY: no Other symptoms: LABS: Hematocrit (%) Date Value 09/16/2022 46.0 06/15/2022 44.8 03/29/2022 41.0 02/16/2021 35.3 12/25/2020 34.1 09/04/2020 40.2 04/06/2020 45.4 No results found for: PSA Testosterone (ng/dL) Date Value 03/11/2022 44 02/08/2018 55 MEDICATIONS: cefpodoxime (VANTIN) 200 mg tablet TAKE 1 TABLET BY MOUTH TWICE DAILY WITH FOOD/ A MEAL. [id number] 267 mcg-321 mg- 250 mg CPTw Take by mouth once daily as needed. 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 GDM. Diabetic education and patient intake representative counseling ordered. Anamika Eric APRN.CNM PCOS (polycystic ovarian syndrome) Seizure (HCC) was told due to anxiety Wrist fracture 12/24/2014 PAST SURGICAL HISTORY: PAST SURGICAL HISTORY Procedure Laterality Date CYSTOSCOPY LAPAROSCOPIC APPENDECTOMY 12/02/2016 OTHER 2016 WISDOM TEETH EXTRACTION PAST SURGICAL HISTORY OF Left 10/25/2017 SALK, extensive synovectomy, patella chodroplasty FAMILY HISTORY: FAMILY HISTORY Problem Relation Age of Onset Hypertension Mother other (GI- colon polpys) Mother Hypertension Father Diabetes Father No Known Problems Sister No Known Problems Sister No Known Problems Brother Suicide / Suicidal Behaviors Maternal Grandfather No Known Problems Maternal Grandmother Diabetes Paternal Grandmother other (myocardial infarction) Paternal Grandfather Colon Cancer Maternal Uncle 28 Colon Cancer Other SOCIAL HISTORY: Social Connections: Unknown Frequency of Communication with Friends and Family: More than three times a week Frequency of Social Gatherings with Friends and Family: Patient refused Attends Spiritism Services: Patient refused Active Member of Clubs or Organizations: No Attends Club or Organization Meetings: Not on file Marital Status: REVIEW OF SYSTEMS: GENERAL: No fever, chills, weight loss, or fatigue. All other systems reviewed and are negative PHYSICAL EXAMINATION: Blood pressure 118/84, pulse 120, temperature 37.1 C (98.7 F), temperature source Temporal, resp. rate 14, height 167.6 cm (5' 6 ), weight 86.6 kg (191 lb), last menstrual period 09/02/2022, SpO2 100 %, not currently . GENERAL: WNL nutrition, no deformities, healthy appearing PROBLEM LIST REVIEW: Yes LABS: Results for orders placed or performed in visit on 09/24/22 PROGESTERONE BLD Result Value Ref Range Progesterone 10.2 See comment ng/mL PLTCT (PLATELET COUNT) Result Value Ref Range Platelet Count 376 150 - 400 k/uL Urine Culture - Pending PROCEDURES: PVR: 0 ml IMAGING: CT Imaging from [facility] were scanned into [facility] IMPRESSION/PLAN: 22 year old female with . 1. Acute pyelonephritis - ICD9: 590.10, ICD10: N10 2. Sepsis, due to unspecified organism, unspecified whether acute organ dysfunction present (HCC) - ICD9: 038.9, 995.91, ICD10: A41.9 3. 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 Recurrent urinary tract infection - ICD9: 599.0, ICD10: N39.0 TEA Samuels MT, PA-C Verified name and date of . CC Post Void Residual HPI: Sanaz Lopez is a 22 year old female. The patient is here now for an appointment with TEA Samuels MT, PA-COV. Procedure: Explained procedure to patient and verbalizes understanding. Performed a PVR. Patient unable to urinate and provide urine specimen. States went to bathroom when she woke this morning. Results of scan: 0 mL The patient tolerated the procedure well. Plan: Appointment with Tristen. Fluids encouraged and drinking water. documented in this encounter [facility] 09-26-2022 Miscellaneous Notes Patient notified. Mireya Marrero RN Attempted to call patient. Unable to leave message. Priyanka Blum RN Yes HCG quant ordered Sorry to here she was hospitalized with sepsis and hope she is feeling better. If test is negative, will need to see how urology appointment goes prior to proceeding with another round of ovulation induction medication - may be best to hold off if procedure indicated etc Patient called. States she took x1 +UPT yesterday and one neg UPT today. Taking letrozole and progesterone. LMP 09/02/22. States she was hospitalized for Sepsis on 09/10-09/12. She has an upcoming urology appointment. Do you want an HCG test for confirmation? Mireya Marrero RN documented in this encounter [facility] 09-16-2022 History of Present illness Narrative Patient presents with: Hospital F/U HPI: Patient presents today for office visit for hospital follow up. Admitted on 09/10/22-09/12/22. Sepsis; Pyelonephritis. Currently on Cefpodoxime and Oxycodone. Pain is better now. Feels feverish sometimes. Still experiencing nausea. Was not given anything for home for nausea. Had cta of chest and ct of abd that showed pyelonephritis. White count was elevated. Urine grew out 80-100,000 colonies of e coli that was sensitive to all things tested against. Was admitted with right flank pain and nausea. Had chest pain while in the hospital that prompted the cta. Was across the whole from of the chest. Laying down made it worse. Sitting up made it go away. Some movements made it worse. Mild nausea and abd discomfort. Pain in the flank comes and goes. No hematuria. No dysuria. No fever. Has had some sweats. Still has about a week's worth of antibiotics. Has had recurrent pyelonephritis. Has a hx of a congenital anomaly of the ureter. Has has seen urology for the same in the remote past. MEDICATIONS: Current Outpatient Medications Medication Sig oxyCODONE IR (ROXICODONE) 5 mg immediate release tablet TAKE 1 TABLET BY MOUTH EVERY 6 HOURS FOR 3 DAYS cefpodoxime (VANTIN) 200 mg tablet TAKE 1 TABLET BY MOUTH TWICE DAILY WITH FOOD/ A MEAL. [id number] 267 mcg-321 mg- 250 mg CPTw Take by mouth. No current facility-administered medications for this visit. ALLERGIES: ALLERGIES Allergen Reactions Bactrim Ds [Sulfame* Rash [place] morbilliform rash, also on keflex same time PAST MEDICAL HISTORY Diagnosis Date Acute appendicitis 12/02/2016 Concussion 04/07/2013 Congenital abnormality of ureter 4 URETERS, DUPLICATED DRAINAGE SYSTEM Convulsions (HCC) 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 GDM. Diabetic education and patient intake representative counseling ordered. Anamika Eric APRN.LISA PCOS (polycystic ovarian syndrome) Seizure (HCC) was told due to anxiety Wrist fracture 12/24/2014 PAST SURGICAL HISTORY Procedure Laterality Date CYSTOSCOPY LAPAROSCOPIC APPENDECTOMY 12/02/2016 OTHER 2016 WISDOM TEETH EXTRACTION PAST SURGICAL HISTORY OF Left 10/25/2017 SALK, extensive synovectomy, patella chodroplasty FAMILY HISTORY Problem Relation Age of Onset Hypertension Mother other (GI- colon polpys) Mother Hypertension Father Diabetes Father No Known Problems Sister No Known Problems Sister No Known Problems Brother Suicide / Suicidal Behaviors Maternal Grandfather No Known Problems Maternal Grandmother Diabetes Paternal Grandmother other (myocardial infarction) Paternal Grandfather Colon Cancer Maternal Uncle 28 Colon Cancer Other Social History Tobacco Use Smoking status: Every Day Packs/day: 0.50 Years: 4.00 Pack years: 2.00 Types: Cigarettes Smokeless tobacco: Never Tobacco comments: 3 cigarettes a day Vaping Use Vaping Use: Never used Substance Use Topics Alcohol use: Not Currently Drug use: No Reviewed current medications, allergies, past medical history, surgical history, family history and social history today. REVIEW OF SYSTEMS RESPIRATORY: Negative for cough, hemoptysis, wheezing, COPD, dyspnea or shortness of breath GI: Negative for change in bowel habit, vomiting All other reviewed and negative other than HPI. VITALS: BP 108/78 Pulse 98 Temp 36.9 C (98.4 F) Ht 167.6 cm (5' 6 ) Wt 86.7 kg (191 lb 3.2 oz) LMP 09/02/2022 (Exact Date) SpO2 98% BMI 30.86 kg/m Last 4 Encounter Wt Readings: Date: Wt: 09/16/2022 86.7 kg (191 lb 3.2 oz) 07/13/2022 86.2 kg (190 lb) 06/14/2022 85.7 kg (189 lb) 05/04/2022 85.1 kg (187 lb 9.6 oz) PHYSICAL EXAMINATION: General appearance: Well appearing, alert, in no acute distress, well-hydrated, well nourished. Skin: Skin color, texture, turgor normal, no suspicious rashes or lesions Head: Normocephalic, no masses, lesions, tenderness or abnormalities Back: mild rt cva tenderness Lungs: Lungs clear to auscultation. No wheezing, rhonchi, rales Heart: RRR without murmur, gallop, or rubs. No ectopy Abdomen: bowel sounds positive. Mild generalized discomfort. No rebound or masses. Advised to call if worsens or becomes focal Chest wall: tender to palpation. ASSESSMENT/PLAN: 1. Acute pyelonephritis - ICD9: 590.10, ICD10: N10 (primary diagnosis) - continue antibiotics. Red flags for re-assessment reviewed with patient in detail. - check labs. See urology. - follow up in two weeks. - get hospital records. Very little is available today - CONSULT TO UROLOGY 2. Sepsis, due to unspecified organism, unspecified whether acute organ dysfunction present (HCC) - ICD9: 038.9, 995.91, ICD10: A41.9 - CBC + DIFF - BASIC METABOLIC PNL - CONSULT TO UROLOGY 3. 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 Recurrent urinary tract infection - ICD9: 599.0, ICD10: N39.0 - CONSULT TO UROLOGY 5. Chest pain, unspecified type - ICD9: 786.50, ICD10: R07.9 - appears musculoskeletal. Doug Garcia MD documented in this encounter [facility] 08-29-2022 Miscellaneous Notes Withdrawal bleeding can happen 3-7 days after stopping the medication. Today is day 3 so I would give it more time. If severe pain, vomiting, inability to gertrudis PO to go to ER. If pain persistent for 1 week or more and no menses, check HCG and pelvic US documented in this encounter [facility] 08-17-2022 Miscellaneous Notes See result note Orders placed documented in this encounter [facility] 07-13-2022 Instructions Joyce Barone MD - 07/13/2022 4:24 PM EDT INSTRUCTIONS Femara: 1 tablet (s) a day, cycle days 3-7 Note: 1st day of full flow is cycle day 1 Have sexual intercourse approximately every other day for at least 1 week beginning cycle day 10 Start checking ovulation predictor kits on cycle day 9 Get your progesterone level drawn on cycle day 21 or 7 days before the expected start of your next period If normal 28 - 32 day cycle, repeat above for a total of 3 cycles Call office if: cycles longer than 35 days not after 3 regular cycles Side effects may include: abdominal discomfort and/or ovarian cysts headache hot flushes mood changes nausea visual changes If side effects are severe, alternative medications are available. There is an increased chance of multiple (twins or more). Progesterone: May be given to bring on a period if you have not had a period after 40 days and a home test is negative. Continue to take Progesterone if you have light bleeding. Expect to bleed within 2 weeks of finishing Progesterone. documented in this encounter [facility] 07-13-2022 History of Present illness Narrative Sanaz Lopez is a 22 year old female who presents for follow up. HPI: Here for spotting x 17 days and new pelvic pain. Has been trying to conceive and has DUB. Had 1 menses in February. No menses otherwise. Having new pelvic pain in RLQ. This pain started around the same time the spotting did. Feels like a sharp, stabbing pain. The pain comes and goes. Most days she will have the pain. No other symptoms associated with the pain. 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 History LMP: 06/01/2022 (Exact Date), Having periods Age at Menarche: Age at First : Age at Menopause: Employment Interviewer History Comments: Sexual Activity: Yes; Male Contraception: None PAST MEDICAL HISTORY Diagnosis Date Acute appendicitis 12/02/2016 Concussion 04/07/2013 Congenital abnormality of ureter 4 URETERS, DUPLICATED DRAINAGE SYSTEM Convulsions (HCC) 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 GDM. Diabetic education and patient intake representative counseling ordered. Anamika Eric APRN.LISA PCOS (polycystic ovarian syndrome) Seizure (HCC) was told due to anxiety Wrist fracture 12/24/2014 PAST SURGICAL HISTORY Procedure Laterality Date CYSTOSCOPY LAPAROSCOPIC APPENDECTOMY 12/02/2016 OTHER 2016 WISDOM TEETH EXTRACTION PAST SURGICAL HISTORY OF Left 10/25/2017 SALK, extensive synovectomy, patella chodroplasty FAMILY HISTORY Problem Relation Age of Onset Hypertension Mother other (GI- colon polpys) Mother Hypertension Father Diabetes Father No Known Problems Sister No Known Problems Sister No Known Problems Brother Suicide / Suicidal Behaviors Maternal Grandfather No Known Problems Maternal Grandmother Diabetes Paternal Grandmother other (myocardial infarction) Paternal Grandfather Colon Cancer Maternal Uncle 28 Colon Cancer Other Social History Tobacco Use Smoking status: Every Day Packs/day: 0.50 Years: 4.00 Pack years: 2.00 Types: Cigarettes Smokeless tobacco: Never Tobacco comments: 3 cigarettes a day Vaping Use Vaping Use: Never used Substance Use Topics Alcohol use: Not Currently Drug use: No Current Outpatient Medications Medication Sig [id number] 267 mcg-321 mg- 250 mg CPTw Take by mouth. medroxyPROGESTERone (PROVERA) 10 mg tablet Take 1 tablet by mouth once daily for 10 days. letrozole (FEMARA) 2.5 mg tablet Take 1 tablet by mouth once daily. On cycles day 3-7. predniSONE (DELTASONE) 20 mg tablet Take 2 tablets by mouth once daily. (Patient not taking: Reported on 07/13/2022) No current facility-administered medications for this visit. Allergies As of Date: 07/13/2022 Allergen Noted Reaction BACTRIM DS [SULFAMETHOXAZOLE-TRIM*08/21/2018 Rash Fully Assessed 07/13/2022 REVIEW OF SYSTEMS Abdomen: No bloating, early satiety, indigestion, or increased flatulence. No abdominal pain, nausea, vomiting, diarrhea, or constipation. Bladder: No dysuria, gross hematuria, urinary frequency, urinary urgency, or incontinence. Expanded ROS: N/A Allergies and current medication updated:Yes EXAM: BP 120/72 Wt 190 lb (86.2kg) LMP 06/01/2022 GENERAL: pleasant, female in no apparent distress HEENT: Normocephalic, atraumatic, mucus membranes moist, and no lesions NECK: full range of motion DERMATOLOGY: Normal, without lesions, non-icteric, and non-hirsute CHEST: Normal inspiratory effort NEURO: exam grossly non-focal EXTREMITIES: normal ASSESSMENT AND PLAN: Encounter Diagnosis ICD-10-CM 1. Abnormal uterine bleeding (AUB) N93.9 HCG QUAL UR B/O medroxyPROGESTERone (PROVERA) 10 mg tablet letrozole (FEMARA) 2.5 mg tablet PROGESTERONE BLD 2. PCOS (polycystic ovarian syndrome) E28.2 medroxyPROGESTERone (PROVERA) 10 mg tablet letrozole (FEMARA) 2.5 mg tablet PROGESTERONE BLD 3. Desire for Z31.9 medroxyPROGESTERone (PROVERA) 10 mg tablet letrozole (FEMARA) 2.5 mg tablet PROGESTERONE BLD Discussed r/b/a to Femara and patient counseled. She desires to start Femara. Discussed risk of obesity with . She understands the importance of weight loss. Had recent fasting glucose and Hgb a1c. Check test today. Discussed referral to [facility] after 3 cycles if no . Joyce Barone DO Medical Decision Making: Problems: Low: Acute, uncomplicated illness or injury and Stable chronic illness Data: Unique test(s) ordered: 2 Risk: Moderate: Drug management Medical Decision Making Level: 3 - Low Patient Instructions INSTRUCTIONS Femara: 1 tablet (s) a day, cycle days 3-7 Note: 1st day of full flow is cycle day 1 Have sexual intercourse approximately every other day for at least 1 week beginning cycle day 10 Start checking ovulation predictor kits on cycle day 9 Get your progesterone level drawn on cycle day 21 or 7 days before the expected start of your next period If normal 28 - 32 day cycle, repeat above for a total of 3 cycles Call office if: cycles longer than 35 days not after 3 regular cycles Side effects may include: abdominal discomfort and/or ovarian cysts headache hot flushes mood changes nausea visual changes If side effects are severe, alternative medications are available. There is an increased chance of multiple (twins or more). Progesterone: May be given to bring on a period if you have not had a period after 40 days and a home test is negative. Continue to take Progesterone if you have light bleeding. Expect to bleed within 2 weeks of finishing Progesterone. documented in this encounter [facility] 06-18-2022 History of Present illness Narrative Orders Only on 06/18/22 GLUCOSE FASTING BLD HGB A1C Shoaib Mcnamara PA-C documented in this encounter [facility] 06-14-2022 Miscellaneous Notes Pt returned the call & was notified of message. Appt was scheduled with Mayela mon & pt was transferred to electrical and radio aircraft mechanic to schedule with POLITICAL ANTHROPOLOGISTZackery Hahn LPN documented in this encounter [facility] 05-06-2022 Miscellaneous Notes Patient returned call and went over results, notes from Express care provider with understanding. Left VM instructing patient to return call. Jimena Brown MA Urine culture did not show a clear infection. She can finish antibiotic if it seems to be helping and follow up with PCP, urology, or POLITICAL ANTHROPOLOGIST if symptoms persist. documented in this encounter [facility] 05-04-2022 Instructions Anamika Jones APRN.TRAVEL AGENCY MANAGER - 05/04/2022 3:37 PM EDT Images from the original note were not included. NONSPECIFIC RASH: Our exam shows you have a rash which has no clear cause. Rashes can result from infections, allergies, or irritation of the skin by chemicals or other environmental factors. Rashes can also result from scratching or rubbing the skin too much to relieve itching. Further medical examination may be needed to identify the specific cause and proper treatment of your skin rash. You should treat your rash as recommended by your doctor. If you have itching, you should avoid scratching as much as possible, as this further damages the skin. Ask your doctor or pharmacist if you have any questions about what topical medicines may help relieve your symptoms. Call your doctor right away if your rash is not better in 2-3 days, if it worsens, or if there are signs of infection (increased pain, redness, drainage or pus).Urinary Problem-When to Seek Help? Symptoms of a urinary problem may lead to a bladder infection. Women are at greater risk of a urinary tract infection than are men. Most urinary tract infections in women are caused by bacteria and involve the lower urinary tract including the bladder and urethra. Symptoms: Pain or burning when passing urine, urgency, frequency, blood in the urine, difficult emptying your bladder, and lower abdominal fullness or pressure. Common Causes: Sexual intercourse, menopause, constipation, uncontrolled diabetes, dehydration and feminine products such as tampons, and kidney stones. When to Get Help: Seek medical attention if you get frequent bladder infections, urinary concerns such as leakage, blood in the urine or frequent need to urinate. You may be recommended to get help from a specialist, such as a urologist. Diagnosis & Treatment: Lab testing may include: urinalysis, and urine culture that can be collected in the lab or walk-in clinic. Most bladder infections can easily be treated. A physician, nurse practitioner or physician geriatric assistant may treat with a short course of an antibiotic. Delaying treatment can lead to worsening symptoms, like a kidney infection. Self-Care: Avoid a full bladder, bubble baths, bath oils, food and beverages that may irritate the bladder such as caffeine. Avoid spermicide foam and diaphragms Void before and after sexual intercourse Wipe front to back after using the bathroom. Stay hydrated Stop Smoking Follow-up Care: Follow up testing is not needed in healthy young women if symptoms resolve. documented in this encounter [facility] 05-04-2022 History of Present illness Narrative Images from the original note were not included. This note was created using QR Artist. Subjective Sanaz Lopez is a 21 year old female. 21 year old female with PMH of congenital anomaly of the ureter presents with c/o uti symptoms and rash. Acute onset 5 days Locates pain in b/l flank area. Non-radiating 5/10 Denies fever/chills, vomiting, and urgency Positive for nausea, frequency, pelvic pressure, white vaginal d/c, possible , and 3 lesions on b/l thighs. LMP 1.5 months ago Pt states My son and step daughter were diagnosed with impetigo and I think I may have gotten it UTI This is a new problem. The current episode started more than 1 week ago. The problem occurs every urination. The problem has been gradually worsening. The pain is at a severity of 5/10. The pain is mild. There has been no fever. She is sexually active. There is no history of pyelonephritis. Associated symptoms include nausea, discharge, frequency, possible and flank pain. Pertinent negatives include no chills, no sweats, no vomiting, no hematuria, no hesitancy and no urgency. She has tried nothing for the symptoms. Her past medical history is significant for recurrent UTIs. Her past medical history does not include kidney stones, single kidney, urological procedure, urinary stasis or catheterization. PAST MEDICAL HISTORY Diagnosis Date Acute appendicitis 12/02/2016 Concussion 04/07/2013 Congenital abnormality of ureter 4 URETERS, DUPLICATED DRAINAGE SYSTEM Convulsions (HCC) 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 GDM. Diabetic education and patient intake representative counseling ordered. Anamika Eric APRN.LISA PCOS (polycystic ovarian syndrome) Seizure (HCC) was told due to anxiety Wrist fracture 12/24/2014 PAST SURGICAL HISTORY Procedure Laterality Date CYSTOSCOPY LAPAROSCOPIC APPENDECTOMY 12/02/2016 OTHER 2016 WISDOM TEETH EXTRACTION PAST SURGICAL HISTORY OF Left 10/25/2017 SALK, extensive synovectomy, patella chodroplasty ALLERGIES Bactrim Ds [Sulfamethoxazole-Trimethoprim] MEDICATIONS [id number] 267 mcg-321 mg- 250 mg CPTw Take by mouth. predniSONE (DELTASONE) 10 mg tablet Take 4 tabs daily for 3 days, then 2 tabs daily for 3 days, then 1 tab daily for 3 days with food. nitrofurantoin monohydrate and macrocrystal (MACROBID) 100 mg capsule Take 1 capsule by mouth twice daily for 7 days. tranexamic acid (LYSTEDA) 650 mg tablet Take 2 tablets by mouth three times daily as needed (heavy menstrual bleeding) for up to 5 days. sertraline (ZOLOFT) 25 mg tablet Take 1 tablet by mouth once daily. For 1 week. Then increase dose to 2 tabs daily ongoing. FAMILY HISTORY Problem Relation Age of Onset Hypertension Mother other (GI- colon polpys) Mother Hypertension Father Diabetes Father No Known Problems Sister No Known Problems Sister No Known Problems Brother Suicide / Suicidal Behaviors Maternal Grandfather No Known Problems Maternal Grandmother Diabetes Paternal Grandmother other (myocardial infarction) Paternal Grandfather Colon Cancer Maternal Uncle 28 Colon Cancer Other Social History Tobacco Use Smoking status: Current Every Day Smoker Packs/day: 0.50 Years: 4.00 Pack years: 2.00 Types: Cigarettes Smokeless tobacco: Never Used Tobacco comment: 3 cigarettes a day Vaping Use Vaping Use: Never used Substance Use Topics Alcohol use: Not Currently Drug use: No Review of Systems Constitutional: Negative for activity change, appetite change, chills and fever. HENT: Negative for congestion, dental problem, drooling, ear discharge, ear pain and facial swelling. Eyes: Negative for pain, discharge, redness and itching. Respiratory: Negative for cough, chest tightness, shortness of breath and wheezing. Cardiovascular: Negative for chest pain. Gastrointestinal: Positive for nausea. Negative for abdominal distention, abdominal pain, blood in stool, constipation, diarrhea, rectal pain and vomiting. Endocrine: Negative for cold intolerance and heat intolerance. Genitourinary: Positive for flank pain, frequency, menstrual problem, pelvic pain and vaginal discharge. Negative for decreased urine volume, difficulty urinating, dyspareunia, dysuria, enuresis, genital sores, hematuria, hesitancy, urgency, vaginal bleeding and vaginal pain. Musculoskeletal: Negative for back pain and gait problem. Skin: Positive for rash. Negative for color change, pallor and wound. Allergic/Immunologic: Negative for environmental allergies and food allergies. Neurological: Negative for dizziness, facial asymmetry, light-headedness and headaches. Psychiatric/Behavioral: Negative for agitation, behavioral problems, confusion and decreased concentration. Objective BP 114/76 Pulse 85 Temp 37.1 C (98.8 F) Resp 21 Wt 85.1 kg (187 lb 9.6 oz) LMP 03/28/2022 (Exact Date) SpO2 99% BMI 30.28 kg/m Physical Exam Vitals and nursing note reviewed. Exam conducted with a clinical documentation spec present (). Constitutional: General: She is not in acute distress. Appearance: Normal appearance. She is normal weight. She is not ill-appearing, toxic-appearing or diaphoretic. HENT: Head: Normocephalic. Right Ear: Tympanic membrane, ear canal and external ear normal. There is no impacted cerumen. Left Ear: Tympanic membrane, ear canal and external ear normal. There is no impacted cerumen. Nose: Nose normal. No congestion or rhinorrhea. Mouth/Throat: Mouth: Mucous membranes are moist. Pharynx: Oropharynx is clear. No oropharyngeal exudate or posterior oropharyngeal erythema. Eyes: General: No scleral icterus. Right eye: No discharge. Left eye: No discharge. Extraocular Movements: Extraocular movements intact. Conjunctiva/sclera: Conjunctivae normal. Pupils: Pupils are equal, round, and reactive to light. Cardiovascular: Rate and Rhythm: Normal rate and regular rhythm. Pulses: Normal pulses. Heart sounds: Normal heart sounds. No murmur heard. Pulmonary: Effort: Pulmonary effort is normal. Breath sounds: Normal breath sounds. No stridor. No wheezing or rhonchi. Abdominal: General: Bowel sounds are normal. There is no distension. Palpations: Abdomen is soft. There is no mass. Tenderness: There is abdominal tenderness. There is no right CVA tenderness, left CVA tenderness, guarding or rebound. Hernia: No hernia is present. Comments: Lower pelvic pain on palpation. No CVA tenderness. Genitourinary: Vagina: Vaginal discharge present. Comments: Pt states she has had normal white discharge. Denies odor, pain or any concerns for STD's. Musculoskeletal: General: No swelling, tenderness, deformity or signs of injury. Normal range of motion. Cervical back: Normal range of motion. No rigidity or tenderness. Right lower leg: No edema. Left lower leg: No edema. Skin: General: Skin is warm and dry. Capillary Refill: Capillary refill takes less than 2 seconds. Coloration: Skin is not pale. Findings: Lesion and rash present. No erythema. Rash is macular and papular. Rash is not crusting, purpuric, scaling or vesicular. Comments: Two lesion. One on upper left thigh. One on upper right thigh. macular papular pruritic circular based lesions. No crusting noted. Neurological: General: No focal deficit present. Mental Status: She is alert and oriented to person, place, and time. Motor: No weakness. Psychiatric: Mood and Affect: Mood normal. Behavior: Behavior normal. Thought Content: Thought content normal. Judgment: Judgment normal. Assessment and Plan ASSESSMENT/PLAN: 1. UTI symptoms - ICD9: 788.99, ICD10: R39.9 (primary diagnosis) RX-Macrobid - UA DIP, URINE (POC) Positive for small Leuk RX Macrobid Prevention Discussed - URINE CULTURE - HCG QUAL UR B/O 2. Missed menses - ICD9: 626.4, ICD10: N92.6 - HCG QUAL UR B/O POC done-NEGATIVE 3. Rash - ICD9: 782.1, ICD10: R2 macular papular pruritic circular based lesions. No crusting noted. RX-prednisone - Follow-up with your PCP in 3-5 days if symptoms have not improved or sooner if symptoms worsen - Discussed red flags and need for immediate medical evaluation if any occur. - Discussed supportive care treatment with fluids, rest and analgesia. - Discussed expected course of illness Lucila Isabel-[facility] TEACHING PROVIDER (Physician/PA/SALMON TROLL FISHER) NOTE OF PERSONAL INVOLVEMENT IN CARE: I have personally seen and examined the patient and performed the medical decision-making components. I have reviewed the Advanced Practice Registered Nurse (SALMON TROLL FISHER) Student's documentation and verified the findings in the note as written. Any additions or changes are noted in bold/italics. Signature: Anamika Jones Date: 05/05/2022 Time: 1:45 PM documented in this encounter [facility] 03-29-2022 Miscellaneous Notes Patient notified. Appointment given for today. Aware she needs blood work. Coming from [place] so will not have time to stop at the lab first. Mireya Marrero RN Would be happy to see her today. Needs CBC/HCG. May need something to decrease bleeding amount but will likely only slow it for a short time. Since she hasn't had bleeding in a while, she likely has a lot to shed. If she can't come in at least get labs drawn. Thanks. Lianna Cisneros MD Patient called stating that her last menses was 06/04/2020 before she had her last baby. Patient breastfeed X 9 months after having baby & not been taking any birthcontrol. Pt. Dr. Barone 03/11/2022 for amenorrhea & was told labs came back consistant w/ PCOS. Neg. HCg quant. Patient states that she began to have heavy vaginal bleeding last evening and has been saturating super tampon and bleeding onto a pad in 1 to 1.5 hours since last evening. Denies cramping. Patient denies CP, no SOB, or dizziness. C/o of feeling tired . Please advise. documented in this encounter [facility] 03-11-2022 History of Present illness Narrative Sanaz Lopez is a 21 year old female who presents for problem visit - secondary amenorrhea. HPI: Has not had period since delivery of her son. Her son just turned 1 year old. Stopped when he was 9 months old. No family history of premature ovarian failure. Prior to having her son her menstrual cycles were irregular. She reports she was skip periods for 1-3 months at a time. Had lab work as noted below. H/o PCOS with irregular cycles and elevated testosterone levels. She was on Femara prior to conceiving with her son. Here today with her partner. She is not sure if she wants to start to try to conceive at this time, or desires contraception. They will discuss. Component Latest Ref Rng & Units 02/08/2018 Testosterone <40 ng/dL 55 (H) Testosterone Free % 0.8 - 2.3 % 2.3 Testosterone Free 1.8 - 10.4 pg/mL 12.7 (H) Hemoglobin A1C 4.3 - 5.6 % 5.5 Estimated Average Glucose mg/dL 111 TSH 0.400 - 5.500 uU/mL 1.570 Prolactin 4.5 - 26.8 ng/mL 10.2 DHEA-S 65.1 - 368.0 ug/dL 319.3 Hydroxyprogesterone <=206.00 ng/dL 65.40 FSH mU/mL 4.6 LH mU/mL 14.9 Estradiol 17B pg/mL 52 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 History LMP: 06/04/2020 (Exact Date), Unknown Age at Menarche: Age at First : Age at Menopause: Employment Interviewer History Comments: Sexual Activity: Yes; Male Contraception: None PAST MEDICAL HISTORY Diagnosis Date Acute appendicitis 12/02/2016 Concussion 04/07/2013 Congenital abnormality of ureter 4 URETERS, DUPLICATED DRAINAGE SYSTEM Convulsions (HCC) 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 GDM. Diabetic education and patient intake representative counseling ordered. Anamika Eric APRN.LISA PCOS (polycystic ovarian syndrome) Seizure (HCC) was told due to anxiety Wrist fracture 12/24/2014 PAST SURGICAL HISTORY Procedure Laterality Date CYSTOSCOPY LAPAROSCOPIC APPENDECTOMY 12/02/2016 OTHER 2016 WISDOM TEETH EXTRACTION PAST SURGICAL HISTORY OF Left 10/25/2017 SALK, extensive synovectomy, patella chodroplasty FAMILY HISTORY Problem Relation Age of Onset Hypertension Mother other (GI- colon polpys) Mother Hypertension Father Diabetes Father No Known Problems Sister No Known Problems Sister No Known Problems Brother Suicide / Suicidal Behaviors Maternal Grandfather No Known Problems Maternal Grandmother Diabetes Paternal Grandmother other (myocardial infarction) Paternal Grandfather Colon Cancer Maternal Uncle 28 Colon Cancer Other Social History Tobacco Use Smoking status: Former Smoker Packs/day: 0.50 Years: 4.00 Pack years: 2.00 Types: Cigarettes Smokeless tobacco: Never Used Tobacco comment: 3 cigarettes a day Vaping Use Vaping Use: Never used Substance Use Topics Alcohol use: Not Currently Drug use: No Current Outpatient Medications Medication Sig sertraline (ZOLOFT) 25 mg tablet Take 1 tablet by mouth once daily. For 1 week. Then increase dose to 2 tabs daily ongoing. [id number] 267 mcg-321 mg- 250 mg CPTw Take by mouth. No current facility-administered medications for this visit. Allergies As of Date: 03/11/2022 Allergen Noted Reaction BACTRIM DS [SULFAMETHOXAZOLE-TRIM*08/21/2018 Rash Fully Assessed 03/11/2022 REVIEW OF SYSTEMS Expanded ROS: N/A Allergies and current medication updated:Yes EXAM: BP 102/66 Wt 187 lb 12.8 oz (85.2kg) LMP 06/04/2020 GENERAL: pleasant, female in no apparent distress HEENT: Normocephalic, atraumatic, mucus membranes moist and no lesions NECK: full range of motion CHEST: Normal inspiratory effort NEURO: exam grossly non-focal EXTREMITIES: normal ASSESSMENT AND PLAN: Encounter Diagnosis ICD-10-CM 1. Secondary amenorrhea N91.1 TSH BLD PROLACTIN BLD TESTOSTERONE TOTAL FSH BLD LUTEINIZING HORMONE HGB A1C GLUCOSE FASTING BLD HCG QUANTITATIVE Lab work as noted above. Discussed with patient PCOS given h/o irregular cycles and elevated testosterone levels, and this is likely the cause of her secondary amenorrhea. Delivery of son was not complicated by hemorrhage. Stopped about 3 months ago. She reports a faint positive test, followed by a negative test. She is undecided if she desires to start Femara at this time. Discussed recommendation for [facility] if she does not desire conception for PCOS and endometrial protection. If she does desire , can proceed with Femara and Provera. Joyce Barone DO Medical Decision Making: Problems: Low: Stable chronic illness Data: Unique test(s) ordered: 3+ Risk: Low: Low risk from testing/treatment Medical Decision Making Level: 3 - Low documented in this encounter [facility] 02-07-2022 Miscellaneous Notes Patient has been identified by name and date of : Yes Pending Prescriptions Disp Refills SERTRALINE 25 MG TABLET 60 tablet 1 Sig: Take 1 tablet by mouth once daily. For 1 week. Then increase dose to 2 tabs daily ongoing. GUCCI: No RX INSTRUCTIONS: Patient aware RX will be sent to pharmacy. No need to notify patient. Tricia Livingston MA [place]; 08/2020 with provider No appointment scheduled Last refill: 10/2021 60 tablets 1 refills documented in this encounter [facility] 02-06-2022 Instructions Anamika Jones APRN.TRAVEL AGENCY MANAGER - 02/06/2022 1:27 PM EDT Images from the original note were not included. Adult Sinusitis Patient Education What is Sinusitis? Sinusitis [afik-[id number]-[id number]] is inflammation of the sinuses or swelling of the lining of the sinus cavity or nose. During an infection the sinuses become blocked with fluid causing swelling of the lining of the sinuses. Symptoms: (viral and bacterial infections) Stuffy nose Runny nose Postnasal drip Fever Toothache Headache Tiredness Cough Sore throat Face and head pressure and or pain Common causes: 98% of sinus infections are viral caused by viruses. Risk Factors of Sinusitis Include: Allergies, air pollution, indoor humidity and outdoor temperature changes, andstructural changes in the nose may contribute to sinus pain, pressure and congestion. When to get help? Temperature greater than 100.4 F Symptoms lasting more than 10 days or worsening symptoms greater than 7-10 days. If you do not improve or worsen after a course of antibiotics, you should be re-examined. Diagnosis and Treatment: Your healthcare provider will ask a number of questions about your symptoms and how long they have occurred. If symptoms of sinusitis persist greater than 10 days, it is possible you have a bacterial sinus infection and an antibiotic is prescribed. If it is viral, antibiotics will not help. You may be instructed to take kayp-lof-[id number] medications for symptoms. including fever reducers acetaminophen or ibuprofen, nasal saline spray, cough and cold preparations and decongestants as prescribed by the physician, nurse practitioner or physician geriatric assistant. Self-Care and Prevention: Rest Fluids for hydration Good hand washing Humidifier Avoid smoking and exposure to second hand smoke Avoid sick contacts RESPIRATORY INFECTION GENERAL INFORMATION: An upper respiratory tract infection, or cold, is a viral infection of the airway passages. It can be caused by any one of almost 200 different viruses. Common symptoms include a runny or stuffy nose, sneezing, watery eyes, sore throat, cough, and slight fever. Colds are contagious, especially during the first 3 or 4 days and cannot be cured by antibiotics. They are spread by coughs, sneezes, and direct contact, especially [id number]. A respiratory tract infection usually clears up in a few days, but some people may be sick for a week or two. INSTRUCTIONS: 1. Be careful not to blow your nose too hard because this may cause a nosebleed. 2. Use a cool-mist humidifier (vaporizer) to increase air moisture. This will make it easier for you to breathe. Do not use hot steam. 3. Rest as much as possible and get plenty of sleep. 4. Wash your hands often, especially after you blow your nose. Cover your mouth and nose with a tissue when you sneeze or cough. 5. Drink plenty of clear fluids (8 glasses a day) such as water, fruit juice, tea, clear soups, and carbonated beverages. CONTACT YOUR DOCTOR IF : 1. Your fever lasts more than 3 days. 2. You have a sore throat that gets worse or you see white or yellow spots in your throat. 3. Your cough gets worse or lasts more than 10 days. 4. You develop a rash anywhere on your skin. 5. You have an earache or a headache. 6. You have thick greenish or yellowish discharge from your nose. RETURN IMMEDIATELY IF: 1. You cough up thick yellow, green, min, or bloody sputum. 2. You have difficulty breathing, pain in your chest, or your skin or nails look min or blue. 3. You have shaking chills or a temperature over 102 F (39 C). documented in this encounter [facility] 02-06-2022 History of Present illness Narrative This note was created using [employer]. Subjective Sanaz Lopez is a 21 year old female. 21 year old female with PMH seizures and anxiety presents for complaints of sinus infection. Acute onset 2 weeks ago. +runny nose + nasal congestion +sinus pressure + headache +bilateral ear pain +post nasal drainage + cough Has used Mucinex without much relief Denies SOB or CP. Denies hemoptysis. +tobacco usage. The history is provided by the patient. No english language arts teacher was used. Sinus Problem This is a new problem. The current episode started 1 to 4 weeks ago. The problem occurs constantly. The problem has been unchanged. Associated symptoms include congestion, coughing and headaches. Pertinent negatives include no abdominal pain, anorexia, arthralgias, change in bowel habit, chest pain, chills, diaphoresis, fatigue, fever, joint swelling, myalgias, nausea, neck pain, numbness, rash, sore throat, swollen glands, urinary symptoms, vertigo, visual change, vomiting or weakness. Nothing aggravates the symptoms. Treatments tried: Mucinex. The treatment provided mild relief. PAST MEDICAL HISTORY Diagnosis Date Acute appendicitis 12/02/2016 Concussion 04/07/13 Congenital abnormality of ureter 4 URETERS, DUPLICATED DRAINAGE SYSTEM Convulsions (HCC) 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 GDM. Diabetic education and patient intake representative counseling ordered. Anamika Eric APRN.LISA Seizure (HCC) was told due to anxiety Wrist fracture 12/24/2014 PAST SURGICAL HISTORY Procedure Laterality Date CYSTOSCOPY LAPAROSCOPY, SURGICAL, APPENDECTOMY 12/02/2016 OTHER 2016 WISDOM TEETH EXTRACTION PAST SURGICAL HISTORY OF Left 10/25/2017 SALK, extensive synovectomy, patella chodroplasty ALLERGIES Bactrim Ds [Sulfamethoxazole-Trimethoprim] MEDICATIONS sertraline (ZOLOFT) 25 mg tablet Take 1 tablet by mouth once daily. For 1 week. Then increase dose to 2 tabs daily ongoing. [id number] 267 mcg-321 mg- 250 mg CPTw Take by mouth. amoxicillin-clavulanic acid (AUGMENTIN) 875-125 mg per tablet Take 1 tablet by mouth twice daily for 10 days. FAMILY HISTORY Problem Relation Age of Onset Hypertension Mother other (GI- colon polpys) Mother Hypertension Father Diabetes Father No Known Problems Sister No Known Problems Sister No Known Problems Brother Suicide / Suicidal Behaviors Maternal Grandfather No Known Problems Maternal Grandmother Diabetes Paternal Grandmother other (myocardial infarction) Paternal Grandfather Colon Cancer Maternal Uncle 28 Colon Cancer Other Social History Tobacco Use Smoking status: Former Smoker Packs/day: 0.50 Years: 4.00 Pack years: 2.00 Types: Cigarettes Smokeless tobacco: Never Used Tobacco comment: 3 cigarettes a day Vaping Use Vaping Use: Never used Substance Use Topics Alcohol use: Not Currently Drug use: No Review of Systems Constitutional: Negative for chills, diaphoresis, fatigue and fever. HENT: Positive for congestion, ear pain, postnasal drip, sinus pressure and sinus pain. Negative for drooling, ear discharge and sore throat. Eyes: Negative for photophobia, pain, discharge, redness, itching and visual disturbance. Respiratory: Positive for cough. Negative for apnea, choking, chest tightness, shortness of breath and stridor. Cardiovascular: Negative for chest pain, palpitations and leg swelling. Gastrointestinal: Negative for abdominal pain, anorexia, change in bowel habit, diarrhea, nausea and vomiting. Musculoskeletal: Negative for arthralgias, joint swelling, myalgias and neck pain. Skin: Negative for color change and rash. Allergic/Immunologic: Negative for environmental allergies, food allergies and immunocompromised state. Neurological: Positive for headaches. Negative for dizziness, vertigo, facial asymmetry, weakness, light-headedness and numbness. Hematological: Negative for adenopathy. Does not bruise/bleed easily. Psychiatric/Behavioral: Negative for agitation and behavioral problems. Objective BP 118/80 Pulse 94 Temp 36.5 C (97.7 F) Resp 14 Wt 85 kg (187 lb 6.4 oz) LMP 06/04/2020 (Exact Date) SpO2 99% BMI 30.25 kg/m Physical Exam Vitals and nursing note reviewed. Constitutional: General: She is not in acute distress. Appearance: Normal appearance. She is normal weight. She is not ill-appearing, toxic-appearing or diaphoretic. HENT: Head: Normocephalic and atraumatic. Comments: +frontal and maxillary sinus TTP Right Ear: Ear canal and external ear normal. Left Ear: Ear canal and external ear normal. Ears: Comments: Mildly erythematic TMs bilaterally Nose: Nose normal. No congestion or rhinorrhea. Mouth/Throat: Mouth: Mucous membranes are moist. Pharynx: No oropharyngeal exudate or posterior oropharyngeal erythema. Eyes: General: Right eye: No discharge. Left eye: No discharge. Extraocular Movements: Extraocular movements intact. Conjunctiva/sclera: Conjunctivae normal. Pupils: Pupils are equal, round, and reactive to light. Cardiovascular: Rate and Rhythm: Normal rate and regular rhythm. Pulses: Normal pulses. Heart sounds: Normal heart sounds. No murmur heard. No friction rub. Pulmonary: Effort: Pulmonary effort is normal. No respiratory distress. Breath sounds: Normal breath sounds. No stridor. No wheezing, rhonchi or rales. Chest: Chest wall: No tenderness. Abdominal: General: Abdomen is flat. There is no distension. Palpations: Abdomen is soft. There is no mass. Tenderness: There is no abdominal tenderness. There is no right CVA tenderness, left CVA tenderness, guarding or rebound. Hernia: No hernia is present. Musculoskeletal: General: No swelling, tenderness, deformity or signs of injury. Normal range of motion. Cervical back: Normal range of motion and neck supple. No rigidity. Right lower leg: No edema. Left lower leg: No edema. Lymphadenopathy: Cervical: No cervical adenopathy. Skin: General: Skin is warm and dry. Coloration: Skin is not jaundiced or pale. Findings: No bruising, erythema, lesion or rash. Neurological: General: No focal deficit present. Mental Status: She is alert and oriented to person, place, and time. Cranial Nerves: No cranial nerve deficit. Sensory: No sensory deficit. Motor: No weakness. Coordination: Coordination normal. Gait: Gait normal. Psychiatric: Mood and Affect: Mood normal. Behavior: Behavior normal. Thought Content: Thought content normal. Judgment: Judgment normal. Assessment and Plan ASSESSMENT/PLAN: 1. Acute sinusitis, recurrence not specified, unspecified location - ICD9: 461.9, ICD10: J01.90 (primary diagnosis) Ongoing x 2 weeks +tobacco smoker - Will begin treatment with as per antibiotic as written, see orders - The patient should also be given OTC cough and cold meds as needed, warm salt water gargles, throat lozenges and/or OTC throat spray as needed and nasal saline gtts and suction prn for the first 5-7 days of treatment. - Supportive care with plenty of fluids, rest, and analgesia prn. - Follow up in 3-5 days if symptoms persist or worsen. 2. Tobacco abuse - ICD9: 305.1, ICD10: Z72.0 - Cessation encouraged. - Physiologic and physical aspects of tobacco addiction as well as strategies for quitting were discussed. - Counseling was given focusing on the harmful effects of this addiction especially given the patient's medical condition(s) which will be worsened because of the chemicals in tobacco. 3. URI, acute - ICD9: 465.9, ICD10: J06.9 - Symptomatic treatment with prn analgesia - Supportive care with fluids and rest Anamika Jones APRN.[employer] AG[employer] MANAGER documented in this encounter [facility] documented as of this encounter (statuses as of 02/06/2022) [facility]03-15-[facility]21 History of Past illness Narrative* Problem Noted Date Resolved Date Insulin controlled gestation al diabetes mellitus (GDM) in third trimester 01/11/2021 03/12/2021 Overview: 01/11/21-3hr GTT elevated. GDM. Diabetic education and patient intake representative counseling ordered. Anamika Eric APRN.CNM Abnormal glucose in , antepartum 202003/12/2021 Overview: 12/29/20-1hr GCT 192, 3hr GTT ordered. 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 She did use Femara to attain . TKRN Nausea and vomiting in 07/20/2020 03/12/2021 Overview: 07/20/2020Patient is complaining of nausea and occasional vomiting in . Dietary considerations discussed . Vitamin B6 recommended. Advised patient to call/come in if she is unable to keep any food or fluids down in a 24-hour period.TKRN Tobacco use during , antepartum 020 03/12/2021 Overview: 07/29/20 Quit! SW 07/20/2020Pt mokes 3 cigarettes a day, doen from 1/2 pack a day. Discussed risks of smoking during . Advised pt to quit. TKRN Patient request for diagnostic testing 0 03/12/2021 Overview: 07/29/20 Declined aneuploidy and carrier screening. SW 07/20/2020Patient desires nuchal ultrasound. Declines genetic carrier screening testing.Mirian Izquierdo RN Convulsions 12/27/2019 03/12/2021 Last Assessment & Plan: Assessment: 19 year old right handed female admitted to the epilepsy monitoring unit for diagnosis of events. She has had 3 lifetime events in the setting of stress/anxiety that starts with neck spasms, then hyperventilation, then full body trembling/shaking. She maintains awareness throughout, without TB or UI. Epilepsy risk factors include head trauma (3 concussions, but never with LOC). EEG in June 2012 and May 2019 were normal. No brain MRIs on file. PLAN: -Discontinue video EEG -AEDs: None -Seizure and fall precautions - Follow up with PCP Transition of care performed with sharing of clinical summary 01/07/2019 08/22/2019 Overview: Admitted through ED with abdominal pain. Abd CT negative. Hgb 16.6 (H), venous blood gas drawn with mildly elevated CO2. CBC, CMP, amylase WNL. 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 GDM. Diabetic education and patient intake representative counseling ordered. Anamika Eric APRN.CNM Abnormal glucose in , antepartum 202003/12/2021 Overview: 12/29/20-1hr GCT 192, 3hr GTT ordered. 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 She did use Femara to attain . TKRN Nausea and vomiting in 07/20/2020 03/12/2021 Overview: 07/20/2020Patient is complaining of nausea and occasional vomiting in . Dietary considerations discussed . Vitamin B6 recommended. Advised patient to call/come in if she is unable to keep any food or fluids down in a 24-hour period.TKRN Tobacco use during , antepartum 020 03/12/2021 Overview: 07/29/20 Quit! SW 07/20/2020Pt mokes 3 cigarettes a day, doen from 1/2 pack a day. Discussed risks of smoking during . Advised pt to quit. TKRN Patient request for diagnostic testing 0 03/12/2021 Overview: 07/29/20 Declined aneuploidy and carrier screening. 07/20/2020Patient desires nuchal ultrasound. Declines genetic carrier screening testing.Mirian Izquierdo RN Convulsions 12/27/2019 03/12/2021 Last Assessment & Plan: Assessment: 19 year old right handed female admitted to the epilepsy monitoring unit for diagnosis of events. She has had 3 lifetime events in the setting of stress/anxiety that starts with neck spasms, then hyperventilation, then full body trembling/shaking. She maintains awareness throughout, without TB or UI. Epilepsy risk factors include head trauma (3 concussions, but never with LOC). EEG in June 2012 and May 2019 were normal. No brain MRIs on file. PLAN: -Discontinue video EEG -AEDs: None -Seizure and fall precautions - Follow up with PCP Transition of care performed with sharing of clinical summary 01/07/2019 08/22/2019 Overview: Admitted through ED with abdominal pain. Abd CT negative. Hgb 16.6 (H), venous blood gas drawn with mildly elevated CO2. CBC, CMP, amylase WNL. 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 GDM. Diabetic education and patient intake representative counseling ordered. Anamika Eric APRN.LISA Abnormal glucose in , antepartum 202003/12/2021 Overview: 12/29/20-1hr GCT 192, 3hr GTT ordered. 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 She did use Femara to attain . TKRN Nausea and vomiting in 07/20/2020 03/12/2021 Overview: 07/20/2020Patient is complaining of nausea and occasional vomiting in . Dietary considerations discussed . Vitamin B6 recommended. Advised patient to call/come in if she is unable to keep any food or fluids down in a 24-hour period.TKRN Tobacco use during , antepartum 020 03/12/2021 Overview: 07/29/20 Quit! SW 07/20/2020Pt mokes 3 cigarettes a day, doen from 1/2 pack a day. Discussed risks of smoking during . Advised pt to quit. TKRN Patient request for diagnostic testing 0 03/12/2021 Overview: 07/29/20 Declined aneuploidy and carrier screening. SW 07/20/2020Patient desires nuchal ultrasound. Declines genetic carrier screening testing.Mirian Izquierdo RN Convulsions 12/27/2019 03/12/2021 Last Assessment & Plan: Assessment: 19 year old right handed female admitted to the epilepsy monitoring unit for diagnosis of events. She has had 3 lifetime events in the setting of stress/anxiety that starts with neck spasms, then hyperventilation, then full body trembling/shaking. She maintains awareness throughout, without TB or UI. Epilepsy risk factors include head trauma (3 concussions, but never with LOC). EEG in June 2012 and May 2019 were normal. No brain MRIs on file. PLAN: -Discontinue video EEG -AEDs: None -Seizure and fall precautions - Follow up with PCP Transition of care performed with sharing of clinical summary 01/07/2019 08/22/2019 Overview: Admitted through ED with abdominal pain. Abd CT negative. Hgb 16.6 (H), venous blood gas drawn with mildly elevated CO2. CBC, CMP, amylase WNL. 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 GDM. Diabetic education and patient intake representative counseling ordered. Anamika Eric APRN.CNM Abnormal glucose in , antepartum 202003/12/2021 Overview: 12/29/20-1hr GCT 192, 3hr GTT ordered. 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 She did use Femara to attain . TKRN Nausea and vomiting in 07/20/2020 03/12/2021 Overview: 07/20/2020Patient is complaining of nausea and occasional vomiting in . Dietary considerations discussed . Vitamin B6 recommended. Advised patient to call/come in if she is unable to keep any food or fluids down in a 24-hour period.TKRN Tobacco use during , antepartum 020 03/12/2021 Overview: 07/29/20 Quit! SW 07/20/2020Pt mokes 3 cigarettes a day, doen from 1/2 pack a day. Discussed risks of smoking during . Advised pt to quit. TKRN Patient request for diagnostic testing 0 03/12/2021 Overview: 07/29/20 Declined aneuploidy and carrier screening. 07/20/2020Patient desires nuchal ultrasound. Declines genetic carrier screening testing.Mirian Izquierdo RN Convulsions 12/27/2019 03/12/2021 Last Assessment & Plan: Assessment: 19 year old right handed female admitted to the epilepsy monitoring unit for diagnosis of events. She has had 3 lifetime events in the setting of stress/anxiety that starts with neck spasms, then hyperventilation, then full body trembling/shaking. She maintains awareness throughout, without TB or UI. Epilepsy risk factors include head trauma (3 concussions, but never with LOC). EEG in June 2012 and May 2019 were normal. No brain MRIs on file. PLAN: -Discontinue video EEG -AEDs: None -Seizure and fall precautions - Follow up with PCP Transition of care performed with sharing of clinical summary 01/07/2019 08/22/2019 Overview: Admitted through ED with abdominal pain. Abd CT negative. Hgb 16.6 (H), venous blood gas drawn with mildly elevated CO2. CBC, CMP, amylase WNL. 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 GDM. Diabetic education and patient intake representative counseling ordered. Anamika Eric APRN.LISA Abnormal glucose in , antepartum 202003/12/2021 Overview: 12/29/20-1hr GCT 192, 3hr GTT ordered. 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 She did use Femara to attain . TKRN Nausea and vomiting in 07/20/2020 03/12/2021 Overview: 07/20/2020Patient is complaining of nausea and occasional vomiting in . Dietary considerations discussed . Vitamin B6 recommended. Advised patient to call/come in if she is unable to keep any food or fluids down in a 24-hour period.TKRN Tobacco use during , antepartum 020 03/12/2021 Overview: 07/29/20 Quit! SW 07/20/2020Pt mokes 3 cigarettes a day, doen from 1/2 pack a day. Discussed risks of smoking during . Advised pt to quit. TKRN Patient request for diagnostic testing 0 03/12/2021 Overview: 07/29/20 Declined aneuploidy and carrier screening. SW 07/20/2020Patient desires nuchal ultrasound. Declines genetic carrier screening testing.Mirian Izquierdo RN Convulsions 12/27/2019 03/12/2021 Last Assessment & Plan: Assessment: 19 year old right handed female admitted to the epilepsy monitoring unit for diagnosis of events. She has had 3 lifetime events in the setting of stress/anxiety that starts with neck spasms, then hyperventilation, then full body trembling/shaking. She maintains awareness throughout, without TB or UI. Epilepsy risk factors include head trauma (3 concussions, but never with LOC). EEG in June 2012 and May 2019 were normal. No brain MRIs on file. PLAN: -Discontinue video EEG -AEDs: None -Seizure and fall precautions - Follow up with PCP Transition of care performed with sharing of clinical summary 01/07/2019 08/22/2019 Overview: Admitted through ED with abdominal pain. Abd CT negative. Hgb 16.6 (H), venous blood gas drawn with mildly elevated CO2. CBC, CMP, amylase WNL. 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 GDM. Diabetic education and patient intake representative counseling ordered. Anamika Eric APRN.CNM Abnormal glucose in , antepartum 202003/12/2021 Overview: 12/29/20-1hr GCT 192, 3hr GTT ordered. 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 She did use Femara to attain . TKRN Nausea and vomiting in 07/20/2020 03/12/2021 Overview: 07/20/2020Patient is complaining of nausea and occasional vomiting in . Dietary considerations discussed . Vitamin B6 recommended. Advised patient to call/come in if she is unable to keep any food or fluids down in a 24-hour period.TKRN Tobacco use during , antepartum 020 03/12/2021 Overview: 07/29/20 Quit! SW 07/20/2020Pt mokes 3 cigarettes a day, doen from 1/2 pack a day. Discussed risks of smoking during . Advised pt to quit. TKRN Patient request for diagnostic testing 0 03/12/2021 Overview: 07/29/20 Declined aneuploidy and carrier screening. SW 07/20/2020Patient desires nuchal ultrasound. Declines genetic carrier screening testing.Mirian Izquierdo RN Convulsions 12/27/2019 03/12/2021 Last Assessment & Plan: Assessment: 19 year old right handed female admitted to the epilepsy monitoring unit for diagnosis of events. She has had 3 lifetime events in the setting of stress/anxiety that starts with neck spasms, then hyperventilation, then full body trembling/shaking. She maintains awareness throughout, without TB or UI. Epilepsy risk factors include head trauma (3 concussions, but never with LOC). EEG in June 2012 and May 2019 were normal. No brain MRIs on file. PLAN: -Discontinue video EEG -AEDs: None -Seizure and fall precautions - Follow up with PCP Transition of care performed with sharing of clinical summary 01/07/2019 08/22/2019 Overview: Admitted through ED with abdominal pain. Abd CT negative. Hgb 16.6 (H), venous blood gas drawn with mildly elevated CO2. CBC, CMP, amylase WNL. 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 GDM. Diabetic education and patient intake representative counseling ordered. Anamika Eric APRN.CNM Abnormal glucose in , antepartum 202003/12/2021 Overview: 12/29/20-1hr GCT 192, 3hr GTT ordered. 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 She did use Femara to attain . TKRN Nausea and vomiting in 07/20/2020 03/12/2021 Overview: 07/20/2020Patient is complaining of nausea and occasional vomiting in . Dietary considerations discussed . Vitamin B6 recommended. Advised patient to call/come in if she is unable to keep any food or fluids down in a 24-hour period.TKRN Tobacco use during , antepartum 020 03/12/2021 Overview: 07/29/20 Quit! 07/20/2020Pt mokes 3 cigarettes a day, doen from 1/2 pack a day. Discussed risks of smoking during . Advised pt to quit. TKRN Patient request for diagnostic testing 0 03/12/2021 Overview: 07/29/20 Declined aneuploidy and carrier screening. 07/20/2020Patient desires nuchal ultrasound. Declines genetic carrier screening testing.Mirian Izquierdo RN Convulsions 12/27/2019 03/12/2021 Last Assessment & Plan: Assessment: 19 year old right handed female admitted to the epilepsy monitoring unit for diagnosis of events. She has had 3 lifetime events in the setting of stress/anxiety that starts with neck spasms, then hyperventilation, then full body trembling/shaking. She maintains awareness throughout, without TB or UI. Epilepsy risk factors include head trauma (3 concussions, but never with LOC). EEG in June 2012 and May 2019 were normal. No brain MRIs on file. PLAN: -Discontinue video EEG -AEDs: None -Seizure and fall precautions - Follow up with PCP Transition of care performed with sharing of clinical summary 01/07/2019 08/22/2019 Overview: Admitted through ED with abdominal pain. Abd CT negative. Hgb 16.6 (H), venous blood gas drawn with mildly elevated CO2. CBC, CMP, amylase WNL. 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 GDM. Diabetic education and patient intake representative counseling ordered. Anamika Eric APRN.CNM Abnormal glucose in , antepartum 202003/12/2021 Overview: 12/29/20-1hr GCT 192, 3hr GTT ordered. 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 She did use Femara to attain . TKRN Nausea and vomiting in 07/20/2020 03/12/2021 Overview: 07/20/2020Patient is complaining of nausea and occasional vomiting in . Dietary considerations discussed . Vitamin B6 recommended. Advised patient to call/come in if she is unable to keep any food or fluids down in a 24-hour period.TKRN Tobacco use during , antepartum 020 03/12/2021 Overview: 07/29/20 Quit! SW 07/20/2020Pt mokes 3 cigarettes a day, doen from 1/2 pack a day. Discussed risks of smoking during . Advised pt to quit. TKRN Patient request for diagnostic testing 0 03/12/2021 Overview: 07/29/20 Declined aneuploidy and carrier screening. SW 07/20/2020Patient desires nuchal ultrasound. Declines genetic carrier screening testing.Mirian Izquierdo RN Convulsions 12/27/2019 03/12/2021 Last Assessment & Plan: Assessment: 19 year old right handed female admitted to the epilepsy monitoring unit for diagnosis of events. She has had 3 lifetime events in the setting of stress/anxiety that starts with neck spasms, then hyperventilation, then full body trembling/shaking. She maintains awareness throughout, without TB or UI. Epilepsy risk factors include head trauma (3 concussions, but never with LOC). EEG in June 2012 and May 2019 were normal. No brain MRIs on file. PLAN: -Discontinue video EEG -AEDs: None -Seizure and fall precautions - Follow up with PCP Transition of care performed with sharing of clinical summary 01/07/2019 08/22/2019 Overview: Admitted through ED with abdominal pain. Abd CT negative. Hgb 16.6 (H), venous blood gas drawn with mildly elevated CO2. CBC, CMP, amylase WNL. 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 GDM. Diabetic education and patient intake representative counseling ordered. Anamika Eric APRN.CNM Abnormal glucose in , antepartum 202003/12/2021 Overview: 12/29/20-1hr GCT 192, 3hr GTT ordered. 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 She did use Femara to attain . TKRN Nausea and vomiting in 07/20/2020 03/12/2021 Overview: 07/20/2020Patient is complaining of nausea and occasional vomiting in . Dietary considerations discussed . Vitamin B6 recommended. Advised patient to call/come in if she is unable to keep any food or fluids down in a 24-hour period.TKRN Tobacco use during , antepartum 020 03/12/2021 Overview: 07/29/20 Quit! 07/20/2020Pt mokes 3 cigarettes a day, doen from 1/2 pack a day. Discussed risks of smoking during . Advised pt to quit. TKRN Patient request for diagnostic testing 0 03/12/2021 Overview: 07/29/20 Declined aneuploidy and carrier screening. 07/20/2020Patient desires nuchal ultrasound. Declines genetic carrier screening testing.Mirian Izquierdo RN Convulsions 12/27/2019 03/12/2021 Last Assessment & Plan: Assessment: 19 year old right handed female admitted to the epilepsy monitoring unit for diagnosis of events. She has had 3 lifetime events in the setting of stress/anxiety that starts with neck spasms, then hyperventilation, then full body trembling/shaking. She maintains awareness throughout, without TB or UI. Epilepsy risk factors include head trauma (3 concussions, but never with LOC). EEG in June 2012 and May 2019 were normal. No brain MRIs on file. PLAN: -Discontinue video EEG -AEDs: None -Seizure and fall precautions - Follow up with PCP Transition of care performed with sharing of clinical summary 01/07/2019 08/22/2019 Overview: Admitted through ED with abdominal pain. Abd CT negative. Hgb 16.6 (H), venous blood gas drawn with mildly elevated CO2. CBC, CMP, amylase WNL. 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 GDM. Diabetic education and patient intake representative counseling ordered. Anamika Eric APRN.CNM Abnormal glucose in , antepartum 202003/12/2021 Overview: 12/29/20-1hr GCT 192, 3hr GTT ordered. 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 She did use Femara to attain . TKRN Nausea and vomiting in 07/20/2020 03/12/2021 Overview: 07/20/2020Patient is complaining of nausea and occasional vomiting in . Dietary considerations discussed . Vitamin B6 recommended. Advised patient to call/come in if she is unable to keep any food or fluids down in a 24-hour period.TKRN Tobacco use during , antepartum 020 03/12/2021 Overview: 07/29/20 Quit! SW 07/20/2020Pt mokes 3 cigarettes a day, doen from 1/2 pack a day. Discussed risks of smoking during . Advised pt to quit. TKRN Patient request for diagnostic testing 0 03/12/2021 Overview: 07/29/20 Declined aneuploidy and carrier screening. SW 07/20/2020Patient desires nuchal ultrasound. Declines genetic carrier screening testing.Mirian Izqiuerdo RN Convulsions 12/27/2019 03/12/2021 Last Assessment & Plan: Assessment: 19 year old right handed female admitted to the epilepsy monitoring unit for diagnosis of events. She has had 3 lifetime events in the setting of stress/anxiety that starts with neck spasms, then hyperventilation, then full body trembling/shaking. She maintains awareness throughout, without TB or UI. Epilepsy risk factors include head trauma (3 concussions, but never with LOC). EEG in June 2012 and May 2019 were normal. No brain MRIs on file. PLAN: -Discontinue video EEG -AEDs: None -Seizure and fall precautions - Follow up with PCP Transition of care performed with sharing of clinical summary 01/07/2019 08/22/2019 Overview: Admitted through ED with abdominal pain. Abd CT negative. Hgb 16.6 (H), venous blood gas drawn with mildly elevated CO2. CBC, CMP, amylase WNL. 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 GDM. Diabetic education and patient intake representative counseling ordered. Anamika Eric APRN.CNM Abnormal glucose in , antepartum 202003/12/2021 Overview: 12/29/20-1hr GCT 192, 3hr GTT ordered. 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 She did use Femara to attain . TKRN Nausea and vomiting in 07/20/2020 03/12/2021 Overview: 07/20/2020Patient is complaining of nausea and occasional vomiting in . Dietary considerations discussed . Vitamin B6 recommended. Advised patient to call/come in if she is unable to keep any food or fluids down in a 24-hour period.TKRN Tobacco use during , antepartum 020 03/12/2021 Overview: 07/29/20 Quit! SW 07/20/2020Pt mokes 3 cigarettes a day, doen from 1/2 pack a day. Discussed risks of smoking during . Advised pt to quit. TKRN Patient request for diagnostic testing 0 03/12/2021 Overview: 07/29/20 Declined aneuploidy and carrier screening. 07/20/2020Patient desires nuchal ultrasound. Declines genetic carrier screening testing.Mirian Izquierdo RN Convulsions 12/27/2019 03/12/2021 Last Assessment & Plan: Assessment: 19 year old right handed female admitted to the epilepsy monitoring unit for diagnosis of events. She has had 3 lifetime events in the setting of stress/anxiety that starts with neck spasms, then hyperventilation, then full body trembling/shaking. She maintains awareness throughout, without TB or UI. Epilepsy risk factors include head trauma (3 concussions, but never with LOC). EEG in June 2012 and May 2019 were normal. No brain MRIs on file. PLAN: -Discontinue video EEG -AEDs: None -Seizure and fall precautions - Follow up with PCP Transition of care performed with sharing of clinical summary 01/07/2019 08/22/2019 Overview: Admitted through ED with abdominal pain. Abd CT negative. Hgb 16.6 (H), venous blood gas drawn with mildly elevated CO2. CBC, CMP, amylase WNL. 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 GDM. Diabetic education and patient intake representative counseling ordered. Anamika Eric APRN.CNM Abnormal glucose in , antepartum 202003/12/2021 Overview: 12/29/20-1hr GCT 192, 3hr GTT ordered. 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 She did use Femara to attain . TKRN Nausea and vomiting in 07/20/2020 03/12/2021 Overview: 07/20/2020Patient is complaining of nausea and occasional vomiting in . Dietary considerations discussed . Vitamin B6 recommended. Advised patient to call/come in if she is unable to keep any food or fluids down in a 24-hour period.TKRN Tobacco use during , antepartum 020 03/12/2021 Overview: 07/29/20 Quit! SW 07/20/2020Pt mokes 3 cigarettes a day, doen from 1/2 pack a day. Discussed risks of smoking during . Advised pt to quit. TKRN Patient request for diagnostic testing 0 03/12/2021 Overview: 07/29/20 Declined aneuploidy and carrier screening. SW 07/20/2020Patient desires nuchal ultrasound. Declines genetic carrier screening testing.Mirian Izquierdo RN Convulsions 12/27/2019 03/12/2021 Last Assessment & Plan: Assessment: 19 year old right handed female admitted to the epilepsy monitoring unit for diagnosis of events. She has had 3 lifetime events in the setting of stress/anxiety that starts with neck spasms, then hyperventilation, then full body trembling/shaking. She maintains awareness throughout, without TB or UI. Epilepsy risk factors include head trauma (3 concussions, but never with LOC). EEG in June 2012 and May 2019 were normal. No brain MRIs on file. PLAN: -Discontinue video EEG -AEDs: None -Seizure and fall precautions - Follow up with PCP Transition of care performed with sharing of clinical summary 01/07/2019 08/22/2019 Overview: Admitted through ED with abdominal pain. Abd CT negative. Hgb 16.6 (H), venous blood gas drawn with mildly elevated CO2. CBC, CMP, amylase WNL. 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 GDM. Diabetic education and patient intake representative counseling ordered. Anamika Eric APRN.CNM Abnormal glucose in , antepartum 202003/12/2021 Overview: 12/29/20-1hr GCT 192, 3hr GTT ordered. 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 She did use Femara to attain . TKRN Nausea and vomiting in 07/20/2020 03/12/2021 Overview: 07/20/2020Patient is complaining of nausea and occasional vomiting in . Dietary considerations discussed . Vitamin B6 recommended. Advised patient to call/come in if she is unable to keep any food or fluids down in a 24-hour period.TKRN Tobacco use during , antepartum 020 03/12/2021 Overview: 07/29/20 Quit! SW 07/20/2020Pt mokes 3 cigarettes a day, doen from 1/2 pack a day. Discussed risks of smoking during . Advised pt to quit. TKRN Patient request for diagnostic testing 0 03/12/2021 Overview: 07/29/20 Declined aneuploidy and carrier screening. 07/20/2020Patient desires nuchal ultrasound. Declines genetic carrier screening testing.Mirian Izquierdo RN Convulsions 12/27/2019 03/12/2021 Last Assessment & Plan: Assessment: 19 year old right handed female admitted to the epilepsy monitoring unit for diagnosis of events. She has had 3 lifetime events in the setting of stress/anxiety that starts with neck spasms, then hyperventilation, then full body trembling/shaking. She maintains awareness throughout, without TB or UI. Epilepsy risk factors include head trauma (3 concussions, but never with LOC). EEG in June 2012 and May 2019 were normal. No brain MRIs on file. PLAN: -Discontinue video EEG -AEDs: None -Seizure and fall precautions - Follow up with PCP Transition of care performed with sharing of clinical summary 01/07/2019 08/22/2019 Overview: Admitted through ED with abdominal pain. Abd CT negative. Hgb 16.6 (H), venous blood gas drawn with mildly elevated CO2. CBC, CMP, amylase WNL. 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 GDM. Diabetic education and patient intake representative counseling ordered. Anamika Eric APRN.CNM Abnormal glucose in , antepartum 202003/12/2021 Overview: 12/29/20-1hr GCT 192, 3hr GTT ordered. 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 She did use Femara to attain . TKRN Nausea and vomiting in 07/20/2020 03/12/2021 Overview: 07/20/2020Patient is complaining of nausea and occasional vomiting in . Dietary considerations discussed . Vitamin B6 recommended. Advised patient to call/come in if she is unable to keep any food or fluids down in a 24-hour period.TKRN Tobacco use during , antepartum 020 03/12/2021 Overview: 07/29/20 Quit! 07/20/2020Pt mokes 3 cigarettes a day, doen from 1/2 pack a day. Discussed risks of smoking during . Advised pt to quit. TKRN Patient request for diagnostic testing 0 03/12/2021 Overview: 07/29/20 Declined aneuploidy and carrier screening. 07/20/2020Patient desires nuchal ultrasound. Declines genetic carrier screening testing.Mirian Izquierdo RN Convulsions 12/27/2019 03/12/2021 Last Assessment & Plan: Assessment: 19 year old right handed female admitted to the epilepsy monitoring unit for diagnosis of events. She has had 3 lifetime events in the setting of stress/anxiety that starts with neck spasms, then hyperventilation, then full body trembling/shaking. She maintains awareness throughout, without TB or UI. Epilepsy risk factors include head trauma (3 concussions, but never with LOC). EEG in June 2012 and May 2019 were normal. No brain MRIs on file. PLAN: -Discontinue video EEG -AEDs: None -Seizure and fall precautions - Follow up with PCP Transition of care performed with sharing of clinical summary 01/07/2019 08/22/2019 Overview: Admitted through ED with abdominal pain. Abd CT negative. Hgb 16.6 (H), venous blood gas drawn with mildly elevated CO2. CBC, CMP, amylase WNL. 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 GDM. Diabetic education and patient intake representative counseling ordered. Anamika Eric APRN.CNM Abnormal glucose in , antepartum 202003/12/2021 Overview: 12/29/20-1hr GCT 192, 3hr GTT ordered. 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 She did use Femara to attain . TKRN Nausea and vomiting in 07/20/2020 03/12/2021 Overview: 07/20/2020Patient is complaining of nausea and occasional vomiting in . Dietary considerations discussed . Vitamin B6 recommended. Advised patient to call/come in if she is unable to keep any food or fluids down in a 24-hour period.TKRN Tobacco use during , antepartum 020 03/12/2021 Overview: 07/29/20 Quit! SW 07/20/2020Pt mokes 3 cigarettes a day, doen from 1/2 pack a day. Discussed risks of smoking during . Advised pt to quit. TKRN Patient request for diagnostic testing 0 03/12/2021 Overview: 07/29/20 Declined aneuploidy and carrier screening. 07/20/2020Patient desires nuchal ultrasound. Declines genetic carrier screening testing.Mirian Izquierdo RN Convulsions 12/27/2019 03/12/2021 Last Assessment & Plan: Assessment: 19 year old right handed female admitted to the epilepsy monitoring unit for diagnosis of events. She has had 3 lifetime events in the setting of stress/anxiety that starts with neck spasms, then hyperventilation, then full body trembling/shaking. She maintains awareness throughout, without TB or UI. Epilepsy risk factors include head trauma (3 concussions, but never with LOC). EEG in June 2012 and May 2019 were normal. No brain MRIs on file. PLAN: -Discontinue video EEG -AEDs: None -Seizure and fall precautions - Follow up with PCP Transition of care performed with sharing of clinical summary 01/07/2019 08/22/2019 Overview: Admitted through ED with abdominal pain. Abd CT negative. Hgb 16.6 (H), venous blood gas drawn with mildly elevated CO2. CBC, CMP, amylase WNL. 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 GDM. Diabetic education and patient intake representative counseling ordered. Anamika Eric APRN.CNM Abnormal glucose in , antepartum 202003/12/2021 Overview: 12/29/20-1hr GCT 192, 3hr GTT ordered. 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 She did use Femara to attain . TKRN Nausea and vomiting in 07/20/2020 03/12/2021 Overview: 07/20/2020Patient is complaining of nausea and occasional vomiting in . Dietary considerations discussed . Vitamin B6 recommended. Advised patient to call/come in if she is unable to keep any food or fluids down in a 24-hour period.TKRN Tobacco use during , antepartum 020 03/12/2021 Overview: 07/29/20 Quit! SW 07/20/2020Pt mokes 3 cigarettes a day, doen from 1/2 pack a day. Discussed risks of smoking during . Advised pt to quit. TKRN Patient request for diagnostic testing 0 03/12/2021 Overview: 07/29/20 Declined aneuploidy and carrier screening. 07/20/2020Patient desires nuchal ultrasound. Declines genetic carrier screening testing.Mirian Izquierdo RN Convulsions 12/27/2019 03/12/2021 Last Assessment & Plan: Assessment: 19 year old right handed female admitted to the epilepsy monitoring unit for diagnosis of events. She has had 3 lifetime events in the setting of stress/anxiety that starts with neck spasms, then hyperventilation, then full body trembling/shaking. She maintains awareness throughout, without TB or UI. Epilepsy risk factors include head trauma (3 concussions, but never with LOC). EEG in June 2012 and May 2019 were normal. No brain MRIs on file. PLAN: -Discontinue video EEG -AEDs: None -Seizure and fall precautions - Follow up with PCP Transition of care performed with sharing of clinical summary 01/07/2019 08/22/2019 Overview: Admitted through ED with abdominal pain. Abd CT negative. Hgb 16.6 (H), venous blood gas drawn with mildly elevated CO2. CBC, CMP, amylase WNL. 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 GDM. Diabetic education and patient intake representative counseling ordered. Anamika Eric APRN.LISA Abnormal glucose in , antepartum 202003/12/2021 Overview: 12/29/20-1hr GCT 192, 3hr GTT ordered. 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 She did use Femara to attain . TKRN Nausea and vomiting in 07/20/2020 03/12/2021 Overview: 07/20/2020Patient is complaining of nausea and occasional vomiting in . Dietary considerations discussed . Vitamin B6 recommended. Advised patient to call/come in if she is unable to keep any food or fluids down in a 24-hour period.TKRN Tobacco use during , antepartum 020 03/12/2021 Overview: 07/29/20 Quit! SW 07/20/2020Pt mokes 3 cigarettes a day, doen from 1/2 pack a day. Discussed risks of smoking during . Advised pt to quit. TKRN Patient request for diagnostic testing 0 03/12/2021 Overview: 07/29/20 Declined aneuploidy and carrier screening. SW 07/20/2020Patient desires nuchal ultrasound. Declines genetic carrier screening testing.Mirian Izquierdo RN Convulsions 12/27/2019 03/12/2021 Last Assessment & Plan: Assessment: 19 year old right handed female admitted to the epilepsy monitoring unit for diagnosis of events. She has had 3 lifetime events in the setting of stress/anxiety that starts with neck spasms, then hyperventilation, then full body trembling/shaking. She maintains awareness throughout, without TB or UI. Epilepsy risk factors include head trauma (3 concussions, but never with LOC). EEG in June 2012 and May 2019 were normal. No brain MRIs on file. PLAN: -Discontinue video EEG -AEDs: None -Seizure and fall precautions - Follow up with PCP Transition of care performed with sharing of clinical summary 01/07/2019 08/22/2019 Overview: Admitted through ED with abdominal pain. Abd CT negative. Hgb 16.6 (H), venous blood gas drawn with mildly elevated CO2. CBC, CMP, amylase WNL. 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 GDM. Diabetic education and patient intake representative counseling ordered. Anamika Eric APRN.CNM Abnormal glucose in , antepartum 202003/12/2021 Overview: 12/29/20-1hr GCT 192, 3hr GTT ordered. 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 She did use Femara to attain . TKRN Nausea and vomiting in 07/20/2020 03/12/2021 Overview: 07/20/2020Patient is complaining of nausea and occasional vomiting in . Dietary considerations discussed . Vitamin B6 recommended. Advised patient to call/come in if she is unable to keep any food or fluids down in a 24-hour period.TKRN Tobacco use during , antepartum 020 03/12/2021 Overview: 07/29/20 Quit! SW 07/20/2020Pt mokes 3 cigarettes a day, doen from 1/2 pack a day. Discussed risks of smoking during . Advised pt to quit. TKRN Patient request for diagnostic testing 0 03/12/2021 Overview: 07/29/20 Declined aneuploidy and carrier screening. SW 07/20/2020Patient desires nuchal ultrasound. Declines genetic carrier screening testing.Mirian Izquierdo RN Convulsions 12/27/2019 03/12/2021 Last Assessment & Plan: Assessment: 19 year old right handed female admitted to the epilepsy monitoring unit for diagnosis of events. She has had 3 lifetime events in the setting of stress/anxiety that starts with neck spasms, then hyperventilation, then full body trembling/shaking. She maintains awareness throughout, without TB or UI. Epilepsy risk factors include head trauma (3 concussions, but never with LOC). EEG in June 2012 and May 2019 were normal. No brain MRIs on file. PLAN: -Discontinue video EEG -AEDs: None -Seizure and fall precautions - Follow up with PCP Transition of care performed with sharing of clinical summary 01/07/2019 08/22/2019 Overview: Admitted through ED with abdominal pain. Abd CT negative. Hgb 16.6 (H), venous blood gas drawn with mildly elevated CO2. CBC, CMP, amylase WNL. 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 GDM. Diabetic education and patient intake representative counseling ordered. Anamika Eric APRN.LISA Abnormal glucose in , antepartum 202003/12/2021 Overview: 12/29/20-1hr GCT 192, 3hr GTT ordered. 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 She did use Femara to attain . TKRN Nausea and vomiting in 07/20/2020 03/12/2021 Overview: 07/20/2020Patient is complaining of nausea and occasional vomiting in . Dietary considerations discussed . Vitamin B6 recommended. Advised patient to call/come in if she is unable to keep any food or fluids down in a 24-hour period.TKRN Tobacco use during , antepartum 020 03/12/2021 Overview: 07/29/20 Quit! SW 07/20/2020Pt mokes 3 cigarettes a day, doen from 1/2 pack a day. Discussed risks of smoking during . Advised pt to quit. TKRN Patient request for diagnostic testing 0 03/12/2021 Overview: 07/29/20 Declined aneuploidy and carrier screening. SW 07/20/2020Patient desires nuchal ultrasound. Declines genetic carrier screening testing.Mirian Izquierdo RN Convulsions 12/27/2019 03/12/2021 Last Assessment & Plan: Assessment: 19 year old right handed female admitted to the epilepsy monitoring unit for diagnosis of events. She has had 3 lifetime events in the setting of stress/anxiety that starts with neck spasms, then hyperventilation, then full body trembling/shaking. She maintains awareness throughout, without TB or UI. Epilepsy risk factors include head trauma (3 concussions, but never with LOC). EEG in June 2012 and May 2019 were normal. No brain MRIs on file. PLAN: -Discontinue video EEG -AEDs: None -Seizure and fall precautions - Follow up with PCP Transition of care performed with sharing of clinical summary 01/07/2019 08/22/2019 Overview: Admitted through ED with abdominal pain. Abd CT negative. Hgb 16.6 (H), venous blood gas drawn with mildly elevated CO2. CBC, CMP, amylase WNL. 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 GDM. Diabetic education and patient intake representative counseling ordered. Anamika Eric APRN.CNM Abnormal glucose in , antepartum 202003/12/2021 Overview: 12/29/20-1hr GCT 192, 3hr GTT ordered. 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 She did use Femara to attain . TKRN Nausea and vomiting in 07/20/2020 03/12/2021 Overview: 07/20/2020Patient is complaining of nausea and occasional vomiting in . Dietary considerations discussed . Vitamin B6 recommended. Advised patient to call/come in if she is unable to keep any food or fluids down in a 24-hour period.TKRN Tobacco use during , antepartum 020 03/12/2021 Overview: 07/29/20 Quit! SW 07/20/2020Pt mokes 3 cigarettes a day, doen from 1/2 pack a day. Discussed risks of smoking during . Advised pt to quit. TKRN Patient request for diagnostic testing 0 03/12/2021 Overview: 07/29/20 Declined aneuploidy and carrier screening. SW 07/20/2020Patient desires nuchal ultrasound. Declines genetic carrier screening testing.Mirian Izquierdo RN Convulsions 12/27/2019 03/12/2021 Last Assessment & Plan: Assessment: 19 year old right handed female admitted to the epilepsy monitoring unit for diagnosis of events. She has had 3 lifetime events in the setting of stress/anxiety that starts with neck spasms, then hyperventilation, then full body trembling/shaking. She maintains awareness throughout, without TB or UI. Epilepsy risk factors include head trauma (3 concussions, but never with LOC). EEG in June 2012 and May 2019 were normal. No brain MRIs on file. PLAN: -Discontinue video EEG -AEDs: None -Seizure and fall precautions - Follow up with PCP Transition of care performed with sharing of clinical summary 01/07/2019 08/22/2019 Overview: Admitted through ED with abdominal pain. Abd CT negative. Hgb 16.6 (H), venous blood gas drawn with mildly elevated CO2. CBC, CMP, amylase WNL. 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 GDM. Diabetic education and patient intake representative counseling ordered. Anamika Eric APRN.CNM Abnormal glucose in , antepartum 202003/12/2021 Overview: 12/29/20-1hr GCT 192, 3hr GTT ordered. 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 She did use Femara to attain . TKRN Nausea and vomiting in 07/20/2020 03/12/2021 Overview: 07/20/2020Patient is complaining of nausea and occasional vomiting in . Dietary considerations discussed . Vitamin B6 recommended. Advised patient to call/come in if she is unable to keep any food or fluids down in a 24-hour period.TKRN Tobacco use during , antepartum 020 03/12/2021 Overview: 07/29/20 Quit! SW 07/20/2020Pt mokes 3 cigarettes a day, doen from 1/2 pack a day. Discussed risks of smoking during . Advised pt to quit. TKRN Patient request for diagnostic testing 0 03/12/2021 Overview: 07/29/20 Declined aneuploidy and carrier screening. SW 07/20/2020Patient desires nuchal ultrasound. Declines genetic carrier screening testing.Mirian Izquierdo RN Convulsions 12/27/2019 03/12/2021 Last Assessment & Plan: Assessment: 19 year old right handed female admitted to the epilepsy monitoring unit for diagnosis of events. She has had 3 lifetime events in the setting of stress/anxiety that starts with neck spasms, then hyperventilation, then full body trembling/shaking. She maintains awareness throughout, without TB or UI. Epilepsy risk factors include head trauma (3 concussions, but never with LOC). EEG in June 2012 and May 2019 were normal. No brain MRIs on file. PLAN: -Discontinue video EEG -AEDs: None -Seizure and fall precautions - Follow up with PCP Transition of care performed with sharing of clinical summary 01/07/2019 08/22/2019 Overview: Admitted through ED with abdominal pain. Abd CT negative. Hgb 16.6 (H), venous blood gas drawn with mildly elevated CO2. CBC, CMP, amylase WNL. 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 GDM. Diabetic education and patient intake representative counseling ordered. Anamika Eric APRN.CNM Abnormal glucose in , antepartum 202003/12/2021 Overview: 12/29/20-1hr GCT 192, 3hr GTT ordered. 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 She did use Femara to attain . TKRN Nausea and vomiting in 07/20/2020 03/12/2021 Overview: 07/20/2020Patient is complaining of nausea and occasional vomiting in . Dietary considerations discussed . Vitamin B6 recommended. Advised patient to call/come in if she is unable to keep any food or fluids down in a 24-hour period.TKRN Tobacco use during , antepartum 020 03/12/2021 Overview: 07/29/20 Quit! SW 07/20/2020Pt mokes 3 cigarettes a day, doen from 1/2 pack a day. Discussed risks of smoking during . Advised pt to quit. TKRN Patient request for diagnostic testing 0 03/12/2021 Overview: 07/29/20 Declined aneuploidy and carrier screening. 07/20/2020Patient desires nuchal ultrasound. Declines genetic carrier screening testing.Mirian Izquierdo RN Convulsions 12/27/2019 03/12/2021 Last Assessment & Plan: Assessment: 19 year old right handed female admitted to the epilepsy monitoring unit for diagnosis of events. She has had 3 lifetime events in the setting of stress/anxiety that starts with neck spasms, then hyperventilation, then full body trembling/shaking. She maintains awareness throughout, without TB or UI. Epilepsy risk factors include head trauma (3 concussions, but never with LOC). EEG in June 2012 and May 2019 were normal. No brain MRIs on file. PLAN: -Discontinue video EEG -AEDs: None -Seizure and fall precautions - Follow up with PCP Transition of care performed with sharing of clinical summary 01/07/2019 08/22/2019 Overview: Admitted through ED with abdominal pain. Abd CT negative. Hgb 16.6 (H), venous blood gas drawn with mildly elevated CO2. CBC, CMP, amylase WNL. 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 GDM. Diabetic education and patient intake representative counseling ordered. Anamika Eric APRN.CNM Abnormal glucose in , antepartum 202003/12/2021 Overview: 12/29/20-1hr GCT 192, 3hr GTT ordered. 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 She did use Femara to attain . TKRN Nausea and vomiting in 07/20/2020 03/12/2021 Overview: 07/20/2020Patient is complaining of nausea and occasional vomiting in . Dietary considerations discussed . Vitamin B6 recommended. Advised patient to call/come in if she is unable to keep any food or fluids down in a 24-hour period.TKRN Tobacco use during , antepartum 020 03/12/2021 Overview: 07/29/20 Quit! SW 07/20/2020Pt mokes 3 cigarettes a day, doen from 1/2 pack a day. Discussed risks of smoking during . Advised pt to quit. TKRN Patient request for diagnostic testing 0 03/12/2021 Overview: 07/29/20 Declined aneuploidy and carrier screening. SW 07/20/2020Patient desires nuchal ultrasound. Declines genetic carrier screening testing.Mirian Izquierdo RN Convulsions 12/27/2019 03/12/2021 Last Assessment & Plan: Assessment: 19 year old right handed female admitted to the epilepsy monitoring unit for diagnosis of events. She has had 3 lifetime events in the setting of stress/anxiety that starts with neck spasms, then hyperventilation, then full body trembling/shaking. She maintains awareness throughout, without TB or UI. Epilepsy risk factors include head trauma (3 concussions, but never with LOC). EEG in June 2012 and May 2019 were normal. No brain MRIs on file. PLAN: -Discontinue video EEG -AEDs: None -Seizure and fall precautions - Follow up with PCP Transition of care performed with sharing of clinical summary 01/07/2019 08/22/2019 Overview: Admitted through ED with abdominal pain. Abd CT negative. Hgb 16.6 (H), venous blood gas drawn with mildly elevated CO2. CBC, CMP, amylase WNL. 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 GDM. Diabetic education and patient intake representative counseling ordered. Anamika Eric APRN.CNM Abnormal glucose in , antepartum 202003/12/2021 Overview: 12/29/20-1hr GCT 192, 3hr GTT ordered. 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 She did use Femara to attain . TKRN Nausea and vomiting in 07/20/2020 03/12/2021 Overview: 07/20/2020Patient is complaining of nausea and occasional vomiting in . Dietary considerations discussed . Vitamin B6 recommended. Advised patient to call/come in if she is unable to keep any food or fluids down in a 24-hour period.TKRN Tobacco use during , antepartum 020 03/12/2021 Overview: 07/29/20 Quit! SW 07/20/2020Pt mokes 3 cigarettes a day, doen from 1/2 pack a day. Discussed risks of smoking during . Advised pt to quit. TKRN Patient request for diagnostic testing 0 03/12/2021 Overview: 07/29/20 Declined aneuploidy and carrier screening. 07/20/2020Patient desires nuchal ultrasound. Declines genetic carrier screening testing.Mirian Izquierdo RN Convulsions 12/27/2019 03/12/2021 Last Assessment & Plan: Assessment: 19 year old right handed female admitted to the epilepsy monitoring unit for diagnosis of events. She has had 3 lifetime events in the setting of stress/anxiety that starts with neck spasms, then hyperventilation, then full body trembling/shaking. She maintains awareness throughout, without TB or UI. Epilepsy risk factors include head trauma (3 concussions, but never with LOC). EEG in June 2012 and May 2019 were normal. No brain MRIs on file. PLAN: -Discontinue video EEG -AEDs: None -Seizure and fall precautions - Follow up with PCP Transition of care performed with sharing of clinical summary 01/07/2019 08/22/2019 Overview: Admitted through ED with abdominal pain. Abd CT negative. Hgb 16.6 (H), venous blood gas drawn with mildly elevated CO2. CBC, CMP, amylase WNL. 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 GDM. Diabetic education and patient intake representative counseling ordered. Anamika Eric APRN.CNM Abnormal glucose in , antepartum 202003/12/2021 Overview: 12/29/20-1hr GCT 192, 3hr GTT ordered. 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 She did use Femara to attain . TKRN Nausea and vomiting in 07/20/2020 03/12/2021 Overview: 07/20/2020Patient is complaining of nausea and occasional vomiting in . Dietary considerations discussed . Vitamin B6 recommended. Advised patient to call/come in if she is unable to keep any food or fluids down in a 24-hour period.TKRN Tobacco use during , antepartum 020 03/12/2021 Overview: 07/29/20 Quit! SW 07/20/2020Pt mokes 3 cigarettes a day, doen from 1/2 pack a day. Discussed risks of smoking during . Advised pt to quit. TKRN Patient request for diagnostic testing 0 03/12/2021 Overview: 07/29/20 Declined aneuploidy and carrier screening. SW 07/20/2020Patient desires nuchal ultrasound. Declines genetic carrier screening testing.Mirian Izquierdo RN Convulsions 12/27/2019 03/12/2021 Last Assessment & Plan: Assessment: 19 year old right handed female admitted to the epilepsy monitoring unit for diagnosis of events. She has had 3 lifetime events in the setting of stress/anxiety that starts with neck spasms, then hyperventilation, then full body trembling/shaking. She maintains awareness throughout, without TB or UI. Epilepsy risk factors include head trauma (3 concussions, but never with LOC). EEG in June 2012 and May 2019 were normal. No brain MRIs on file. PLAN: -Discontinue video EEG -AEDs: None -Seizure and fall precautions - Follow up with PCP Transition of care performed with sharing of clinical summary 01/07/2019 08/22/2019 Overview: Admitted through ED with abdominal pain. Abd CT negative. Hgb 16.6 (H), venous blood gas drawn with mildly elevated CO2. CBC, CMP, amylase WNL. 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 GDM. Diabetic education and patient intake representative counseling ordered. Anamika Eric APRN.LISA Abnormal glucose in , antepartum 202003/12/2021 Overview: 12/29/20-1hr GCT 192, 3hr GTT ordered. 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 She did use Femara to attain . TKRN Nausea and vomiting in 07/20/2020 03/12/2021 Overview: 07/20/2020Patient is complaining of nausea and occasional vomiting in . Dietary considerations discussed . Vitamin B6 recommended. Advised patient to call/come in if she is unable to keep any food or fluids down in a 24-hour period.TKRN Tobacco use during , antepartum 020 03/12/2021 Overview: 07/29/20 Quit! SW 07/20/2020Pt mokes 3 cigarettes a day, doen from 1/2 pack a day. Discussed risks of smoking during . Advised pt to quit. TKRN Patient request for diagnostic testing 0 03/12/2021 Overview: 07/29/20 Declined aneuploidy and carrier screening. SW 07/20/2020Patient desires nuchal ultrasound. Declines genetic carrier screening testing.Mirian Izquierdo RN Convulsions 12/27/2019 03/12/2021 Last Assessment & Plan: Assessment: 19 year old right handed female admitted to the epilepsy monitoring unit for diagnosis of events. She has had 3 lifetime events in the setting of stress/anxiety that starts with neck spasms, then hyperventilation, then full body trembling/shaking. She maintains awareness throughout, without TB or UI. Epilepsy risk factors include head trauma (3 concussions, but never with LOC). EEG in June 2012 and May 2019 were normal. No brain MRIs on file. PLAN: -Discontinue video EEG -AEDs: None -Seizure and fall precautions - Follow up with PCP Transition of care performed with sharing of clinical summary 01/07/2019 08/22/2019 Overview: Admitted through ED with abdominal pain. Abd CT negative. Hgb 16.6 (H), venous blood gas drawn with mildly elevated CO2. CBC, CMP, amylase WNL. 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 GDM. Diabetic education and patient intake representative counseling ordered. Anamika Eric APRN.CNM Abnormal glucose in , antepartum 202003/12/2021 Overview: 12/29/20-1hr GCT 192, 3hr GTT ordered. 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 She did use Femara to attain . TKRN Nausea and vomiting in 07/20/2020 03/12/2021 Overview: 07/20/2020Patient is complaining of nausea and occasional vomiting in . Dietary considerations discussed . Vitamin B6 recommended. Advised patient to call/come in if she is unable to keep any food or fluids down in a 24-hour period.TKRN Tobacco use during , antepartum 020 03/12/2021 Overview: 07/29/20 Quit! SW 07/20/2020Pt mokes 3 cigarettes a day, doen from 1/2 pack a day. Discussed risks of smoking during . Advised pt to quit. TKRN Patient request for diagnostic testing 0 03/12/2021 Overview: 07/29/20 Declined aneuploidy and carrier screening. SW 07/20/2020Patient desires nuchal ultrasound. Declines genetic carrier screening testing.Mirian Izquierdo RN Convulsions 12/27/2019 03/12/2021 Last Assessment & Plan: Assessment: 19 year old right handed female admitted to the epilepsy monitoring unit for diagnosis of events. She has had 3 lifetime events in the setting of stress/anxiety that starts with neck spasms, then hyperventilation, then full body trembling/shaking. She maintains awareness throughout, without TB or UI. Epilepsy risk factors include head trauma (3 concussions, but never with LOC). EEG in June 2012 and May 2019 were normal. No brain MRIs on file. PLAN: -Discontinue video EEG -AEDs: None -Seizure and fall precautions - Follow up with PCP Transition of care performed with sharing of clinical summary 01/07/2019 08/22/2019 Overview: Admitted through ED with abdominal pain. Abd CT negative. Hgb 16.6 (H), venous blood gas drawn with mildly elevated CO2. CBC, CMP, amylase WNL. 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 GDM. Diabetic education and patient intake representative counseling ordered. Anamika Eric APRN.LISA Abnormal glucose in , antepartum 202003/12/2021 Overview: 12/29/20-1hr GCT 192, 3hr GTT ordered. 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 She did use Femara to attain . TKRN Nausea and vomiting in 07/20/2020 03/12/2021 Overview: 07/20/2020Patient is complaining of nausea and occasional vomiting in . Dietary considerations discussed . Vitamin B6 recommended. Advised patient to call/come in if she is unable to keep any food or fluids down in a 24-hour period.TKRN Tobacco use during , antepartum 020 03/12/2021 Overview: 07/29/20 Quit! SW 07/20/2020Pt mokes 3 cigarettes a day, doen from 1/2 pack a day. Discussed risks of smoking during . Advised pt to quit. TKRN Patient request for diagnostic testing 0 03/12/2021 Overview: 07/29/20 Declined aneuploidy and carrier screening. SW 07/20/2020Patient desires nuchal ultrasound. Declines genetic carrier screening testing.Mirian Izquierdo RN Convulsions 12/27/2019 03/12/2021 Last Assessment & Plan: Assessment: 19 year old right handed female admitted to the epilepsy monitoring unit for diagnosis of events. She has had 3 lifetime events in the setting of stress/anxiety that starts with neck spasms, then hyperventilation, then full body trembling/shaking. She maintains awareness throughout, without TB or UI. Epilepsy risk factors include head trauma (3 concussions, but never with LOC). EEG in June 2012 and May 2019 were normal. No brain MRIs on file. PLAN: -Discontinue video EEG -AEDs: None -Seizure and fall precautions - Follow up with PCP Transition of care performed with sharing of clinical summary 01/07/2019 08/22/2019 Overview: Admitted through ED with abdominal pain. Abd CT negative. Hgb 16.6 (H), venous blood gas drawn with mildly elevated CO2. CBC, CMP, amylase WNL. 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 GDM. Diabetic education and patient intake representative counseling ordered. Anamika Eric APRN.CNM Abnormal glucose in , antepartum 202003/12/2021 Overview: 12/29/20-1hr GCT 192, 3hr GTT ordered. 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 She did use Femara to attain . TKRN Nausea and vomiting in 07/20/2020 03/12/2021 Overview: 07/20/2020Patient is complaining of nausea and occasional vomiting in . Dietary considerations discussed . Vitamin B6 recommended. Advised patient to call/come in if she is unable to keep any food or fluids down in a 24-hour period.TKRN Tobacco use during , antepartum 020 03/12/2021 Overview: 07/29/20 Quit! SW 07/20/2020Pt mokes 3 cigarettes a day, doen from 1/2 pack a day. Discussed risks of smoking during . Advised pt to quit. TKRN Patient request for diagnostic testing 0 03/12/2021 Overview: 07/29/20 Declined aneuploidy and carrier screening. 07/20/2020Patient desires nuchal ultrasound. Declines genetic carrier screening testing.Mirian Izquierdo RN Convulsions 12/27/2019 03/12/2021 Last Assessment & Plan: Assessment: 19 year old right handed female admitted to the epilepsy monitoring unit for diagnosis of events. She has had 3 lifetime events in the setting of stress/anxiety that starts with neck spasms, then hyperventilation, then full body trembling/shaking. She maintains awareness throughout, without TB or UI. Epilepsy risk factors include head trauma (3 concussions, but never with LOC). EEG in June 2012 and May 2019 were normal. No brain MRIs on file. PLAN: -Discontinue video EEG -AEDs: None -Seizure and fall precautions - Follow up with PCP Transition of care performed with sharing of clinical summary 01/07/2019 08/22/2019 Overview: Admitted through ED with abdominal pain. Abd CT negative. Hgb 16.6 (H), venous blood gas drawn with mildly elevated CO2. CBC, CMP, amylase WNL. 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 GDM. Diabetic education and patient intake representative counseling ordered. Anamika Eric APRN.CNM Abnormal glucose in , antepartum 202003/12/2021 Overview: 12/29/20-1hr GCT 192, 3hr GTT ordered. 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 She did use Femara to attain . TKRN Nausea and vomiting in 07/20/2020 03/12/2021 Overview: 07/20/2020Patient is complaining of nausea and occasional vomiting in . Dietary considerations discussed . Vitamin B6 recommended. Advised patient to call/come in if she is unable to keep any food or fluids down in a 24-hour period.TKRN Tobacco use during , antepartum 020 03/12/2021 Overview: 07/29/20 Quit! SW 07/20/2020Pt mokes 3 cigarettes a day, doen from 1/2 pack a day. Discussed risks of smoking during . Advised pt to quit. TKRN Patient request for diagnostic testing 0 03/12/2021 Overview: 07/29/20 Declined aneuploidy and carrier screening. SW 07/20/2020Patient desires nuchal ultrasound. Declines genetic carrier screening testing.Mirian Izquierdo RN Convulsions 12/27/2019 03/12/2021 Last Assessment & Plan: Assessment: 19 year old right handed female admitted to the epilepsy monitoring unit for diagnosis of events. She has had 3 lifetime events in the setting of stress/anxiety that starts with neck spasms, then hyperventilation, then full body trembling/shaking. She maintains awareness throughout, without TB or UI. Epilepsy risk factors include head trauma (3 concussions, but never with LOC). EEG in June 2012 and May 2019 were normal. No brain MRIs on file. PLAN: -Discontinue video EEG -AEDs: None -Seizure and fall precautions - Follow up with PCP Transition of care performed with sharing of clinical summary 01/07/2019 08/22/2019 Overview: Admitted through ED with abdominal pain. Abd CT negative. Hgb 16.6 (H), venous blood gas drawn with mildly elevated CO2. CBC, CMP, amylase WNL. 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 GDM. Diabetic education and patient intake representative counseling ordered. Anamika Eric APRN.CNM Abnormal glucose in , antepartum 202003/12/2021 Overview: 12/29/20-1hr GCT 192, 3hr GTT ordered. 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 She did use Femara to attain . TKRN Nausea and vomiting in 07/20/2020 03/12/2021 Overview: 07/20/2020Patient is complaining of nausea and occasional vomiting in . Dietary considerations discussed . Vitamin B6 recommended. Advised patient to call/come in if she is unable to keep any food or fluids down in a 24-hour period.TKRN Tobacco use during , antepartum 020 03/12/2021 Overview: 07/29/20 Quit! SW 07/20/2020Pt mokes 3 cigarettes a day, doen from 1/2 pack a day. Discussed risks of smoking during . Advised pt to quit. TKRN Patient request for diagnostic testing 0 03/12/2021 Overview: 07/29/20 Declined aneuploidy and carrier screening. 07/20/2020Patient desires nuchal ultrasound. Declines genetic carrier screening testing.Mirian Izquierdo RN Convulsions 12/27/2019 03/12/2021 Last Assessment & Plan: Assessment: 19 year old right handed female admitted to the epilepsy monitoring unit for diagnosis of events. She has had 3 lifetime events in the setting of stress/anxiety that starts with neck spasms, then hyperventilation, then full body trembling/shaking. She maintains awareness throughout, without TB or UI. Epilepsy risk factors include head trauma (3 concussions, but never with LOC). EEG in June 2012 and May 2019 were normal. No brain MRIs on file. PLAN: -Discontinue video EEG -AEDs: None -Seizure and fall precautions - Follow up with PCP Transition of care performed with sharing of clinical summary 01/07/2019 08/22/2019 Overview: Admitted through ED with abdominal pain. Abd CT negative. Hgb 16.6 (H), venous blood gas drawn with mildly elevated CO2. CBC, CMP, amylase WNL. 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 GDM. Diabetic education and patient intake representative counseling ordered. Anamika Eric APRN.CNM Abnormal glucose in , antepartum 202003/12/2021 Overview: 12/29/20-1hr GCT 192, 3hr GTT ordered. 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 She did use Femara to attain . TKRN Nausea and vomiting in 07/20/2020 03/12/2021 Overview: 07/20/2020Patient is complaining of nausea and occasional vomiting in . Dietary considerations discussed . Vitamin B6 recommended. Advised patient to call/come in if she is unable to keep any food or fluids down in a 24-hour period.TKRN Tobacco use during , antepartum 020 03/12/2021 Overview: 07/29/20 Quit! SW 07/20/2020Pt mokes 3 cigarettes a day, doen from 1/2 pack a day. Discussed risks of smoking during . Advised pt to quit. TKRN Patient request for diagnostic testing 0 03/12/2021 Overview: 07/29/20 Declined aneuploidy and carrier screening. SW 07/20/2020Patient desires nuchal ultrasound. Declines genetic carrier screening testing.Mirian Izquierdo RN Convulsions 12/27/2019 03/12/2021 Last Assessment & Plan: Assessment: 19 year old right handed female admitted to the epilepsy monitoring unit for diagnosis of events. She has had 3 lifetime events in the setting of stress/anxiety that starts with neck spasms, then hyperventilation, then full body trembling/shaking. She maintains awareness throughout, without TB or UI. Epilepsy risk factors include head trauma (3 concussions, but never with LOC). EEG in June 2012 and May 2019 were normal. No brain MRIs on file. PLAN: -Discontinue video EEG -AEDs: None -Seizure and fall precautions - Follow up with PCP Transition of care performed with sharing of clinical summary 01/07/2019 08/22/2019 Overview: Admitted through ED with abdominal pain. Abd CT negative. Hgb 16.6 (H), venous blood gas drawn with mildly elevated CO2. CBC, CMP, amylase WNL. 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 GDM. Diabetic education and patient intake representative counseling ordered. Anamika Eric APRN.CNM Abnormal glucose in , antepartum 12/29/2020 03/12/2021 Overview: 12/29/20-1hr GCT 192, 3hr GTT ordered. 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 She did use Femara to attain . TKRN Nausea and vomiting in 07/20/2020 03/12/2021 Overview: 07/20/2020Patient is complaining of nausea and occasional vomiting in . Dietary considerations discussed . Vitamin B6 recommended. Advised patient to call/come in if she is unable to keep any food or fluids down in a 24-hour period.TKRN Tobacco use during , antepartum 07/20/2020 03/12/2021 Overview: 07/29/20 Quit! SW 07/20/2020Pt mokes 3 cigarettes a day, doen from 1/2 pack a day. Discussed risks of smoking during . Advised pt to quit. TKRN Patient request for diagnostic testing 07/20/2020 03/12/2021 Overview: 07/29/20 Declined aneuploidy and carrier screening. 07/20/2020Patient desires nuchal ultrasound. Declines genetic carrier screening testing.Mirian Izquierdo RN Convulsions 12/27/2019 03/12/2021 Last Assessment & Plan: Assessment: 19 year old right handed female admitted to the epilepsy monitoring unit for diagnosis of events. She has had 3 lifetime events in the setting of stress/anxiety that starts with neck spasms, then hyperventilation, then full body trembling/shaking. She maintains awareness throughout, without TB or UI. Epilepsy risk factors include head trauma (3 concussions, but never with LOC). EEG in June 2012 and May 2019 were normal. No brain MRIs on file. PLAN: -Discontinue video EEG -AEDs: None -Seizure and fall precautions - Follow up with PCP Transition of care performed with sharing of clinical summary 01/07/2019 08/22/2019 Overview: Admitted through ED with abdominal pain. Abd CT negative. Hgb 16.6 (H), venous blood gas drawn with mildly elevated CO2. CBC, CMP, amylase WNL. 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 GDM. Diabetic education and patient intake representative counseling ordered. Anamika Eric APRN.CNM Abnormal glucose in , antepartum 12/29/2020 03/12/2021 Overview: 12/29/20-1hr GCT 192, 3hr GTT ordered. 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 She did use Femara to attain . TKRN Nausea and vomiting in 07/20/2020 03/12/2021 Overview: 07/20/2020Patient is complaining of nausea and occasional vomiting in . Dietary considerations discussed . Vitamin B6 recommended. Advised patient to call/come in if she is unable to keep any food or fluids down in a 24-hour period.TKRN Tobacco use during , antepartum 07/20/2020 03/12/2021 Overview: 07/29/20 Quit! SW 07/20/2020Pt mokes 3 cigarettes a day, doen from 1/2 pack a day. Discussed risks of smoking during . Advised pt to quit. TKRN Patient request for diagnostic testing 07/20/2020 03/12/2021 Overview: 07/29/20 Declined aneuploidy and carrier screening. SW 07/20/2020Patient desires nuchal ultrasound. Declines genetic carrier screening testing.Mirian Izquierdo RN Convulsions 12/27/2019 03/12/2021 Last Assessment & Plan: Assessment: 19 year old right handed female admitted to the epilepsy monitoring unit for diagnosis of events. She has had 3 lifetime events in the setting of stress/anxiety that starts with neck spasms, then hyperventilation, then full body trembling/shaking. She maintains awareness throughout, without TB or UI. Epilepsy risk factors include head trauma (3 concussions, but never with LOC). EEG in June 2012 and May 2019 were normal. No brain MRIs on file. PLAN: -Discontinue video EEG -AEDs: None -Seizure and fall precautions - Follow up with PCP Transition of care performed with sharing of clinical summary 01/07/2019 08/22/2019 Overview: Admitted through ED with abdominal pain. Abd CT negative. Hgb 16.6 (H), venous blood gas drawn with mildly elevated CO2. CBC, CMP, amylase WNL. 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 GDM. Diabetic education and patient intake representative counseling ordered. Anamika Eric APRN.LISA Abnormal glucose in , antepartum 12/29/2020 03/12/2021 Overview: 12/29/20-1hr GCT 192, 3hr GTT ordered. 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 She did use Femara to attain . TKRN Nausea and vomiting in 07/20/2020 03/12/2021 Overview: 07/20/2020Patient is complaining of nausea and occasional vomiting in . Dietary considerations discussed . Vitamin B6 recommended. Advised patient to call/come in if she is unable to keep any food or fluids down in a 24-hour period.TKRN Tobacco use during , antepartum 07/20/2020 03/12/2021 Overview: 07/29/20 Quit! SW 07/20/2020Pt mokes 3 cigarettes a day, doen from 1/2 pack a day. Discussed risks of smoking during . Advised pt to quit. TKRN Patient request for diagnostic testing 07/20/2020 03/12/2021 Overview: 07/29/20 Declined aneuploidy and carrier screening. SW 07/20/2020Patient desires nuchal ultrasound. Declines genetic carrier screening testing.Mirian Izquierdo RN Convulsions 12/27/2019 03/12/2021 Last Assessment & Plan: Assessment: 19 year old right handed female admitted to the epilepsy monitoring unit for diagnosis of events. She has had 3 lifetime events in the setting of stress/anxiety that starts with neck spasms, then hyperventilation, then full body trembling/shaking. She maintains awareness throughout, without TB or UI. Epilepsy risk factors include head trauma (3 concussions, but never with LOC). EEG in June 2012 and May 2019 were normal. No brain MRIs on file. PLAN: -Discontinue video EEG -AEDs: None -Seizure and fall precautions - Follow up with PCP Transition of care performed with sharing of clinical summary 01/07/2019 08/22/2019 Overview: Admitted through ED with abdominal pain. Abd CT negative. Hgb 16.6 (H), venous blood gas drawn with mildly elevated CO2. CBC, CMP, amylase WNL. 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 GDM. Diabetic education and patient intake representative counseling ordered. Anamika Eric APRN.CNM Abnormal glucose in , antepartum 12/29/2020 03/12/2021 Overview: 12/29/20-1hr GCT 192, 3hr GTT ordered. 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 She did use Femara to attain . TKRN Nausea and vomiting in 07/20/2020 03/12/2021 Overview: 07/20/2020Patient is complaining of nausea and occasional vomiting in . Dietary considerations discussed . Vitamin B6 recommended. Advised patient to call/come in if she is unable to keep any food or fluids down in a 24-hour period.TKRN Tobacco use during , antepartum 07/20/2020 03/12/2021 Overview: 07/29/20 Quit! SW 07/20/2020Pt mokes 3 cigarettes a day, doen from 1/2 pack a day. Discussed risks of smoking during . Advised pt to quit. TKRN Patient request for diagnostic testing 07/20/2020 03/12/2021 Overview: 07/29/20 Declined aneuploidy and carrier screening. 07/20/2020Patient desires nuchal ultrasound. Declines genetic carrier screening testing.Mirian Izquierdo RN Convulsions 12/27/2019 03/12/2021 Last Assessment & Plan: Assessment: 19 year old right handed female admitted to the epilepsy monitoring unit for diagnosis of events. She has had 3 lifetime events in the setting of stress/anxiety that starts with neck spasms, then hyperventilation, then full body trembling/shaking. She maintains awareness throughout, without TB or UI. Epilepsy risk factors include head trauma (3 concussions, but never with LOC). EEG in June 2012 and May 2019 were normal. No brain MRIs on file. PLAN: -Discontinue video EEG -AEDs: None -Seizure and fall precautions - Follow up with PCP Transition of care performed with sharing of clinical summary 01/07/2019 08/22/2019 Overview: Admitted through ED with abdominal pain. Abd CT negative. Hgb 16.6 (H), venous blood gas drawn with mildly elevated CO2. CBC, CMP, amylase WNL. 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 GDM. Diabetic education and patient intake representative counseling ordered. Anamika Eric APRN.LISA Abnormal glucose in , antepartum 12/29/2020 03/12/2021 Overview: 12/29/20-1hr GCT 192, 3hr GTT ordered. 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 She did use Femara to attain . TKRN Nausea and vomiting in 07/20/2020 03/12/2021 Overview: 07/20/2020Patient is complaining of nausea and occasional vomiting in . Dietary considerations discussed . Vitamin B6 recommended. Advised patient to call/come in if she is unable to keep any food or fluids down in a 24-hour period.TKRN Tobacco use during , antepartum 07/20/2020 03/12/2021 Overview: 07/29/20 Quit! 07/20/2020Pt mokes 3 cigarettes a day, doen from 1/2 pack a day. Discussed risks of smoking during . Advised pt to quit. TKRN Patient request for diagnostic testing 07/20/2020 03/12/2021 Overview: 07/29/20 Declined aneuploidy and carrier screening. 07/20/2020Patient desires nuchal ultrasound. Declines genetic carrier screening testing.Mirian Izquierdo RN Convulsions 12/27/2019 03/12/2021 Last Assessment & Plan: Assessment: 19 year old right handed female admitted to the epilepsy monitoring unit for diagnosis of events. She has had 3 lifetime events in the setting of stress/anxiety that starts with neck spasms, then hyperventilation, then full body trembling/shaking. She maintains awareness throughout, without TB or UI. Epilepsy risk factors include head trauma (3 concussions, but never with LOC). EEG in June 2012 and May 2019 were normal. No brain MRIs on file. PLAN: -Discontinue video EEG -AEDs: None -Seizure and fall precautions - Follow up with PCP Transition of care performed with sharing of clinical summary 01/07/2019 08/22/2019 Overview: Admitted through ED with abdominal pain. Abd CT negative. Hgb 16.6 (H), venous blood gas drawn with mildly elevated CO2. CBC, CMP, amylase WNL. 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 GDM. Diabetic education and patient intake representative counseling ordered. Anamika Eric APRN.CNM Abnormal glucose in , antepartum 12/29/2020 03/12/2021 Overview: 12/29/20-1hr GCT 192, 3hr GTT ordered. nAamika Eric APRN.CNM Supervision of wit h history of infertility, first trimester 07/20/2020 03/12/2021 Overview: 07/20/2020 Patient states she and partner have been attempting for 1 year. She did use Femara to attain . TKRN Nausea and vomiting in 07/20/2020 03/12/2021 Overview: 07/20/2020Patient is complaining of nausea and occasional vomiting in . Dietary considerations discussed . Vitamin B6 recommended. Advised patient to call/come in if she is unable to keep any food or fluids down in a 24-hour period.TKRN Tobacco use during , antepartum 07/20/2020 03/12/2021 Overview: 07/29/20 Quit! SW 07/20/2020Pt mokes 3 cigarettes a day, doen from 1/2 pack a day. Discussed risks of smoking during . Advised pt to quit. TKRN Patient request for diagnostic testing 07/20/2020 03/12/2021 Overview: 07/29/20 Declined aneuploidy and carrier screening. 07/20/2020Patient desires nuchal ultrasound. Declines genetic carrier screening testing.Mirian Izquierdo RN Convulsions 12/27/2019 03/12/2021 Last Assessment & Plan: Assessment: 19 year old right handed female admitted to the epilepsy monitoring unit for diagnosis of events. She has had 3 lifetime events in the setting of stress/anxiety that starts with neck spasms, then hyperventilation, then full body trembling/shaking. She maintains awareness throughout, without TB or UI. Epilepsy risk factors include head trauma (3 concussions, but never with LOC). EEG in June 2012 and May 2019 were normal. No brain MRIs on file. PLAN: -Discontinue video EEG -AEDs: None -Seizure and fall precautions - Follow up with PCP Transition of care performed with sharing of clinical summary 01/07/2019 08/22/2019 Overview: Admitted through ED with abdominal pain. Abd CT negative. Hgb 16.6 (H), venous blood gas drawn with mildly elevated CO2. CBC, CMP, amylase WNL. 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 GDM. Diabetic education and patient intake representative counseling ordered. Anamika Eric APRN.CNM Abnormal glucose in , antepartum 12/29/2020 03/12/2021 Overview: 12/29/20-1hr GCT 192, 3hr GTT ordered. 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 She did use Femara to attain . TKRN Nausea and vomiting in 07/20/2020 03/12/2021 Overview: 07/20/2020Patient is complaining of nausea and occasional vomiting in . Dietary considerations discussed . Vitamin B6 recommended. Advised patient to call/come in if she is unable to keep any food or fluids down in a 24-hour period.TKRN Tobacco use during , antepartum 07/20/2020 03/12/2021 Overview: 07/29/20 Quit! SW 07/20/2020Pt mokes 3 cigarettes a day, doen from 1/2 pack a day. Discussed risks of smoking during . Advised pt to quit. TKRN Patient request for diagnostic testing 07/20/2020 03/12/2021 Overview: 07/29/20 Declined aneuploidy and carrier screening. SW 07/20/2020Patient desires nuchal ultrasound. Declines genetic carrier screening testing.Mirian Izquierdo RN Convulsions 12/27/2019 03/12/2021 Last Assessment & Plan: Assessment: 19 year old right handed female admitted to the epilepsy monitoring unit for diagnosis of events. She has had 3 lifetime events in the setting of stress/anxiety that starts with neck spasms, then hyperventilation, then full body trembling/shaking. She maintains awareness throughout, without TB or UI. Epilepsy risk factors include head trauma (3 concussions, but never with LOC). EEG in June 2012 and May 2019 were normal. No brain MRIs on file. PLAN: -Discontinue video EEG -AEDs: None -Seizure and fall precautions - Follow up with PCP Transition of care performed with sharing of clinical summary 01/07/2019 08/22/2019 Overview: Admitted through ED with abdominal pain. Abd CT negative. Hgb 16.6 (H), venous blood gas drawn with mildly elevated CO2. CBC, CMP, amylase WNL. 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 GDM. Diabetic education and patient intake representative counseling ordered. Anamika Eric APRN.CNM Abnormal glucose in , antepartum 12/29/2020 03/12/2021 Overview: 12/29/20-1hr GCT 192, 3hr GTT ordered. 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 She did use Femara to attain . TKRN Nausea and vomiting in 07/20/2020 03/12/2021 Overview: 07/20/2020Patient is complaining of nausea and occasional vomiting in . Dietary considerations discussed . Vitamin B6 recommended. Advised patient to call/come in if she is unable to keep any food or fluids down in a 24-hour period.TKRN Tobacco use during , antepartum 07/20/2020 03/12/2021 Overview: 07/29/20 Quit! SW 07/20/2020Pt mokes 3 cigarettes a day, doen from 1/2 pack a day. Discussed risks of smoking during . Advised pt to quit. TKRN Patient request for diagnostic testing 07/20/2020 03/12/2021 Overview: 07/29/20 Declined aneuploidy and carrier screening. 07/20/2020Patient desires nuchal ultrasound. Declines genetic carrier screening testing.Mirian Izquierdo RN Convulsions 12/27/2019 03/12/2021 Last Assessment & Plan: Assessment: 19 year old right handed female admitted to the epilepsy monitoring unit for diagnosis of events. She has had 3 lifetime events in the setting of stress/anxiety that starts with neck spasms, then hyperventilation, then full body trembling/shaking. She maintains awareness throughout, without TB or UI. Epilepsy risk factors include head trauma (3 concussions, but never with LOC). EEG in June 2012 and May 2019 were normal. No brain MRIs on file. PLAN: -Discontinue video EEG -AEDs: None -Seizure and fall precautions - Follow up with PCP Transition of care performed with sharing of clinical summary 01/07/2019 08/22/2019 Overview: Admitted through ED with abdominal pain. Abd CT negative. Hgb 16.6 (H), venous blood gas drawn with mildly elevated CO2. CBC, CMP, amylase WNL. 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 GDM. Diabetic education and patient intake representative counseling ordered. Anamika Eric APRN.CNM Abnormal glucose in , antepartum 12/29/2020 03/12/2021 Overview: 12/29/20-1hr GCT 192, 3hr GTT ordered. 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 She did use Femara to attain . TKRN Nausea and vomiting in 07/20/2020 03/12/2021 Overview: 07/20/2020Patient is complaining of nausea and occasional vomiting in . Dietary considerations discussed . Vitamin B6 recommended. Advised patient to call/come in if she is unable to keep any food or fluids down in a 24-hour period.TKRN Tobacco use during , antepartum 07/20/2020 03/12/2021 Overview: 07/29/20 Quit! SW 07/20/2020Pt mokes 3 cigarettes a day, doen from 1/2 pack a day. Discussed risks of smoking during . Advised pt to quit. TKRN Patient request for diagnostic testing 07/20/2020 03/12/2021 Overview: 07/29/20 Declined aneuploidy and carrier screening. SW 07/20/2020Patient desires nuchal ultrasound. Declines genetic carrier screening testing.Mirian Izquierdo RN Convulsions 12/27/2019 03/12/2021 Last Assessment & Plan: Assessment: 19 year old right handed female admitted to the epilepsy monitoring unit for diagnosis of events. She has had 3 lifetime events in the setting of stress/anxiety that starts with neck spasms, then hyperventilation, then full body trembling/shaking. She maintains awareness throughout, without TB or UI. Epilepsy risk factors include head trauma (3 concussions, but never with LOC). EEG in June 2012 and May 2019 were normal. No brain MRIs on file. PLAN: -Discontinue video EEG -AEDs: None -Seizure and fall precautions - Follow up with PCP Transition of care performed with sharing of clinical summary 01/07/2019 08/22/2019 Overview: Admitted through ED with abdominal pain. Abd CT negative. Hgb 16.6 (H), venous blood gas drawn with mildly elevated CO2. CBC, CMP, amylase WNL. 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 GDM. Diabetic education and patient intake representative counseling ordered. Anamika Eric APRN.LISA Abnormal glucose in , antepartum 12/29/2020 03/12/2021 Overview: 12/29/20-1hr GCT 192, 3hr GTT ordered. 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 She did use Femara to attain . TKRN Nausea and vomiting in 07/20/2020 03/12/2021 Overview: 07/20/2020Patient is complaining of nausea and occasional vomiting in . Dietary considerations discussed . Vitamin B6 recommended. Advised patient to call/come in if she is unable to keep any food or fluids down in a 24-hour period.TKRN Tobacco use during , antepartum 07/20/2020 03/12/2021 Overview: 07/29/20 Quit! SW 07/20/2020Pt mokes 3 cigarettes a day, doen from 1/2 pack a day. Discussed risks of smoking during . Advised pt to quit. TKRN Patient request for diagnostic testing 07/20/2020 03/12/2021 Overview: 07/29/20 Declined aneuploidy and carrier screening. 07/20/2020Patient desires nuchal ultrasound. Declines genetic carrier screening testing.Mirian Izquierdo RN Convulsions 12/27/2019 03/12/2021 Last Assessment & Plan: Assessment: 19 year old right handed female admitted to the epilepsy monitoring unit for diagnosis of events. She has had 3 lifetime events in the setting of stress/anxiety that starts with neck spasms, then hyperventilation, then full body trembling/shaking. She maintains awareness throughout, without TB or UI. Epilepsy risk factors include head trauma (3 concussions, but never with LOC). EEG in June 2012 and May 2019 were normal. No brain MRIs on file. PLAN: -Discontinue video EEG -AEDs: None -Seizure and fall precautions - Follow up with PCP Transition of care performed with sharing of clinical summary 01/07/2019 08/22/2019 Overview: Admitted through ED with abdominal pain. Abd CT negative. Hgb 16.6 (H), venous blood gas drawn with mildly elevated CO2. CBC, CMP, amylase WNL. 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 GDM. Diabetic education and patient intake representative counseling ordered. Anamika Eric APRN.CNM Abnormal glucose in , antepartum 12/29/2020 03/12/2021 Overview: 12/29/20-1hr GCT 192, 3hr GTT ordered. 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 She did use Femara to attain . TKRN Nausea and vomiting in 07/20/2020 03/12/2021 Overview: 07/20/2020Patient is complaining of nausea and occasional vomiting in . Dietary considerations discussed . Vitamin B6 recommended. Advised patient to call/come in if she is unable to keep any food or fluids down in a 24-hour period.TKRN Tobacco use during , antepartum 07/20/2020 03/12/2021 Overview: 07/29/20 Quit! SW 07/20/2020Pt mokes 3 cigarettes a day, doen from 1/2 pack a day. Discussed risks of smoking during . Advised pt to quit. TKRN Patient request for diagnostic testing 07/20/2020 03/12/2021 Overview: 07/29/20 Declined aneuploidy and carrier screening. 07/20/2020Patient desires nuchal ultrasound. Declines genetic carrier screening testing.Mirian Izquierdo RN Convulsions 12/27/2019 03/12/2021 Last Assessment & Plan: Assessment: 19 year old right handed female admitted to the epilepsy monitoring unit for diagnosis of events. She has had 3 lifetime events in the setting of stress/anxiety that starts with neck spasms, then hyperventilation, then full body trembling/shaking. She maintains awareness throughout, without TB or UI. Epilepsy risk factors include head trauma (3 concussions, but never with LOC). EEG in June 2012 and May 2019 were normal. No brain MRIs on file. PLAN: -Discontinue video EEG -AEDs: None -Seizure and fall precautions - Follow up with PCP Transition of care performed with sharing of clinical summary 01/07/2019 08/22/2019 Overview: Admitted through ED with abdominal pain. Abd CT negative. Hgb 16.6 (H), venous blood gas drawn with mildly elevated CO2. CBC, CMP, amylase WNL. 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 documented as of this encounter (statuses as of 10/02/2023) [facility] Diagnosis Acute sinusitis, recurrence not specified, unspecified location- Primary Tobacco abuse Tobacco use disorder URI, acute Acute upper respiratory infections of unspecified site [facility] Diagnosis Secondary amenorrhea- Primary Absence of menstruation [facility] Diagnosis Abnormal uterine bleeding (AUB)- Primary [facility] Diagnosis UTI symptoms- Primary Other symptoms involving urinary system Missed menses Absence of menstruation Rash Rash and other nonspecific skin eruption [facility] Diagnosis Elevated glucose- Primary Other abnormal glucose [facility] Diagnosis Abnormal uterine bleeding (AUB)- Primary PCOS (polycystic ovarian syndrome) Polycystic ovaries Desire for Unspecified procreative management [facility] Diagnosis Abnormal uterine bleeding (AUB) PCOS (polycystic ovarian syndrome) Polycystic ovaries Desire for Unspecified procreative management [facility] Diagnosis Acute pyelonephritis- Primary Acute pyelonephritis without lesion of renal medullary necrosis Sepsis, due to unspecified organism, unspecified whether acute organ dysfunction present (HCC) 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 Recurrent urinary tract infection Urinary tract infection, site not specified Chest pain, unspecified type [facility] Diagnosis Positive urine test- Primary examination or test, positive result [facility] Diagnosis Acute pyelonephritis Acute pyelonephritis without lesion of renal medullary necrosis Sepsis, due to unspecified organism, unspecified whether acute organ dysfunction present (HCC) 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 note* Diagnosis Right flank pain- Primary Abdominal pain, unspecified site Somatic dysfunction of spine, lumbar Nonallopathic lesion of lumbar region, not elsewhere classified documented in this encounter [facility] note* Diagnosis Acute pyelonephritis- Primary Acute pyelonephritis without lesion of renal medullary necrosis Recurrent urinary tract infection Urinary tract infection, site not specified Kidney stone [N20.0 (ICD-10-CM)] Calculus of kidney [facility] Diagnosis Congenital anomaly of ureter- Primary Unspecified congenital anomaly of urinary system Recurrent urinary tract infection Urinary tract infection, site not specified PCOS (polycystic ovarian syndrome) Polycystic ovaries Acute pyelonephritis Acute pyelonephritis without lesion of renal medullary necrosis [facility] Diagnosis Desire for - Primary Unspecified procreative management documented in this encounter [facility] note* Diagnosis Acute right ankle pain- Primary documented in this encounter [facility] note* Diagnosis Secondary amenorrhea- Primary Absence of menstruation Insulin resistance Dysmetabolic Syndrome X PCOS (polycystic ovarian syndrome) Polycystic ovaries Disorder of ovulation Unspecified noninflammatory disorder of ovary, fallopian tube, and broad ligament Attempting to conceive documented in this encounter [facility] note* Diagnosis Sore throat- Primary Acute pharyngitis documented in this encounter [facility] note* Diagnosis Encounter for fertility testing- Primary Fertility testing [facility] Diagnosis Epigastric pain- Primary Abdominal pain, epigastric Diarrhea of presumed infectious origin Nausea Nausea alone Abnormal urine Other nonspecific finding on examination of urine documented in this encounter [facility] note* Diagnosis Right upper quadrant abdominal pain- Primary Abdominal pain, right upper quadrant [facility] Diagnosis Right upper quadrant abdominal pain Abdominal pain, right upper quadrant [facility] Diagnosis Acute left-sided low back pain without sciatica- Primary documented in this encounter 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 [facility] Diagnosis Conjunctivitis of both eyes, unspecified conjunctivitis type- Primary [facility] Diagnosis Sore throat- Primary Acute pharyngitis Acute conjunctivitis of right eye, unspecified acute conjunctivitis type [facility] Diagnosis Recurrent UTI- Primary Urinary tract infection, site not specified Dysuria 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 [facility] Diagnosis Problems with ovulation- Primary Unspecified noninflammatory disorder of ovary, fallopian tube, and broad ligament Attempting to conceive Oligo-ovulation Female infertility associated with anovulation Encounter for procreative management Unspecified procreative management [facility] Diagnosis Screening for genitourinary condition Screening for other and unspecified genitourinary condition documented in this encounter [facility] for referral (narrative)* Diagnostic Procedure Only (Routine) - Closed Specialty Diagnoses / Procedures Referred By Contac t Referred To Contact XR IMAGING Diagnoses Acute right ankle pain Procedures XR ANKLE GENERAL 3V AP/LAT/OBL RIGHT RADEX ANKLE COMPLETE MINIMUM 3 VIEWS Ramila Mcnamara PA-C [address] [place] [address] Xr Imaging Referral ID Status Reason Start Date Expiration Date V isits Requested Visits Authorized [id number] Closed Auto-Generate d Referral 12/26/2022 01/25/2024 1 1 [facility] for referral (narrative)* Diagnostic Procedure Only (Urgent) - Closed Specialty Diagnoses / Procedures Referred By Contac t Referred To Contact US IMAGING Diagnoses Right upper quadrant abdominal pain Procedures US ABD RIGHT UPPER QUADRANT US ABDOMINAL REAL TIME W/IMAGE LIMITED Genia Gutierrez, WILI.TRAVEL AGENCY MANAGER [address] [place] [address] Us Imaging Referral ID Status Reason Start Date Expiration Date V isits Requested Visits Authorized [id number] Closed Auto-Generate d Referral 02/09/2023 03/09/[address] [facility] for referral (narrative)* Diagnostic Procedure Only (Urgent) - Closed Specialty Diagnoses / Procedures Referred By Contac t Referred To Contact US IMAGING Diagnoses Right upper quadrant abdominal pain Procedures US ABD RIGHT UPPER QUADRANT US ABDOMINAL REAL TIME W/IMAGE LIMITED Genia Gutierrez APRN.TRAVEL AGENCY MANAGER [address] [place] [address] Us Imaging Referral ID Status Reason Start Date Expiration Date V isits Requested Visits Authorized [id number] Closed Auto-Generate d Referral 02/09/2023 03/09/[address] [facility] for visit Narrative* Diagnostic Procedure Only (Urgent) - Closed Specialty Diagnoses / Procedures Referred By Contac t Referred To Contact US IMAGING Diagnoses Right upper quadrant abdominal pain Procedures US ABD RIGHT UPPER QUADRANT US ABDOMINAL REAL TIME W/IMAGE LIMITED Genia Gutierrez APRN.TRAVEL AGENCY MANAGER [address] [place] [address] Us Imaging Referral ID Status Reason Start Date Expiration Date V isits Requested Visits Authorized [id number] Closed Auto-Generate d Referral 02/09/2023 03/09/2024 1 1 [facility] Discharge Instructions * Instructions* Hunter Pemberton MD - 01/06/2019 Your blood pressure was noted to be elevated in the Emergency Department today. Please follow-up with your primary care physician to have your blood pressure rechecked and to decide if you will benefit from life style changes,starting on medications, or modify your current blood pressure regimen. You may need more tests or studies in the future but CT scan today did not show any evidence for surgical or infectious pathway that needed immediate treatment. * Attachments The following attachments cannot be sent through Care Everywhere. * Abdominal Pain (Macedonian) in this encounter* Attachments The following attachments cannot be sent through Care Everywhere. * Constipation (Macedonian) * UTI (Urinary Tract Infection): Female (Macedonian) documented in this encounter Assessments Diagnosis Abdominal pain in female patient- Primary Diagnosis Acute UTI- Primary Urinary tract infection, site not specified Constipation, unspecified constipation type Advance Directives No Advanced Directives Records FoundDocuments on File Type Date Recorded Patient Rehabilitation Manager Expl anation Advance Directive(s) 04/24/2020 6:01 AM Advance Directive(s) 12/28/2019 1:02 PM Advance Directive(s) 12/12/2019 1:13 PM Summary Purpose Family History No Family History Records FoundNo Family History Records FoundNo Family History Records FoundNo Family History Records FoundNo Family History Records FoundNo Family History Records FoundNo Family History Records FoundNo Family History Records Found Hospital Course Note EMERGENCY DEPARTMENT DISCHAR GE SUMMARY PATIENT NAME:SANAZ PARIKH AGE: 19 Years SEX: Female PHONE:[id number] DOS: 04/02/2020 09:19:00 : 2000 ATTENDING PHYSICIAN:Thompson White MD PCP: Physician, No PCP CHIEF COMPLAINT: ABD PAIN Allergies Bactrim (Rash) Problems Active PCOS (polycystic ovarian syndrome) DISCHARGE DIAGNOSIS: DISCHARGE INSTRUCTIONS: Pyelonephritis, Adult; Urinary Tract Infection ED PHYSICIAN DOCUMENTATION: History of Present Illness The patient is a?19-year-old female with a history of PCOS who presents for evaluation of?nausea and urinary frequency for the past?2 days.? She reports?a little bit of right?back pain, she says that she has had history of similar symptoms with UTIs and kidney infections in the past.? She is unsure about fever, she denies any dysuria, hematuria, chest pain, shortness of breath, cough, diarrhea, constipation or vaginal symptoms. ?She reports a little bit of lower abdominal pain. ?She is not taken any med (more content not included)... Reason for Referral Specialty Diagnoses / Procedures Referred By Sonido hale Referred To Contact Urology Diagnoses Acute pyelonephritis Sepsis, due to unspecified organism, unspecified whether acute organ dysfunction present (HCC) Congenital anomaly of ureter Recurrent urinary tract infection Procedures CONSULT TO UROLOGY OFFICE/OUTPATIENT [facility] 60-74 MINUTES Doug Garcia MD [address] [place] [address] Referral ID Status Reason Start Date Expiration Date Visits Requested Visits Authorized [id number] Authorized PCP Requested Referral 2 09/16/2023 1 1 Specialty Diagnoses / Procedures Referred By Contac t Referred To Contact Diagnoses Right flank pain Ramila Mcnamara PA-C [address] [place] [address] Referral ID Status Reason Start Date Expiration Date Visits Re quested Visits Authorized [id number] Closed 1 1 Specialty Diagnoses / Procedures Referred By Contac t Referred To Contact Nephrology Diagnoses Congenital anomaly of ureter Recurrent urinary tract infection Acute pyelonephritis Procedures CONSULT TO NEPHROLOGY OFFICE/OUTPATIENT [facility] 60-74 MINUTES Ramila Mcnamara PA-C [address] [place] [address] Referral ID Status Reason Start Date Expiration Date Visits Requested Visits Authorized [id number] Authorized PCP Requested Referral 11/18/2022 11/18/2023 1 1 Specialty Diagnoses / Procedures Referred By Contac t Referred To Contact Diagnoses Desire for Procedures CONSULT TO INFERTILITY CLINIC Joyce Barone MD [address] [place] [address] [place] [address] [place] [address] Referral ID Status Reason Start Date Expiration Date Visits Requested Visits Authorized [id number] Ref Not Required PCP Requested Referral 12/05/2022 12/05/2023 1 1 Specialty Diagnoses / Procedures Referred By Contac t Referred To Contact Diagnoses Recurrent UTI Dysuria Congenital anomaly of ureter Procedures CONSULT TO FEMALE UROLOGY/URO GYNECOLOGY OFFICE/OUTPATIENT [facility] 60-74 MINUTES Ramila Mcnamara PA-C [address] [place] [address] Referral ID Status Reason Start Date Expiration Date Visits Requested Visits Authorized [id number] Authorized PCP Requested Referral 07/04/2023 07/03/2024 1 1 Specialty Diagnoses / Procedures Referred By Contac t Referred To Contact Urology Diagnoses Recurrent UTI Congenital anomaly of ureter Procedures CONSULT TO UROLOGY OFFICE/OUTPATIENT [facility] 60-74 MINUTES Nyla Blanco MD [address] [place] [address] Susie Younger MD [address] [place] [address] Referral ID Status Reason Start Date Expiration Date Visits Requested Visits Authorized [id number] Authorized PCP Requested Referral 3 08/24/2024 1 1 Additional Source Comments Reason for Visit (unrecogniz ed section and content) Specialty Diagnoses / Procedures Referred By Sonido hale Referred To Contact [employer] OPERATOR [employer] Diagnoses Spotting 17 days, RLQ pain, Trying for conception Procedures MY[facility] SPECIALIST OFFICE VISIT Pcp, Joyce Dave MD [address] [place] [address] Referral ID Status Reason Start Date Expiration Date Visits Requested Visits Authorized [id number] Authorized Patient Cleared - Qualified 100% FAS 07/05/2022 10/03/2022 99 99 Reason Comments RUQ PAIN Reason Comments Abdominal Pain Nausea Reason Comments Sinus Problem x2 weeks, congestion , ARORA, running nose Reason Onset Date Comments Refill Request 02/06/2022 Reason Comments heavy menses Reason Comments UTI lower back pain and rash on legs x days Reason Comments Results Urine Cx mixed Reason Comments Orders Reason Comments Hospital F/U Reason Onset Date Comments Patient Question 09/26/2022 Reason Comments Follow Up Specialty Diagnoses / Procedures Referred By Sonido hale Referred To Contact Urology Diagnoses Acute pyelonephritis Sepsis, due to unspecified organism, unspecified whether acute organ dysfunction present (HCC) Congenital anomaly of ureter Recurrent urinary tract infection Procedures CONSULT TO UROLOGY OFFICE/OUTPATIENT [facility] 60-74 MINUTES Doug Garcia MD [address] [place] [address] Referral ID Status Reason Start Date Expiration Date V isits Requested Visits Authorized [id number] Closed PCP Requested Referral 09/16/2022 09/16/2023 1 1 Reason Comments Medication Problem Reason Comments Follow Up 2 week follow up Reason Comments Kidney Stones Reason Comments Urinary Problem Reason Comments imagining Reason Comments Ankle Pain right Reason Comments Consult Reason Comments Sore Throat x 4-5 days Reason Comments Patient Update Reason Comments Abdominal Pain Fever TMAX 101. Last 2 day s. Taking ibuprofen Reason Comments Abdominal Pain Reason Comments Abdominal Pain X1 week; worsening i n the last 3 days with diarrhea/no vomiting; no fever Reason Comments Back Pain Left lower back pain x3 weeks Reason Comments Forms Reason Comments Patient Question Returning Patient's Call Reason Comments UTI Reason Comments UTI Painful urination wi th mid back pain and lower abd pain X 4 days Reason Comments Conjunctivitis Bilateral x today Sore Throat X today Reason Comments Eye Problem Irritated red right eye x 1 day Reason Comments Established Patient recurrent infections Specialty Diagnoses / Procedures Referred By Contac t Referred To Contact Diagnoses Recurrent UTI Dysuria Congenital anomaly of ureter Procedures CONSULT TO FEMALE UROLOGY/URO GYNECOLOGY OFFICE/OUTPATIENT [facility] 60-74 MINUTES Ramila Mcnamara PA-C [address] [place] [address] Referral ID Status Reason Start Date Expiration Date V isits Requested Visits Authorized [id number] Closed PCP Requested Referral 07/04/2023 07/03/2024 1 1 Hunter Pemberton MD - 01/06/2019 11:22 AM Lianna Rayo RN - 01/06/2019 11:08 AM Lianna Becerra RN - 02/12/2019 6:16 PM Lianna Becerra RN - 02/12/2019 5:41 PM EDT ED Notes (unrecognized secti on and content) PCP: Physician No Chief Complaint Patient presents with RUQ PAIN HPI: 18-year-old female reports to the emergency department with abdominal pain intermittently for 3 months. Pain has been the right upper quadrant was thought to possibly be secondary to her gallbladder, but the patient states that gallbladder test was negative. Symptoms are not related to food. Abstaining from greasy or fatty foods has not helped the symptoms improve. She was nauseous a lot last week but not now and has a history of some chronic nausea. No chest pain or shortness of breath. No fever or chills. She states she is been working with a primary care physician and specialist on this problem in her PCP was going to do a CAT scan if symptoms had continued by Monday. REVIEW OF SYSTEMS: Review of Systems Constitutional: Negative for chills, fatigue and fever. Respiratory: Negative for cough, chest tightness and shortness of breath. Cardiovascular: Negative for chest pain and palpitations. Gastrointestinal: Positive for abdominal pain and nausea. Negative for constipation, diarrhea and vomiting. Genitourinary: Negative for dysuria, flank pain, hematuria, vaginal bleeding and vaginal discharge. Musculoskeletal: Negative for back pain and neck pain. Skin: Negative for rash and wound. Allergic/Immunologic: Negative for immunocompromised state. Neurological: Negative for dizziness, seizures, syncope and headaches. Psychiatric/Behavioral: Negative for agitation and confusion. All other systems reviewed and are negative. Past Medical History: Past Medical History: Diagnosis Date PCOS (polycystic ovarian syndrome) Past medical history reviewed. Past Surgical History: Past Surgical History: Procedure Laterality Date APPENDECTOMY KNEE SURGERY Past surgical history reviewed. Family History: History reviewed. No pertinent family history. Family history reviewed. Social History: Social History Socioeconomic History Marital status: Single Spouse name: Not on file Number of children: Not on file Years of education: Not on file Highest education level: Not on file Social Needs Financial resource strain: Not on file Food insecurity - worry: Not on file Food insecurity - inability: Not on file Transportation needs - medical: Not on file Transportation needs - non-medical: Not on file Occupational History Not on file Tobacco Use Smoking status: Current Every Day Smoker Smokeless tobacco: Never Used Substance and Sexual Activity Alcohol use: Not Currently Frequency: Never Drug use: Never Sexual activity: Not on file Other Topics Concern Not on file Social History Narrative Not on file Social history reviewed. Allergies: Allergies Allergen Reactions Bactrim [Sulfamethoxazole-Trimethoprim] Medications: Sanaz Parikh Jones Medication Instructions Prior to Surgery PERICO:[id number] Printed on:01/06/19 1319 Medication Information Take last dose on Take the morning of surgery Comment(s) ondansetron (ZOFRAN ODT) 4 MG disintegrating tablet Dissolve 1 (one) tablet (4 mg total) on top of tongue every 8 (eight) hours as needed for nausea . PHYSICAL EXAMINATION: Initial Vital Signs BP 131/78 Pulse 91 Temp 98.1 F (36.7 C) (Oral) Resp 18 LMP 12/10/2018 SpO2 100% Physical Exam Constitutional: She is oriented to person, place, and time. She appears well-developed and well-nourished. No distress. Eyes: Conjunctivae are normal. No scleral icterus. Neck: Neck supple. No tracheal deviation present. Cardiovascular: Normal rate and regular rhythm. Pulmonary/Chest: Effort normal and breath sounds normal. No stridor. No respiratory distress. Abdominal: Soft. She exhibits no distension. There is tenderness. There is no rebound and no guarding. No abdominal distention. Patient, through abdominal exam but reports mild right- sided tenderness. Neurological: She is alert and oriented to person, place, and time. Coordination normal. Skin: Skin is warm and dry. Capillary refill takes less than 2 seconds. No rash noted. She is not diaphoretic. No pallor. No jaundice. Psychiatric: She has a normal mood and affect. Her behavior is normal. Vital Signs During ED Visit (as charted by nursing) Patient Vitals for the past 24 hrs: BP Temp Temp src Pulse Resp SpO2 01/06/19 1104 131/78 98.1 F (36.7 C) Oral 91 18 100 % IMPRESSION: SNOMED CT(R) 1. Abdominal pain in female patient ABDOMINAL PAIN MEDICAL DECISION MAKING: MDM Number of Diagnoses or Management Options Diagnosis management comments: Abdominal pain and a 18-year-old female intermittently times 3 months. No vaginal bleeding or discharge. Amount and/or Complexity of Data Reviewed Clinical lab tests: ordered and reviewed Tests in the radiology section of CPT : ordered and reviewed Review and summarize past medical records: yes Risk of Complications, Morbidity, and/or Mortality Presenting problems: high Diagnostic procedures: high Management options: high Patient Progress Patient progress: stable Laboratory Results Labs Reviewed POC CBC AND DIFFERENTIAL - Abnormal; Notable for the following components: Result Value MPV 8.5 (*) All other components within normal limits POC URINALYSIS DIPSTICK,AUTO - RALS - Abnormal; Notable for the following components: pH, UA 8.0 (*) Blood, UA Moderate (*) Leukocyte Esterase, UA Moderate (*) All other components within normal limits POC VBG (EPOC) WITH FULL PANEL - RALS - Abnormal; Notable for the following components: pCO2, Juma 55.4 (*) pO2, Juma 21 (*) HCO3, Juma 28.5 (*) Hemoglobin, Calculated 16.6 (*) Hematocrit 49 (*) Potassium 5.5 (*) All other components within normal limits Narrative: The eGFR should be used for monitoring renal function only and not for medication dosing. POC LIVER PANEL PLUS RALS - Abnormal; Notable for the following components: Amylase <5 (*) All other components within normal limits POC , URINE - RALS - Normal Narrative: Dilute urine specimens, as indicated by a low specific gravity (<1.010) may not contain patient relations representative levels of hCG. If is still suspected, a serum test or repeat urine test using a first morning urine specimen should be considered. POC VBG (EPOC) WITH FULL PANEL POC LIVER PANEL PLUS POC URINALYSIS DIPSTICK,AUTO POC , URINE Imaging Results CT Abdomen Pelvis With IV Contrast Only Non-public Result No acute abdominal or pelvic abnormality. Workstation ID: [id number] Patient is not reporting dysuria. I do not think she needs active treatment for urinary tract infection at this time. Nitrates are negative. CT scan does not show any acute significant abnormality at this time and I do feel that we can safely discharge this patient from emergency department in satisfactory condition. I have discussed the results of tests and studies, suggested appropriate follow- up and symptomatic control at home and answered questions for the patient and loved ones. I have advised that they should pursue GI follow-up in the near future as well. Symptomatic persistent symptoms that were unable to determine the etiology of here in the emergency department today. She may have a functional gallbladder disorder or other abnormality causing these problems that needs future treatment. PROCEDURES (if any, during ED visit): Procedures MEDICATIONS ORDERED/GIVEN (if any, during ED visit): Medications sodium chloride (PF) (NS) flush 5 mL (not administered) sodium chloride 0.9% (NS) bolus 500 mL (500 mL Intravenous New Bag 3/10/19 1130) sodium chloride (PF) (NS) 0.9 % contrast line flush 10 mL (10 mL Intravenous Given 01/06/19 1210) And sodium chloride (PF) (NS) 0.9 % contrast line flush 80 mL (80 mL Intravenous Given 01/06/19 1210) And iopamidol (ISOVUE-370) 76 % injection 75 mL (75 mL Intravenous Contrast Administered 01/06/19 1209) Hunter Pemberton MD 01/06/19 1311 Presents with right rib/ ruq pain that has been intermittent since October. Has been sen by pcp and had US of gallbladder that was negative. Pain is not effected by food or drink. Pain does wake her up at night sometimes. Worse with deep breath occasionally. Has nausea that comes and goes. No urinary s/s. in this encounter Pt to radiology Physician at bedside.DR. DURAND C/O RT SIDE PAIN ON AND OFF SINCE OCT. PAIN MORE CONSISTENT TODAY Bed: 19 Expected date: Expected time: Means of arrival: Comments: 2ND Bed: 10 Expected date: Expected time: Means of arrival: Comments: NEXT documented in this encounter INFORMATION SOURCE (unrecogn ized section and content) DATE CREATED AUTHOR AUTHOR'S ORGANIZ ATION 02/15/2019 [facility] DATE CREATED AUTHOR AUTHOR'S ORGANIZ ATION 06/09/2019 [facility] DATE CREATED AUTHOR AUTHOR'S ORGANIZ ATION 07/20/2020 [facility] DATE CREATED AUTHOR AUTHOR'S ORGANIZ ATION 02/25/2021 [facility] DATE CREATED AUTHOR AUTHOR'S ORGANIZ ATION 05/18/2022 [facility] DATE CREATED AUTHOR AUTHOR'S ORGANIZ ATION 11/11/2023 [facility] DATE CREATED AUTHOR AUTHOR'S ORGANIZ ATION 11/21/2023 [facility] Source Comments (unrecognize d section and content) In the event this informatio n is protected by the Federal Confidentiality of Alcohol and Drug Abuse Patient Records regulations: The Federal rules restrict any use of the information to criminally investigate or prosecute any alcohol or drug abuse patient.[facility] the event this information is protected by the Federal Confidentiality of Alcohol and Drug Abuse Patient Records regulations: The Federal rules restrict any use of the information to criminally investigate or prosecute any alcohol or drug abuse patient.[facility] the event this information is protected by the Federal Confidentiality of Alcohol and Drug Abuse Patient Records regulations: The Federal rules restrict any use of the information to criminally investigate or prosecute any alcohol or drug abuse patient.[facility] the event this information is protected by the Federal Confidentiality of Alcohol and Drug Abuse Patient Records regulations: The Federal rules restrict any use of the information to criminally investigate or prosecute any alcohol or drug abuse patient.[facility] the event this information is protected by the Federal Confidentiality of Alcohol and Drug Abuse Patient Records regulations: The Federal rules restrict any use of the information to criminally investigate or prosecute any alcohol or drug abuse patient.[facility] the event this information is protected by the Federal Confidentiality of Alcohol and Drug Abuse Patient Records regulations: The Federal rules restrict any use of the information to criminally investigate or prosecute any alcohol or drug abuse patient.[facility] the event this information is protected by the Federal Confidentiality of Alcohol and Drug Abuse Patient Records regulations: The Federal rules restrict any use of the information to criminally investigate or prosecute any alcohol or drug abuse patient.[facility] the event this information is protected by the Federal Confidentiality of Alcohol and Drug Abuse Patient Records regulations: The Federal rules restrict any use of the information to criminally investigate or prosecute any alcohol or drug abuse patient.[facility] the event this information is protected by the Federal Confidentiality of Alcohol and Drug Abuse Patient Records regulations: The Federal rules restrict any use of the information to criminally investigate or prosecute any alcohol or drug abuse patient.[facility] the event this information is protected by the Federal Confidentiality of Alcohol and Drug Abuse Patient Records regulations: The Federal rules restrict any use of the information to criminally investigate or prosecute any alcohol or drug abuse patient.[facility] the event this information is protected by the Federal Confidentiality of Alcohol and Drug Abuse Patient Records regulations: The Federal rules restrict any use of the information to criminally investigate or prosecute any alcohol or drug abuse patient.[facility] the event this information is protected by the Federal Confidentiality of Alcohol and Drug Abuse Patient Records regulations: The Federal rules restrict any use of the information to criminally investigate or prosecute any alcohol or drug abuse patient.[facility] the event this information is protected by the Federal Confidentiality of Alcohol and Drug Abuse Patient Records regulations: The Federal rules restrict any use of the information to criminally investigate or prosecute any alcohol or drug abuse patient.[facility] the event this information is protected by the Federal Confidentiality of Alcohol and Drug Abuse Patient Records regulations: The Federal rules restrict any use of the information to criminally investigate or prosecute any alcohol or drug abuse patient.[facility] the event this information is protected by the Federal Confidentiality of Alcohol and Drug Abuse Patient Records regulations: The Federal rules restrict any use of the information to criminally investigate or prosecute any alcohol or drug abuse patient.[facility] the event this information is protected by the Federal Confidentiality of Alcohol and Drug Abuse Patient Records regulations: The Federal rules restrict any use of the information to criminally investigate or prosecute any alcohol or drug abuse patient.[facility] the event this information is protected by the Federal Confidentiality of Alcohol and Drug Abuse Patient Records regulations: The Federal rules restrict any use of the information to criminally investigate or prosecute any alcohol or drug abuse patient.[facility] the event this information is protected by the Federal Confidentiality of Alcohol and Drug Abuse Patient Records regulations: The Federal rules restrict any use of the information to criminally investigate or prosecute any alcohol or drug abuse patient.[facility] the event this information is protected by the Federal Confidentiality of Alcohol and Drug Abuse Patient Records regulations: The Federal rules restrict any use of the information to criminally investigate or prosecute any alcohol or drug abuse patient.[facility] HospitalIn the event this information is protected by the Federal Confidentiality of Alcohol and Drug Abuse Patient Records regulations: The Federal rules restrict any use of the information to criminally investigate or prosecute any alcohol or drug abuse patient.[facility] HospitalIn the event this information is protected by the Federal Confidentiality of Alcohol and Drug Abuse Patient Records regulations: The Federal rules restrict any use of the information to criminally investigate or prosecute any alcohol or drug abuse patient.[facility] HospitalIn the event this information is protected by the Federal Confidentiality of Alcohol and Drug Abuse Patient Records regulations: The Federal rules restrict any use of the information to criminally investigate or prosecute any alcohol or drug abuse patient.[facility] HospitalIn the event this information is protected by the Federal Confidentiality of Alcohol and Drug Abuse Patient Records regulations: The Federal rules restrict any use of the information to criminally investigate or prosecute any alcohol or drug abuse patient.[facility] HospitalIn the event this information is protected by the Federal Confidentiality of Alcohol and Drug Abuse Patient Records regulations: The Federal rules restrict any use of the information to criminally investigate or prosecute any alcohol or drug abuse patient.[facility] HospitalIn the event this information is protected by the Federal Confidentiality of Alcohol and Drug Abuse Patient Records regulations: The Federal rules restrict any use of the information to criminally investigate or prosecute any alcohol or drug abuse patient.[facility] HospitalIn the event this information is protected by the Federal Confidentiality of Alcohol and Drug Abuse Patient Records regulations: The Federal rules restrict any use of the information to criminally investigate or prosecute any alcohol or drug abuse patient.[facility] HospitalIn the event this information is protected by the Federal Confidentiality of Alcohol and Drug Abuse Patient Records regulations: The Federal rules restrict any use of the information to criminally investigate or prosecute any alcohol or drug abuse patient.[facility] HospitalIn the event this information is protected by the Federal Confidentiality of Alcohol and Drug Abuse Patient Records regulations: The Federal rules restrict any use of the information to criminally investigate or prosecute any alcohol or drug abuse patient.[facility] HospitalIn the event this information is protected by the Federal Confidentiality of Alcohol and Drug Abuse Patient Records regulations: The Federal rules restrict any use of the information to criminally investigate or prosecute any alcohol or drug abuse patient.[facility] HospitalIn the event this information is protected by the Federal Confidentiality of Alcohol and Drug Abuse Patient Records regulations: The Federal rules restrict any use of the information to criminally investigate or prosecute any alcohol or drug abuse patient.[facility] HospitalIn the event this information is protected by the Federal Confidentiality of Alcohol and Drug Abuse Patient Records regulations: The Federal rules restrict any use of the information to criminally investigate or prosecute any alcohol or drug abuse patient.[facility] HospitalIn the event this information is protected by the Federal Confidentiality of Alcohol and Drug Abuse Patient Records regulations: The Federal rules restrict any use of the information to criminally investigate or prosecute any alcohol or drug abuse patient.[facility] HospitalIn the event this information is protected by the Federal Confidentiality of Alcohol and Drug Abuse Patient Records regulations: The Federal rules restrict any use of the information to criminally investigate or prosecute any alcohol or drug abuse patient.[facility] HospitalIn the event this information is protected by the Federal Confidentiality of Alcohol and Drug Abuse Patient Records regulations: The Federal rules restrict any use of the information to criminally investigate or prosecute any alcohol or drug abuse patient.[facility] HospitalIn the event this information is protected by the Federal Confidentiality of Alcohol and Drug Abuse Patient Records regulations: The Federal rules restrict any use of the information to criminally investigate or prosecute any alcohol or drug abuse patient.[facility] HospitalIn the event this information is protected by the Federal Confidentiality of Alcohol and Drug Abuse Patient Records regulations: The Federal rules restrict any use of the information to criminally investigate or prosecute any alcohol or drug abuse patient.[facility] HospitalIn the event this information is protected by the Federal Confidentiality of Alcohol and Drug Abuse Patient Records regulations: The Federal rules restrict any use of the information to criminally investigate or prosecute any alcohol or drug abuse patient.[facility] HospitalIn the event this information is protected by the Federal Confidentiality of Alcohol and Drug Abuse Patient Records regulations: The Federal rules restrict any use of the information to criminally investigate or prosecute any alcohol or drug abuse patient.[facility] HospitalIn the event this information is protected by the Federal Confidentiality of Alcohol and Drug Abuse Patient Records regulations: The Federal rules restrict any use of the information to criminally investigate or prosecute any alcohol or drug abuse patient.[facility] HospitalIn the event this information is protected by the Federal Confidentiality of Alcohol and Drug Abuse Patient Records regulations: The Federal rules restrict any use of the information to criminally investigate or prosecute any alcohol or drug abuse patient.[facility] HospitalIn the event this information is protected by the Federal Confidentiality of Alcohol and Drug Abuse Patient Records regulations: The Federal rules restrict any use of the information to criminally investigate or prosecute any alcohol or drug abuse patient.[facility] HospitalIn the event this information is protected by the Federal Confidentiality of Alcohol and Drug Abuse Patient Records regulations: The Federal rules restrict any use of the information to criminally investigate or prosecute any alcohol or drug abuse patient.[facility] HospitalIn the event this information is protected by the [facility] Confidentiality of Alcohol and Drug Abuse Patient Records regulations: The Federal rules restrict any use of the information to criminally investigate or prosecute any alcohol or drug abuse patient.[facility] HospitalIn the event this information is protected by the Federal Confidentiality of Alcohol and Drug Abuse Patient Records regulations: The Federal rules restrict any use of the information to criminally investigate or prosecute any alcohol or drug abuse patient.[facility] Care Teams (unrecognized sec tion and content) [employer] Relationship Specialty Start Date End Date Ramila Mcnamara PA-C [address] [place] [address] PCP - General Family Practice 08/24/17 [employer] Installation [employer] Servicer Relationship Specialty Start Date End Date Ramila Mcnamara PA-C [address] [place] [address] PCP - General Family Practice 08/24/17 [employer] Installation And Servicer Relationship Specialty Start Date End Date Ramila Mcnamara PA-C [address] [place] [address] PCP - General Family Practice 08/24/17 [employer] Installation And Servicer Relationship Specialty Start Date End Date Ramila Mcnamara PA-C [address] [place] [address] PCP - General Family Practice 08/24/17 [employer] Installation And Servicer Relationship Specialty Start Date End Date Ramila Mcnamara PA-C [address] [place] [address] PCP - General Family Practice 08/24/17 [employer] Installation And Servicer Relationship Specialty Start Date End Date Ramila Mcnamara PA-C [address] [place] [address] PCP - General Family Practice 08/24/17 [employer] Installation And Servicer Relationship Specialty Start Date End Date Ramila Mcnamara PA-C [address] [place] [address] PCP - General Family Medicine 08/24/17 [employer] Installation And Servicer Relationship Specialty Start Date End Date Ramila Mcnamara PA-C [address] [place] [address] PCP - General Family Medicine 08/24/17 [employer] Installation And [employer]icer Relationship Specialty Start Date End Date Ramila Mcnamara PA-C [address] [place] [address] PCP - General Family Medicine 08/24/17 [employer] Installation And Servicer Relationship Specialty Start Date End Date Ramila Mcnamara PA-C [address] [place] [address] PCP - General Family Medicine 08/24/17 [employer] Install[employer]icer Relationship Specialty Start Date End Date Ramila Mcnamara PA-C [address] [place] [address] PCP - General Family Medicine 08/24/17 [employer] Installation And Servicer Relationship Specialty Start Date End Date Ramila Mcnamara PA-C [address] [place] [address] PCP - General Family Medicine 08/24/17 [employer] Installation And Servicer Relationship Specialty Start Date End Date Ramila Mcnamara PA-C [address] [place] [address] PCP - General Family Medicine 08/24/17 [employer] Installation And Servicer Relationship Specialty Start Date End Date Ramila Mcnamara PA-C [address] [place] [address] PCP - General Family Medicine 08/24/17 [employer] Installation And Servicer Relationship Specialty Start Date End Date Ramila Mcnamara PA-C [address] [place] [address] PCP - General Family Medicine 08/24/17 [employer] Installation And Servicer Relationship Specialty Start Date End Date Ramila Mcnamara PA-C [address] [place] [address] PCP - General Family Medicine 08/24/17 [employer] Installation And Servicer Relationship Specialty Start Date End Date Ramila Mcnamara PA-C [address] [place] [address] PCP - General Family Medicine 08/24/17 [employer] Installation And Servicer Relationship Specialty Start Date End Date Ramila Mcnamara PA-C [address] [place] [address] PCP - General Family Medicine 08/24/17 [employer] Installation And Servicer Relationship Specialty Start Date End Date Ramila Mcnamara PA-C [address] [place] [address] PCP - General Family Medicine 08/24/17 [employer] Installation And Servicer Relationship Specialty Start Date End Date Ramila Mcnamara PA-C [address] [place] [address] PCP - General Family Medicine 08/24/17 [employer] Installation And Servicer Relationship Specialty Start Date End Date Ramila Mcnamara PA-C [address] [place] [address] PCP - General Family Medicine 08/24/17 [employer] Installation And Servicer Relationship Specialty Start Date End Date Ramila Mcnamara PA-C [address] [place] [address] PCP - General Family Medicine 08/24/17 [employer] Install[employer]icer Relationship Specialty Start Date End Date Ramila Mcnamara PA-C [address] [place] [address] PCP - General Family Medicine 08/24/17 [employer]icer Relationship Specialty Start Date End Date Mcnamara, M Marilee, PA-C [address] [place] [address] PCP - General Family Medicine 08/24/17 [employer] Installation And Servicer Relationship Specialty Start Date End Date Ramila Mcnamara PA-C [address] [place] [address] PCP - General Family Medicine 08/24/17 [employer] Installation And Servicer Relationship Specialty Start Date End Date Ramila Mcnamara PA-C [address] [place] [address] PCP - General Family Medicine 08/24/17 [employer] Installation And Servicer Relationship Specialty Start Date End Date Ramila Mcnamara PA-C [address] [place] [address] PCP - General Family Medicine 08/24/17 [employer]icer Relationship Specialty Start Date End Date Ramila Mcnamara PA-C [address] [place] [address] PCP - General Family Medicine 08/24/17 [employer] And Servicer Relationship Specialty Start Date End Date Ramila Mcnamara PA-C [address] [place] [address] PCP - General Family Medicine 08/24/17 [employer] Installation [employer] Servicer Relationship Specialty Start Date End Date Ramila Mcnamara PA-C [address] [place] [address] PCP - General Family Medicine 08/24/17 [employer] Installation [employer]icer Relationship Specialty Start Date End Date Ramila Mcnamara PA-C [address] [place] [address] PCP - General Family Medicine 08/24/17 [employer]ation [employer]icer Relationship Specialty Start Date End Date Ramila Mcnamara PA-C [address] [place] [address] PCP - General Family Medicine 08/24/17 [employer] Installation [employer] Servicer Relationship Specialty Start Date End Date Ramila Mcnamara PA-C [address] [place] [address] PCP - General [facility] 08/24/17 [employer] Installation And Servicer Relationship Specialty Start Date End Date Ramila Mcnamara PA-C [address] [facility] [place] [address] PCP - General Family Medicine 08/24/17 FOR RECORDS PERTAINING TO PATIENTS WHO ARE OR HAVE BEEN ENROLLED IN A CHEMICAL DEPENDENCY/SUBSTANCEABUSE PROGRAM, SOME INFORMATION MAY BE OMITTED. This clinical summary was aggregated from multiple sources. Caution should be exercised in using it in the provision of clinical care. This summary normalizes information from multiple sources, and as a consequence, information in this document may materially change the coding, format and clinical context of patient data. In addition, data may be omitted in some cases. CLINICAL DECISIONS SHOULD BE BASED ON THE PRIMARY CLINICAL RECORDS. [facility] [employer] [facility]. provides no warranty or guarantee of the accuracy or completeness of information in this document.
[2023-11-27 17:37] LABS: Red Blood Cells-Urine 0 SEEN /hpf (0-5); White Blood Cells 0 SEEN /hpf (0-5)
[2023-11-27 17:38] LABS: Color, Urine Yellow (Yellow); Glucose, Dipstick Normal (Normal); Ketone-Dipstick 5 mg/dl (Negative); Leukocyte Esterase-Dipstick Negative /ul (Negative); Nitrite-Dipstick Negative (Negative); Occult Blood-Urine Negative /ul (Negative); Protein-Dipstick Negative (Negative); Urine Bilirubin Dipstick Negative (Negative); Urine Clarity Clear (Clear); Urine Urobilinogen Normal (Normal)
[2023-11-27 17:49] VITALS: TEMP 37.6
[2023-11-27 17:52] LABS: Bacteria 1+ /hpf (None Seen); Mucous, Urine 1+ /hpf (<or=2+); Squamous Epithelial Cells - UA 0-5 SEEN /hpf (5-10)
[2023-11-27 18:13] LABS: Absolute Lymphocyte Count 0.82 X10^3/uL (0.83-4.51); Absolute Neutrophil Count 6.4 X10^3/uL (2.0-7.7); Basophil# 0.06 X10^3/uL; Basophil% 0.7 % (0-1); Eosinophil# 0.01 X10^3/uL; Eosinophils% 0.1 % (0-5); Hemoglobin 15.2 g/dL (12.0-15.0); Lymphocyte # 0.82 X10^3/ul (0.83-4.51); Lymphocyte % 10.2 % (19-41); Mean Corp Hgb Conc 31.7 g/dL (32-36); Mean Corpuscular Hgb 27.9 pg (27.0-32.0); Mean Corpuscular Volume 88.2 fL (81-99); Monocyte# 0.74 X10^3/uL; Monocyte% 9.2 % (0-10); NRBC Flagged by Analyzer 0 % (0-5); Neutrophil % 79.6 % (47-70); Platelet Count 345 K/mm3 (150-450); RBC Distribution Width CV 13.4 % (11.6-14.6); RBC Distribution Width SD 43.2 fl (35.1-43.9); Red Blood Count 5.44 M/mm3 (4.2-5.4); White Blood Count 8.1 K/mm3 (4.4-11.0)
--- NOTE | 2023-11-27 18:22 | CT_ITS ---
EXAM: CT ABDOMEN AND PELVIS WITH INTRAVENOUS CONTRAST CLINICAL INDICATION: abdominal pain TECHNIQUE: Helically acquired images were obtained of the abdomen and pelvis with intravenous contrast. This CT exam was performed using one or more of the following dose reduction techniques: automated exposure control, adjustment of the mA and/or kV according to patient size, and/or use of iterative reconstruction technique. CONTRAST: IV 100mL Isovue-370 COMPARISON: 09/10/2022 FINDINGS: LOWER THORAX: Unremarkable. Lung bases are clear. No cardiomegaly. No significant pericardial effusion. ABDOMEN: LIVER: Unremarkable. Homogeneous. No focal mass. GALLBLADDER AND BILE DUCTS: Unremarkable. No calcified gallstones. No gallbladder distention or wall edema. No intra- or extrahepatic biliary ductal dilation. PANCREAS: Unremarkable. No focal cystic or solid mass. SPLEEN: Unremarkable. Normal size without focal cystic or solid mass. ADRENALS: Unremarkable. No nodules. KIDNEYS AND URETERS: Unremarkable. Normal renal size and position. No hydronephrosis. STOMACH AND BOWEL: Unremarkable. No stomach or bowel distention. No focal inflammatory change. PELVIS: APPENDIX: There are surgical sutures at the base of the cecum from previous appendectomy. BLADDER: Unremarkable. REPRODUCTIVE: Multiple ovarian cysts or follicles bilaterally. ABDOMEN and PELVIS: INTRAPERITONEAL SPACE: Unremarkable. No ascites or other fluid collection. No free air. BONES/JOINTS: Unremarkable. No suspicious lytic or blastic abnormality. SOFT TISSUES: Unremarkable. No discrete abdominal or pelvic wall hernia. VASCULATURE: Unremarkable. Abdominal aorta is non-dilated. LYMPH NODES: Unremarkable. No enlarged lymph nodes. CT/Abdomen/Pelvis W IV Cont ONLY IMPRESSION: No acute findings in the abdomen or pelvis. Electronically Signed: Napoleon Paige MD at 19:21 EST ,
[2023-11-27 18:30] LABS: ALB/GLOB Ratio 1.2 RATIO (0.9-2.4); AST(SGOT) 31 U/L (15-37); Alanine Aminotransfer ALT/SGPT 67 U/L (13-56); Albumin, Serum 4.9 g/dL (3.2-5.0); Alkaline Phosphatase 95 U/L (45-117); Anion Gap 8 (5-15); BUN 11 mg/dL (7-18); BUN/Creat Ratio 11.4 RATIO (10-20); Calcium,Total 9.9 mg/dL (8.5-10.1); Chloride 101 mmol/L (98-107); Creatinine, Serum 0.96 mg/dL (0.55-1.02); EST Glomerular Filtration Rate 75 mL/min (>60); Est Glom Filt Rate - Afr Amer 91 mL/min (>60); Estimated Creatinine Clearance 97.79 ml/min; Glucose 88 mg/dL (74-106); Lipase 18 U/L (13-75); Potassium 3.6 mmol/L (3.5-5.1); Protein, Total 8.9 g/dL (6.4-8.2); Sodium Level 137 mmol/L (136-145)
[2023-11-27 19:00] VITALS: BP 119/68; PULSE 74; RESP 14; O2SAT 98
[2023-11-27] MEDS: Ibuprofen 600 MG Tablet PO (19:53)
== END 2023-11-27 20:01 | disposition home or self-care (01) ==
PROVIDERS: Nurse Practitioner; Emergency Provider Emergency Medicine; PCP Physician Assistant; Visit Provider Emergency Medicine
DX: J10.1 Influenza due to other identified influenza virus with other respiratory manifestations (principal); R50.9 Fever, unspecified; R11.0 Nausea; R30.0 Dysuria; M54.50 Low back pain, unspecified; R10.30 Lower abdominal pain, unspecified; F17.210 Nicotine dependence, cigarettes, uncomplicated
CPT/HCPCS: 74177; 76830; 80053; 81001; 83690; 84703; 85025; 87631; 96361; 96374; 96375; 99284; J7030; Q9967; A4216; J2405

== ENCOUNTER 2024-02-15 18:58 | Emergency (ER) | payer OTHER, SELFPAY ==
[2024-02-15 18:59] VITALS: BP 145/89; PULSE 105; RESP 16; TEMP 36.2; O2SAT 100; BMI 29.2
[2024-02-15 19:42] LABS: Absolute Lymphocyte Count 3.19 X10^3/uL (0.83-4.51); Absolute Neutrophil Count 9.1 X10^3/uL (2.0-7.7); Basophil# 0.05 X10^3/uL; Basophil% 0.4 % (0-1); Eosinophil# 0.11 X10^3/uL; Eosinophils% 0.8 % (0-5); Hematocrit 44.7 % (37-47); Lymphocyte # 3.19 X10^3/ul (0.83-4.51); Lymphocyte % 24.4 % (19-41); Mean Corp Hgb Conc 31.3 g/dL (32-36); Mean Corpuscular Hgb 27.3 pg (27.0-32.0); Mean Corpuscular Volume 87.3 fL (81-99); Mean Platelet Vol. 8.7 fl (6.2-12.0); Monocyte# 0.53 X10^3/uL; Monocyte% 4.1 % (0-10); NRBC Flagged by Analyzer 0 % (0-5); Neutrophil # 9.12 X10^3/uL (2.7-7.7); Neutrophil % 69.8 % (47-70); Platelet Count 377 K/mm3 (150-450); RBC Distribution Width CV 13.2 % (11.6-14.6); Red Blood Count 5.12 M/mm3 (4.2-5.4); White Blood Count 13.1 K/mm3 (4.4-11.0)
[2024-02-15 19:49] LABS: Internal QC Validated? YES +Cl - CLEAR BKGD; Pregnancy, Serum, hCG Quali. NEGATIVE Negative
[2024-02-15 19:59] LABS: ALB/GLOB Ratio 1.1 RATIO (0.9-2.4); AST(SGOT) 20 U/L (15-37); Alanine Aminotransfer ALT/SGPT 26 U/L (13-56); Albumin, Serum 4.1 g/dL (3.2-5.0); Alkaline Phosphatase 84 U/L (45-117); Anion Gap 3 (5-15); BUN 18 mg/dL (7-18); BUN/Creat Ratio 22.6 RATIO (10-20); Calcium,Total 9.3 mg/dL (8.5-10.1); Chloride 104 mmol/L (98-107); EST Glomerular Filtration Rate 93 mL/min (>60); Est Glom Filt Rate - Afr Amer 112 mL/min (>60); Estimated Creatinine Clearance 116.25 ml/min; Globulin 3.6 g/dL (2.2-4.2); Glucose 124 mg/dL (74-106); Potassium 3.9 mmol/L (3.5-5.1); Protein, Total 7.7 g/dL (6.4-8.2); Sodium Level 136 mmol/L (136-145)
--- NOTE | 2024-02-15 20:39 | EDS_ITS ---
<Statement entered by Mireya Garcia MD - 02/15/24 23:10> I have personally performed a face to face assessment of the patient and have reviewed the ELOISA Note. Patient presents secondary to concerns for continued UTI with development of flank pain. She was seen by her PCP a couple days ago secondary to UTI concerns. She was given a dose of fosfomycin. Patient does have a history of pyelonephritis with sepsis in the past. She developed more flank pain today and was concerned about progression of infection and came in for evaluation. Patient sitting upright in bed no acute distress. Nontoxic-appearing. Head and neck examination unremarkable. Heart is regular rate and rhythm. Lung sounds are clear. Abdomen is soft with no focal tenderness. CBC and chemistry studies are unremarkable. White count is normal. Urinalysis reveals no obvious signs of infection. test is negative. CT flank is obtained and shows tiny nonobstructing renal stones. No other acute abnormalities appreciated at this time. Test results discussed with the patient. She will increase fluids and monitor her symptoms. At this time she is reassured that there is no evidence of continued UTI, pyelonephritis, or sepsis. HPI History of Present Illness Chief Complaint: Abd Pain Narrative Narrative: 23-year-old female with past medical history of medullary sponge kidneys and duplicated ureters presents with UTI symptoms. Over the last 5 days she has had suprapubic pain and discomfort with urination. She has frequency but no hematuria. She saw her doctor on 02/12 and urinalysis showed infection and she was treated with a single dose of fosfomycin. She states she was trying to conceive which is why her doctor picked up this antibiotic. Her symptoms did not improve and today she has right flank pain. No fever, chills, nausea or vomiting. She states prior imaging did show nonobstructive kidney stones but she has never had an obstructive stone. In the past she has had pyelonephritis and sepsis. PFSH PFSH Medical History Frequent UTI Gestational diabetes requiring insulin Obesity Tobacco use Home Medications cefpodoxime 200 mg tablet 200 mg PO BID #26 tabs 09/12/22 [Rx Last Taken Unknown] oxycodone 5 mg tablet 5 mg PO Q6H 3 days #12 tabs 09/12/22 [Rx Last Taken Unknown] Allergy/AdvReac Type Severity Reaction Status Date / Time sulfamethoxazole Allergy Rash Verified 02/15/24 19:03 [From Bactrim] trimethoprim [From Bactrim] Allergy Rash Verified 02/15/24 19:03 Family History Mother Hypertension Father Diabetes Surgical History S/P appendectomy S/P left knee arthroscopy [place] teeth extracted Social History (Updated 02/15/24 @ 21:04 by Faina Lilly) household members: spouse and family Smoking Status: Current every day smoker tobacco type: cigarettes alcohol intake: current alcohol intake frequency: holidays/special occasions only substance use type: does not use ROS ROS ED ROS Narrative Constitutional: Negative for fever, chills, malaise. GI: Positive for suprapubic pain. No nausea, vomiting. : Positive for frequency. Negative for dysuria. EXAM Physical Exam Narrative Exam Narrative: CONST: Patient sitting in no acute distress. EYES: Normal inspection. NECK: Normal inspection. RESP: No respiratory distress, CTAB. CVS: Regular rate and rhythm, no murmur, no gallop. ABD: Soft with suprapubic tenderness, no guarding or rebound, nondistended, no hepatosplenomegaly. Back: Normal inspection, no CVA tenderness. SKIN: Color normal, no rash, warm, dry, intact. EXTREMITIES: Normal appearance, no pedal edema. NEURO: Alert and answering questions appropriately. PSYCH: Normal affect. Const Vital Signs: 02/15/24 18:59 02/15/24 20:58 Temperature 97.1 F L Temperature Source Temporal Pulse Rate 105 H 98 Respiratory Rate 16 14 Blood Pressure 145/89 H Blood Pressure Mean 107 Pulse Ox 100 99 Oxygen Delivery Method Room Air Room Air MDM MDM MDM Narrative Medical decision making narrative: History gathered from: Patient, spouse Differential: UTI, pyelonephritis, kidney stone, musculoskeletal pain Patient was recently treated for UTI with fosfomycin. She presents with persistent suprapubic pain and new right flank pain. She appears well and nontoxic. She is tachycardic at 105 with otherwise normal vital signs. She has suprapubic tenderness on exam but no peritoneal signs and no reproducible flank pain. Labs show white count of 13.1. Renal function is normal with BUN of 18, creatinine 0.8. Urinalysis is negative for infection and test is negative. CT scan is negative. There are tiny nonobstructive stones but nothing acute. Patient was treated here with Toradol. I am not sure of the etiology of her symptoms but recommended plenty of fluids and [id number] analgesia and follow-up with her primary care doctor. Lab Data Attestation: I reviewed the patient's lab results. Labs: Laboratory Results - last 24 hr 02/15/24 19:20 WBC 13.1 H RBC 5.12 Hgb 14.0 Hct 44.7 MCV 87.3 MCH 27.3 MCHC 31.3 L RDW Std Deviation 42.0 RDW Coeff of [place] 13.2 Plt Count 377 MPV 8.7 Immature Gran % (Auto) 0.500 Neut % (Auto) 69.8 Lymph % (Auto) 24.4 [place] % (Auto) 4.1 Eos % (Auto) 0.8 Baso % (Auto) 0.4 Absolute Neuts (auto) 9.1 H Absolute Lymphs (auto) 3.19 Nucleated RBC % 0 Sodium 136 Potassium 3.9 Chloride 104 Carbon Dioxide 29.0 Anion Gap 3 L BUN 18 Creatinine 0.80 Estim Creat Clear Calc 116.25 Est GFR (MDRD) Af Amer 112 Est GFR (MDRD) Non-Af 93 BUN/Creatinine Ratio 22.6 H Glucose 124 H Calcium 9.3 Total Bilirubin 0.30 AST 20 ALT 26 Alkaline Phosphatase 84 Total Protein 7.7 Albumin 4.1 Globulin 3.6 Albumin/Globulin Ratio 1.1 Serum , Qual NEGATIVE Urine Color Yellow Urine Clarity Clear Urine pH 6.5 Ur Specific [place] 1.015 Urine Protein Negative Urine Glucose (UA) Normal Urine Ketones 15 H Urine Occult Blood Negative Urine Nitrite Negative Urine Bilirubin Negative Urine Urobilinogen Normal Ur Leukocyte Esterase 25 H Urine RBC 0 SEEN Urine WBC 0 SEEN Ur Squamous Epith Cells 0-5 SEEN Urine Bacteria 0 SEEN Urine Mucus 0 SEEN Radiography Diagnostic Testing: Clinical Impression(s) from Imaging Studies Abdomen/Pelvis CT 02/15/24 20:48 IMPRESSION: Medullary sponge kidneys with the tiny nonobstructing renal stones. Electronically Signed: Thompson Noguera MD at 21:31 EDT , Discharge Plan Triage Chief Complaint: Abd Pain ED Midlevel Provider: Cyndee Gonzalez ED Provider: Mireya Garcia Dx/Rx/DC Orders Clinical Impression: Acute right flank pain, Abdominal pain, suprapubic Instructions: ED Abdominal Pain Unkn Cause Fem Prescriptions: No Action oxycodone 5 mg Tablet 5 mg PO Q6H 3 Days Qty: 12 0RF cefpodoxime 200 mg tablet 200 mg PO BID Qty: 26 0RF Rx Instructions: must administer with a meal/food Primary Care Provider: Ramila Mcnamara Referrals: Ramila Mcnamara, PA [Primary Care Provider] - Activity Restrictions/Additional Instructions: Your CT scan looks normal with no obstructive kidney stones or infections and your urine sample shows no sign of infection either. I recommend you drink plenty of fluids and alternate Tylenol and Motrin as needed. Follow-up with your primary care doctor if not improving over the weekend.
[2024-02-15 20:40] LABS: Bacteria 0 SEEN /hpf (None Seen); Mucous, Urine 0 SEEN /hpf (<or=2+); Red Blood Cells-Urine 0 SEEN /hpf (0-5); White Blood Cells 0 SEEN /hpf (0-5)
[2024-02-15 20:43] LABS: Color, Urine Yellow (Yellow); Glucose, Dipstick Normal (Normal); Ketone-Dipstick 15 mg/dl (Negative); Leukocyte Esterase-Dipstick 25 /ul (Negative); Nitrite-Dipstick Negative (Negative); Occult Blood-Urine Negative /ul (Negative); Protein-Dipstick Negative (Negative); Specific Gravity, Urine 1.015 (1.002-1.030); Urine Bilirubin Dipstick Negative (Negative); Urine Clarity Clear (Clear); Urine Urobilinogen Normal (Normal); Urine pH 6.5 (5.0 - 8.0)
--- NOTE | 2024-02-15 20:48 | CT_ITS ---
STUDY: CT ABDOMEN AND PELVIS WITHOUT CONTRAST REASON FOR EXAM: Female, 23 years old. right flank pain RADIATION DOSAGE (If Supplied By Facility): CTDIvol = ( 8.92 ) mGy, DLP = ( 463.41 ) mGycm TECHNIQUE: Transaxial images were obtained from the dome of the diaphragm to the symphysis pubis without oral contrast, and without intravenous contrast. Sagittal and coronal images were reconstructed. Individualized dose optimization techniques were used for this CT. COMPARISON: 11/27/2023 FINDINGS: The visualized lung bases are unremarkable. The visualized portions of the heart are within normal limits. Normal liver. The gallbladder is contracted. Normal spleen. Normal pancreas. Normal bilateral adrenal glands. 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 Suspect duplicated collecting system bilaterally. No hydronephrosis, ureteral stone, ureteral dilatation. Normal visualized stomach. Normal small intestine. Normal colon. There are surgical clips in the region of the appendix consistent with a prior appendectomy. Normal abdominal aorta. Normal inferior vena cava. Normal retroperitoneum. Normal urinary bladder. Normal abdominal wall. Mild S-shaped scoliosis of the lumbar spine. CT/Abdomen/Pelvis without Cont IMPRESSION: Medullary sponge kidneys with the tiny nonobstructing renal stones. Electronically Signed: Thompson Noguera MD at 21:31 EDT ,
[2024-02-15 20:58] VITALS: PULSE 98; RESP 14; O2SAT 99
[2024-02-15] MEDS: Ketorolac 15 MG/ML Vial IV (20:59)
[2024-02-15] MEDS: 0.9% Normal Saline (1000mL) 1,000 ML 999 ML IV (21:01)
[2024-02-15 21:16] LABS: Squamous Epithelial Cells - UA 0-5 SEEN /hpf (5-10)
[2024-02-15 21:50] VITALS: BP 129/78; PULSE 81; RESP 16; TEMP 36.5; O2SAT 99
== END 2024-02-15 21:55 | disposition home or self-care (01) ==
PROVIDERS: Emergency Provider Emergency Medicine; PCP Physician Assistant; Visit Provider Emergency Medicine
DX: R10.30 Lower abdominal pain, unspecified (principal); R35.0 Frequency of micturition; R00.0 Tachycardia, unspecified; Q61.5 Medullary cystic kidney; F17.210 Nicotine dependence, cigarettes, uncomplicated
CPT/HCPCS: 74176; 80053; 81001; 84703; 85025; 96361; 96374; 99283; J7030; A4216

== ENCOUNTER 2024-05-30 09:00 | Emergency (ER) | payer OTHER, SELFPAY ==
[2024-05-30 09:00] VITALS: BP 133/91; PULSE 80; RESP 22; TEMP 36.1; O2SAT 100; BMI 28.0
--- NOTE | 2024-05-30 09:24 | CT_ITS ---
STUDY: CT ABDOMEN AND PELVIS WITHOUT CONTRAST REASON FOR EXAM: Female, 24 years old. Left flank pain RADIATION DOSAGE (If Supplied By Facility): CTDIvol = ( 8.52 ) mGy, DLP = ( 440.55 ) mGycm TECHNIQUE: Transaxial images were obtained from the dome of the diaphragm to the symphysis pubis without oral contrast, and without intravenous contrast. Sagittal and coronal images were reconstructed. Individualized dose optimization techniques were used for this CT. COMPARISON: Comparison is made with prior study dated February 15, 2024. FINDINGS: The visualized lung bases are unremarkable. The visualized portions of the heart are within normal limits. Normal liver. Normal gallbladder and extrahepatic biliary system. Normal spleen. Normal pancreas. Normal bilateral adrenal glands. Findings suggestive bilateral medullary sponge kidneys. There is diffuse enlargement of the left kidney. 2 mm nonobstructive calculus in the upper pole calyx of the left kidney. Mild degree of left hydronephrosis and left hydroureter. A tiny calculus is seen at the base of the bladder on the left side suggests a recently passed calculus. There is a small hiatal hernia. Normal small intestine. Normal colon. There are surgical clips in the region of the appendix consistent with a prior appendectomy. Normal abdominal aorta. Normal inferior vena cava. Normal retroperitoneum. Normal urinary bladder. Normal abdominal wall. Normal osseous structures. CT/Abdomen/Pelvis without Cont IMPRESSION: Bilateral medullary sponge kidneys. Findings suggestive of a recently passed calculus on the left side. A tiny calculus is seen at the base of the bladder on the left side. Follicles are seen in the left ovary. Electronically Signed: Quirino Tapia MD at 11:53 EDT ,
--- NOTE | 2024-05-30 09:24 | EKG12_ITS ---
Test Reason : DYSRHYTHMIA Blood Pressure : / mmHG Vent. Rate : 063 BPM Atrial Rate : 063 BPM P-R Int : 178 ms QRS Dur : 086 ms QT Int : 432 ms P-R-T Axes : 052 078 027 degrees QTc Int : 442 ms Normal sinus rhythm Normal ECG Confirmed by RACHEL FARFAN, JAMAR ([id number]), editor dictionary YULIANA DE LA GARZA ([id number]) on 05/31/2024 9:26:24 AM Referred By: TB Confirmed By:JAMAR RAMOS MD
--- NOTE | 2024-05-30 09:27 | EX.ED.DYSGE1 ---
HPI History of Present Illness Chief Complaint: Flank Pain Narrative Narrative: Patient is a 24-year-old female with a past medical history of kidney issues who presents to the emergency department the chief complaint of left-sided flank pain that started this morning. Patient notes that when she woke up she had a extreme amount of pain radiating from her left back to her abdomen. Patient also noted that she has had some painful urination increased frequency urinating but denies any blood in her urine. Patient states that she is actively trying to get but had a menstrual cycle last month. Patient states that she does have a history of kidney stones but has not ever passed one. Patient rates her pain a 10 out of 10. PFSH PFSH Medical History Obesity Frequent UTI Gestational diabetes requiring insulin Tobacco use Home Medications ?Medication ?Instructions ?Recorded ?Last Taken ?Type cefpodoxime 200 mg tablet 200 mg PO BID #26 tabs 09/12/22 Unknown Rx oxycodone 5 mg tablet 5 mg PO Q6H 3 days #12 tabs 09/12/22 Unknown Rx cephalexin 500 mg capsule 500 mg PO BID 5 days #10 caps 05/30/24 Unknown Rx ondansetron 4 mg disintegrating 4 mg PO Q6H 4 days #16 tabs 05/30/24 Unknown Rx tablet oxycodone-acetaminophen 5 mg-325 1 tab PO Q6H PRN pain 2 days #6 05/30/24 Unknown Rx mg tablet (Endocet) tabs Allergy/AdvReac Type Severity Reaction Status Date / Time sulfamethoxazole (From Allergy Rash Verified 05/30/24 09:03 Bactrim) trimethoprim (From Bactrim) Allergy Rash Verified 05/30/24 09:03 Family History Mother Hypertension Father Diabetes Surgical History S/P left knee arthroscopy S/P appendectomy [place] teeth extracted Social History (Updated 02/15/24 @ 21:04 by Faina Lilly) household members: spouse and family Smoking Status: Current every day smoker tobacco type: cigarettes alcohol intake: current alcohol intake frequency: holidays/special occasions only substance use type: does not use ROS ROS ED ROS Narrative Constitutional: Denies fevers, chills, headaches, lightheadedness Eyes: Denies change in vision double vision blurry vision Cardiovascular: Denies chest pain Respiratory: Denies cough or shortness of breath Abdomen: Complains of abdominal pain as noted above as well as nausea and vomiting denies diarrhea : Complains of urinary symptoms as noted above Neurological: Denies numbness, weakness, tingling Musculoskeletal: Complains of left-sided back pain Skin: Denies rashes or lesions EXAM Physical Exam Narrative Exam Narrative: General: Patient lying in bed did appear to be uncomfortable secondary to her pain with emesis bag in hand Head: Atraumatic, normocephalic Eyes: PERRL bilaterally, EOMI bilaterally, no conjunctival injection noted Neck: Soft, supple, trachea midline Cardiovascular: Patient had a regular rate and rhythm no murmurs gallops rubs noted Respiratory: Clear to auscultation bilaterally Abdomen: Soft, diffuse tenderness palpation no rebound or guarding on exam, bowel sounds present office for Extremities: +5/5 strength noted in the bilateral upper and lower extremities Neurological: Patient following commands no issues at [facility] year is 2023 Skin: Warm, dry, intact Const Vital Signs: 05/30/24 09:00 05/30/24 10:43 Temperature 97.0 F L Temperature Source Temporal Pulse Rate 80 87 Respiratory Rate 22 H 14 Blood Pressure 133/91 H 143/95 H Blood Pressure Mean 105 111 Pulse Ox 100 95 Oxygen Delivery Method Room Air Room Air MDM MDM MDM Narrative Medical decision making narrative: Patient is a 24-year-old female who presented to the emergency department the chief complaint of left-sided flank pain. Patient will have a workup performed here on the differential diagnosis includes but not limited to urolithiasis, pyelonephritis, UTI, . Once workup is obtained reviewed she will be reevaluated. Patient be given IV fluids, morphine, Zofran and then be reevaluated. Patient patient CBC reviewed and showed no evidence of leukocytosis white blood count normal at 8.3, hemoglobin 14, platelet count was noted be normal at 381. Patient's sodium was only 139, potassium normal at 3.5, creatinine normal at 0.83. Patient's AST and ALT were 14 and 21 respectively. Patient's lipase normal at 21. Patient's urinalysis showed 25 leukocyte esterase negative nitrates with 5-10 white blood cells and 2+ bacteria noted. Did give her 2 g of Rocephin as there is concern that she has a kidney stone. Patient's test was negative. Urine was sent for culture Patient CT abdomen pelvis with IV contrast was reviewed and showed bilateral medullary sponge kidneys. Findings suggestive of a recently passed calculus on the left side. Tiny calculus seen at the base of the bladder on the left side. Follicle seen in the left ovary. On reevaluation of the patient she states that she is feeling better and she would like to go home at this point time. I did encourage her to follow-up with her urine culture in the outpatient setting. Patient will be started on Keflex for her UTI. Patient is encouraged to follow-up with her primary care physician outpatient setting. She is encouraged to return with worsening symptoms or any concerns. All question concerns answered she is discharged home in stable condition. Lab Data Labs: Laboratory Results - last 24 hr 05/30/24 09:25 WBC 8.3 RBC 4.97 Hgb 14.0 Hct 43.2 MCV 86.9 MCH 28.2 MCHC 32.4 RDW Std Deviation 41.8 RDW Coeff of [place] 13.2 Plt Count 381 MPV 8.7 Immature Gran % (Auto) 0.200 Neut % (Auto) 64.3 Lymph % (Auto) 27.8 [place] % (Auto) 6.2 Eos % (Auto) 1.0 Baso % (Auto) 0.5 Absolute Neuts (auto) 5.3 Absolute Lymphs (auto) 2.30 Nucleated RBC % 0 Sodium 139 Potassium 3.5 Chloride 110 H Carbon Dioxide 22.0 Anion Gap 7 BUN 18 Creatinine 0.83 Estim Creat Clear Calc 108.88 Est GFR (MDRD) Af Amer 106 Est GFR (MDRD) Non-Af 88 BUN/Creatinine Ratio 21.6 H Glucose 108 H Calcium 9.3 Total Bilirubin 0.40 AST 14 L ALT 21 Alkaline Phosphatase 76 Total Protein 7.2 Albumin 3.9 Globulin 3.3 Albumin/Globulin Ratio 1.2 Lipase 21 Urine Color Yellow Urine Clarity Clear Urine pH 9.0 Ur Specific [place] 1.015 Urine Protein 15 H Urine Glucose (UA) Normal Urine Ketones Negative Urine Occult Blood 10 H Urine Nitrite Negative Urine Bilirubin Negative Urine Urobilinogen Normal Ur Leukocyte Esterase 25 H Urine RBC 0-5 SEEN Urine WBC 5-10 SEEN Ur Squamous Epith Cells 0 SEEN Urine Bacteria 2+ Urine Mucus 0 SEEN Urine Test Negative Radiography Diagnostic Testing: Clinical Impression(s) from Imaging Studies Abdomen/Pelvis CT 05/30/24 09:24 IMPRESSION: Bilateral medullary sponge kidneys. Findings suggestive of a recently passed calculus on the left side. A tiny calculus is seen at the base of the bladder on the left side. Follicles are seen in the left ovary. Electronically Signed: Quirino Tapia MD at 11:53 EDT , Discharge Plan Triage Chief Complaint: Flank Pain ED Provider: Devin iHnes Dx/Rx/DC Orders Clinical Impression: Kidney stone Prescriptions: New cephalexin 500 mg capsule 500 mg PO BID 5 Days Qty: 10 0RF ondansetron 4 mg tablet,disintegrating 4 mg PO Q6H 4 Days Qty: 16 0RF oxycodone-acetaminophen [Endocet] 5-325 mg tablet 1 tab PO Q6H PRN (Reason: pain) 2 Days Qty: 6 0RF No Action oxycodone 5 mg Tablet 5 mg PO Q6H 3 Days Qty: 12 0RF cefpodoxime 200 mg tablet 200 mg PO BID Qty: 26 0RF Rx Instructions: must administer with a meal/food Stand Alone Forms: ED Work / School Excuse Primary Care Provider: Ramila Mcnamara Referrals: Ramila Mcnamara PA [Primary Care Provider] - Activity Restrictions/Additional Instructions: Use ibuprofen/Tylenol for mild to moderate pain. Use Percocet for severe pain. Do not operate anything under the influence of these drugs. Return for worsening symptoms or other concerns. Follow-up with your primary care physician on your urine culture. Print Language: Korean Disposition Disposition: Home, Self Care
[2024-05-30] MEDS: Ondansetron 4 MG/2 ML Vial IV (09:33)
[2024-05-30] MEDS: Morphine 4 MG/ML Syringe IV (09:33)
[2024-05-30] MEDS: 0.9% Normal Saline (1000mL) 1,000 ML 999 ML IV (09:34)
[2024-05-30 09:35] LABS: Mucous, Urine 0 SEEN /hpf (<or=2+); Squamous Epithelial Cells - UA 0 SEEN /hpf (5-10)
[2024-05-30 09:38] LABS: Absolute Neutrophil Count 5.3 X10^3/uL (2.0-7.7); Basophil# 0.04 X10^3/uL; Basophil% 0.5 % (0-1); Eosinophil# 0.08 X10^3/uL; Hematocrit 43.2 % (37-47); Lymphocyte % 27.8 % (19-41); Mean Corp Hgb Conc 32.4 g/dL (32-36); Mean Corpuscular Hgb 28.2 pg (27.0-32.0); Mean Corpuscular Volume 86.9 fL (81-99); Mean Platelet Vol. 8.7 fl (6.2-12.0); Monocyte# 0.51 X10^3/uL; Monocyte% 6.2 % (0-10); NRBC Flagged by Analyzer 0 % (0-5); Neutrophil # 5.33 X10^3/uL (2.7-7.7); Neutrophil % 64.3 % (47-70); Platelet Count 381 K/mm3 (150-450); RBC Distribution Width CV 13.2 % (11.6-14.6); RBC Distribution Width SD 41.8 fl (35.1-43.9); Red Blood Count 4.97 M/mm3 (4.2-5.4); White Blood Count 8.3 K/mm3 (4.4-11.0)
[2024-05-30 09:48] LABS: Color, Urine Yellow (Yellow); Glucose, Dipstick Normal (Normal); Ketone-Dipstick Negative (Negative); Leukocyte Esterase-Dipstick 25 /ul (Negative); Nitrite-Dipstick Negative (Negative); Occult Blood-Urine 10 /ul (Negative); Protein-Dipstick 15 mg/dl (Negative); Specific Gravity, Urine 1.015 (1.002-1.030); Urine Bilirubin Dipstick Negative (Negative); Urine Clarity Clear (Clear); Urine Urobilinogen Normal (Normal)
[2024-05-30 09:56] LABS: ALB/GLOB Ratio 1.2 RATIO (0.9-2.4); AST(SGOT) 14 U/L (15-37); Alanine Aminotransfer ALT/SGPT 21 U/L (13-56); Albumin, Serum 3.9 g/dL (3.2-5.0); Alkaline Phosphatase 76 U/L (45-117); Anion Gap 7 (5-15); BUN 18 mg/dL (7-18); BUN/Creat Ratio 21.6 RATIO (10-20); Calcium,Total 9.3 mg/dL (8.5-10.1); Chloride 110 mmol/L (98-107); Creatinine, Serum 0.83 mg/dL (0.55-1.02); EST Glomerular Filtration Rate 88 mL/min (>60); Est Glom Filt Rate - Afr Amer 106 mL/min (>60); Estimated Creatinine Clearance 108.88 ml/min; Globulin 3.3 g/dL (2.2-4.2); Glucose 108 mg/dL (74-106); Lipase 21 U/L (13-75); Potassium 3.5 mmol/L (3.5-5.1); Protein, Total 7.2 g/dL (6.4-8.2); Sodium Level 139 mmol/L (136-145)
[2024-05-30 10:11] LABS: Red Blood Cells-Urine 0-5 SEEN /hpf (0-5)
[2024-05-30 10:12] LABS: Bacteria 2+ /hpf (None Seen); White Blood Cells 5-10 SEEN /hpf (0-5)
[2024-05-30 10:43] VITALS: BP 143/95; PULSE 87; RESP 14; O2SAT 95
[2024-05-30 11:05] LABS: Internal QC Validated? YES +Cl - CLEAR BKGD
[2024-05-30 11:06] LABS: Pregnancy, Urine Negative Negative
[2024-05-30] MEDS: Ketorolac 30 MG/ML Syringe IV (11:27)
[2024-05-30] MEDS: Ceftriaxone 2 GM in 0.9% Normal Saline (50mL MB+) 50 ML IV (11:35)
[2024-05-30 12:41] VITALS: BP 132/78; PULSE 87; RESP 16; TEMP 36.8; O2SAT 99
== END 2024-05-30 12:42 | disposition home or self-care (01) ==
PROVIDERS: Emergency Provider Emergency Medicine; PCP Physician Assistant; Visit Provider Emergency Medicine
DX: N20.0 Calculus of kidney (principal); N39.0 Urinary tract infection, site not specified; F17.200 Nicotine dependence, unspecified, uncomplicated; Z87.440 Personal history of urinary (tract) infections
CPT/HCPCS: 74176; 80053; 81001; 81025; 83690; 85025; 87086; 93005; 96361; 96365; 96375; 99283; J7030; J7050; A4216; J0696; J2405

== ENCOUNTER 2025-09-17 09:13 | Emergency (ER) | payer OTHER, SELFPAY ==
[2025-09-17 09:13] VITALS: BP 124/83; PULSE 80; RESP 14; TEMP 36.1; O2SAT 98; BMI 25.2
--- NOTE | 2025-09-17 09:30 | EX.ED.VIS.HA ---
HPI History of Present Illness Chief Complaint: Headache Informant: patient Narrative Narrative: 25-year-old female presenting to the emergency room for the evaluation of headache. Patient states in July she hit her head at work. Since then she has been experiencing headaches. But specifically over the past 3 weeks she has had daily headaches lasting about 30 minutes upwards of 6 times per day. She states that she has pain in the occiput vertex frontal regions. She notes associated nausea. Worried about this like being over the past week she has started to experience vision changes noting halo and some blurry vision at the start of the headache. She is also noting pain in her neck associated with the headaches. She denies any infectious symptoms. She states that she talked with her doctor and was prescribed propranolol and is scheduled for a CT later this week. However she was concerned and came to emergency for evaluation. PFSH PFSH Medical History Obesity Frequent UTI Gestational diabetes requiring insulin Tobacco use Home Medications ?Medication ?Instructions ?Recorded ?Last Taken ?Type cefpodoxime 200 mg tablet 200 mg PO BID #26 tabs 09/12/22 Unknown Rx oxycodone 5 mg tablet 5 mg PO Q6H 3 days #12 tabs 09/12/22 Unknown Rx cephalexin 500 mg capsule 500 mg PO BID 5 days #10 caps 05/30/24 Unknown Rx ondansetron 4 mg disintegrating 4 mg PO Q6H 4 days #16 tabs 05/30/24 Unknown Rx tablet oxycodone-acetaminophen 5 mg-325 1 tab PO Q6H PRN pain 2 days #6 05/30/24 Unknown Rx mg tablet (Endocet) tabs Allergy/AdvReac Type Severity Reaction Status Date / Time sulfamethoxazole (From Allergy Rash Verified 09/17/25 09:13 Bactrim) trimethoprim (From Bactrim) Allergy Rash Verified 09/17/25 09:13 Family History Mother Hypertension Father Diabetes Surgical History S/P left knee arthroscopy S/P appendectomy [place] teeth extracted Social History household members: spouse and family Smoking Status: Current every day smoker tobacco type: cigarettes alcohol intake: current alcohol intake frequency: holidays/special occasions only substance use type: does not use ROS ROS ED Constitutional Constitutional ED: Denies chills or weight loss Eyes Eyes: Reports blurry vision and other Details: Halo in vision prior to headache ; Denies change in vision or diplopia ENT ENT ED: Denies ear pain, rhinorrhea or sore throat Cardiovascular Cardiovascular: Denies chest pain, orthopnea, palpitations or racing heartbeat Respiratory/Chest Respiratory/Chest: Denies cough, dyspnea or orthopnea Gastrointestinal Gastrointestinal: Reports nausea; Denies abdominal pain, diarrhea or vomiting Genitourinary Genitourinary ED: Denies dysuria, hematuria or urinary frequency Musculoskeletal Musculoskeletal: Reports neck pain; Denies arthralgias or myalgias Integumentary Denies abscess or rash Neurologic Neurologic: Reports headache(s); Denies paresthesias or weakness Psychiatric Psychiatric: Denies anxiety, depression, suicidal ideation or suicidal thoughts Endocrine Endocrinology: Denies polydipsia, polyphagia or polyuria Allergic/Immunologic Allergic/Immunologic ED: Denies mouth swelling, tongue swelling or urticaria EXAM Physical Exam Const Vital Signs: 09/17/25 09:13 Temperature 97 F L Temperature Source Temporal Pulse Rate 80 Respiratory Rate 14 Blood Pressure 124/83 H Blood Pressure Mean 96 Pulse Ox 98 Oxygen Delivery Method Room Air Positive well nourished and well developed General Appearance ED: well developed and NAD HEENT Reports normocephalic, head/scalp atraumatic and moist mucous membranes Eyes PERRL and EOMs intact bilaterally Neck no lymphadenopathy, supple and no JVD Resp normal respiratory effort and clear to auscultation bilaterally Cardio regular rate, regular rhythm and no murmurs GI normal to inspection, nondistended, normoactive bowel sounds and non-tender Palpation: soft Back/Spine no CVA tenderness and normal ROM Extremity normal to inspection General Extremety ED: Negative for edema General Extremity: Negative for edema Neuro oriented x3, CN's II-XII intact bilaterally and no sensory deficits noted [place] Coma Scale: document GCS findings Spontaneous Obeys Commands Oriented 15 Sensorium / Orientation: alert Speech: speech normal Motor Exam: strength 5/5 throughout Psych mental status grossly normal Mood & Affect: Negative for depressed or tearful Skin no rashes or lesions noted and no wounds MDM MDM MDM Narrative Medical decision making narrative: Differential diagnosis includes but not limited to primary headache disorder migraine cerebral edema AVM malignancy infection dissection aneurysm IV was established patient received a dose of Toradol. test is negative. CTA head and neck was obtained. This was read by radiology reviewed by myself. No obvious dissection aneurysm or AVM malignancy or edema is noted. Discussed with the patient the above results. Given how frequently she is getting headaches any change in their nature she may benefit from seeing neurology. She notes understanding of this. She is to continue her propranolol as well as Zofran as needed/prescribed History & Record Review Discussion w/independent historian: Patient Additional record(s) reviewed:: Prior ED visit Lab Data Attestation: I reviewed the patient's lab results. Labs: Laboratory Results - last 24 hr 09/17/25 09:35 Sodium 137 Potassium 4.2 Chloride 102 Carbon Dioxide 27.1 Anion Gap 7 BUN 18 Creatinine 0.66 L Estim Creat Clear Calc 119.86 Est GFR (MDRD) Non-Af 123 BUN/Creatinine Ratio 27.9 H Glucose 96 Calcium 9.6 Serum , Qual NEGATIVE Radiography Diagnostic Testing: Clinical Impression(s) from Imaging Studies Head/Neck CTA 09/17/25 10:05 IMPRESSION: CTA head: No acute intracranial abnormalities. CTA head and neck: Unremarkable without hemodynamically significant stenosis. No AVM or aneurysms. Reading Location: [facility] Discharge Plan Triage Chief Complaint: Headache ED Provider: Caesar Cain Dx/Rx/DC Orders Clinical Impression: Headache, Nausea Instructions: Self-Care for Headaches Prescriptions: No Action oxycodone 5 mg Tablet 5 mg PO Q6H 3 Days Qty: 12 0RF cefpodoxime 200 mg tablet 200 mg PO BID Qty: 26 0RF Rx Instructions: must administer with a meal/food cephalexin 500 mg capsule 500 mg PO BID 5 Days Qty: 10 0RF ondansetron 4 mg tablet,disintegrating 4 mg PO Q6H 4 Days Qty: 16 0RF oxycodone-acetaminophen [Endocet] 5-325 mg tablet 1 tab PO Q6H PRN (Reason: pain) 2 Days Qty: 6 0RF Primary Care Provider: Yodit Lazar Referrals: Dmitry Manning MD [Non-Staff -Ordering Privileges, Neurology] - As soon as possible Referral Note: or neurologist of your choice as discussed Ramila Mcnamara, PA [Non-Staff, Medical] Print Language: Citizen Of [place] Disposition Disposition: Home, Self Care
[2025-09-17] MEDS: Ketorolac 30 MG/ML Syringe IV (09:37)
[2025-09-17 09:53] LABS: Internal QC Validated? YES +Cl - CLEAR BKGD; Pregnancy, Serum, hCG Quali. NEGATIVE Negative
[2025-09-17 09:57] LABS: Record Kit Lot#, Serum Preg. 0000980607
--- NOTE | 2025-09-17 10:05 | CT_ITS ---
PROCEDURE: CTA HEAD AND NECK W/ CONTRAST 09/17/2025 CT head without contrast REASON FOR EXAM: HEADACHE VISION CHANGES TECHNIQUE: Procedure Code: CTCTA.HDNCK Modality: CT Procedure: CTA HEAD AND NECK W/ CONTRAST CT head without contrast Multiplanar Sagittal and Coronal images were obtained. CONTRAST: Isovue 370 VOLUME: 100 mL One or more dose reduction techniques were used (e.g., Automated exposure control, adjustment of the mA and/or kV according to patient size, use of iterative reconstruction technique). RADIATION DOSE SUMMARY: CTDlvol: 17.3 mGy DLP: 1420.3 mGycm COMPARISON: None. FINDINGS: CT head: Brain: Normal. Orbits: Normal. CSF: Normal Paranasal sinuses and mastoid cells: Clear. Bones: No acute bony abnormalities. Soft tissues: No acute abnormalities. CTA head and neck: Aortic Arch: Normal size and branching pattern. No significant atherosclerotic plaque. Brachiocephalic and Subclavians: Unremarkable RIGHT Carotid: Right CCA: Unremarkable. Right ICA: Unremarkable. Right ECA: Unremarkable. LEFT Carotid: Left CCA: Unremarkable. Left ICA: Unremarkable. Left ECA: Unremarkable. Vertebrals: Codominant. Arise from the subclavians. Both vertebrals form the basilar. RIGHT Vertebral: Unremarkable. LEFT Vertebral: Unremarkable. Anatomy: [place] anatomy is normal. Aneurysm or avm: No intracranial aneurysms or large vascular malformations are identified. Anterior cerebral arteries: Unremarkable: Middle cerebral arteries: Unremarkable. Basilar artery: Unremarkable. Posterior cerebral arteries: Unremarkable. Other major branches of the posterior circulation: Unremarkable. Major venous structures: Unremarkable. Other findings: Neck: No lymphadenopathy. Lungs: Lung apices are clear. Bones: No acute bony abnormalities. CT/CTA Head AND Neck W/ Contrast IMPRESSION: CTA head: No acute intracranial abnormalities. CTA head and neck: Unremarkable without hemodynamically significant stenosis. No AVM or aneurysms. Reading Location: [facility]
[2025-09-17 10:22] LABS: Anion Gap 7 (5-15); BUN 18 mg/dL (4-19); BUN/Creat Ratio 27.9 RATIO (10-20); Calcium,Total 9.6 mg/dL (7.6-11.0); Carbon Dioxide 27.1 mmol/L (21.0-32.0); Chloride 102 mmol/L (98-108); Estimated Creatinine Clearance 119.86 ml/min (50-250); Glucose 96 mg/dL (70-99); Potassium 4.2 mmol/L (3.3-5.1)
[2025-09-17 10:58] VITALS: BP 114/74; PULSE 68; RESP 18; TEMP 36.7; O2SAT 100
== END 2025-09-17 10:59 | disposition home or self-care (01) ==
PROVIDERS: Emergency Provider Emergency Medicine; PCP Clinical Nurse Specialist Adult Health; Visit Provider Emergency Medicine
DX: R51.9 Headache, unspecified (principal); R11.0 Nausea; F17.210 Nicotine dependence, cigarettes, uncomplicated; Z90.49 Acquired absence of other specified parts of digestive tract
CPT/HCPCS: 70496; 70498; 80048; 84703; 96374; 99283; Q9967; A4216